=== PATIENT | female | born 1995 | race Caucasian/White ===

== ENCOUNTER → 2018-06-30 12:30 | Outpatient (CLI) | payer MEDICAID, SELFPAY | PROVIDERS: Family Provider Family Medicine; PCP Family Medicine; Visit Provider Obstetrics & Gynecology | DX: Z30.9 Encounter for contraceptive management, unspecified (principal); N83.209 Unspecified ovarian cyst, unspecified side | CPT/HCPCS: 76830; 76856; 93976 ==

== ENCOUNTER → 2019-10-05 14:53 | Outpatient (CLI) | payer MEDICAID, SELFPAY ==
[2019-10-05 10:04] VITALS: BMI 21.8
[2019-10-10 15:58] LABS: HPV Reflexed? NOT INDICATED
== END ==
PROVIDERS: Family Provider Family Medicine; Visit Provider Obstetrics & Gynecology
DX: Z12.4 Encounter for screening for malignant neoplasm of cervix (principal)
CPT/HCPCS: 88175; G0145

== ENCOUNTER → 2020-03-27 | Outpatient (CLI) | payer MEDICAID, SELFPAY ==
[2020-03-27 15:09] VITALS: BMI 22.3
[2020-03-27 21:12] LABS: Chlamydia Trachomatis by PCR Negative (Negative); Neisserai gonorrhoeae by PCR Negative (Negative); Probe Check PASS; Sample Adequacy Control PASS; Specimen Processing Control PASS
== END | disposition home or self-care (01) ==
LOC: LABSPEC 16:13
PROVIDERS: Referring Provider Nurse Practitioner Women's Health; Visit Provider Nurse Practitioner Women's Health
DX: R10.2 Pelvic and perineal pain (principal)
CPT/HCPCS: 87491; 87591

== ENCOUNTER → 2020-04-23 14:24 | Outpatient (CLI) | payer MEDICAID, SELFPAY ==
[2020-03-27 15:09] VITALS: BMI 22.3
--- NOTE | 2020-04-23 14:25 | US_ITS ---
STUDY: ULTRASOUND OF THE FEMALE PELVIS - COMPLETE REASON FOR EXAM: Female, 25 years old. PAIN IUD X 1 MONTH LMP: 04/02/2020 TECHNIQUE: Transabdominal and Transvaginal TECHNICAL QUALITY: Adequate. COMPARISON: 06/30/2018 FINDINGS: The uterus is anteverted and is in a midline position. The uterus measures 9 x 4.9 x 4.1 cm. Normal uterine cervix. The endometrium measures 7.7 mm in thickness, and is hyperechoic. There is no demonstrated endometrial mass. There is no demonstrated myometrial mass. I.U.D. - an IUD is in place. Images demonstrate that the inferior portion of the IUD could be marginally protruding into the anterior myometrium. The right ovary is visualized. The right ovary measures 3.4 x 2.6 x 2.1 cm. There is no right ovarian cyst or ovarian mass. There is no visualized right adnexal mass or complex lesion. There is normal arterial and normal venous vascularity. The left ovary is visualized. The left ovary measures 2.5 x 1.7 x 1.5 cm. There is no left ovarian cyst or ovarian mass. There is no visualized left adnexal mass or complex lesion. There is normal arterial and normal venous vascularity. There is no fluid in the cul-de-sac. The pre void volume of the bladder was ml. The post void volume of the bladder was ml. Polycystic ovary disease: No. US/Transvaginal Non- IMPRESSION: Images demonstrate that the inferior portion of the IUD could be marginally protruding into the anterior myometrium. The ovaries are unremarkable. No free fluid is seen. Electronically Signed: Akbar Raza MD at 15:49 EDT Tel , Service support ,
--- NOTE | 2020-04-23 14:25 | US_ITS ---
STUDY: ULTRASOUND OF THE FEMALE PELVIS - COMPLETE REASON FOR EXAM: Female, 25 years old. PAIN IUD X 1 MONTH LMP: 04/02/2020 TECHNIQUE: Transabdominal and Transvaginal TECHNICAL QUALITY: Adequate. COMPARISON: 06/30/2018 FINDINGS: The uterus is anteverted and is in a midline position. The uterus measures 9 x 4.9 x 4.1 cm. Normal uterine cervix. The endometrium measures 7.7 mm in thickness, and is hyperechoic. There is no demonstrated endometrial mass. There is no demonstrated myometrial mass. I.U.D. - an IUD is in place. Images demonstrate that the inferior portion of the IUD could be marginally protruding into the anterior myometrium. The right ovary is visualized. The right ovary measures 3.4 x 2.6 x 2.1 cm. There is no right ovarian cyst or ovarian mass. There is no visualized right adnexal mass or complex lesion. There is normal arterial and normal venous vascularity. The left ovary is visualized. The left ovary measures 2.5 x 1.7 x 1.5 cm. There is no left ovarian cyst or ovarian mass. There is no visualized left adnexal mass or complex lesion. There is normal arterial and normal venous vascularity. There is no fluid in the cul-de-sac. The pre void volume of the bladder was ml. The post void volume of the bladder was ml. Polycystic ovary disease: No. US/Pelvic (Non ) IMPRESSION: Images demonstrate that the inferior portion of the IUD could be marginally protruding into the anterior myometrium. The ovaries are unremarkable. No free fluid is seen. Electronically Signed: Akbar Raza MD at 15:49 EDT Tel , Service support ,
== END ==
PROVIDERS: PCP Family Medicine; Referring Provider Nurse Practitioner Women's Health; Visit Provider Nurse Practitioner Women's Health
DX: R10.2 Pelvic and perineal pain (principal)
CPT/HCPCS: 76830; 76856

== ENCOUNTER → 2020-06-10 14:28 | Outpatient (CLI) | payer MEDICAID, SELFPAY ==
[2020-04-25 10:34] VITALS: BMI 22.3
[2020-06-10 15:23] LABS: hCG Titer Quant., Serum 19472 mIU/mL (1-3)
== END ==
PROVIDERS: PCP Family Medicine; Referring Provider Obstetrics & Gynecology; Visit Provider Obstetrics & Gynecology
DX: N91.2 Amenorrhea, unspecified (principal)
CPT/HCPCS: 36415; 84702

== ENCOUNTER 2020-06-18 13:25 | Day surgery (SDC) | payer MEDICAID, SELFPAY ==
[2020-06-18] VITALS (8 sets, daily range): BP systolic 100–106; BP diastolic 47–72; PULSE 59–84; RESP 15–16; TEMP 36.3–37.1; O2SAT 96–100; BMI 22.3; BMI 22.0
--- NOTE | 2020-06-18 14:00 | HP.PCM_ITS ---
- Problem List (1) Lichen sclerosus Status: Acute Comment: biopsy done (2) Lichen sclerosus Status: Acute (3) Missed Status: Acute Comment: declines surgery. plan cytotec and fu in 1 week for repeat US, and follow HCGs until negative, plan IUD placement afterwards. (4) Mood swings Status: Acute History and Physical Date of Admission: 06/18/20 Intake Vital Signs 06/18/20 Height 5 ft 5.5 in 06/18/20 Weight: 133 lb 4 oz 06/18/20 BMI 21.8 06/18/20 BP 120/70 Intake Visit Reasons: rescan per SM, miscarriage fu Enrollment Management Manager Required: No Is patient in pain?: No Allergies escitalopram [From Lexapro] Adverse Reaction (Severe, Verified 06/18/20 12:57) slow heart rate Medications lamotrigine 200 mg tablet 200 mg PO DAILY 10/05/19 [History Confirmed 06/18/20] Post menopausal: No : No PFSH Medical History Mood swings (Acute) Lichen sclerosus (Acute) ADHD (Acute) Anomalous atrioventricular excitation (Acute) Chlamydia (Acute) Fracture (Acute) Surgical History ablation (Resolved) Family History Grandmother Heart disease Hypertension Asthma CVA (cerebral vascular accident) Lung cancer Grandfather Heart disease Hypertension Father Abuse, drug or alcohol Social History (Updated 06/18/20 @ 13:[address] Lila John MD) Smoking Status: Former smoker alcohol intake: current details: occasionally substance use type: does not use caffeine: Yes what type of physical activity do you participate in: weight training frequency: 1-2 times per week seatbelt use: always do you feel safe at home: Yes additional social history: Single- Works at [employer] HPI rescan per SM, miscarriage fu: Details: HEATHER GIVENS is a 25 year old who presents for fu of early miscarriage. she is having bleeding inctermittently and took two doses of cytotec but still has a collapsing sac with retained products. she denies any fevers. Pregancy History 3 Elective abortions Hx Para 3 Spontaneous abortions Hx # Term Pregnancies 3 Ectopic pregnancies Hx # Pregnancies Multiple births # of living children 3 Past Pregnancies Del. Date Name GA/Weeks Outcome Route Bth Weight Infant Gen Labor Lgth Anesthesia Del Locatn Provider FOB 07/23/11 Jonas live - full term 7 lbs 9 oz Fema le 2 hours epidural [place] 11/06/12 Rich 39 live - full term 7 lbs 5 oz Male 5 hours epidural [place] 03/12/17 Santhosh 39 live - full term 7 lbs 8 oz Fema le 4 hours epidural [facility] ROS Const Constitutional: Denies fatigue, fever(s), headache(s), increased appetite, poor appetite, weight gain or weight loss Cardio Card: Denies chest pain Resp Resp: Denies cough or dyspnea GI GI: Reports as per HPI; denies abdominal pain, constipation, nausea or vomiting : Reports as per HPI; denies difficulty urinating, painful urination, nipple discharge, urinary frequency, urinary incontinence, urinary hesitancy, urinary urgency, vaginal discharge, vaginal dryness, vaginal odor or vaginal itching Skin Skin/Breast: Denies change in hair, breast lump, breast pain, breast skin changes or nipple discharge Exam Const General: cooperative, healthy appearing, comfortable, no acute distress, well developed Nutritional Appearance: average body habitus Orientation: alert [facility] Head: normal to inspection, normocephalic Neck Neck: normal visual inspection, trachea midline Thyroid: thyroid normal Resp Effort & Inspection: normal respiratory effort GI Inspection: normal to inspection, non-distended Palpation: soft, no hepatosplenomegaly General: bladder normal to palpation External Female Exam: normal external appearance, normal appearance of the urethra Urethra: normal appearance of the urethra, normal palpation Speculum Exam - Vagina: normal appearance of the vagina, vaginal bleeding Speculum Exam - Cervix: normal appearance of the cervix, nontender Bimanual Exam- Vagina & Uterus: normal bimanual exam, uterine size normal, bladder normal to palpation, uterine shape normal, No cervical tenderness, uterine mobility normal, uterine consistency normal, normal cervical palpation, uterus non-tender Bimanual Exam- Adnexa, other: normal adnexae, adnexae mobile, no adnexal masses, pelvic support normal Pelvic Support: normal OB/External & Speculum: vaginal bleeding Speculum Exam: vaginal bleeding Skin General: no rashes or lesions noted Assessment & Plan Problems 1. Missed O02.1 declines surgery. plan cytotec and fu in 1 week for repeat US, and follow HCGs until negative, plan IUD placement afterwards. Plan failed medical intervention plan suction d and c for retained products. After discussing the patient's diagnosis and treatment plan options, patient wishes to proceed with surgical management. I have discussed with the patient the risks, benefits, and alternatives of the procedure which include but are not limited to risks of anesthesia, bleeding, infection, possible damage to bowel, bladder, or surrounding vasculature which could lead to additional surgery to evaluate any complications. Patient agrees to procedure and wishes to proceed. ACOG/uptodate references given for additional information regarding procedure. Coding Level of Care Code Off vis,est,level 4 Diagnoses Missed O02.1
[2020-06-18 14:08] LABS: Hematocrit 35.9 % (37-47); Hemoglobin 12.5 g/dL (12.0-15.0); Mean Corp Hgb Conc 34.8 g/dL (32-36); Mean Corpuscular Hgb 31.5 pg (27.0-32.0); Mean Corpuscular Volume 90.4 fL (81-99); Mean Platelet Vol. 11.9 fl (6.2-12.0); Platelet Count 108 K/mm3 (150-450); RBC Distribution Width CV 11.9 % (11.6-14.6); RBC Distribution Width SD 39.3 fl (35.1-43.9); Red Blood Count 3.97 M/mm3 (4.2-5.4); White Blood Count 4.5 K/mm3 (4.4-11.0)
[2020-06-18] MEDS: Doxycycline 100 MG CAPSULE PO (14:15)
[2020-06-18] MEDS: Lactated Ringers 1,000 ML 100 ML IV (14:21)
--- NOTE | 2020-06-18 14:30 | POC_PTH ---
PATIENT: HEATHER GIVENS LOC: [facility] [place][id number] AGE/SX: 25/F ROOM: RE06/18/[address]: Dr. Lila John MD : 1995 BED: DIS: 06/18/2020 SPEC #: [id number] RECD: 06/19/20 08:08 STATUS: JORGE NANETTE #: [id number] LORRAINE: 06/18/20 14:[address]: Lila John DEPT: SURGICAL PATHOLOGY RECD BY: Suhail Johansen ENTERED: 06/19/20 09:33 SP TYPE: PROD CONC OTHR DR: Dr. Archie Marcum III, MD Tissues: Product of conception, NOS Procedures: Surgery Specimen Level IV HEADER OPERATION: Dilation and curettage, suction, insertion of Lexii IUD PRE-OP DIAGNOSIS: Missed TISSUE SUBMITTED: Products of conception MICROSCOPIC DIAGNOSIS Products of conception: [place]id[place], gestational endometrium and immature chorionic villi (products of conception). SJ:shen 06/20/20 MICROSCOPIC DESCRIPTION Slides are reviewed. GROSS DESCRIPTION Received in fixative is one container labeled with the patient's name and designated products of conception. The specimen consists of multiple irregular fragments of syed-pink soft tissue that in aggregate measure 7 x 6 x 2 cm. tissue is not identified. Tugger Operator tissue is submitted in two cassettes. / SANA:shen 06/19/20 TC:5 CPT: 05439
--- NOTE | 2020-06-18 15:18 | PCM.OPRPT ---
Problem List (1) Lichen sclerosus Status: Acute Comment: biopsy done (2) Lichen sclerosus Status: Acute (3) Missed Status: Acute Comment: declines surgery. plan cytotec and fu in 1 week for repeat US, and follow HCGs until negative, plan IUD placement afterwards. (4) Mood swings Status: Acute Report of Operation Date of Procedure: 06/18/20 Pre-Operative Diagnosis: missed failed medical management, desires IUD Post-Operative Diagnosis: same Surgery/Procedure Performed:: suction d and c Description of Surgical Findings:: 9 cm uterus Type of Anesthesia:: Local MAC Special Medications: april Specimen's removed: poc Drains: none Estimated Blood Loss (mL): 50 Fluids Replaced: crystalloid Description of Procedure: Patient was taken the operating room and placed under MAC local anesthesia. She was prepped and draped in normal sterile fashion in the dorsolithotomy position. Paracervical block was performed with 1% lidocaine and cervix dilated to allow passage of a 9 mm sound based on uterine length of 9 cm. Multiple passes were made with the suction curette and then sharp curettage was performed to confirm complete removal of products of conception. April IUD was then placed without difficulty. Uterus sounded to 9 cm for placement. Trimmed to 3 cm and tenaculum removed and excellent hemostasis noted. Patient was given Toradol and awoken and taken recovery in stable condition. Grafts/Implants Used: april - Complications none Multi Select Codes - Urinary/Genital Urinary/Genital CPT Codes: 82883 Insert IUD, 76514 Surg Trtmt missed Ab 1TM
[2020-06-18] MEDS: HYDROcodone Bitartrate/Apap 5/325 Tablet PO (16:29)
--- NOTE | 2020-06-18 16:35 | DCINST_ITS ---
Discharge Diet: No Restrictions Discharge Activity: Return to Normal Activity, May Shower, May Take a Tub Bath Allergies/Adverse Reactions: Allergies escitalopram [From Lexapro] Adverse Reaction (Severe, Verified 06/18/20 14:01) slow heart rate Medications to take at Discharge lamotrigine 200 mg tablet 200 mg PO DAILY 10/05/19 Primary Care Physician: Archie Marcum III, MD [Primary Care Provider] - Test Results: Test results from this visit will be discussed in further detail at your follow- up appointment, if applicable. Please Follow Up With: Lila John MD - [phone]
== END 2020-06-18 16:51 | disposition home or self-care (01) ==
LOC: SDC 13:27 → AC 13:29
PROVIDERS: PCP Family Medicine; Referring Provider Obstetrics & Gynecology; Visit Provider Obstetrics & Gynecology
PROC: (CPT 59820; principal; 2020-06-18 14:15)
DX: O02.1 Missed abortion (principal); L90.0 Lichen sclerosus et atrophicus; Z87.891 Personal history of nicotine dependence
CPT/HCPCS: 59820; 36415; 85027; 86850; 86900; 86901; 88305; J7120; J2405

== ENCOUNTER 2021-02-26 12:07 | Outpatient (RCR) | payer BC, SELFPAY ==
[2020-06-18 14:02] VITALS: BMI 22.0
== END 2021-04-02 23:59 ==
LOC: IMMUN 12:07
PROVIDERS: PCP Family Medicine; Referring Provider Family Medicine; Visit Provider Family Medicine
DX: Z23 Encounter for immunization (principal)
CPT/HCPCS: 0001A; 91300

== ENCOUNTER → 2021-08-07 11:17 | Outpatient (CLI) | payer BC, MEDICAID, SELFPAY ==
[2021-08-07 11:44] LABS: Absolute Lymphocyte Count 1.45 X10^3/uL (0.83-4.51); Basophil# 0.01 X10^3/uL; Basophil% 0.3 % (0-1); Eosinophil# 0.07 X10^3/uL; Eosinophils% 1.8 % (0-5); Hematocrit 40.9 % (37-47); Hemoglobin 13.9 g/dL (12.0-15.0); Lymphocyte # 1.45 X10^3/ul (0.83-4.51); Mean Corpuscular Hgb 31.3 pg (27.0-32.0); Mean Corpuscular Volume 92.1 fL (81-99); Mean Platelet Vol. 11.5 fl (6.2-12.0); Monocyte# 0.26 X10^3/uL; Monocyte% 6.8 % (0-10); NRBC Flagged by Analyzer 0 % (0-5); Neutrophil # 2.02 X10^3/uL (2.7-7.7); Neutrophil % 52.8 % (47-70); Platelet Count 111 K/mm3 (150-450); RBC Distribution Width CV 12.3 % (11.6-14.6); RBC Distribution Width SD 41.9 fl (35.1-43.9); Red Blood Count 4.44 M/mm3 (4.2-5.4); White Blood Count 3.8 K/mm3 (4.4-11.0)
[2021-08-07 12:11] LABS: Follicle Stimulating Hormone 2.9 mIU/mL; Prolactin 7.5 ng/mL; Thyroid Stim Hormone (TSH) 1.33 uIU/mL (0.358-3.74)
[2021-08-07 12:32] LABS: HIV - WCH Non-Reactive (Nonreactive)
[2021-08-11 12:07] LABS: HCV Quant. RNA PCR HCV Not Detected IU/mL (.)
[2021-08-11 15:35] LABS: HSV 1 IgG < 0.91 index (0.00-0.90); HSV 2 IgG < 0.91 index (0.00-0.90); Testosterone Free 3.3 pg/mL (0.0-4.2)
[2021-08-11 22:07] LABS: Chlamydia By Nucleic Acid AMP Negative (Negative); Gonococcus By Nucleic Acid AMP Negative (Negative)
[2021-08-12 17:15] LABS: 17-Hydroxyprogesterone 202 ng/dL (.)
== END ==
PROVIDERS: Referring Provider Obstetrics & Gynecology; Visit Provider Obstetrics & Gynecology
DX: Z11.3 Encounter for screening for infections with a predominantly sexual mode of transmission (principal); N91.4 Secondary oligomenorrhea
CPT/HCPCS: 36415; 82627; 83001; 83498; 84146; 84402; 84443; 85025; 86695; 86696; 86703; 87255; 87491; 87522; 87591; 82626

== ENCOUNTER → 2021-08-14 11:54 | Outpatient (CLI) | payer BC, MEDICAID, SELFPAY ==
[2021-08-14 12:07] LABS: Absolute Lymphocyte Count 1.83 X10^3/uL (0.83-4.51); Absolute Neutrophil Count 1.6 X10^3/uL (2.0-7.7); Basophil# 0.02 X10^3/uL; Basophil% 0.5 % (0-1); Eosinophil# 0.06 X10^3/uL; Eosinophils% 1.6 % (0-5); Hematocrit 37.8 % (37-47); Hemoglobin 13.2 g/dL (12.0-15.0); Lymphocyte # 1.83 X10^3/ul (0.83-4.51); Lymphocyte % 48.5 % (19-41); Mean Corp Hgb Conc 34.9 g/dL (32-36); Mean Corpuscular Hgb 31.8 pg (27.0-32.0); Mean Corpuscular Volume 91.1 fL (81-99); Mean Platelet Vol. 11.6 fl (6.2-12.0); Monocyte# 0.24 X10^3/uL; Monocyte% 6.4 % (0-10); NRBC Flagged by Analyzer 0 % (0-5); Neutrophil # 1.61 X10^3/uL (2.7-7.7); Neutrophil % 42.7 % (47-70); Platelet Count 102 K/mm3 (150-450); RBC Distribution Width SD 39.8 fl (35.1-43.9); Red Blood Count 4.15 M/mm3 (4.2-5.4); White Blood Count 3.8 K/mm3 (4.4-11.0)
== END ==
PROVIDERS: Referring Provider Obstetrics & Gynecology; Visit Provider Obstetrics & Gynecology
DX: D72.819 Decreased white blood cell count, unspecified (principal)
CPT/HCPCS: 36415; 85025

== ENCOUNTER 2021-11-19 09:07 | Outpatient (CLI) | payer MEDICAID, SELFPAY | END 2021-11-19 23:59 | disposition short-term general hospital (02) | LOC: LABSPEC 11-20 09:09 | PROVIDERS: Visit Provider Nurse Practitioner Women's Health | DX: N76.0 Acute vaginitis (principal) | CPT/HCPCS: 87070; 87205 ==

== ENCOUNTER 2021-11-19 12:07 | Outpatient (CLI) | payer MEDICAID, SELFPAY ==
[2021-11-21 17:58] LABS: HSV 1 IgG < 0.91 index (0.00-0.90); HSV 2 IgG < 0.91 index (0.00-0.90)
== END 2021-11-19 23:59 | disposition short-term general hospital (02) ==
LOC: LAB 12:11
PROVIDERS: Referring Provider Nurse Practitioner Women's Health; Visit Provider Nurse Practitioner Women's Health
DX: N76.0 Acute vaginitis (principal); Z20.2 Contact with and (suspected) exposure to infections with a predominantly sexual mode of transmission
CPT/HCPCS: 36415; 86695; 86696; 87070; 87186; 87205

== ENCOUNTER 2021-12-25 09:58 | Outpatient (CLI) | payer MEDICAID, SELFPAY ==
[2021-12-25 11:46] LABS: HIV - WCH Non-Reactive (Nonreactive)
[2021-12-26 19:07] LABS: HCV Quant. RNA PCR HCV Not Detected IU/mL (.)
[2021-12-26 19:14] LABS: HSV 1 IgG < 0.91 index (0.00-0.90); HSV 2 IgG < 0.91 index (0.00-0.90)
[2021-12-30 00:06] LABS: Chlamydia By Nucleic Acid AMP Negative (Negative)
[2021-12-30 11:53] LABS: Gonococcus By Nucleic Acid AMP Negative (Negative)
== END 2021-12-25 23:59 | disposition home or self-care (01) ==
PROVIDERS: Referring Provider Obstetrics & Gynecology; Visit Provider Obstetrics & Gynecology
DX: Z11.3 Encounter for screening for infections with a predominantly sexual mode of transmission (principal)
CPT/HCPCS: 36415; 86695; 86696; 86703; 87491; 87522; 87591

== ENCOUNTER → 2022-05-20 | Outpatient (CLI) | payer MEDICAID, SELFPAY ==
[2022-05-20 10:36] LABS: Absolute Lymphocyte Count 1.21 X10^3/uL (0.83-4.51); Absolute Neutrophil Count 2.5 X10^3/uL (2.0-7.7); Basophil# 0.01 X10^3/uL; Basophil% 0.2 % (0-1); Eosinophil# 0.11 X10^3/uL; Eosinophils% 2.7 % (0-5); Hematocrit 37.9 % (37-47); Hemoglobin 13.2 g/dL (12.0-15.0); Lymphocyte # 1.21 X10^3/ul (0.83-4.51); Lymphocyte % 29.6 % (19-41); Mean Corp Hgb Conc 34.8 g/dL (32-36); Mean Corpuscular Hgb 32.9 pg (27.0-32.0); Mean Corpuscular Volume 94.5 fL (81-99); Mean Platelet Vol. 11.6 fl (6.2-12.0); Monocyte# 0.24 X10^3/uL; Monocyte% 5.9 % (0-10); NRBC Flagged by Analyzer 0 % (0-5); Neutrophil # 2.51 X10^3/uL (2.7-7.7); Neutrophil % 61.4 % (47-70); Platelet Count 117 K/mm3 (150-450); RBC Distribution Width CV 12.3 % (11.6-14.6); RBC Distribution Width SD 43.3 fl (35.1-43.9); Red Blood Count 4.01 M/mm3 (4.2-5.4); White Blood Count 4.1 K/mm3 (4.4-11.0)
[2022-05-20 11:32] LABS: HIV - WCH Non-Reactive (Nonreactive); Syphilis Antibodies Non-reactive
[2022-05-21 12:43] LABS: HSV 1 IgG < 0.91 index (0.00-0.90); HSV 2 IgG < 0.91 index (0.00-0.90)
[2022-05-21 21:06] LABS: Chlamydia By Nucleic Acid AMP Negative (Negative)
[2022-05-21 21:52] LABS: Gonococcus By Nucleic Acid AMP Negative (Negative)
== END | disposition home or self-care (01) ==
LOC: PAVLAB 10:20
PROVIDERS: Referring Provider Nurse Practitioner Women's Health; Visit Provider Nurse Practitioner Women's Health
DX: Z20.2 Contact with and (suspected) exposure to infections with a predominantly sexual mode of transmission (principal)
CPT/HCPCS: 36415; 85025; 86695; 86696; 86703; 86780; 87491; 87591

== ENCOUNTER → 2022-12-17 | Outpatient (CLI) | payer MEDICAID, SELFPAY ==
[2022-12-17 17:26] LABS: HIV - WCH Non-Reactive (Nonreactive); Hepatitis C Antibody Non-Reactive (Nonreactive); Syphilis Antibodies Non-reactive
[2022-12-20 09:21] LABS: HSV 1 IgG < 0.91 index (0.00-0.90); HSV 2 IgG < 0.91 index (0.00-0.90)
[2022-12-21 22:07] LABS: Chlamydia By Nucleic Acid AMP Negative (Negative)
[2022-12-21 22:43] LABS: Gonococcus By Nucleic Acid AMP Negative (Negative)
[2022-12-24 18:19] LABS: HPV Reflexed? NOT INDICATED
== END | disposition home or self-care (01) ==
PROVIDERS: Referring Provider Nurse Practitioner Women's Health; Visit Provider Nurse Practitioner Women's Health
DX: Z12.4 Encounter for screening for malignant neoplasm of cervix (principal); Z11.3 Encounter for screening for infections with a predominantly sexual mode of transmission; Z20.2 Contact with and (suspected) exposure to infections with a predominantly sexual mode of transmission
CPT/HCPCS: 36415; 86695; 86696; 86703; 86780; 86803; 87491; 87591; 88175; G0145

== ENCOUNTER 2023-04-21 15:11 | Emergency (ER) | payer MEDICAID, SELFPAY ==
[2023-04-21 15:12] VITALS: BP 124/72; PULSE 106; RESP 18; TEMP 36.4; O2SAT 99; BMI 21.7
--- NOTE | 2023-04-21 15:23 | EX.ED.DYSGE1 ---
HPI History of Present Illness Chief Complaint: Sore Throat Informant: patient Onset/Context/Timing Onset: Days (6 days) Context: Gradual Onset Current Severity: Moderate Maximum Severity: Moderate Narrative Narrative: Patient presents with 6-day history of sore throat. She states she started to get dry scratchy throat 6 days ago over the past 3 days has felt like her throat is more swollen. Today pain was significantly worse and [facility] this morning. She had a rapid strep test that was negative. A throat culture and Chlamydia culture were sent as patient did recently have oral sex. She states she had a temperature of 102 this morning and this concerned her. [facility] Medical History ADHD Anomalous atrioventricular excitation Encounter for contraceptive management Fracture Lichen sclerosus Mood swings Home Medications clobetasol 0.05 % topical cream 1 applic topical .COMPLEX #15 grams 05/20/22 [Rx Last Taken Unknown] desogestrel 0.15 mg-ethinyl estradiol 0.03 mg tablet (Apri) 1 tab PO QDAY #84 tabs 05/20/22 [Rx Last Taken Unknown] levonorgestrel 14 mcg/24 hrs (3 yrs) 13.5 mg intrauterine device (Lexii) 1 device intrauterine ONCE 05/20/22 [History Last Taken Unknown] mirtazapine 15 mg tablet 15 mg PO QHS 12/17/22 [History Last Taken Unknown] multivitamin 1 tab PO DAILY 12/17/22 [History Last Taken Unknown] prednisone 20 mg tablet 40 mg (2 x 20 mg) PO DAILY #10 tabs 04/21/23 [Rx Last Taken Unknown] Allergy/AdvReac Type Severity Reaction Status Date / Time escitalopram [From Lexapro] AdvReac Severe slow heart Verified 04/21/23 15:11 rate Family History Grandmother Heart disease Hypertension Asthma CVA (cerebral vascular accident) Lung cancer Grandfather Heart disease Hypertension Father Abuse, drug or alcohol Surgical History H/O cardiac radiofrequency ablation Social History Smoking Status: Never smoker alcohol intake: current details: occasionally substance use type: does not use caffeine: Yes what type of physical activity do you participate in: weight training frequency: 1-2 times per week seatbelt use: always do you feel safe at home: Yes additional social history: Single- Works [employer] ROS ROS ED Constitutional Constitutional ED: Reports fever(s); Denies chills Eyes Eyes: Denies change in vision or discharge from eye(s) ENT ENT ED: Reports sore throat; Denies discharge from eye(s) or rhinorrhea Cardiovascular Cardiovascular: Denies chest pain Respiratory/Chest Respiratory/Chest: Denies cough or dyspnea Gastrointestinal Gastrointestinal: Denies abdominal pain, nausea or vomiting Genitourinary Genitourinary ED: Denies dysuria Musculoskeletal Musculoskeletal: Denies back pain or extremity pain Integumentary Denies Abrasions or rash Neurologic Neurologic: Denies headache(s) or weakness Allergic/Immunologic Allergic/Immunologic ED: Denies lip swelling or urticaria EXAM Physical Exam Narrative Exam Narrative: Patient sitting upright in bed no acute distress. Speaks with a strong voice and is tolerating secretions well. Const Vital Signs: 04/21/23 15:12 Temperature 97.6 F L Temperature Source Temporal Pulse Rate 106 H Respiratory Rate 18 Blood Pressure 124/72 H Blood Pressure Mean 89 Pulse Ox 99 Oxygen Delivery Method Room Air Positive well nourished and well developed General Appearance ED: well developed HEENT Reports moist mucous membranes HEENT Narrative: 3+ bilateral tonsils. Uvula is midline. No exudate noted. Tolerating secretions well. Eyes PERRL and EOMs intact bilaterally Neck Neck Narrative: Right cervical lymphadenopathy noted. Chest Wall inspection of chest normal and palpation of chest normal Resp normal respiratory effort and clear to auscultation bilaterally Cardio regular rate and regular rhythm GI normal to inspection, nondistended, normoactive bowel sounds Extremity normal to inspection Neuro oriented x3 and no sensory deficits noted Motor Exam: strength 5/5 throughout Psych mental status grossly normal Skin no rashes or lesions noted MDM MDM MDM Narrative Medical decision making narrative: Reviewed the patient's visit from [facility] with her. Strep test was already obtained and negative. Throat cultures are currently pending and she was advised these will take 48 hours. I will obtain a soft tissue neck x-ray at this time to evaluate for airway narrowing or shift. Radiography Diagnostic Testing: Clinical Impression(s) from Imaging Studies Soft Tissue Neck X-Ray 04/21/23 15:25 IMPRESSION: Normal x-ray soft tissue neck. Electronically Signed: Jose Alejandro Archuleta MD at 15:40 EDT , Treatment and Re-Evaluation :: Soft tissue neck x-ray per my interpretation reveals no airway narrowing. Radiology interpretation is reviewed and agrees. On repeat evaluation patient's resting with the head of her bed elevated approximately 30 degrees. She is in no distress. She will be given a 5-day burst of steroids and was instructed to eat with the steroids that did not upset her stomach. This should help with the swelling and pain. Return instructions are given. Discharge Plan Triage Chief Complaint: Sore Throat ED Provider: Jami Luz Dx/Rx/DC Orders Clinical Impression: Acute pharyngitis Instructions: ED Pharyngitis, Report Pending Prescriptions: New prednisone 20 mg tablet 40 mg PO DAILY Qty: 10 0RF No Action Lexii 14 mcg/24 hrs (3 yrs) 13.5 mg intrauterine device 1 device intrauterine ONCE Rx Instructions: as a single dose desogestrel-ethinyl estradiol [Apri] 0.15-0.03 mg tablet 1 tab PO QDAY Qty: 84 4RF clobetasol 0.05 % cream 1 applic topical .COMPLEX Qty: 15 1RF Rx Instructions: 1 applic topically up to 7 days prn with symptoms; multivitamin Tablet 1 tab PO DAILY mirtazapine 15 mg tablet 15 mg PO QHS Primary Care Provider: Deidre Thakkar NP Referrals: Care Physician,No Primary [Non-Staff] - Deidre Thakkar [employer]PERINTENDENT [employer], SUPERINT[employer]-C [Primary Care Provider] - 5-7 Days Disposition Disposition: Home, Self Care
--- NOTE | 2023-04-21 15:25 | RAD_ITS ---
STUDY: X-RAY - SOFT TISSUE NECK REASON FOR EXAM: Female, 28 years old. Six-day history of sore throat. TECHNIQUE: 2 view(s) of the neck were obtained. COMPARISON: None. FINDINGS: Normal visualized nasopharynx, oropharynx, hypopharynx. Normal epiglottis. Normal visualized subglottic tracheal air column. Normal prevertebral soft tissue structures. Normal visualized osseous structures. The soft tissue structures are unremarkable. RAD/Neck for Soft Tissue IMPRESSION: Normal x-ray soft tissue neck. Electronically Signed: Jose Alejandro Archuleta MD at 15:40 EDT ,
[2023-04-21 16:33] VITALS: RESP 18
== END 2023-04-21 16:34 | disposition home or self-care (01) ==
PROVIDERS: Emergency Provider Emergency Medicine; PCP Nurse Practitioner Family; Visit Provider Emergency Medicine
DX: J02.9 Acute pharyngitis, unspecified (principal); Z20.2 Contact with and (suspected) exposure to infections with a predominantly sexual mode of transmission; Z79.52 Long term (current) use of systemic steroids
CPT/HCPCS: 70360; 87070; 99282

== ENCOUNTER → 2023-04-21 | Outpatient (CLI) | payer MEDICAID, SELFPAY | END | disposition home or self-care (01) | LOC: LABSPEC 10:36 | PROVIDERS: Referring Provider Physician Assistant Surgical; Visit Provider Physician Assistant Surgical | DX: Z20.2 Contact with and (suspected) exposure to infections with a predominantly sexual mode of transmission (principal) | CPT/HCPCS: 87070 ==

== ENCOUNTER → 2023-04-23 | Outpatient (CLI) | payer MEDICAID, SELFPAY ==
[2023-04-23 16:00] LABS: HIV - WCH Non-Reactive (Nonreactive); Syphilis Antibodies Non-reactive
[2023-04-26 21:07] LABS: Chlamydia By Nucleic Acid AMP Negative (Negative); Gonococcus By Nucleic Acid AMP Negative (Negative)
== END | disposition home or self-care (01) ==
PROVIDERS: PCP Nurse Practitioner Family; Referring Provider Advanced Practice Midwife; Visit Provider Advanced Practice Midwife
DX: Z11.3 Encounter for screening for infections with a predominantly sexual mode of transmission (principal)
CPT/HCPCS: 36415; 86703; 86780; 87491; 87591

== ENCOUNTER → 2023-06-03 | Outpatient (CLI) | payer MEDICAID, SELFPAY ==
[2023-06-06 07:07] LABS: Chlamydia By Nucleic Acid AMP Negative (Negative); Gonococcus By Nucleic Acid AMP Negative (Negative)
== END | disposition home or self-care (01) ==
LOC: LABSPEC 11:16
PROVIDERS: PCP Nurse Practitioner Family; Referring Provider Obstetrics & Gynecology; Visit Provider Obstetrics & Gynecology
DX: Z20.2 Contact with and (suspected) exposure to infections with a predominantly sexual mode of transmission (principal)
CPT/HCPCS: 87491; 87591

== ENCOUNTER → 2023-08-24 | Outpatient (CLI) | payer MEDICAID, SELFPAY ==
[2023-08-26 08:11] LABS: Chlamydia By Nucleic Acid AMP Negative (Negative); Gonococcus By Nucleic Acid AMP Negative (Negative)
== END | disposition home or self-care (01) ==
LOC: LABSPEC 09:55
PROVIDERS: PCP Nurse Practitioner Family; Referring Provider Nurse Practitioner Women's Health; Visit Provider Nurse Practitioner Women's Health
DX: Z11.3 Encounter for screening for infections with a predominantly sexual mode of transmission (principal); N89.8 Other specified noninflammatory disorders of vagina; Z20.2 Contact with and (suspected) exposure to infections with a predominantly sexual mode of transmission
CPT/HCPCS: 87070; 87205; 87491; 87591

== ENCOUNTER → 2023-11-02 | Outpatient (CLI) | payer MEDICAID, SELFPAY ==
--- OUTSIDE RECORDS SUMMARY | 2023-11-02 11:35 | XMS RPT_ITS | CCD ---
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 [facility] Diagnosis Routine physical examination- Primary Routine general medical examination at a health care facility No appetite Anorexia Hx of dislocation of shoulder Personal history of other musculoskeletal disorders documented [facility] this [facility] Diagnosis Shoulder dislocation, recurrent, right- Primary Chronic right shoulder pain Pain in joint, shoulder region documented in this encounter [facility] Summary Purpose Family History No Family History Records FoundNo Family History Records FoundNo Family History Records Found Advance Directives No Advanced Directives Records FoundNo Advanced Directives Records FoundNo Advanced Directives Records Found Reason for Referral Specialty Diagnoses / Procedures Referred By Lizbeth goodson Referred To Contact [facility] Diagnoses Hx of dislocation of shoulder Procedures CONSULT TO PHYSICAL THERAPY PHYSICAL THERAPY EVALUATION HIGH COMPLEX 45 MINS [employer], SAÚL Sykes.[employer] [address] [place] [address] [facility] [address] [place] [address] Referral ID Status Reason Start Date Expiration Date Visits Requested Visits Authorized [id number] Pending Review Auto-Generat ed Referral 02/24/2023 02/24/2024 1 1 Specialty Diagnoses / Procedures Referred By Lizbeth goodson Referred To Contact [facility] Diagnoses Chronic right shoulder pain Shoulder dislocation, recurrent, right Procedures MRI SHOULDER WO IVCON RIGHT MRI ANY JT UPPER EXTREMITY W/O CONTRAST MATRL Jim Davis MD [address] [place] [address] Mr [facility] Referral ID Status Reason Start Date Expiration Date Visits Requested Visits Authorized [id number] Pending Review Auto-Generat ed Referral 04/19/2023 05/18/2024 1 1 Additional Source Comments INFORMATION SOURCE (unrecogn ized section and content) DATE CREATED AUTHOR AUTHOR'S ORGANIZ ATION 10/23/2020 [facility] DATE CREATED AUTHOR AUTHOR'S ORGANIZ ATION 04/23/2023 [facility] Source Comments (unrecognize d section and content) In the event this informatio n is protected by the Federal Confidentiality of Alcohol and Drug Abuse Patient Records regulations: The Federal rules restrict any use of the information to criminally investigate or prosecute any alcohol or drug abuse patient.[facility] the event this information is protected by the Federal Confidentiality of Alcohol and Drug Abuse Patient Records regulations: The Federal rules restrict any use of the information to criminally investigate or prosecute any alcohol or drug abuse patient.[facility] the event this information is protected by the Federal Confidentiality of Alcohol and Drug Abuse Patient Records regulations: The Federal rules restrict any use of the information to criminally investigate or prosecute any alcohol or drug abuse patient.[facility] the event this information is protected by the Federal Confidentiality of Alcohol and Drug Abuse Patient Records regulations: The Federal rules restrict any use of the information to criminally investigate or prosecute any alcohol or drug abuse patient.[facility] Reason for Visit (unrecogniz ed section and content) Reason Comments Yearly Exam Weight Problem Unable to keep weigh t on. No appetite. Reason Comments Results Reason Comments New Pain Specialty Diagnoses / Procedures Referred By Contkhris t Referred To Contact Orthopedics Diagnoses Chronic right shoulder pain Procedures CONSULT TO ORTHOPAEDICS OFFICE/OUTPATIENT NEW HIGH MDM 60-74 MINUTES Paulino Barker APRN.[employer] [address] [place] [address] Referral ID Status Reason Start Date Expiration Date V isits Requested Visits Authorized [id number] Closed PCP Requested Referral 03/18/2023 03/17/2024 1 1 Care Teams (unrecognized sec tion and content) Disbursing Officer Relationship Specialty Start Date End Date Colt Silvestre MD [address] [place], [place] [id number] PCP - General Family Medicine 08/27/21 Disbursing Officer Relationship Specialty Start Date End Date Colt Silvestre MD [address] [place], [place] [id number] PCP - General Family Medicine 08/27/21 Disbursing Officer Relationship Specialty Start Date End Date Colt Silvestre MD [address] [place] [address] PCP - General Family Medicine 08/27/21 FOR RECORDS PERTAINING TO PATIENTS WHO ARE OR HAVE BEEN ENROLLED IN A CHEMICAL DEPENDENCY/SUBSTANCEABUSE PROGRAM, SOME INFORMATION MAY BE OMITTED. This clinical summary was aggregated from multiple sources. Caution should be exercised in using it in the provision of clinical care. This summary normalizes information from multiple sources, and as a consequence, information in this document may materially change the coding, format and clinical context of patient data. In addition, data may be omitted in some cases. CLINICAL DECISIONS SHOULD BE BASED ON THE PRIMARY CLINICAL RECORDS. [facility] [employer] [facility]. provides no warranty or guarantee of the accuracy or completeness of information in this document.
[2023-11-02 14:13] LABS: HIV - WCH Non-Reactive (Nonreactive); Hepatitis C Antibody Non-Reactive (Nonreactive); Syphilis Antibodies Non-reactive
[2023-11-03 06:09] LABS: HSV 1 IgG < 0.91 index (0.00-0.90); HSV 2 IgG < 0.91 index (0.00-0.90)
[2023-11-04 05:08] LABS: Chlamydia By Nucleic Acid AMP Negative (Negative); Gonococcus By Nucleic Acid AMP Negative (Negative)
== END | disposition home or self-care (01) ==
PROVIDERS: PCP Nurse Practitioner Family; Referring Provider Nurse Practitioner Women's Health; Visit Provider Nurse Practitioner Women's Health
DX: L90.0 Lichen sclerosus et atrophicus (principal); Z20.2 Contact with and (suspected) exposure to infections with a predominantly sexual mode of transmission; N89.8 Other specified noninflammatory disorders of vagina
CPT/HCPCS: 36415; 86695; 86696; 86703; 86780; 86803; 87070; 87205; 87491; 87591

== ENCOUNTER → 2023-11-30 | Outpatient (CLI) | payer MEDICAID, SELFPAY ==
--- OUTSIDE RECORDS SUMMARY | 2023-11-30 17:04 | XMS RPT_ITS | CCD ---
Author Name Unknown Address [address] [place] [address] Organization [facility] Care Team Providers Care Highway Maintainer Name Role Phone HILDA REYES Attending HILDA [...] OXALATE] Drug Allergy 12-24-2017 Other: See Comments [facility] Medications Completed/Discontinued Medications Medication Drug Class(es) Dates [...] (4 sources) Patient encounter status; Translations: [Other terminal superintendent (current) drug therapy] Onset: 06-15-2016 06-15-2016 Episodic Other circulatory disease (4 sources) H/O: heart disorder; Translations: [Personal history of other diseases of the circulatory system] Onset: 08-13-2016 10-21-2021 Episodic Results Test Name Value Interpretation Reference Range Facil ity Vital Signs Date Time Vital Sign Value Performing Clinician Shar mayo 04-19-2023 13:20-0400 Body height 165.1 cm Jim Davis MD Work Phone: [facility] 04-19-2023 13:20-0400 Body weight 58.97 kg Jim Davis MD Work Phone: [facility] 02-24-2023 18:18-0400 Body height 162.4 cm Stefanie Podlogar ANTIQUE REPAIRER.GRAIN CLEANER AND TRANSFER OPERATOR Work Phone: [facility] 02-24-2023 18:18-0400 Body weight 62.23 kg Stefanie Podlogar ANTIQUE REPAIRER.GRAIN CLEANER AND TRANSFER OPERATOR Work Phone: [facility] 02-24-2023 18:18-0400 Diastolic blood pressure 70 mm[Hg] Stefanie Podlogar ANTIQUE REPAIRER.GRAIN CLEANER AND TRANSFER OPERATOR Work Phone: [facility] 02-24-2023 18:18-0400 Heart rate 74 /min Stefanie Podlogar ANTIQUE REPAIRER.GRAIN CLEANER AND TRANSFER OPERATOR Work Phone: [facility] 02-24-2023 18:18-0400 Respiratory rate 18 /min Stefanie Podlogar ANTIQUE REPAIRER.GRAIN CLEANER AND TRANSFER OPERATOR Work Phone: [facility] 02-24-2023 18:18-0400 SaO2% (BldA) [Mass fraction] 98 % Stefanie Podlogar ANTIQUE REPAIRER.GRAIN CLEANER AND TRANSFER OPERATOR Work Phone: [facility] 02-24-2023 18:18-0400 Systolic blood pressure 108 mm[Hg] Stefanie Podlogar ANTIQUE REPAIRER.GRAIN CLEANER AND TRANSFER OPERATOR Work Phone: [facility] 01-12-2023 19:32-0400 Body temperature 98.2 [degF] Maxine Frias ANTIQUE REPAIRER.GRAIN CLEANER AND TRANSFER OPERATOR Work Phone: [facility] 01-12-2023 19:32-0400 Body weight 64.86 kg Maxine Frias APRN.GRAIN CLEANER AND TRANSFER OPERATOR Work Phone: [facility] 01-12-2023 19:32-0400 Diastolic blood pressure 64 mm[Hg] Maxine Frias APRN.GRAIN CLEANER AND TRANSFER OPERATOR Work Phone: [facility] 01-12-2023 19:32-0400 Heart rate 90 /min Maxine Frias APRN.GRAIN CLEANER AND TRANSFER OPERATOR Work Phone: [facility] 01-12-2023 19:32-0400 Respiratory rate 16 /min Maxine Frias APRN.GRAIN CLEANER AND TRANSFER OPERATOR Work Phone: [facility] 01-12-2023 19:32-0400 SaO2% (BldA) [Mass fraction] 98 % Maxine Frias APRN.GRAIN CLEANER AND TRANSFER OPERATOR Work Phone: [facility] 01-12-2023 19:32-0400 Systolic blood pressure 124 mm[Hg] Maxine Frias APRN.GRAIN CLEANER AND TRANSFER OPERATOR Work Phone: [facility] Encounters Encounter Date Encounter Type Care Provider Facility Start: 04-19-2023 End: 04-22-2023 ambulatory JIM DAVIS Facility:[facility] Start: 04-19-2023 End: 04-19-2023 Patient encounter procedure Jim Davis MD Work Phone: Orthopaedics Procedures Date Procedure Procedure Detail Performing Clinician Start: 01-12-2023 STREP A MOLECULAR (POC) Bianca Okeefe PA-C Work Phone: Plan of Treatment Date Care Activity Detail Author Start: 12-21-2026 Urine microalbumin profile DTAP,TDAP,TD (7 - Td or Tdap) [facility] Start: 06-25-2023 Influenza vaccination INFLUENZA (Season Ended) [facility] Start: 02-24-2023 End: 04-26-2023 CBC W Auto Differential panel - Blood CBC + DIFF Lab Routine Routine physical examination Expected: 02/24/2023, Expires: 04/26/2023 [facility] Work Phone: Immunizations Immunization Date Immunization Notes Care Provider Michael rubin 08-27-2021 influenza, injectabl e, quadrivalent, contains preservative Maxine Frias APRN.GRAIN CLEANER AND TRANSFER OPERATOR Work Phone: [facility] 08-20-2020 influenza, seasonal, injectable Maxine James ANTIQUE REPAIRER.GRAIN CLEANER AND TRANSFER OPERATOR Work Phone: [facility] 08-13-2019 influenza, seasonal, injectable Maxine James ANTIQUE REPAIRER.GRAIN CLEANER AND TRANSFER OPERATOR Work Phone: [facility] 12-20-2018 hepatitis A vaccine, adult dosage Maxine James ANTIQUE REPAIRER.GRAIN CLEANER AND TRANSFER OPERATOR Work Phone: [facility] 06-29-2018 influenza, seasonal, injectable Maxine James ANTIQUE REPAIRER.GRAIN CLEANER AND TRANSFER OPERATOR Work Phone: [facility] 05-18-2018 hepatitis A vaccine, adult dosage Maxine James ANTIQUE REPAIRER.GRAIN CLEANER AND TRANSFER OPERATOR Work Phone: [facility] 06-03-2017 influenza, seasonal, injectable Maxine James ANTIQUE REPAIRER.GRAIN CLEANER AND TRANSFER OPERATOR Work Phone: [facility] 03-13-2017 measles, mumps and rubella virus vaccine Maxine James ANTIQUE REPAIRER.GRAIN CLEANER AND TRANSFER OPERATOR Work Phone: [facility] 12-21-2016 tetanus toxoid, redu kelsey diphtheria toxoid, and acellular pertussis vaccine, adsorbed Maxine James ANTIQUE REPAIRER.GRAIN CLEANER AND TRANSFER OPERATOR Work Phone: [facility] 06-25-2009 human papilloma viru s vaccine, quadrivalent Maxine James ANTIQUE REPAIRER.GRAIN CLEANER AND TRANSFER OPERATOR Work Phone: [facility] Work Phone: 07-30-2008 human papilloma viru s vaccine, quadrivalent Maxine James ANTIQUE REPAIRER.GRAIN CLEANER AND TRANSFER OPERATOR Work Phone: [facility] Work Phone: 05-30-2008 human papilloma viru s vaccine, quadrivalent Maxine Rodriguez ANTIQUE REPAIRER.GRAIN CLEANER AND TRANSFER OPERATOR Work Phone: [facility] Work Phone: 06-08-2007 varicella virus vaccine Radha nifrankie Frias ANTIQUE REPAIRER.GRAIN CLEANER AND TRANSFER OPERATOR Work Phone: [facility] Work Phone: 06-30-2000 diphtheria, tetanus toxoids and acellular pertussis vaccine Mxaine Rodriguez ANTIQUE REPAIRER.GRAIN CLEANER AND TRANSFER OPERATOR Work Phone: [facility] 06-30-2000 measles, mumps and rubella virus vaccine Maxine Frias APRN.GRAIN CLEANER AND TRANSFER OPERATOR Work Phone: [facility] Work Phone: 06-30-2000 poliovirus vaccine, inactivated Maxine Frias APRN.GRAIN CLEANER AND TRANSFER OPERATOR Work Phone: [facility] 12-27-1997 varicella virus vaccine Radha nifrankie Frias APRN.GRAIN CLEANER AND TRANSFER OPERATOR Work Phone: [facility] Work Phone: 08-22-1996 diphtheria, tetanus toxoids and acellular pertussis vaccine Maxine Frias APRN.GRAIN CLEANER AND TRANSFER OPERATOR Work Phone: [facility] 08-22-1996 poliovirus vaccine, inactivated Maxine Frias APRN.GRAIN CLEANER AND TRANSFER OPERATOR Work Phone: [facility] 04-10-1996 haemophilus influenz ae type b vaccine, HbOC conjugate Maxine Frias APRN.GRAIN CLEANER AND TRANSFER OPERATOR Work Phone: [facility] Work Phone: 04-10-1996 measles, mumps and rubella virus vaccine Maxine Frias APRN.GRAIN CLEANER AND TRANSFER OPERATOR Work Phone: [facility] Work Phone: 1995 hepatitis B vaccine, pediatric or pediatric/adolescent dosage Maxine Frias APRN.GRAIN CLEANER AND TRANSFER OPERATOR Work Phone: [facility] Work Phone: 1995 DTP-Haemophilus influenzae type b conjugate vaccine Maxine Frias APRN.GRAIN CLEANER AND TRANSFER OPERATOR Work Phone: [facility] 1995 diphtheria, tetanus toxoids and pertussis vaccine Maxine Frias APRN.GRAIN CLEANER AND TRANSFER OPERATOR Work Phone: [facility] 1995 poliovirus vaccine, inactivated Maxine Frias APRN.GRAIN CLEANER AND TRANSFER OPERATOR Work Phone: [facility] 1995 diphtheria, tetanus toxoids and pertussis vaccine Maxine Frias APRN.GRAIN CLEANER AND TRANSFER OPERATOR Work Phone: [facility] 1995 poliovirus vaccine, inactivated Maxine Rodriguez ANTIQUE REPAIRER.GRAIN CLEANER AND TRANSFER OPERATOR Work Phone: [facility] 1995 hepatitis B vaccine, pediatric or pediatric/adolescent dosage Maxine Frias ANTIQUE REPAIRER.GRAIN CLEANER AND TRANSFER OPERATOR Work Phone: [facility] Work Phone: 1995 hepatitis B vaccine, pediatric or pediatric/adolescent dosage Maxine Frias ANTIQUE REPAIRER.GRAIN CLEANER AND TRANSFER OPERATOR Work Phone: [facility] Work Phone: Payers Date Payer Category Payer Medicaid [facility] [facility] [facility] [id number] 2022-Present [phone] [address] [place] [address] Medicaid [id number] 2022 Medicaid [id number] 1995 Unknown [id number] Unknown Social History Date Type Detail Facility Start: [facility]-12-2023 [facility] Work Phone: End: 11-10-2010 History of tobacco use Current smoker [facility] Work Phone: End: 11-10-2010 History of tobacco use Cigarette Smoker [facility] Work Phone: Start: 01-12-2023 Tobacco use and exposure Smokeless tobacco non-user [facility] Work Phone: Start: 01-12-2023 End: 04-19-2023 Alcohol intake Current drinker of alcohol (finding) [facility] Start: 08-27-2021 Alcohol Comment ocasional drink [facility] Start: 1995 Sex Assigned At Not on file [facility] Clinical Notes 02-25-2017 to 04-19-2023 Jim Davis MD - 04/19/2023 1:16 PM EDTTelephone Encounter - Tonja Fuentes Ma - 03/01/2023 10:13 AM EDTTelephone Encounter - Tonja Fuentes Ma - 03/01/2023 10:13 AM EDTPatient Instructions Note Date & Type Note Facility 04-19-2023 Note HNO ID: [id number] Author: Jim Davis MD Service: ? Author Type: Physician Type: Progress Notes Filed: 04/19/2023 2:03 PM Note Text: Jim Davis MD Department of Orthopaedics [facility] [address] [facility] [address] Dept: [phone] Dept April 19, 2023 CHIEF COMPLAINT: New [...] the shoulder back in. 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 [facility] 04-19-2023 History of Presen t illness Narrative Jmi Davis MD Department of Orthopaedics Orthopaedics [address] [place] [address] Dept: [phone] Dept April 19, 2023 CHIEF COMPLAINT: New [...] the shoulder back in. 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 Author Type: Nurse Practitioner Type: [...] TABLET - CONSULT TO ORTHOPAEDICS Paulino Barker APRN.[facility] 03-18-2023 Note HNO ID: [id number] Author: RT Cheng(R) Service: ? Author Type: Tire Building Supervisor Type: Progress Notes Filed: 03/18/2023 3:28 PM [...] RT Cheng(R) March 18, 2023 3:13 PM [facility] 03-01-2023 Miscellaneous Notes Letter mailed to pt home of results. Tonja Fuentes MA ----- Message from Stefanie Gutierrez APRN.GRAIN CLEANER AND TRANSFER OPERATOR sent at 03/01/2023 7:17 AM EDT ----- Platelets mildly decreased but appears this is her normal. Will continue to monitor yearly. The rest of her blood work is within acceptable ranges. Stefanie Gutierrez APRN.MAGO documented in this encounter [facility] 02-24-2023 Note HNO ID: [id number] Author: Stefanie Gutierrez APRN.MAGO Service: ? Author [...] No history of dysuria, frequency or incontinence HEARING AID DISPENSER: Negative for abnormal vaginal bleeding, abnormal vaginal [...] - weight s (more content not included)... [facility] 02-24-2023 Instructions Stefanie Gutierrez APRN.CNP - 02/24/2023 6:46 PM EDT Try to increase calories documented in this encounter [facility] 02-24-2023 History of Presen t illness Narrative [...] No history of dysuria, frequency or incontinence HEARING AID DISPENSER: Negative for abnormal vaginal bleeding, abnormal vaginal [...] exposed skin COVID-19 VACCINE(3 - Booster for Cashually series) due on 05/14/2021 PAP TESTING due [...] - CONSULT TO PHYSICAL THERAPY Stefanie Podlogar, ANTIQUE REPAIRER.GRAIN CLEANER AND TRANSFER OPERATOR Prescription instructions reviewed with patient as applicable. Patient advised if symptoms do not improve or if symptoms worsen sooner, to contact their primary care physician. Potential red flag symptoms discussed with the patient. Reviewed appropriate action plan to take if red flag symptoms occur. Patient agreeable to treatment plan. documented in this encounter [facility] 01-12-2023 Note HNO ID: [id number] Author: Maxine Frias APRN.MAGO Service: ? Author [...] Patient agreeable to treatment plan. Maxine Frias APRN.[facility] 01-12-2023 History of Presen t illness Narrative [...] Patient agreeable to treatment plan. Maxine Frias APRN.GRAIN CLEANER AND TRANSFER OPERATOR documented in this encounter [facility] documented as of this encounter (statuses as of 01/13/2023) [facility]05-04-2017 History of Past illness Narrative* Problem Noted [...] vomiting in . She was seen at [facility] and given an RX for Phenergan. [...] of this encounter (statuses as of 02/25/2023) [facility]05-04-2017 History of Past illness Narrative* Problem Noted [...] vomiting in . She was seen at [facility] and given an RX for Phenergan. [...] of this encounter (statuses as of 03/01/2023) [facility]-04[facility]2017 History of Past illness Narrative* Problem Noted [...] vomiting in . She was seen at [facility] and given an RX for Phenergan. [...] of this encounter (statuses as of 04/19/2023) [facility] Diagnosis Sore throat- Primary Acute pharyngitis [facility] Diagnosis Routine physical examination- Primary Routine general medical examination at a health care facility No appetite Anorexia Hx of dislocation of shoulder Personal history of other musculoskeletal disorders [facility] Diagnosis Shoulder dislocation, recurrent, right- Primary Chronic right shoulder pain Pain in joint, shoulder region documented in this encounter [facility] Summary Purpose Family History No Family History [...] EVALUATION HIGH COMPLEX 45 MINS Podlogar, SAÚL Sykes.GRAIN CLEANER AND TRANSFER OPERATOR [address] [place] [address] [facility] [address] [place] [address] Referral ID Status Reason Start Date Expiration Date Visits Requested Visits Authorized [id number] Pending Review Auto-Generat ed Referral 02/24/2023 02/24/2024 1 1 Specialty Diagnoses / Procedures Referred By Lizbeth goodson Referred To Contact MR IMAGING Diagnoses Chronic right shoulder pain Shoulder dislocation, recurrent, right Procedures MRI SHOULDER WO IVCON RIGHT MRI ANY JT UPPER EXTREMITY W/O CONTRAST MATRL Jim Davis MD [address] [place] [address] Mr Imaging Referral ID Status Reason Start Date Expiration Date Visits Requested Visits Authorized [id number] Pending Review Auto-Generat ed Referral 04/19/2023 05/18/2024 1 1 Additional Source Comments INFORMATION SOURCE (unrecogn ized section and content) DATE CREATED AUTHOR AUTHOR'S ORGANIZ ATION 10/23/2020 [facility] DATE CREATED AUTHOR AUTHOR'S ORGANIZ ATION 04/23/2023 [facility] Source Comments (unrecognize d section and content) In the event this informatio n is protected by the Federal Confidentiality of Alcohol and Drug Abuse Patient Records regulations: The Federal rules restrict any use of the information to criminally investigate or prosecute any alcohol or drug abuse patient.[facility] the event this information is protected by the Federal Confidentiality of Alcohol and Drug Abuse Patient Records regulations: The Federal rules restrict any use of the information to criminally investigate or prosecute any alcohol or drug abuse patient.[facility] the event this information is protected by the Federal Confidentiality of Alcohol and Drug Abuse Patient Records regulations: The Federal rules restrict any use of the information to criminally investigate or prosecute any alcohol or drug abuse patient.[facility] the event this information is protected by the Federal Confidentiality of Alcohol and Drug Abuse Patient Records regulations: The Federal rules restrict any use of the information to criminally investigate or prosecute any alcohol or drug abuse patient.[facility] Reason for Visit (unrecogniz ed section and content) Reason Comments Yearly Exam Weight Problem Unable to keep weigh t on. No appetite. Reason Comments Results Reason Comments New Pain Specialty Diagnoses / Procedures Referred By Contkhris t Referred To Contact Orthopedics Diagnoses Chronic right shoulder pain Procedures CONSULT TO ORTHOPAEDICS OFFICE/OUTPATIENT NEW HIGH MDM 60-74 MINUTES Paulino Barker APRN.GRAIN CLEANER AND TRANSFER OPERATOR [address] [place] [address] Referral ID Status Reason Start Date Expiration Date V isits Requested Visits Authorized [id number] Closed PCP Requested Referral 03/18/2023 03/17/2024 1 1 Care Teams (unrecognized sec tion and content) Highway Maintainer Relationship Specialty Start Date End Date Colt Silvestre MD [address], [place] [id number] PCP - General Family Medicine 08/27/21 Highway Maintainer Relationship Specialty Start Date End Date Colt Silvestre MD [address] [place], [place] [id number] PCP - General Family Medicine 08/27/21 Highway Maintainer Relationship Specialty Start Date End Date Colt Silvestre MD [address] [place] [address] PCP - General Family Medicine [...] BE BASED ON THE PRIMARY CLINICAL RECORDS. [facility]. provides no warranty or guarantee of the accuracy or completeness of information in this document.
[2023-12-02 08:12] LABS: Chlamydia By Nucleic Acid AMP Negative (Negative); Gonococcus By Nucleic Acid AMP Negative (Negative)
== END | disposition home or self-care (01) ==
LOC: LABSPEC 12:46
PROVIDERS: PCP Nurse Practitioner Family; Referring Provider Nurse Practitioner Women's Health; Visit Provider Nurse Practitioner Women's Health
DX: Z20.2 Contact with and (suspected) exposure to infections with a predominantly sexual mode of transmission (principal)
CPT/HCPCS: 87491; 87591

== ENCOUNTER → 2024-05-04 | Outpatient (CLI) | payer MEDICAID, SELFPAY ==
[2024-05-08 05:06] LABS: Chlamydia By Nucleic Acid AMP Negative (Negative); Gonococcus By Nucleic Acid AMP Negative (Negative)
== END | disposition home or self-care (01) ==
PROVIDERS: PCP Nurse Practitioner Family; Referring Provider Advanced Practice Midwife; Visit Provider Advanced Practice Midwife
DX: Z20.2 Contact with and (suspected) exposure to infections with a predominantly sexual mode of transmission (principal)
CPT/HCPCS: 87491; 87591

== ENCOUNTER → 2024-06-05 | Outpatient (CLI) | payer MEDICAID, SELFPAY ==
--- NOTE | 2024-06-05 11:00 | VUL_PTH ---
PATIENT: HEATHER GIVENS LOC: [facility] U#:[id number] AGE/SX: 29/F ROOM: RE06/05/[address]: Dr. Jami Guerra DO : 1995 BED: DIS: 06/05/2024 SPEC #: [id number] RECD: 06/05/24 12:38 STATUS: JORGE NANETTE #: [id number] LORRAINE: 06/05/24 11:[address]: Jami Guerra DEPT: SURGICAL PATHOLOGY RECD BY: Ruby Levine ENTERED: 06/05/24 13:24 SP TYPE: VULVA BX OTHR DR: ARNULFO Hartley Tissues: Vulva, NOS Procedures: Surgery Specimen Level IV HEADER OPERATION: Vulvar biopsy PRE-OP DIAGNOSIS: Vulvar skin tag TISSUE SUBMITTED: Right vulva MICROSCOPIC DIAGNOSIS Right vulva, biopsy: Consistent with condyloma acuminatum. AM/mr 06/06/2024 COMMENT Case has been reviewed in consultation with Dr. Campos who concurs with the above diagnosis. IDC:[id number] MICROSCOPIC DESCRIPTION Slides are reviewed. GROSS DESCRIPTION Received is one container labeled with the patient's name and not further designated. The specimen consists of a fragment of syed-white skin measuring 0.2 x 0.2 x 0.1cm. The entire specimen is submitted in one cassette. 06/05/2024 TC:5 CPT:69277
== END | disposition home or self-care (01) ==
PROVIDERS: PCP Nurse Practitioner Family; Referring Provider Obstetrics & Gynecology; Visit Provider Obstetrics & Gynecology
DX: L91.8 Other hypertrophic disorders of the skin (principal)
CPT/HCPCS: 88305

== ENCOUNTER → 2024-11-15 | Outpatient (CLI) | payer MEDICAID, SELFPAY ==
[2024-11-15 12:19] LABS: HIV - WCH Non-Reactive (Nonreactive); Hepatitis B Surface Antigen Non-Reactive (Nonreactive); Hepatitis C Antibody Non-Reactive (Nonreactive); Syphilis Antibodies Non-reactive
[2024-11-17 06:08] LABS: Chlamydia By Nucleic Acid AMP Negative (Negative); Gonococcus By Nucleic Acid AMP Negative (Negative)
== END | disposition home or self-care (01) ==
LOC: BWCLAB 08:49
PROVIDERS: PCP Nurse Practitioner Family; Referring Provider Nurse Practitioner Family; Visit Provider Nurse Practitioner Family
DX: Z11.3 Encounter for screening for infections with a predominantly sexual mode of transmission (principal)
CPT/HCPCS: 36415; 86695; 86696; 86703; 86780; 86803; 87340; 87491; 87591

== ENCOUNTER → 2025-01-17 | Outpatient (CLI) | payer MEDICAID, SELFPAY ==
[2025-01-17 16:55] LABS: Syphilis Antibodies Nonreactive (Nonreactive)
[2025-01-17 20:25] LABS: HIV Nonreactive (Nonreactive)
[2025-01-20 10:08] LABS: Chlamydia By Nucleic Acid AMP Negative (Negative); Gonococcus By Nucleic Acid AMP Negative (Negative)
== END | disposition home or self-care (01) ==
PROVIDERS: PCP Nurse Practitioner Family; Referring Provider Nurse Practitioner Women's Health; Visit Provider Nurse Practitioner Women's Health
DX: Z20.2 Contact with and (suspected) exposure to infections with a predominantly sexual mode of transmission (principal); N89.8 Other specified noninflammatory disorders of vagina
CPT/HCPCS: 36415; 86695; 86696; 86703; 86780; 87070; 87077; 87186; 87205; 87491; 87591

== ENCOUNTER → 2025-05-17 | Outpatient (CLI) | payer MEDICAID, SELFPAY ==
[2025-05-17 13:15] LABS: HIV Nonreactive (Nonreactive); Hepatitis C Antibody Nonreactive (Nonreactive); Syphilis Antibodies Nonreactive (Nonreactive)
--- OUTSIDE RECORDS SUMMARY | 2025-05-17 21:32 | XMS RPT_ITS | CCD ---
Author Organization [facility]ini[facility] Care Team Providers Care Pack Mule Worker Name Role Phone HILDA REYES Attending Unavailable HILDA REYES Primary Care Unavailable HILDA REYES Admitting Unavailable Care Physician, No Primary Primary Care Provider Unavailable Care Physician, No Primary Referring Provider Un available Shelli ONLINE ADVERTISING MANAGER, ONLINE ADVERTISING MANAGER-C Estella Attending Provider [phone] Colt Silvestre MD Primary Care Provider Care Physician, No Primary Primary Care Provider Unavailable Care Physician, No Primary Referring Provider Un available ELISABETH La Attending Provider [phone] ALEJANDRO Suggs Attending Provider [phone] Ariane ONLINE ADVERTISING MANAGER, ONLINE ADVERTISING MANAGER-C Deidre Primary Care Provider Care Physician, No Primary Referring Provider Un available Dr. Lila John Attending Provider [phone] Ariane ONLINE ADVERTISING MANAGER, ONLINE ADVERTISING MANAGER-C Deidre Primary Care Provider Ariane ONLINE ADVERTISING MANAGER, ONLINE ADVERTISING MANAGER-C Deidre Referring Provider Shelli ONLINE ADVERTISING MANAGER, ONLINE ADVERTISING MANAGER-C Estella Attending Provider [phone] Ariane ONLINE ADVERTISING MANAGER, ONLINE ADVERTISING MANAGER-C Deidre Primary Care Provider Ariane ONLINE ADVERTISING MANAGER, ONLINE ADVERTISING MANAGER-C Deidre Referring Provider Dr. Lila John Attending Provider [phone] Shelli ONLINE ADVERTISING MANAGER, ONLINE ADVERTISING MANAGER-C Estella Attending Provider [phone] Colt Silvestre MD Primary Care Provider Ariane ONLINE ADVERTISING MANAGER-C, Deidre Primary Care Provider Ariane ONLINE ADVERTISING MANAGER-C, Deidre Referring Provider Shelli ONLINE ADVERTISING MANAGER-C, Estella Attending Provider Nela ONLINE ADVERTISING MANAGER-C, Nereyda Attending Provider Nela ONLINE ADVERTISING MANAGER-C, Nereyda Referring Provider [place] ONLINE ADVERTISING MANAGER-C, Estella Referring Provider Podlogar HEELER.Mony MERCEDES Unavailable [place] HEELER.OPERA SINGER, Kaylee Unavailable Jami Guerra Attending Unavailabl e Ariane ONLINE ADVERTISING MANAGER, Deidre Referring Unavailable Ariane ONLINE ADVERTISING MANAGER, Deidre Primary Care Unavailable Ariane ONLINE ADVERTISING MANAGER, Deider Primary Care Unavailable Nereyda Rondon Attending Unavailable Ariane ONLINE ADVERTISING MANAGER, Deidre Referring Unavailable Ariane ONLINE ADVERTISING MANAGER, Deidre Primary Care Unavailable Shelli ONLINE ADVERTISING MANAGER, Estella Attending Unavailable Ariane ONLINE ADVERTISING MANAGER, Deidre Referring Unavailable Nereyda Rondon Attending Unavailable Ariane ONLINE ADVERTISING MANAGER, Deidre Referring Unavailable Ariane ONLINE ADVERTISING MANAGER, Deidre Primary Care Unavailable Shelli ONLINE ADVERTISING MANAGER, Estella Attending Unavailable Ariane ONLINE ADVERTISING MANAGER, Deidre Referring Unavailable Ariane ONLINE ADVERTISING MANAGER, Deidre Primary Care Unavailable Mayra Suggs Attending Unavailable Mayra Suggs Referring Unavailable Ariane ONLINE ADVERTISING MANAGER, Deidre Primary Care Unavailable Ariane ONLINE ADVERTISING MANAGER, Deidre Primary Care Unavailable Jami Guerra Attending Unavailabl Jami Valero Referring Unavailabl Nereyda Acosta Attending Unavailable Nereyda Rondon Referring Unavailable Ariane ONLINE ADVERTISING MANAGER, Deidre Primary Care Unavailable Shelli ONLINE ADVERTISING MANAGER, Estella Referring Unavailable [place] ONLINE ADVERTISING MANAGER, Estella Attending Unavailable Ariane ONLINE ADVERTISING MANAGER, Deidre Primary Care Unavailable Mayra Suggs Attending Unavailable Ariane ONLINE ADVERTISING MANAGER, Deidre Primary Care Unavailable Ariane ONLINE ADVERTISING MANAGER, Deidre Referring Unavailable Ariane ONLINE ADVERTISING MANAGER, Deidre Primary Care Unavailable Jami Guerra Attending Unavailabl e Ariane ONLINE ADVERTISING MANAGER, Deidre Referring Unavailable PODLOGARMONY Referring Unavailable COLT SILVESTRE Primary Care Unavailab GUILHERME Aguilar Referring Unavailable COLT SILVESTRE Primary Care Unavailab COLT Frye Primary Care Unavailab le PODLOGMONY POLLARD Attending Unavailable COLT SILVESTRE Primary Care Unavailab COLT Frye Primary Care Unavailab MONY Hernandez Referring Unavailable COLT SILVESTRE Primary Care Unavailab MONY Hernandez Attending Unavailable COLT SILVESTRE Primary Care Unavailab PAULINO Ortiz Attending Unavailable COLT SILVESTRE Primary Care Unavailab le [place] HEELER.Kaylee MERCEDES Unavailable [place] HEELER.Kaylee MERCEDES Unavailable Ariane ONLINE ADVERTISING MANAGER-C, Deidre Primary Care Provider Ariane ONLINE ADVERTISING MANAGER-C, Deidre Referring Provider Shelli ONLINE ADVERTISING MANAGER-C, Estella Attending Provider Nela ONLINE ADVERTISING MANAGER-C, Nereyda Attending Provider Nela ONLINE ADVERTISING MANAGER-C, Nereyda Referring Provider Allergies Allergy Classification Reported Allergen(s) Allergy Type Date of Onset Reaction(s) Facility (8 sources) Escitalopram Drug Allergy 3 slow heart rate [facility] (18 sources) Escitalopram; Translations: [ESCITALOPRAM OXALATE] Drug Allergy 8 Other: See Comments [facility] (1 source) Escitalopram Drug Allergy 5 [facility] Repository Medications Current Medications Medication Drug Class(es) Dates Sig (Normalized) Sig (Original) azithromycin 500 mg oral tablet (4 sources) Macrolide Antimicrobial Start: 02-26-2025 End: 03-03-2025 take 1 tablet by mouth once daily azithromycin (ZITHROMAX) 500 mg tablet Indications: Sinobronchitis Take 1 tablet by mouth once daily for 5 days. 5 tablet 02/26/2025 03/03/2025 Active fluconazole 150 mg oral tablet (4 sources) Azole Antifungal Start: 01-23-2025 Fluconazole 150 mg tablet Active 150 mg PO .COMPLEX 2 0 January 23, 2025 12:00am 150 mg PO take one po now and repeat in 3 days Start: 08-29-2023 End: 11-02-2023 Fluconazole 150 mg tablet Di scontinued 150 mg PO .COMPLEX 2 0 August 29, 2023 12:00am November 02, 2023 11:51am 150 mg PO take one po now and repeat in 3 days fluticasone propionate 0.05 mg/actuat metered dose nasal spray (8 sources) Corticosteroid Start: 02-01-2025 take 1 spray(s) nasal route once daily fluticasone (FLONASE ALLERGY RELIEF) 50 mcg/actuation nasal spray Indications: Eustachian tube dysfunction, left Use 1 spray in each nostril once daily. 9.9 mL 02/01/2025 Active Start: 11-15-2017 End: 02-24-2023 take 2 spray(s) nasal route once daily fluticasone (FLONASE) 50 mcg/actuation nasal spray Use 2 Sprays in each nostril once daily. 1 11/15/2017 02/24/2023 Discontinued (Course of therapy completed) Comment on above: Use 2 Sprays in each nostril once daily. Multivitamin preparation (6 sources) Start: 12-17-2022 take 1 tablet by mouth once daily Multivitamin Active 1 TABLET PO DAILY December 17, 2022 1:00am Start: 12-17-2022 take 1 tablet by tj th once daily Multivitamin Active 1 TABLET PO DAILY December 17, 2022 12:00am norethindrone 0.35 mg oral tablet (4 sources) Start: 11-15-2024 End: 01-17-2025 take 1 tablet by mouth once daily Norethindrone (Contraceptive) 0.35 mg tablet Active 0.35 mg PO daily 84 3 January 17, 2025 2:10pm predniSONE 50 mg oral tablet (8 sources) Start: 02-01-2025 End: 02-06-2025 take 1 tablet by mouth once daily predniSONE (DELTASONE) 50 mg Indications: Eustachian tube dysfunction, left Take 1 tablet by mouth once daily for 5 days. 5 tablet 02/01/2025 02/06/2025 Active Start: 04-21-2023 End: 06-03-2023 take 2 tablets by mouth once daily Prednisone 20 mg tablet Discontinued 40 mg PO DAILY 10 April 21, 2023 12:00am June 03, 2023 8:50am Start: 04-21-2023 End: 06-03-2023 take 40 mg by mouth once daily Prednisone Discontinued 40 MG PO DAILY April 20, 2023 11:00pm June 03, 2023 7:50am spironolactone 50 mg oral tablet (1 source) Aldosterone Antagonist Start: 05-17-2025 take 1 tablet by mouth twice daily Spironolactone 50 mg tablet Active 50 mg PO TWICE A DAY May 17, 2025 12:00am Completed/Discontinued Medications Medication Drug Class(es) Dates Sig (Normalized) Sig (Original) acetaminophen 325 mg / oxyCODONE hydrochloride 5 mg oral tablet (8 sources) Opioid Agonist Start: 06-11-2020 End: 06-18-2020 Oxycodone-Acetamino phen (Percocet) 5-325 mg tablet Discontinued 1 {tbl} PO Q4H as needed for pain 20 0 June 11, 2020 June 18, 2020 12:57pm busPIRone hydrochloride 10 mg oral tablet (11 sources) Start: 06-05-2024 End: 05-17-2025 take 1 tablet by mouth twice daily Buspirone 10 mg tablet Discontinued 10 mg PO TWICE A DAY June 05, 2024 12:00am May 17, 2025 10:23am Start: 05-22-2024 take 1 tablet by tj th three times daily busPIRone (BUSPAR) 5 mg tablet Indications: Anxiety and depression Take 1 tablet by mouth three times a day. 90 tablet 1 05/22/2024 Active cefdinir 300 mg oral capsule (1 source) Cephalosporin Antibacterial Start: 02-26-2025 End: 02-26-2025 take 1 capsule by mouth twice daily cefdinir (OMNICEF) 300 mg capsule Take 1 capsule by mouth two times a day for 10 days. 20 capsule 02/26/2025 02/26/2025 Discontinued cholecalciferol 0.025 mg oral capsule (10 sources) Vitamin D Start: 08-05-2020 End: 02-24-2023 take 1 capsule by mouth once daily Cholecalciferol, Vitamin D3, 25 mcg (1,000 unit) cap Take 1 capsule by mouth once daily. 30 capsule 11 08/05/2020 02/24/2023 Discontinued (Course of therapy completed) Start: 04-11-2019 End: 10-05-2019 take 1 capsule by mouth once daily Cholecalciferol (Vitamin D3) 2,000 unit capsule Discontinued 2000 U PO DAILY April 11, 2019 12:00am October 05, 2019 11:05am Comment on above: Take 1 capsule by [facility] once daily. clindamycin 20 mg/ml vaginal cream (3 sources) Lincosamide Antibacterial Start: 11-02-2023 End: 11-07-2023 Clindamycin Phosphate 2 % cream Discontinued 1 NMA VAGINAL AT BEDTIME 40 5 0 November 02, 2023 1:00am November 06, 2023 1:00am November 07, 2023 1:05am Start: 11-02-2023 Clindamycin Ph osphate Active 1 APPFUL VAGINAL AT BEDTIME 40 5 November 02, 2023 12:00am clobetasol propionate 0.5 mg/ml topical cream (20 sources) Corticosteroid Start: 05-20-2022 End: 08-10-2024 Clobetasol 0.05 % cream Discontinued 1 NMA TOPICAL .COMPLEX 15 1 May 20, 2022 10:38am August 10, 2024 11:05am 1 applic topically up to 7 days prn with symptoms; Start: 12-25-2021 End: 05-20-2022 Clobetasol 0.05 % cream Disc ontinued 1 NMA TOPICAL DAILY December 25, 2021 1:00am May 20, 2022 10:38am Start: 11-28-2020 End: 08-07-2021 Clobetasol 0.05 % cream Disc ontinued 1 NMA TOPICAL .COMPLEX 15 2 November 28, 2020 1:00am August 07, 2021 10:41am 1 applic TOPICAL apply thin layer as directed bid X 2 weeks then daily X 2 weeks; apply thin layer; massage in to cover area Start: 04-11-2019 End: 10-05-2019 Clobetasol 0.05 % cream Disc ontinued 1 NMA TOPICAL .COMPLEX 15 2 April 11, 2019 12:00am October 05, 2019 11:05am 1 applic TOPICAL apply thin layer as directed bid X 2 weeks then daily X 2 weeks; apply thin layer; massage in to cover area copper 313 mg drug implant (16 sources) Copper-containing Intrauterine Device Start: 05-20-2022 End: 05-20-2022 Copper (Paragard T 380a) 380 square mm intrauterine device Discontinued 1 NMA INTRA-UTER ONCE May 20, 2022 12:00am May 20, 2022 10:02am as a single dose Start: 05-20-2022 End: 05-20-2022 Copper (Paragard T 380a) 380 square mm intrauterine device Discontinued 1 DEVICE INTRA-UTER ONCE May 19, 2022 11:00pm May 20, 2022 9:02am as a single dose Start: 03-27-2020 End: 04-25-2020 Copper (Paragard T 380a) 380 square mm intrauterine device Discontinued 1 NMA INTRA-UTER ONCE March 27, 2020 12:00am April 25, 2020 10:34am as a single dose Start: 03-27-2020 End: 04-25-2020 Copper (Paragard T 380a) 380 square mm intrauterine device Discontinued 1 DEVICE INTRA-UTER ONCE March 26, 2020 11:00pm April 25, 2020 9:34am as a single dose Desogestrel / Ethinyl Estradiol (19 sources) Progestin, Estrogen Start: 06-21-2023 End: 11-30-2023 take 0.15 tablet by mouth once daily Desogestrel-Ethinyl Estradiol (Apri) 0.15-0.03 mg tablet Discontinued 1 {tbl} PO daily 84 June 21, 2023 2:15pm November 30, 2023 9:34am Start: 06-21-2023 End: 11-30-2023 take 0.15 tablet by mouth once daily Desogestrel-Ethinyl Estradiol (Apri) 0.15-0.03 mg tablet Discontinued 1 {tbl} PO daily June 21, 2023 2:15pm November 30, 2023 9:34am Start: 06-21-2023 Desogestrel-Et hinyl Estradiol (Apri) 0.15-0.03 mg tablet Active 1 TABLET PO daily June 21, 2023 1:15pm Start: 06-21-2023 Desogestrel-Et hinyl Estradiol (Apri) 0.15-0.03 mg tablet Active 1 TABLET PO daily June 21, 2023 2:15pm Start: 12-23-2022 End: 01-25-2024 take 1 tablet by mouth once daily DAVON 0.15-0.03 mg per tablet Take 1 tablet by mouth once daily. 0 12/23/2022 01/25/2024 Discontinued (Course of therapy completed) Start: 12-23-2022 take 1 tablet by tj th once daily JULEBER 0.15-0.03 mg per tablet Take 1 tablet by mouth once daily. 0 12/23/2022 Active Start: 05-20-2022 Desogestrel-Et hinyl Estradiol 0.15-0.03 mg per tablet Take by mouth. 05/20/2022 Active Start: 05-20-2022 End: 06-21-2023 take 0.15 tablet by mouth once daily Desogestrel-Ethinyl Estradiol (Apri) 0.15-0.03 mg tablet Discontinued 1 {tbl} PO daily 84 May 20, 2022 12:00am June 21, 2023 2:15pm Start: 05-20-2022 End: 06-21-2023 take 0.15 tablet by mouth once daily Desogestrel-Ethinyl Estradiol (Apri) 0.15-0.03 mg tablet Discontinued 1 {tbl} PO daily May 20, 2022 12:00am June 21, 2023 2:15pm Start: 05-20-2022 End: 06-21-2023 Desogestrel-Ethinyl Estradio l (Apri) 0.15-0.03 mg tablet Discontinued 1 TABLET PO daily May 19, 2022 11:00pm June 21, 2023 1:15pm Start: 05-20-2022 End: 06-21-2023 Desogestrel-Ethinyl Estradio l (Apri) 0.15-0.03 mg tablet Discontinued 1 TABLET PO daily May 20, 2022 12:00am June 21, 2023 2:15pm Start: 05-20-2022 Desogestrel-Et hinyl Estradiol (Apri) 0.15-0.03 mg tablet Active 1 TABLET PO daily May 20, 2022 12:00am Start: 05-20-2022 Desogestrel-Et hinyl Estradiol (Apri) 0.15-0.03 mg tablet Active 1 TABLET PO daily May 19, 2022 11:00pm Comment on above: Take 1 tablet by tj th once daily. Estradiol-Norethindrone Acet (2 sources) Estrogen Start: 5 End: 5 take 0.5 tablet by mouth once daily Estradiol-Norethindro ne Acet 0.5-0.1 mg tablet Discontinued 1 {tbl} PO daily November 15, 2024 1:00am November 15, 2024 10:11am 168 hr ethinyl estradiol 0.70170 mg/hr / norelgestromin 0.64558 mg/hr transdermal system (20 sources) Progestin, Estrogen Start: 8 End: 0 Norelgestromin-Ethin. Estradiol (Xulane) 150-35 mcg/24 hr patch weekly Discontinued 1 NMA TD Q7D 3 4 June 19, 2019 4:27pm October 05, 2019 11:22am Start: 06-14-2018 End: 03-27-2020 Norelgestromin-Ethin.Estradi ol (Xulane) 150-35 mcg/24 hr patch weekly Discontinued 1 PATCH TD Q7D 3 June 19, 2019 3:27pm October 05, 2019 10:22am Norethindrone Ac-Eth Estradiol (2 sources) Estrogen Start: 08-10-2024 End: 11-15-2024 Norethindrone Ac-Eth Estradiol (Loestrin 1/20 (21)) 1-20 mg-mcg tablet Discontinued 1 {tbl} PO daily 63 2 August 10, 2024 12:00am November 15, 2024 9:33am Start: 08-10-2024 End: 11-15-2024 Norethindrone Ac-Eth Estradi ol (Loestrin 1/20 (21)) 1-20 mg-mcg tablet Discontinued 1 {tbl} PO daily 63 August 10, 2024 12:00am November 15, 2024 9:33am Norgestimate-Ethinyl Estradiol (4 sources) Progestin, Estrogen Start: 08-08-2024 End: 08-10-2024 take 1 tablet by mouth once daily Norgestimate-Ethinyl Estradiol (Sprintec (28)) 0.25-35 mg-mcg tablet Discontinued 1 {tbl} PO DAILY 84 3 August 08, 2024 8:45am August 10, 2024 11:05am Active pills only for continuous cycling. Start: 08-08-2024 End: 08-10-2024 take 1 tablet by mouth once daily Norgestimate-Ethinyl Estradiol (Sprintec (28)) 0.25-35 mg-mcg tablet Discontinued 1 {tbl} PO DAILY 84 August 08, 2024 8:45am August 10, 2024 11:05am Active pills only for continuous cycling. Start: 06-05-2024 End: 08-08-2024 Norgestimate-Ethinyl Estradi ol (Sprintec (28)) 0.25-35 mg-mcg tablet Discontinued 1 {tbl} PO DAILY 84 June 05, 2024 12:00am August 08, 2024 8:46am Start: 06-05-2024 End: 08-08-2024 Norgestimate-Ethinyl Estradi ol (Sprintec (28)) 0.25-35 mg-mcg tablet Discontinued 1 {tbl} PO DAILY June 05, 2024 12:00am August 08, 2024 8:46am iv contrast (will be provided with radiology test) (2 sources) Start: 03-01-2025 End: 03-01-2025 inject 1 dose intravenously once, then inject 1 dose intravenously once iv contrast (will be provided with radiology test) Indications: Abscess, peritonsillar Inject 1 each intravenously one time only for [address] Neck W IVCON No IV access, insert saline lock prior to the sedation, infusion, injection for imaging exam. Discontinue saline lock post exam. If Pt. has a central line or IVAD, may access for administration according to line specific nursing protocol. Once exam is complete flush line and de-access according to line specific nursing protocol in the CT contrast administration guidelines link. 1 each 03/01/2025 03/01/2025 Start: 03-01-2025 End: 03-01-2025 inject 1 dose intravenously once, then inject 1 dose intravenously once iv contrast (will be provided with radiology test) Indications: Abscess, peritonsillar Inject 1 each intravenously one time only for [address] Neck W IVCON No IV access, insert saline lock prior to the sedation, infusion, injection for imaging exam. Discontinue saline lock post exam. If Pt. has a central line or IVAD, may access for administration according to line specific nursing protocol. Once exam is complete flush line and de-access according to line specific nursing protocol in the CT contrast administration guidelines link. 1 each 03/01/2025 03/01/2025 Active lamoTRIgine 150 mg oral tablet (12 sources) Mood Stabilizer, Anti-epileptic Agent Start: 02-24-2023 End: 01-25-2024 take 1 tablet by mouth once daily lamoTRIgine (LAMICTAL) 150 mg tablet Take 1 tablet by mouth once daily. 0 02/24/2023 01/25/2024 Discontinued (Discontinued by Patient) Start: 10-05-2019 End: 08-07-2021 take 1 tablet by mouth once daily Lamotrigine (Lamictal) 200 mg tablet Discontinued 200 mg PO DAILY October 05, 2019 1:00am August 07, 2021 10:41am Comment on above: Take 1 tablet by tj th once daily. levonorgestrel 0.314915 mg/hr intrauterine system (12 sources) Progestin, Progestin-containing Intrauterine Device Start: 11-30-2023 End: 06-05-2024 Levonorgestrel (Liletta) 20.4 mcg/24 hrs (8 yrs) 52 mg intrauterine device Discontinued 1 NMA INTRA-UTER ONCE November 30, 2023 1:00am June 05, 2024 10:36am as a single dose Start: 05-20-2022 End: 11-30-2023 Levonorgestrel (Lexii) 14 mc g/24 hrs (3 yrs) 13.5 mg intrauterine device Discontinued 1 NMA INTRA-UTER ONCE May 20, 2022 12:00am November 30, 2023 9:26am as a single dose Start: 05-20-2022 End: 01-25-2024 levonorgestrel (LEXII) 14 mc g/24 hrs (3 yrs) 13.5 mg IUD IUD Levonorgestrel (Lexii) 14 mcg/24 hrs (3 yrs) 13.5 mg intrauterine device Active 1 DEVICE INTRA-UTER ONCE May 19, 2022 11:00pm as a single dose 0 05/20/2022 01/25/2024 Discontinued (Discontinued by Patient) Comment on above: Levonorgestrel (Skyl a) 14 mcg/24 hrs (3 yrs) 13.5 mg intrauterine device Active 1 DEVICE INTRA-UTER ONCE May 19, 2022 11:00pm as a single dose medroxyPROGESTERone acetate 10 mg oral tablet (8 sources) Progestin Start : 08-08 End: 12-25 take 1 tablet by mouth once daily Medroxyprogesterone (Provera) 10 mg tablet Discontinued 10 mg PO daily 10 9 August 08, 2021 12:00am December 25, 2021 10:27am metroNIDAZOLE (13 sources) Nitroimidazole Antimicrobial Start : 01-17 End: 01-22 Metronidazole 0.75 % (37.5mg/5 gram) gel Discontinued 1 NMA VAGINAL DAILY 70 5 0 January 17, 2025 12:00am January 21, 2025 12:00am January 22, 2025 12:09am Start: 01-17-2025 Metronidazole 0.75 % (37.5mg/5 gram) gel Active 1 NMA VAGINAL DAILY 70 5 January 17, 2025 12:00am January 21, 2025 12:00am Start: 08-29-2023 End: 09-05-2023 take 1 tablet by mouth twice daily Metronidazole 500 mg tablet Discontinued 500 mg PO TWICE A DAY 14 7 0 August 29, 2023 12:00am September 04, 2023 1:00am September 05, 2023 1:05am Start: 11-19-2021 End: 12-25-2021 take 1 tablet by mouth twice daily Metronidazole 500 mg tablet Discontinued 500 mg PO TWICE A DAY 14 0 November 19, 2021 1:00am December 25, 2021 10:27am mirtazapine 15 mg oral tablet (20 sources) Start: 12-17-2022 End: 06-05-2024 take 1 tablet by mouth once daily Mirtazapine (Remeron) 15 mg tablet Discontinued 15 mg PO DAILY June 05, 2024 12:00am June 05, 2024 10:37am Comment on above: Take 15 mg by mouth daily at bedtime. Take 1 tablet by tj th daily at bedtime. miSOPROStol 0.2 mg oral tablet (16 sources) Prostaglandin E1 Analog Start: 06-11-2020 End: 06-18-2020 take 4 tablets by mouth once Misoprostol (Cytotec) 200 mcg tablet Discontinued 800 ug PO .complex 4 1 June 11, 2020 12:00am June 18, 2020 12:57pm 4 tablets vaginally or orally once. Start: 04-25-2020 End: 06-11-2020 Misoprostol (Cytotec) 200 mc g tablet Discontinued 200 ug PO .COMPLEX 2 0 April 25, 2020 12:00am June 11, 2020 1:57pm 200 mcg PO take one tablet at night then the morning of procedure; Multivitamin tablet (2 sources) Start: 12-17-2022 End: 06-05-2024 Multivitamin tablet Discontinued 1 {tbl} PO DAILY December 17, 2022 1:00am June 05, 2024 10:37am naproxen 250 mg oral tablet (8 sources) Nonsteroidal Anti-inflammatory Drug Start: 03-13-2017 End: 06-14-2018 take 250-500 mg by mouth every eight hours as needed for pain Naproxen 250 MG tablet Discontinued 250 - 500 mg PO EVERY 8 HOURS NEEDED as needed for MILD PAIN 30 0 March 13, 2017 12:00am June 14, 2018 3:44pm ondansetron 4 mg oral tablet (2 sources) Serotonin-3 Receptor Antagonist Start: 08-05-2020 End: 02-24-2023 take 1 tablet by mouth every eight hours as needed ondansetron (ZOFRAN) 4 mg tablet Take 1 tablet by mouth every 8 hours as needed for Nausea/Vomiting. 20 tablet 2 08/05/2020 02/24/2023 Discontinued (Course of therapy completed) Comment on above: Take 1 tablet by tj every 8 hours as needed for Nausea/Vomiting. Vit,[id number] ic (6 sources) Start: 07-29-2016 End: 06-14-2018 take 1 tablet by mouth once daily Vit,[id number]-Yr lic Discontinued 1 TABLET PO DAILY July 29, 2016 12:00am June 14, 2018 3:44pm Start: 07-29-2016 End: 06-14-2018 take 1 tablet by mouth once daily Vit,[id number]-Sptdg Discontinued 1 TABLET PO DAILY July 28, 2016 11:00pm June 14, 2018 2:44pm Vit,[id number]-Ebrsm 1 TABLET tablet (2 sources) Start: 07-29-2016 End: 06-14-2018 take 1 tablet by mouth once daily Vit,[id number] 1 TABLET tablet Discontinued 1 {tbl} PO DAILY July 29, 2016 12:00am June 14, 2018 3:44pm promethazine hydrochloride 25 mg rectal suppository (16 sources) Phenothiazine Start: 07-29-2016 End: 06-14-2018 Promethazine 25 MG suppository Discontinued 25 mg RC EVERY 6 HOURS NEEDED as needed for Vomiting 10 July 29, 2016 8:46pm June 14, 2018 3:44pm Start: 07-29-2016 End: 06-14-2018 take 1 tablet by mouth every six hours as needed for vomiting Promethazine 25 MG tablet Discontinued 25 mg PO EVERY 6 HOURS NEEDED as needed for Vomiting 10 July 29, 2016 12:00am June 14, 2018 3:44pm SUMAtriptan 50 mg oral tablet (2 sources) Serotonin-1b and Serotonin-1d Receptor Agonist Start: 08-29-2020 End: 02-24-2023 SUMAtriptan (IMITREX) 50 mg tablet 50mg every 2 hrs as needed for migraines (max 4/day; 9/mo) 9 tablet 11 08/29/2020 02/24/2023 Discontinued (Course of therapy completed) Comment on above: 50mg every 2 hrs as needed for migraines (max 4/day; 9/mo) valACYclovir 1000 mg oral tablet (8 sources) Herpesvirus Nucleoside Analog DNA Polymerase Inhibitor, Herpes Simplex Virus Nucleoside Analog DNA Polymerase Inhibitor, Herpes Zoster Virus Nucleoside Analog DNA Polymerase Inhibitor Start: 08-08-2021 End: 11-10-2022 Valacyclovir (Valtrex) 1 gram tablet Discontinued 1000 mg PO TWICE A DAY August 08, 2021 12:00am November 10, 2022 9:18am Problems Active Problems Problem Classification Problem Date Documented Date Episodic/Chronic Acute and chronic tonsillitis (6 sources) Peritonsillar abscess; Translations: [Peritonsillar abscess] Onset: 03-01-2025 03-01-2025 Episodic Anxiety disorders (20 sources) Anxiety; Translations: [Anxiety disorder, unspecified] Onset: 12-21-2017 12-21-2017 Chronic Attention-deficit, conduct, and disruptive behavior disorders (16 sources) Attention deficit hyperactivity disorder, combined type; Translations: [Attention-deficit hyperactivity disorder, combined type] Onset: 01-30-2016 01-30-2016 Chronic Chronic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 [facility] CT Neck W contrast Fadi 05-0 IMPRESSION: Mild enlargement of the palatine and lingual tonsils narrows the oropharynx. No evidence of drainable abscess. Valleculae are patent. No abnormal enlargement or signs of inflammation aryepiglottic folds or epiglottis. No prevertebral soft tissue swelling CT findings can be seen with acute tonsillitis without tonsillar/peritonsil lar abscess in the appropriate clinical setting Moderately enlarged bilateral level 2A lymph nodes most consistent with reactive cervical inflammatory lymphadenopathy Research Professional: PSCLen Transcribe Date/Time: Mar 01 2025 1:17P Dictated by : YAYO LI MD This examination was interpreted and the report reviewed and electronically signed by: YAYO LI MD on Mar 01 2025 1:34PM EST [facility] * * *Final Report* * * DATE OF EXAM: Mar 01 2025 1:14PM [facility] 0013 - CT NECK SOFT TISSUE W IVCON / PROCEDURE REASON: Abscess, peritonsillar * * * * Physician Interpretation * * * * CT Neck Soft Tissue with Contrast HISTORY: Pain and swelling, evaluate for tonsillar abscess COMPARISON: None. TECHNIQUE: Helical scan of the neck from the petrous ridges through the upper mediastinum following IV administration of 100 Omnipaque 300. Dose-Length Product (DLP): 302.15 mGy*cm. CT Dose Reduction Employed: Automated exposure control(AEC) and iterative recon RESULT: Visualized portion lower brain, orbits and central skull base unremarkable. Mild mucosal changes left maxillary sinus. No fluid levels are seen. MUCOSAL SURFACES AND PHARYNGEAL MUCOSAL SPACE: No masses are identified. Nasopharynx and hypopharynx as well as larynx is unremarkable. Visualized portion of oral cavity is unremarkable. TONGUE BASE AND VALLECULA: Mild enlargement of the palatine and lingual tonsils narrows the oropharynx. No evidence of drainable abscess. Valleculae are patent. No abnormal enlargement or signs of inflammation aryepiglottic folds or epiglottis. No prevertebral soft tissue swelling PRE-STYLOID PARAPHARYNGEAL SPACE: Fat and muscle planes are normal. TRIM CARPENTER SPACE: Visualized mandible, muscles of mastication, pterygopalatine fossa and pterygomaxillary fissures are normal bilaterally. JAWS: No gross bony destructive lesions or dental inflammatory lesions identified. CAROTID SHEATH AND CONTENTS: The carotid arteries and jugular veins demonstrate normal contrast enhancement. CERVICAL SOFT TISSUES AND LYMPH NODES: The deep cervical fascial planes, and prevertebral soft tissues are normal. Moderately enlarged bilateral level 2A lymph nodes most consistent with reactive cervical inflammatory lymphadenopathy MAJOR SALIVARY GLANDS: Morphology, attenuation, and enhancement pattern of the major salivary glands is normal. THYROID: Morphology and enhancement pattern of the thyroid is normal. LARYNX AND VISIBLE TRACHEOBRONCHIAL TREE: No laryngeal or para laryngeal masses are identified. The paraglottic fat plane is preserved. No endoluminal masses are identified within the visualized tracheobronchial tree. Airway is patent to the neel. LUNG APICES AND UPPER MEDIASTINUM: Lung apices are clear. No mediastinal masses are identified. Cervical spine: Mild reversal normal cervical curvature. [employer] [facility] Provider, [facility] - 03/01/2025 * * *Final Report* * * DATE OF EXAM: Mar 01 2025 1:14PM [facility] 0013 - CT NECK SOFT TISSUE W IVCON / PROCEDURE REASON: Abscess, peritonsillar * * * * Physician Interpretation * * * * CT Neck Soft Tissue with Contrast HISTORY: Pain and swelling, evaluate for tonsillar abscess COMPARISON: None. TECHNIQUE: Helical scan of the neck from the petrous ridges through the upper mediastinum following IV administration of 100 Omnipaque 300. Dose-Length Product (DLP): 302.15 mGy*cm. CT Dose Reduction Employed: Automated exposure control(AEC) and iterative recon RESULT: Visualized portion lower brain, orbits and central skull base unremarkable. Mild mucosal changes left maxillary sinus. No fluid levels are seen. MUCOSAL SURFACES AND PHARYNGEAL MUCOSAL SPACE: No masses are identified. Nasopharynx and hypopharynx as well as larynx is unremarkable. Visualized portion of oral cavity is unremarkable. TONGUE BASE AND VALLECULA: Mild enlargement of the palatine and lingual tonsils narrows the oropharynx. No evidence of drainable abscess. Valleculae are patent. No abnormal enlargement or signs of inflammation aryepiglottic folds or epiglottis. No prevertebral soft tissue swelling PRE-STYLOID PARAPHARYNGEAL SPACE: Fat and muscle planes are normal. TRIM CARPENTER SPACE: Visualized mandible, muscles of mastication, pterygopalatine fossa and pterygomaxillary fissures are normal bilaterally. JAWS: No gross bony destructive lesions or dental inflammatory lesions identified. CAROTID SHEATH AND CONTENTS: The carotid arteries and jugular veins demonstrate normal contrast enhancement. CERVICAL SOFT TISSUES AND LYMPH NODES: The deep cervical fascial planes, and prevertebral soft tissues are normal. Moderately enlarged bilateral level 2A lymph nodes most consistent with reactive cervical inflammatory lymphadenopathy MAJOR SALIVARY GLANDS: Morphology, attenuation, and enhancement pattern of the major salivary glands is normal. THYROID: Morphology and enhancement pattern of the thyroid is normal. LARYNX AND VISIBLE TRACHEOBRONCHIAL TREE: No laryngeal or para laryngeal masses are identified. The paraglottic fat plane is preserved. No endoluminal masses are identified within the visualized tracheobronchial tree. Airway is patent to the neel. LUNG APICES AND UPPER MEDIASTINUM: Lung apices are clear. No mediastinal masses are identified. Cervical spine: Mild reversal normal cervical curvature. IMPRESSION IMPRESSION: Mild enlargement of the palatine and lingual tonsils narrows the oropharynx. No evidence of drainable abscess. Valleculae are patent. No abnormal enlargement or signs of inflammation aryepiglottic folds or epiglottis. No prevertebral soft tissue swelling CT findings can be seen with acute tonsillitis without tonsillar/peritonsil lar abscess in the appropriate clinical setting Moderately enlarged bilateral level 2A lymph nodes most consistent with reactive cervical inflammatory lymphadenopathy Research Professional: VIVIENNE Transcribe Date/Time: Mar 01 2025 1:17P Dictated by : YAYO IL MD This examination was interpreted and the report reviewed and electronically signed by: YAYO LI MD on Mar 01 2025 1:34PM EST [facility] Radiology Study observation (narrative) Vasiliy darling [facility] CT Neck W contrast IVOrdered By: Ccf Provider on 03-01-2025 [facility] Comprehensive metabolic 2000 panelOrdered By: Sandie Bell on 03-01-2025 Albumin [Mass/Vol] 4.5 g/dL 3.9 - 4.9 g/dL Cl [facility] ALP [Catalytic activity/Vol] 64 U/L 34 - 123 U/L [facility] ALT [Catalytic activity/Vol] 10 U/L 7 - 38 U/L [facility] Anion gap [Moles/Vol] 7 mmol/L Low 8 - 15 mmol/L [facility] AST [Catalytic activity/Vol] 12 U/L Low 13 - 35 U/L [facility] Bilirubin [Mass/Vol] 0.5 mg/dL 0.2 - 1 .3 mg/dL [facility] Calcium [Mass/Vol] 9.5 mg/dL 8.5 - 10. 2 mg/dL [facility] Chloride [Moles/Vol] 103 mmol/L 98 - 10 7 mmol/L [facility] CO2 [Moles/Vol] 28 mmol/L 22 - 30 mmol/L [facility] Creatinine [Mass/Vol] 0.99 mg/dL High 0.58 - 0.96 mg/dL [facility] GFR/1.73 sq M.predicted among non-blacks MDRD (S/P/Bld) [Vol rate/Area] 79 mL/min/{1.73_m2} - PINF [facility] Comment on above: Estimated Glomerular Filtration Rate (eGFR) is calculated using the 2020 CKD-EPI creatinine equation. This equation utilizes serum creatinine, sex, and age as parameters. The creatinine assay has traceable calibration to isotope dilution-mass spectrometry. Refer to KDIGO guidelines for clinical interpretation. In patients with unstable renal function, e.g. those with acute kidney injury, the eGFR may not accurately reflect actual GFR. Glucose [Mass/Vol] 111 mg/dL High 74 - 99 mg/dL [facility] Comment on above: The [place] Diabete s Association (ADA) provides guidance for cutoff values for fasting glucose and random glucose. The ADA defines fasting as no caloric intake for at least 8 hours. Fasting plasma glucose results between 100 to 125 mg/dL indicate increased risk for diabetes (prediabetes). Fasting plasma glucose results greater than or equal to 126 mg/dL meet the criteria for diagnosis of diabetes. In the absence of unequivocal hyperglycemia, results should be confirmed by repeat testing. In a patient with classic symptoms of hyperglycemia or hyperglycemic crisis, random plasma glucose results greater than or equal to 200 mg/dL meet the criteria for diagnosis of diabetes. Reference: Standards of Medical Care in Diabetes 2016, [place] Diabetes Association. Diabetes Care. 2016.39(Suppl 1). Interpretation and review of laboratory results Abnormal [facility] Potassium [Moles/Vol] 4.7 mmol/L 3.7 - 5.1 mmol/L [facility] Protein [Mass/Vol] 7.5 g/dL 6.3 - 8.0 g/dL [facility] Sodium [Moles/Vol] 138 mmol/L 136 - 144 mmol/L [facility] Urea nitrogen [Mass/Vol] 16 mg/dL 7 - 21 mg/d L [facility] Comprehensive metabolic 2000 panelon 03-01-2025 Albumin [Mass/Vol] 4.5 g/dL Normal 3.9-4.9 [facility] Comment on above: Order Comment: Speci men Type: BLOOD SPECIMENOrdering Facility: [facility] Address: [address] [place] [address] Performed By: #### 2 4323-8 ####[facility] BRITTANY MILLTOWNCLIA [id number] [place] [address] [place] ALP [Catalytic activity/Vol] 64 U/L Normal 34-123 [facility] Comment on above: Order Comment: Speci men Type: BLOOD SPECIMENOrdering Facility: [facility] Address: [address] [place] [address] Performed By: #### 2 4323-8 ####[facility] BRITTANY MILLTOWNCLIA [id number] [place] [address] [place] ALT [Catalytic activity/Vol] 10 U/L Normal 7-38 [facility] Comment on above: Order Comment: Speci men Type: BLOOD SPECIMENOrdering Facility: [facility] Address: [address] [place] [address] Performed By: #### 2 4323-8 ####[facility] BRITTANY MILLTOWNCLIA [id number] [place] [id number] [place] Anion gap [Moles/Vol] 7 mmol/L Low 8-15 [facility] Comment on above: Order Comment: Speci men Type: BLOOD SPECIMENOrdering Facility: [facility] Address: [address] [place] [address] Performed By: #### 2 4323-8 ####[facility] [id number] [place] [address] [place] AST [Catalytic activity/Vol] 12 U/L Low 13-35 [facility] Comment on above: Order Comment: Speci men Type: BLOOD SPECIMENOrdering Facility: [facility] Address: [address] [place] [address] Performed By: #### 2 4323-8 ####[facility] [id number] [place] [address] [place] Bilirubin [Mass/Vol] 0.5 mg/dL Normal 0.2-1.3 [facility] Comment on above: Order Comment: Speci men Type: BLOOD SPECIMENOrdering Facility: [facility] Address: [address] [place] [address] Performed By: #### 2 4323-8 ####[facility] [id number] [place] [address] [place] Calcium [Mass/Vol] 9.5 mg/dL Normal 8.5-10.2 [facility] Comment on above: Order Comment: Speci men Type: BLOOD SPECIMENOrdering Facility: [facility] Address: [address] [place] [address] Performed By: #### 2 4323-8 ####[facility] [id number] [place] [address] [place] Chloride [Moles/Vol] 103 mmol/L Normal 98-107 [facility] Comment on above: Order Comment: Speci men Type: BLOOD SPECIMENOrdering Facility: [facility] Address: [address] [place] [address] Performed By: #### 2 4323-8 ####[facility]ITALL[facility] [id number] [place] [address] [place] CO2 [Moles/Vol] 28 mmol/L Normal 22-30 [facility] Comment on above: Order Comment: Speci men Type: BLOOD SPECIMENOrdering Facility: [facility] Address: [address] [place] [address] Performed By: #### 2 4323-8 ####[facility] ACEMONETTENCCAMMIE [id number] [place] [address] [place] Creatinine [Mass/Vol] 0.99 mg/dL High 0.58-0.96 [facility] Comment on above: Order Comment: Speci men Type: BLOOD SPECIMENOrdering Facility: [facility] Address: [address] [place] [address] Performed By: #### 2 4323-8 ####[facility] [id number] [place] [address] [place] Creatinine and Glomerular filtration rate.predicted panel (S/P/Bld) 79 mL/min/1.73m??? Normal >=60 [facility] Comment on above: Order Comment: Speci men Type: BLOOD SPECIMENOrdering Facility: [facility] Address: [address] [place] [address] Result Comment: Armida mated Glomerular Filtration Rate (eGFR) is calculated using the 2020 CKD-EPI creatinine equation. This equation utilizes serum creatinine, sex, and age as parameters. The creatinine assay has traceable calibration to isotope dilution-mass spectrometry. Refer to KDIGO guidelines for clinical interpretation. In patients with unstable renal function, e.g. those with acute kidney injury, the eGFR may not accurately reflect actual GFR. Performed By: #### 2 4323-8 ####[facility] [id number] [place] [address] [place] Glucose [Mass/Vol] 111 mg/dL High 74-99 [facility] Comment on above: Order Comment: Speci men Type: BLOOD SPECIMENOrdering Facility: [facility] Address: [address] [place] [address] Result Comment: The [place] Diabetes Association (ADA) provides guidance for cutoff values for fasting glucose and random glucose. The ADA defines fasting as no caloric intake for at least 8 hours. Fasting plasma glucose results between 100 to 125 mg/dL indicate increased risk for diabetes (prediabetes). Fasting plasma glucose results greater than or equal to 126 mg/dL meet the criteria for diagnosis of diabetes. In the absence of unequivocal hyperglycemia, results should be confirmed by repeat testing. In a patient with classic symptoms of hyperglycemia or hyperglycemic crisis, random plasma glucose results greater than or equal to 200 mg/dL meet the criteria for diagnosis of diabetes. Reference: Standards of Medical Care in Diabetes 2016, [place] Diabetes Association. Diabetes Care. 2016.39(Suppl 1). Performed By: #### 2 4323-8 ####[facility] MILLTOWSAULLIA [id number] [place] [address] [place] Potassium [Moles/Vol] 4.7 mmol/L Normal 3.7-5.1 [facility] Comment on above: Order Comment: Speci men Type: BLOOD SPECIMENOrdering Facility: [facility] Address: [address] [place] [address] Performed By: #### 2 4323-8 ####[facility] MILLRALPHWNCLIA [id number] [place] [address] [place] Protein [Mass/Vol] 7.5 g/dL Normal 6.3-8.0 [facility] Comment on above: Order Comment: Speci men Type: BLOOD SPECIMENOrdering Facility: [facility] Address: [address] [place] [address] Performed By: #### 2 4323-8 ####[facility] MILLTOWNCLIA [id number] [place] [address] [place] Sodium [Moles/Vol] 138 mmol/L Normal 136-144 [facility] Comment on above: Order Comment: Speci men Type: BLOOD SPECIMENOrdering Facility: [facility] Address: [address] [place] [id number] Performed By: #### 2 4323-8 ####[facility] HOSPITALWNCLIA [id number] [place] [address] [place] Urea nitrogen [Mass/Vol] 16 mg/dL Normal 7-21 [facility] Comment on above: Order Comment: Speci men Type: BLOOD SPECIMENOrdering Facility: [facility] Address: [facility] [place] [address] Performed By: #### 2 4323-8 ####[facility]CL[facility] [id number] [place] [id number] [place] CNOVon 02-26-2025 CNOV Office Visit ([facility]) RASHMI HOUGH ([id number]) 1995 F Date Time Provider Department 02/26/25 7:45 PM PAULINO BARKER [facility] During your visit today, we recorded the following information about you: Temperature Pulse Respiration Blood pressure 99.1 degrees 108/minute 16/minute 110/68 Weight 60.5 kg Paulino Barker APRN.OPERA SINGER 02/26/2025 8:05 PM Signed [facility] Subjective HPI HPI Rashmi Hough is a 30 year old female who presents today for CC of st, cough, sinus pressure. This started 8 days ago. Has tried otc medication for relief. Symptoms are worsened by nothing. Risk factors strep exposures. .Patient presents with: Sore Throat: x 8 days, strep exposure PAST MEDICAL HISTORY Diagnosis Date ADHD (attention [...] problems since ALLERGIES Lexapro [Escitalopram Oxalate] MEDICATIONS Desogestrel-Ethinyl Estradiol 0.15-0.03 mg per tablet Take by mouth. fluticasone (FLONASE ALLERGY RELIEF) 50 mcg/actuation nasal spray Use 1 spray in each nostril once daily. busPIRone (BUSPAR) 5 mg tablet Take 1 tablet by mouth three times a day. (Patient not taking: Reported on 02/01/2025) mirtazapine (REMERON) 15 mg tablet Take 1 tablet by mouth daily at bedtime. FAMILY HISTORY Problem Relation Age of Onset Alcohol/Drug Father Heart Maternal Grandmother Hypertension Maternal Grandmother Asthma Maternal Grandmother Lipids Maternal Grandmother Stroke Maternal Grandmother Heart Maternal Grandfather Hypertension Maternal Grandfather Emphysema Maternal Grandfather Lipids Maternal Grandfather Cancer Paternal Grandmother Lung Heart Paternal Grandfather other (small cell cancer) Paternal Grandfather Social History Tobacco Use Smoking status: Former Current packs/day: 0.00 Types: Cigarettes Quit date: 11/10/2010 Years since quittin.3 Smokeless tobacco: Never Vaping Use Vaping status: Never Used Substance Use Topics Alcohol use: Yes Comment: ocasional drink Drug use: No Comment: occasional marijuna use Review of Systems Constitutional: Positive for fever. Negative for chills and fatigue. HENT: Positive for rhinorrhea and sore throat. Negative for ear discharge, ear pain, sinus pressure and sinus pain. Eyes: Negative for discharge and redness. Respiratory: Positive for cough. Negative for shortness of breath and wheezing. Cardiovascular: Negative for chest pain. Skin: Negative for rash. Objective BP 110/68 Pulse 108 Temp 37.3 ?C (99.1 ?F) Resp 16 Wt 60.5 kg (133 lb 6.1 oz) LMP 03/09/2023 (Approximate) SpO2 96% BMI 22.20 kg/m? Physical Exam Constitutional: General: She is not in acute distress. Appearance: She is not toxic-appearing or diaphoretic. HENT: Head: Normocephalic and atraumatic. Right Ear: Hearing, tympanic membrane, ear canal and external ear normal. Left Ear: Hearing, tympanic membrane, ear canal and external ear normal. Nose: Nose normal. Mouth/Throat: Mouth: Mucous membranes are moist. Pharynx: Uvula midline. Posterior oropharyngeal erythema present. Eyes: General: Lids are normal. No scleral icterus. Right eye: No discharge. Left eye: No discharge. Conjunctiva/sclera: Conjunctivae normal. Pupils: Pupils are equal, round, and reactive to light. Neck: Trachea: Trachea normal. Cardiovascular: Rate and Rhythm: Normal rate and regular rhythm. Heart sounds: Normal heart sounds. Pulmonary: Effort: Pulmonary effort is normal. Breath sounds: Normal breath sounds. Musculoskeletal: Cervical back: Normal range of motion and neck supple. Lymphadenopathy: Cervical: Cervical adenopathy present. Right cervical: Superficial cervical adenopathy present. Left cervical: Superficial cervical adenopathy present. Skin: Findings: No rash. Neurological: Mental Status: She is alert and oriented to person, place, and time. {ASSESSMENT/PLAN: 1. Sinobronchitis - ICD9: 473.9, 490, ICD10: J32.9, J40 (primary diagnosis) Otc management for next 3-5 days, if s/s persist or worsen fill atb rx. - Supportive care with plenty of fluids, rest, and analgesia prn. - Follow up in 3-5 days if symptoms persist or worsen. - AZITHROMYCIN 500 MG TABLET 2. Sore throat - ICD9: 462, ICD10: J02.9 negative - STREP A MOLECULAR (POC) Paulino Barker APRN.OPERA SINGER History and Record Review External record(s) reviewed: prior outpatient record. (more content not included)... Normal [facility] STREP A MOLECULAR (POC)on Procedural Control Valid [facility] Strep A (POCT) Negative Negative [facility] CNOVon 02-01-2025 CNOV Office Visit ([facility]) RASHMI HOUGH ([id number]) 1995 F Date Time Provider Department 02/01/25 5:15 PM KEEGAN DANIELS [facility] During your visit today, we recorded the following information about you: Temperature Pulse Respiration Blood pressure 97.9 degrees 63/minute 18/minute 102/70 Weight 59.2 kg Keegan Daniels APRN.CNP 02/01/2025 5:26 PM Signed This note was created using [employer]. Subjective Rashmi Hough is a 29 year old female. HPI The last 4 days patient complains of left ear pain. She also notes recent URI symptoms with cough and congestion. She did have a negative home COVID test. Denies any recent fevers. Review of Systems As above Objective BP 102/70 Pulse 63 Temp 36.6 ?C (97.9 ?F) Resp 18 Wt 59.2 kg (130 lb 8.2 oz) LMP 03/09/2023 (Approximate) SpO2 98% BMI 21.72 kg/m? Physical Exam Vitals and nursing note reviewed. Constitutional: General: She is not in acute distress. Appearance: Normal appearance. She is not ill-appearing. HENT: Head: Normocephalic. Right Ear: Tympanic membrane normal. Left Ear: Tympanic membrane normal. Mouth/Throat: Mouth: Mucous membranes are moist. Pharynx: No oropharyngeal exudate or posterior oropharyngeal erythema. Eyes: Conjunctiva/sclera: Conjunctivae normal. Cardiovascular: Rate and Rhythm: Normal rate and regular rhythm. Pulmonary: Effort: Pulmonary effort is normal. Breath sounds: Normal breath sounds. Musculoskeletal: General: Normal range of motion. Cervical back: Normal range of motion. Skin: General: Skin is warm and dry. Neurological: General: No focal deficit present. Mental Status: She is alert. Psychiatric: Mood and Affect: Mood normal. Behavior: Behavior normal. Assessment and Plan ASSESSMENT/PLAN: 1. Eustachian tube dysfunction, left - ICD9: 381.81, ICD10: H69.92 No sign of otitis media or externa noted. Discussed with patient that symptoms seem most consistent with probable eustachian tube dysfunction. She will continue to use her home Claritin and she was given prescriptions for Flonase and prednisone. - PREDNISONE 50 MG TABLET - FLUTICASONE PROPIONATE 50 MCG/ACTUATION NASAL SPRAY,SUSPENSION Keegan Daniels APRN.CNP Allergies As of Date: 02/01/2025 Noted Allergy Reaction LEXAPRO (ESCITALOPRAM OXALATE) 12/24/2017 14 - Other: See Comments Comments: [place] weird, heart racing. Date Reviewed: 02/01/2025 Reviewed by: Keegan Daniels APRN.OPERA SINGER - Fully Assessed Reason for Visit: Ear Pain [817] Cmt: L ear pain x4 days Primary Visit Diagnosis:Eustachian tube dysfunction, left [H69.92] Order(s):predniSONE (DELTASONE) 50 mgTake 1 tablet by mouth once daily for 5 days.Disp: 5 tabletRfl: 0 fluticasone (FLONASE ALLERGY RELIEF) 50 mcg/actuation nasal sprayUse 1 spray in each nostril once daily.Disp: 9.9 mLRfl: 0 Prescriptions as of 02/01/2025 - predniSONE (DELTASONE) 50 mg Take 1 tablet by mouth once daily for 5 days. - fluticasone (FLONASE ALLERGY RELIEF) 50 mcg/actuation nasal spray Use 1 spray in each nostril once daily. - busPIRone (BUSPAR) 5 mg tablet Take 1 tablet by mouth three times a day. - mirtazapine (REMERON) 15 mg tablet Take 1 tablet by mouth daily at bedtime. 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 Nausea and vomiting in [O21.9] 08/13/2016 12/22/2016 Patient requested diagnostic testing [Z01.89] 08/13/2016 12/21/2016 Rubella non-immune status, antepartum [O09.899,*09/16/2016 04/23/2017 Gestational thrombocytopenia without hemorrhage* 7 03/01/2018 Positive GBS test [B95.1] 02/25/2017 04/23/2017 Anxiety [F41.9] 12/21/2017 Pelvic pain in female [R10.2] 03/01/2018 Generalized anxiety disorder with panic attacks*08/12/2018 Migraine without status migrainosus, not intrac*08/12/2018 Vitamin D deficiency [E55.9] 11/15/2018 Prescriptions ordered this encounter Disp Refills Start End PREDNISONE 50 MG TABLET 5 ta* 0 02/01/2025 02/06/2025 Route: ORAL Sig: Take 1 tablet by mouth once daily for 5 days. FLUTICASONE PROPIONATE 50 MCG/ACTUAT* 9.9 * 0 02/01/2025 Route: EACH NOSTRIL Sig: Use 1 spray in each nostril once daily. Encounter Status:Closed by KEEGAN DANIELS on 02/01/[address] [facility] Chlamydia/GC CORNELIUS aptimaon CHLAMY,NUC ACID Negative Normal Negative [facility] Comment on above: Performed By: #### L 509.8002, L3890.6006, L7000.1800, L3400.1610 #### [facility] [address] [place], [address] GC BY NUC ACID Negative Normal Negative [facility] Comment on above: Performed By: #### L 509.8002, L3890.6006, L7000.1800, L3400.1610 #### [facility] [address] [place], [address] Genital Culture Comprehensiv mar 01-20-2025 VAC Reason for Exam: vaginal discharge No yeast, Gardnerella, or Neisseria isolated. Streptococcus agalactiae (B) Amount Growth 3+ Streptococcus agalactiae (B): REACTION Ampicillin Islt CHARLEY <=0.25 cefTRIAXone Islt CHARLEY <=0.12 S Clindamycin Islt CHARLEY >=1 R Clindamycin.induced Susc Islt NEG Linezolid Islt CAHRLEY <=2 S Vancomycin Islt CHARLEY 0.5 S Normal [facility] Comment on above: Performed By: #### M 100.2000, M100.3200 #### [facility] [address] [facility]. [place], [place], [id number] HSV 1 AND 2 IgGon 01-20-2025 HSV 1 IgG Normal [facility] Comment on above: Result Comment: RESU LT: NON REACTIVE Please note reference interval change HSV-1 IgG testing performed using the [employer] Ele[employer] HSV-1 IgG assay. Performed By: #### L 509.8002, L3890.6006, L7000.1800, L3400.1610 #### [facility] [address] [facility] [place], [address] HSV 2 IgG Normal [facility] Comment on above: Result Comment: RESU LT: NON REACTIVE Please note reference interval change Current guidelines and recommendations do not recommend routine screening for HSV-2 in asymptomatic individuals, including those that are . The detection of HSV-2 IgG antibodies in a single sample indicates previous exposure to HSV-2 but does not give information as to the site of HSV infection or the timing of exposure. The predictive value of positive and negative results depends on the population's prevalence and the pretest likelihood of HSV-2. HSV-2 IgG testing performed using the [employer] Ele[employer] HSV-2 IgG assay. Performed at: =[address] [id number] [employer] Architect: Maryjane Dempsey MD, Phone: [phone] Performed at: [address] [id number] [employer] Architect: Michele Burr PhD, Phone: [phone] Performed By: #### L 509.8002, L3890.6006, L7000.1800, L3400.1610 #### [facility] [address] [place], [address] C. trachomatis rRNA CORNELIUS+prob e Ql (Unsp spec)Ordered By: Estella Marques on 01-17-2025 Chlamydia DNA (CORNELIUS) Negative Negative [facility] Chlamydia trachomatis rRNA d etection by probe and target amplification methodOrdered By: Estella Marques on 01-17-2025 C. trachomatis rRNA CORNELIUS+probe Ql (Unsp spec) Negative Negative [facility] Genital cultureOrdered By: Graham Marques on 01-17-2025 Genital Culture Streptococcus agalactiae (B) Abnormal [facility] Source specific culture Streptococcus agalactiae (B) Abnormal [facility] Gram Stainon 01-17-2025 GS Reason for Exam: vaginal discharge Gram Stain 4+ Gram variable [place] 2+ Epithelial cells No Gram negative diplococci Score = 8 Interpretation: 0-3 Normal, 4-6 Intermediate, 7-10 Positive BV Normal [facility] Comment on above: Performed By: #### M 100.2000, M100.3200 #### [facility] [address], [address] Gram stainOrdered By: Estella Marques on 01-17-2025 Microscopic observation Gram stain Nom (Unsp spec) [facility] HSV 2 Ab IA Qn (S)Ordered By : Estella Marques on 01-17-2025 Herpes Simplex Virus II IgG Ab See comment [facility] Comment on above: RESULT: NON REACTIVE Please note reference interval changeCurrent guidelines and recommendations do not recommendroutine screening for HSV-2 in asymptomatic individuals,including those that are . The detection of HSV-2IgG antibodies in a single sample indicates previousexposure to HSV-2 but does not give information as to thesite of HSV infection or the timing of exposure. Thepredictive value of positive and negative results dependson the population's prevalence and the pretest likelihoodof HSV-2. HSV-2 IgG testing performed using the RocheDailyDigitalsys HSV-2 IgG assay.Performed at: =[address] [id number] Director: Maryjane Dempsey MD, Phone: [phone] at: [address] [id number] Director: Michele Burr PhD, Phone: [phone] Herpes simplex virus (HSV) t ype 1 IgG antibody assayOrdered By: Estella Marques on 01-17-2025 Herpes Simplex Virus I IgG Antibody See comment [facility] Comment on above: RESULT: NON REACTIVE Please note reference interval changeHSV-1 IgG testing performed using the [employer] Ele[employer] HSV-1IgG assay. L3890.6006on 01-17-2025 HIV Non-Reactive Normal Nonreactive [facility] Comment on above: Result Comment: Non- Reactive Reactive Repeatedly reactive samples must be confirmed according to CDC recommended confirmatory algorithms. The subresults for either HIVAG or AHIV can be used as an aid in the selection of the confirmation algorithm for reactive samples. Send out specimens with Reactive results to [facility] for confirmation. Order the HIV antibody detection and differentiation: lc#[id number] Performed By: #### L 509.8002, L3890.6006, L7000.1800, L3400.1610 #### [facility] [address] [facility] [place], [address] L509.8002on 01-17-2025 Syphilis Abs Non-Reactive Normal Nonreactive [facility] Comment on above: Performed By: #### L 509.8002, L3890.6006, L7000.1800, L3400.1610 #### [facility] [address] [facility] [place], [address] Neisseria gonorrhoeae nuclei c acid detection by amplified probe techniqueOrdered By: Estella Marques on 01-17-2025 N. gonorrhoeae DNA CORNELIUS+probe Ql (Unsp spec) Negative Negative [facility] No Panel InformationOrdered By: Estella Marques on 01-17-2025 HIV (1&2) Antibody Non-Reactive Nonreactive [facility] Comment on above: Non-ReactiveReactive Repeatedly reactive samples must be confirmed according to CDC recommended confirmatory algorithms. The subresults for either HIVAG or AHIV can be used as an aid in the selection of the confirmation algorithm for reactive samples.Send out specimens with Reactive results to [facility] for confirmation.Order the HIV antibody detection and differentiation: #[id number] POC Bacterial Vaginitis (Rapid) Positive [facility] POC Trichomonas (Rapid) Negative [facility] Office Visit Reporton 01-17-2025 Ne[facility] Office Visit Report [facility]'s [address], [address] [place] [address] OFFICE VISIT Date of Service: 01/17/25 MR#: [id number] Acct: [id number] Name: RASHMI HOUGH Rep #: [id number] : 1995 Provider: ARNULFO maher Age/Sex: 29/F Location: [place] Status: Signed Intake Vital Signs 11/15/24 08:20 01/17/25 14:00 01/17/25 14:05 Height 5 ft 5 in 5 ft 5 in 5 ft 5 in Weight: 123 lb 131 lb BMI 20.5 21.8 BP 100/68 102/68 Intake Visit Reasons: STD testing Chief Complaint: STD testing Chemist Assistant Required: No Is patient in pain?: No Allergies escitalopram (From Lexapro) Adverse Reaction (Severe, Verified 01/17/25 13:59) slow heart rate Medications ???Medication ???Instructions ???Recorded ???Confirmed ???Type mirtazapine 15 mg tablet 15 mg PO QHS 12/17/22 01/17/25 His tory buspirone 10 mg tablet 10 mg PO BID 06/05/24 01/17/25 His tory norethindrone (contraceptive) 0.35 0.35 mg PO QDAY #84 tabs 5 01/17/25 Rx mg tablet Is last menstrual period known: Yes Last Menstrual Period: 01/04/25 Post menopausal: No Patient : No : No Control Method: OCP PFSH Medical History IUD (intrauterine device) in place Mood swings Lichen sclerosus Fracture Anomalous atrioventricular excitation ADHD Surgical History H/O cardiac radiofrequency ablation Family History Grandmother Heart disease Hypertension Asthma CVA (cerebral vascular accident) Lung cancer Grandfather Heart disease Hypertension Father Abuse, drug or alcohol Social History Smoking Status: Never smoker alcohol intake: current details: occasionally substance use type: does not use caffeine: Yes what type of physical activity do you participate in: weight training frequency: 1-2 times per week seatbelt use: always do you feel safe at home: Yes additional social history: Single- Works [employer] HPI STD testing Details: RASHMI HOUGH is a 29 year old who presents for STD evaluation. Having malodorous discharge. No irritation or itching. New sexual partner. Happy with Elizabeth and wishes to continue Last pap 2022 Female Reproductive History Last Menstrual Period: 01/04/25 History 3 Elective abortions Hx Para 3 Spontaneous abortions Hx # Term Pregnancies 3 Ectopic pregnancies Hx # Pregnancies Multiple births # of living children 3 Past Pregnancies Del. Date Name GA/Weeks Outcome Route Bth Weight Gen Labor Lgth Anesthesia Del Locatn Provider FOB 07/23/11 Jonas live - full term 7 lbs 9 oz Female 2 hours epidural Dennis 11/06/12 Rich 39 live - full term 7 lbs 5 oz Male 5 hours epidural Ak[facility] on 03/12/17 Santhosh 39 live - full term 7 lbs 8 oz Female 4 hours epidural [facility] ROS Const Constitutional: Reports system reviewed and no additional complaints, except as documented Eyes Eyes: Reports system reviewed and no additional complaints, except as documented GI GI: Denies abdominal pain or change in bowel habits : Reports as per HPI Exam Const General: cooperative and no acute distress Orientation: oriented x3 General: bladder normal to palpation External Female Exam: normal external appearance and normal appearance of the urethra Urethra: normal appearance of the urethra Speculum Exam - Vagina: normal appearance of the vagina, normal vaginal discharge, no lesions and nontender Speculum Exam - Cervix: normal appearance of the cervix Bimanual Exam- Vagina Uterus: normal bimanual exam, uterine size normal, bladder normal to palpation, uterine shape normal, uterine mobility normal and non-tender Bimanual Exam- Adnexa, other: normal adnexae, no masses and non-tender Coding Level of Care Code Off vis,est,level 3 Diagnoses Vaginal odor N89.8 Possible exposure to STI Z20.2 Assessment and Plan Assessment and Plan (1) Vaginal odor: (2) Possible exposure to STI: Status: Acute Orders: Orders POC BV Blue Test Today Z20.2 - Contact with and (suspected) exposure to infections with a predominantly sexual mode of transmission POC Trichomonas Vaginalis Today Z20.2 - Contact with and (suspected) exposure to infections with a predominantly sexual mode of transmission Chlamydia/GC CORNELIUS aptima Today Z20.2 - Contact with and (suspected) exposure to infections with a predominantly sexual mode of transmission HSV 1 2 IgG Today Z20.2 - Contact with and (suspected) exposure to infections with a predominantly sexual mode of transmission HIV (more content not included)... Normal [facility] Serum herpes simplex virus 2 antibody assay by immunoassay (units/volume)Ordered By: Estella Marques on 01-17-2025 HSV 2 Ab IA Qn (S) See comment [facility] Comment on above: RESULT: NON REACTIVE Please note reference interval changeCurrent guidelines and recommendations do not recommendroutine screening for HSV-2 in asymptomatic individuals,including those that are . The detection of HSV-2IgG antibodies in a single sample indicates previousexposure to HSV-2 but does not give information as to thesite of HSV infection or the timing of exposure. Thepredictive value of positive and negative results dependson the population's prevalence and the pretest likelihoodof HSV-2. HSV-2 IgG testing performed using the RocheDailyDigitalsys HSV-2 IgG assay.Performed at: =[address] [id number] Director: Maryjane Dempsey MD, Phone: [phone] at: [address] [id number] Director: Michele Burr PhD, Phone: [phone] T. pallidum abOrdered By: Jluis Marques on 01-17-2025 Syphilis Total Antibody Non-Reactive Nonreactiv e [facility] Chlamydia/GC CORNELIUS aptimaon CHLAMY,NUC ACID Negative Normal Negative [facility] Comment on above: Performed By: #### L 7000.1800 ####[facility] [address] [place], [address] GC BY NUC ACID Negative Normal Negative [facility] Comment on above: Result Comment: Perf ormed at: = - [facility] [place], [place] [id number] [employer] Architect: Maryjane Dempsey MD, Phone: [phone] Performed By: #### L [id number] ####[facility] [address] [place], [place], [id number] HSV 1 AND 2 IgGon 11-17-2024 HSV 2 IgG Normal [facility] Comment on above: Result Comment: RESU LT: NON REACTIVE Please note reference interval change Current guidelines and recommendations do not recommend routine screening for HSV-2 in asymptomatic individuals, including those that are . The detection of HSV-2 IgG antibodies in a single sample indicates previous exposure to HSV-2 but does not give information as to the site of HSV infection or the timing of exposure. The predictive value of positive and negative results depends on the population's prevalence and the pretest likelihood of HSV-2. HSV-2 IgG testing performed using the [employer] Ele[employer] HSV-2 IgG assay. Performed at: [address] [id number] [employer] Architect: Michele Burr PhD, Phone: [phone] Performed By: #### L 0886.6300, L3400.1610, L509.8000, L3890.6005, L3890.6100 ####[facility] [address] [place], [address] HSV 1 IgG Normal [facility] Comment on above: Result Comment: RESU LT: NON REACTIVE Please note reference interval change HSV-1 IgG testing performed using the [employer] Ele[employer] HSV-1 IgG assay. Performed By: #### L 8970.6300, L3400.1610, L509.8000, L3890.6005, L3890.6100 ####[facility] [address] [facility] [address] [place], [place], [id number] C. trachomatis rRNA CORNELIUS+prob e Ql (Unsp spec)Ordered By: Nereyda Rondon on 11-15-2024 Chlamydia DNA (CORNELIUS) Negative Negative [facility] HIV - WCHon 11-15-2024 HIV Non-Reactive Normal Nonreactive [facility] Comment on above: Order Comment: Reaso n for Exam: std testing Performed By: #### L 3890.6300, L3400.1610, L509.8000, L3890.6005, L3890.6100 ####[facility] [address] [place], [address] HIV 1+2 Ab+HIV1 p24 Ag IA Ql Ordered By: Nereyda Rondon on 11-15-2024 HIV (1&2) Antibody Non-Reactive Nonreactive [facility] HSV 2 Ab IA Qn (S)Ordered By : Nereyda Rondon on 11-15-2024 Herpes Simplex Virus II IgG Ab See comment [facility] Comment on above: RESULT: NON REACTIVE Please note reference interval changeCurrent guidelines and recommendations do not recommendroutine screening for HSV-2 in asymptomatic individuals,including those that are . The detection of HSV-2IgG antibodies in a single sample indicates previousexposure to HSV-2 but does not give information as to thesite of HSV infection or the timing of exposure. Thepredictive value of positive and negative results dependson the population's prevalence and the pretest likelihoodof HSV-2. HSV-2 IgG testing performed using the RocheDailyDigitalsys HSV-2 IgG assay.Performed at: [place] [id number] Director: Michele Burr PhD, Phone: [phone] Hepatitis B Surface Antigeno n 11-15-2024 HEP B Surf Ag Non-Reactive Normal Nonreactive [facility] Comment on above: Order Comment: Reaso n for Exam: std testing Performed By: #### L 3890.6300, L3400.1610, L509.8000, L3890.6005, L3890.6100 ####[facility] [address] [place], [place], [id number] Hepatitis B surface antigen detectionOrdered By: Nereyda Rondon on 11-15-2024 Hepatitis B Surface Antigen Non-Reactive Nonreactive [facility] Hepatitis C Antibodyon 11-15 Hepatitis C AB Non-Reactive Normal Nonreactive [facility] Comment on above: Order Comment: Reaso n for Exam: std testing Result Comment: Non Reactive: < 0.8 Equivocal: >/= 0.8 to < 1.0 Reactive: >/= 1.0 The [facility] requires that a reactive/equivocal HCV antibody result be sent out for confirmation. HCV Quant by PCR testing. Performed By: #### L 3890.6300, L3400.1610, L509.8000, L3890.6005, L3890.6100 ####[facility] [address] [place], [place], [id number] Hepatitis C virus antibody a ssayOrdered By: Nereyda Rondon on 11-15-2024 Hepatitis C Antibody Non-Reactive Nonreactive [facility] Comment on above: Non Reactive: < 0.8 Equivocal: >/= 0.8 to < 1.0 Reactive: >/= 1.0The [facility] requires that a reactive/equivocal HCV antibody result be sent out for confirmation. HCV Quant by PCR testing. Herpes simplex virus (HSV) t ype 1 IgG antibody assayOrdered By: Nereyda Rondon on 11-15-2024 Herpes Simplex Virus I IgG Antibody See comment [facility] Comment on above: RESULT: NON REACTIVE Please note reference interval changeHSV-1 IgG testing performed using the [employer] Elecs[employer] HSV-1IgG assay. L509.8000on 11-15-2024 Syphilis Abs Non-Reactive Normal [facility] Comment on above: Order Comment: Reaso n for Exam: std testing Performed By: #### L 3890.6300, L3400.1610, L509.8000, L3890.6005, L3890.6100 #### [facility] [address] [place], [address] Neisseria gonorrhoeae nuclei c acid detection by amplified probe techniqueOrdered By: Nereyda Rondon on 11-15-2024 N. gonorrhoeae DNA CORNELIUS+probe Ql (Unsp spec) Negative Negative [facility] Comment on above: Performed at: =[address] [id number] Director: Maryjane Dempsey MD, Phone: [phone] No Panel Informationon 11-15 POC Bacterial Vaginitis (Rapid) Negative [facility] POC Trichomonas (Rapid) Negative [facility] Office Visit Reporton 11-15-2024 Neon Glass Blower Office Visit Report [facility]'s [address], [address] [place] [address] OFFICE VISIT Date of Service: 11/15/24 MR#: [id number] Acct: [id number] Name: RASHMI HOUGH Rep #: [id number] : 1995 Provider: ARNULFO Chapin Age/Sex: 29/F Location: [place] Status: Signed Intake Vital Signs 08/10/24 11:02 11/07/24 09:12 11/15/24 08:20 Height 5 ft 5 in 5 ft 5 in 5 ft 5 in Weight: 124 lb 4 oz 123 lb BMI 20.7 20.5 BP 125/69 H 100/68 Intake Visit Reasons: 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) Chemist Assistant Required: No Is patient in pain?: No Allergies escitalopram (From Lexapro) Adverse Reaction (Severe, Verified 11/15/24 08:23) slow heart rate Medications ???Medication ???Instructions ???Recorded ???Confirmed ???Type mirtazapine 15 mg tablet 15 mg PO QHS 12/17/22 11/15/24 History buspirone 10 mg tablet 10 mg PO BID 06/05/24 11/15/24 History norethindrone (contraceptive) 0.35 0.35 mg PO QDAY 11/15/24 11/15/24 History mg tablet Post menopausal: No Patient : No : No Control Method: [facility]- [facility] Medical History IUD (intrauterine device) in place Mood swings Lichen sclerosus Fracture Anomalous atrioventricular excitation ADHD Surgical History H/O cardiac radiofrequency ablation Family History Grandmother Heart disease Hypertension Asthma CVA (cerebral vascular accident) Lung cancer Grandfather Heart disease Hypertension Father Abuse, drug or alcohol Social History Smoking Status: Never smoker alcohol intake: current details: occasionally substance use type: does not use caffeine: Yes what type of physical activity do you participate in: weight training frequency: 1-2 times per week seatbelt use: always do you feel safe at home: Yes additional social history: Single- Works [employer] History 3 Elective abortions Hx Para 3 Spontaneous abortions Hx # Term Pregnancies 3 Ectopic pregnancies Hx # Pregnancies Multiple births # of living children 3 Past Pregnancies Del. Date Name GA/Weeks Outcome Route Bth Weight Gen Labor Lgth Anesthesia Del Locatn Provider FOB 07/23/11 Jonas live - full term 7 lbs 9 oz Female 2 hours epidural Dennis 11/06/12 Rich 39 live - full term 7 lbs 5 oz Male 5 hours epidural Akr on 03/12/17 Santhosh 39 live - full term 7 lbs 8 oz Female 4 hours epidural [facility] HPI Encounter for routine gynecological examination Details: RASHMI HOUGH is a 29 year old who presents for annual exam. She reports no issues or concerns today--She would however like tested for STD's. She denies symptoms of STD's but has not had testing in a while. Last PAP: 2022; normal. History of abnormal PAP: no Last mammogram: none History of abnormal mammogram: n/a Colon cancer screening: age 45 Other preventative health care screenings: Deidre Thakkar pcp Female Reproductive History Last Menstrual Period: 10/29/24 Cycle Length: 21-35 Bleeding Duration: 4 Questions: metorrhagia: No, sexually active: Yes, dyspareunia: No and PCB: No ROS Const Constitutional: Denies chills, fatigue, fever(s), headache(s) or weight loss Eyes Eyes: Denies change in vision ENT ENT: Denies dizziness Cardio Card: Denies chest pain at rest or palpitations Resp Resp: Denies cough GI GI: Denies abdominal pain, constipation or nausea : Denies difficulty voiding, dysuria, hematuria, pelvic pain, prolapse symptoms, urinary incontinence, vaginal discharge, vaginal dryness, vaginal odor or vaginal pruritus Skin Skin/Breast: Denies alopecia or rash Neuro Neuro: Denies dizziness Psych Psych: Denies anxiety or depression Endo Endo: Denies cold intolerance, excessive sweating or heat intolerance Exam Const General: cooperative, healthy appearing, comfortable, no acute distress, well groomed and well hydrated Nutritional Appearance: well nourished Orientation: alert, awake and oriented x3 HENMT Head: normal to inspection and normocephalic Ears: hearing grossly normal bilaterally and external ears normal Nose: external nose normal Face and sinus: normal facial exam Eyes General: appearance normal, both eyes and all related structures Neck Neck: normal visual inspection, full ROM and no lymphadenopathy Thyroid: thyroid normal Chest Chest palpation inspection: normal inspection of the chest Breast inspection: normal inspection of the breasts and normal inspection of the axillae Breast palpation: normal palpation of the breasts, normal palpation of the axillae and (more content not included)... Normal [facility] Treponema sp Ab Ql (S)Ordere d By: Nereyda Rondon on 11-15-2024 Syphilis Total Antibody Non-Reactive [facility] Laboratory - Chemistry and C hemistry - challengeon 11-07-2024 HCG ( test) Ql (U) Negative [facility] Neon Glass Blower Office Visit Reporton 11-07-2024 Neon Glass Blower Office Visit Report [facility] [address], [address] [place] [address] OFFICE VISIT Date of Service: 11/07/24 MR#: [id number] Acct: [id number] Name: RASHMI HOUGH Rep #: [id number] : 1995 Provider: ARNULFO maher Age/Sex: 29/F Location: [place] Status: Signed Intake Vital Signs 08/10/24 11:02 11/07/24 09:12 Height 5 ft 5 in 5 ft 5 in Weight: 124 lb 4 oz 124 lb 6 oz BMI 20.7 20.7 BP 125/69 H 102/66 Intake Visit Reasons: FU care Chief Complaint: F/u Chemist Assistant Required: No Is patient in pain?: No Allergies escitalopram (From Lexapro) Adverse Reaction (Severe, Verified 11/07/24 09:12) slow heart rate Medications ???Medication ???Instructions ???Recorded ???Confirmed ???Type mirtazapine 15 mg tablet 15 mg PO QHS 12/17/22 11/07/24 History buspirone 10 mg tablet 10 mg PO BID 06/05/24 11/07/24 History norethindrone acetate 1 mg-ethinyl 1 tab PO QDAY #63 tabs 08/10/24 11/07/24 Rx estradiol 20 mcg tablet (Loestrin) Post menopausal: No Patient : No : No Control Method: OCP Nurse's Note: Thinks had a period 1/5 light spotting. PFSH Medical History IUD (intrauterine device) in place Mood swings Lichen sclerosus Fracture Anomalous atrioventricular excitation ADHD Surgical History H/O cardiac radiofrequency ablation Family History Grandmother Heart disease Hypertension Asthma CVA (cerebral vascular accident) Lung cancer Grandfather Heart disease Hypertension Father Abuse, drug or alcohol Social History Smoking Status: Never smoker alcohol intake: current details: occasionally substance use type: does not use caffeine: Yes what type of physical activity do you participate in: weight training frequency: 1-2 times per week seatbelt use: always do you feel safe at home: Yes additional social history: Single- Works [employer] [facility] care Details: RASHMI HOUGH is a 29 year old who presents for post care. Seen at clinic in [facility], took medication evening 10/04/24. Starting bleeding 10/05 and continued X 2 weeks. She then had bleeding 1/5 X 4 days and was mlt and darker than her normal menses. She did start progesterone only OCP with menses earlier this month. History 3 Elective abortions Hx Para 3 Spontaneous abortions Hx # Term Pregnancies 3 Ectopic pregnancies Hx # Pregnancies Multiple births # of living children 3 Past Pregnancies Del. Date Name GA/Weeks Outcome Route Bth Weight Gen Labor Lgth Anesthesia Del Locatn Provider FOB 07/23/11 Jonas live - full term 7 lbs 9 oz Female 2 hours epidural Dennis 11/06/12 Rich 39 live - full term 7 lbs 5 oz Male 5 hours epidural Akr on 03/12/17 Santhosh 39 live - full term 7 lbs 8 oz Female 4 hours epidural [facility] ROS Const Constitutional: Reports system reviewed and no additional complaints, except as documented Eyes Eyes: Reports system reviewed and no additional complaints, except as documented GI GI: Denies abdominal pain or change in bowel habits : Reports as per HPI Exam Const General: cooperative and no acute distress Orientation: oriented x3 HENMT Head: normal to inspection and normocephalic Eyes General: appearance normal, both eyes and all related structures Neck Neck: normal visual inspection Resp Effort Inspection: normal respiratory effort Neuro Cognition: normal cognition Speech: speech normal Psych Appearance: grossly normal Mood: congruent mood Affect: normal affect Speech and Movement: speech and movement normal Attitude: cooperative Judgment: judgment good Results POC Urine Office , Urine Negative Last Edit by Cori Eisenberg on 11/07/24 09:21 Coding Level of Care Code Off vis,est,level 3 Diagnoses Elective Z33.2 Assessment and Plan Assessment and Plan (1) Elective : Orders: Orders POC Urine Today N91.2 - Amenorrhea, unspecified Plan Negative UPT Will continue POP, discussed need to take daily same time, potential for irregular menses. Condoms encouraged Offered and declines STD evaluation today. Needs to get to class today and wants to do with annual exam later this month 11/07/24 0943 Date Estella Trujillo Signature: Date (if applicable) CC: Normal [facility] Brandon 09-18-2024 CN Office Visit (UCWSTR) RASHMI HOUHG ([id number]) 1995 F Date Time Provider Department 09/18/24 12:00 PM [facility] During your visit today, we recorded the following information about you: Temperature Pulse Respiration Blood pressure 97.8 degrees 64/minute 18/minute 102/72 Weight 56.3 kg Guilherme Khalil APRN.OPERA SINGER 09/18/2024 12:39 PM Signed Subjective HPI Nontoxic-appearing female presents urgent care chief complaint left right fifth finger pain. Duration of symptom 1 week. Associated symptoms right fifth finger pain. Patient states got finger caught in the car. Finger bent backwards. Did wear a finger splint. This did help some. Feels like she has some weakness in her PIP joint. Denies any other injuries. No numbness no tingling. No decrease sensation. Range movement is limited due to some weakness. [id number]. No surgeries or fractures previously. Past medical history prescription medications allergies reviewed. .Patient presents with: right little finger pain: X 1 week-cannot bend it PAST MEDICAL HISTORY Diagnosis Date ADHD (attention [...] problems since ALLERGIES Lexapro [Escitalopram Oxalate] MEDICATIONS busPIRone (BUSPAR) 5 mg tablet Take 1 tablet by mouth three times a day. mirtazapine (REMERON) 15 mg tablet Take 1 tablet by mouth daily at bedtime. (Patient not taking: Reported on 09/18/2024) FAMILY HISTORY Problem Relation Age of Onset Alcohol/Drug Father Heart Maternal Grandmother Hypertension Maternal Grandmother Asthma Maternal Grandmother Lipids Maternal Grandmother Stroke Maternal Grandmother Heart Maternal Grandfather Hypertension Maternal Grandfather Emphysema Maternal Grandfather Lipids Maternal Grandfather Cancer Paternal Grandmother Lung Heart Paternal Grandfather other (small cell cancer) Paternal Grandfather Social History Tobacco Use Smoking status: Former Current packs/day: 0.00 Types: Cigarettes Quit date: 11/10/2010 Years since quittin.8 Smokeless tobacco: Never Vaping Use Vaping status: Never Used Substance Use Topics Alcohol use: Yes Comment: ocasional drink Drug use: No Comment: occasional marijuna use BP 102/72 Pulse 64 Temp 36.6 ?C (97.8 ?F) (Tympanic) Resp 18 Wt 56.3 kg (124 lb 1.9 oz) LMP 03/09/2023 (Approximate) BMI 20.65 kg/m? Review of Systems Constitutional: Negative for chills, fever and malaise/fatigue. Musculoskeletal: Positive for joint pain. Negative for back pain, falls, myalgias and neck pain. Neurological: Negative for dizziness, loss of consciousness, weakness and headaches. Objective Physical Exam Constitutional: General: She is not in acute distress. Appearance: She is not toxic-appearing. HENT: Head: Normocephalic. Nose: Nose normal. Eyes: Pupils: Pupils are equal, round, and reactive to light. Cardiovascular: Rate and Rhythm: Normal rate. Pulmonary: Effort: Pulmonary effort is normal. No respiratory distress. Musculoskeletal: Hands: Cervical back: Normal range of motion. Comments: Neurovascular intact. Pain with palpation over PIP joint. No weaknesses. Full range of motion. No breaks in skin. No erythema edema noted. No pain with palpation over metacarpals. Skin: General: Skin is warm and dry. Neurological: General: No focal deficit present. Mental Status: She is alert. ASSESSMENT/PLAN: 1. Injury of finger of right hand, initial encounter - ICD9: 959.5, ICD10: S69.91XA - XR DIGIT GENERAL 3V FRONTAL/LAT/OBL RIGHT No acute findings noted on x-ray. Placed in splint. Referred to orthopedics due to persistent discomfort. Patient was educated on supportive therapies. Patient will follow up with primary care provider as needed. Patient was instructed to immediately proceed to emergency room for any new, worsening, or symptoms lasting longer than anticipated. The patient's clinical presentation is otherwise unremarkable at this time. Based on exam and clinical finding, the patient is stable for discharge. Plan of care was discussed with patient. Patient verbalizes understanding and agrees to plan of care. This note was generated using [employer] software. It may contain errors in wording, punctuation, or spelling. Guilherme Khalil APRN.OPERA SINGER Allergies As of Date: 09/18/2024 Noted Allergy Reaction LEXAPRO (ESCITALOPRAM OXALA (more content not included)... Normal [facility] XR DIGIT 3V FRONTAL/LAT/OBL RTon 09-18-2024 XR DIGIT 3V FRONTAL/LAT/OBL RT * * *Final Report* * * DATE OF EXAM: Sep 18 2024 12:21PM WOX [id number] - XR DIGIT 3V FRONTAL/LAT/OBL RT / PROCEDURE REASON: Injury of finger of right hand, initial encounter * * * * Physician Interpretation * * * * HISTORY: Injury of finger of right hand, initial encounter Pt. states she got her Rt pinky caught then pulled 1 + weeks ago. Pain Rt pinky. TECHNIQUE: 3 views coned down to the right little finger COMPARISON: None RESULT: No fracture or dislocation IMPRESSION: No fracture Research Professional[facility] Transcribe Date/Time: Sep 18 2024 12:21P Dictated by : NOREEN ALONSO MD This examination was interpreted and the report reviewed and electronically signed by: NOREEN ALONSO MD on Sep 18 2024 12:23PM EST [id number] Normal [facility] XR Finger - right AP and Lat eral and obliqueon 09-18-2024 IMPRESSION: No fracture Research Professional: [facility] Transcribe Date/Time: Sep 18 2024 12:21P Dictated by : NOREEN ALONSO MD This examination was interpreted and the report reviewed and electronically signed by: NOREEN ALONSO MD on Sep 18 2024 12:23PM EST DIVISION OF RADIOLOGY * * *Final Report* * * DATE OF EXAM: Sep 18 2024 12:21PM WOX [id number] - XR DIGIT 3V FRONTAL/LAT/OBL RT / PROCEDURE REASON: Injury of finger of right hand, initial encounter * * * * Physician Interpretation * * * * HISTORY: Injury of finger of right hand, initial encounter Pt. states she got her Rt pinky caught then pulled 1 + weeks ago. Pain Rt pinky. TECHNIQUE: 3 views coned down to the right little finger COMPARISON: None RESULT: No fracture or dislocation DIVISION OF RADIOLOGY Provider, [facility] - 09/18/2024 * * *Final Report* * * DATE OF EXAM: Sep 18 2024 12:21PM WOX [id number] - XR DIGIT 3V FRONTAL/LAT/OBL RT / PROCEDURE REASON: Injury of finger of right hand, initial encounter * * * * Physician Interpretation * * * * HISTORY: Injury of finger of right hand, initial encounter Pt. states she got her Rt pinky caught then pulled 1 + weeks ago. Pain Rt pinky. TECHNIQUE: 3 views coned down to the right little finger COMPARISON: None RESULT: No fracture or dislocation IMPRESSION IMPRESSION: No fracture Research Professional: [facility] Transcribe Date/Time: Sep 18 2024 12:21P Dictated by : NOREEN ALONSO MD This examination was interpreted and the report reviewed and electronically signed by: NOREEN ALONSO MD on Sep 18 2024 12:23PM EST [facility] Radiology [facility]ative[facility] Finger - right AP and Lat eral and obliqueOrdered By: [facility] Provider on 09-18-2024 [facility] Neon Glass Blower Office Visit Reporton 08-10-2024 Neon Glass Blower Office Visit Report [facility] [address], [address] [place] [address] OFFICE VISIT Date of Service: 08/10/24 MR#: [id number] Acct: [id number] Name: RASHMI HOUGH Rep #: [id number] : 1995 Provider: ARNULFO Chapin Age/Sex: 29/F Location: [place] Status: Signed Intake Vital Signs 06/05/24 10:26 08/10/24 11:02 Height 5 ft 5 in 5 ft 5 in Weight: 124 lb 4 oz BMI 20.7 BP 125/69 H Intake Visit Reasons: BC CONSULT Chemist Assistant Required: No Is patient in pain?: No Allergies escitalopram (From Lexapro) Adverse Reaction (Severe, Verified 08/10/24 11:00) slow heart rate Medications ???Medication ???Instructions ???Recorded ???Confirmed ???Type mirtazapine 15 mg tablet 15 mg PO QHS 12/17/22 08/10/24 History buspirone 10 mg tablet 10 mg PO BID 06/05/24 08/10/24 History norethindrone acetate 1 mg-ethinyl 1 tab PO QDAY #63 tabs 08/10/24 08/10/24 Rx estradiol 20 mcg tablet (Loestrin) Post menopausal: No Patient : No : No PFSH Medical History IUD (intrauterine device) in place Mood swings Lichen sclerosus Fracture Anomalous atrioventricular excitation ADHD Surgical History H/O cardiac radiofrequency ablation Family History Grandmother Heart disease Hypertension Asthma CVA (cerebral vascular accident) Lung cancer Grandfather Heart disease Hypertension Father Abuse, drug or alcohol Social History Smoking Status: Never smoker alcohol intake: current details: occasionally substance use type: does not use caffeine: Yes what type of physical activity do you participate in: weight training frequency: 1-2 times per week seatbelt use: always do you feel safe at home: Yes additional social history: Single- Works [employer] [facility] CONSULT Details: RASHMI HOUGH is a 29 year old who presents for control consult. She reports she was started on Sprintec; she has been taking this consistently and at the same time each day. She has been taking this continuously and finds she is having a period and then break through bleeding every 2 weeks. She started the Sprintec in May. Female Reproductive History Last Menstrual Period: 08/08/24 Bleeding Duration: 5 Questions: metorrhagia: No, sexually active: Yes, dyspareunia: No and PCB: No History 3 Elective abortions Hx Para 3 Spontaneous abortions Hx # Term Pregnancies 3 Ectopic pregnancies Hx # Pregnancies Multiple births # of living children 3 Past Pregnancies Del. Date Name GA/Weeks Outcome Route Bth Weight Infant Gen Labor Lgth Anesthesia Del Locatn Provider FOB 07/23/11 Jonas live - full term 7 lbs 9 oz Female 2 hours epidural Dennis 11/06/12 Rich 39 live - full term 7 lbs 5 oz Male 5 hours epidural Akr on 03/12/17 Santhosh 39 live - full term 7 lbs 8 oz Female 4 hours epidural [facility] ROS Const Constitutional: Denies body ache, chills, fever(s) or headache(s) Cardio Card: Denies palpitations Resp Resp: Denies dyspnea or dyspnea on exertion GI GI: Denies bloating : Denies pelvic pain, urinary urgency, vaginal discharge, vaginal dryness, vaginal odor or vaginal pruritus Exam Const General: cooperative, healthy appearing, comfortable and no acute distress Resp Effort Inspection: normal respiratory effort Skin General: no rashes or lesions noted Psych Appearance: grossly normal Speech and Movement: speech and movement normal Coding Level of Care Code Established Pt Off vis,est,level 3 Patient Type Established Diagnoses Contraception management Z30.9 Assessment and Plan Assessment and Plan (1) Contraception management: Status: Acute Plan: Discussed options available; she would like to switch to a different OCP. Will start Loestrin and stop the sprintec. Okay to take continuous however advise a menses at least every 3 months/cycles. Allow 3 cycles to determine if effective in menses/preventing BTB. Medications: New norethindrone ac-eth estradiol 1-20 mg-mcg (Loestrin) 1 TAB PO QDAY 63 tabs 2RF 08/10/24 1222 Date Nereyda Rondon NP-C Cosigner Signature: Date (if applicable) CC: Normal [facility] Neon Glass Blower Office Visit Reporton 06-05-2024 Neon Glass Blower Office Visit Report [facility] [address] [place] [address] OFFICE VISIT Date of Service: 06/05/24 MR#: [id number] Acct: [id number] Name: RASHMI HOUGH Rep #: [id number] : 1995 Provider: Dr. Jami Gonzalez DO Age/Sex: 29/F Location: [facility] Status: Signed Intake Vital Signs 12/06/23 10:51 05/04/24 15:54 06/05/24 10:26 06/05/24 10:26 Height 5 ft 5 in 5 ft 5 in 5 ft 5 in 5 ft 5 in Weight: 119 lb 4 oz BMI 19.8 BP 119/80 Intake Visit Reasons: Paragard insertion Chemist Assistant Required: No Is patient in pain?: No Allergies escitalopram (From Lexapro) Adverse Reaction (Severe, Verified 06/05/24 10:25) slow heart rate Medications ???Medication ???Instructions ???Recorded ???Confirmed ???Type clobetasol 0.05 % topical cream 1 applic topical .COMPLEX #15 grams 05/20/22 06/05/24 Rx mirtazapine 15 mg tablet 15 mg PO QHS 12/17/22 06/05/24 History buspirone 10 mg tablet 10 mg PO BID 06/05/24 06/05/24 History norgestimate 0.25 mg-ethinyl 1 tab PO DAILY #84 tabs 06/05/24 06/05/24 Rx estradiol 35 mcg tablet (Sprintec (28)) Post menopausal: No Patient : No : No PFSH PFSH Medical History IUD (intrauterine device) in place Mood swings Lichen sclerosus Fracture Anomalous atrioventricular excitation ADHD Surgical History H/O cardiac radiofrequency ablation Family History Grandmother Heart disease Hypertension Asthma CVA (cerebral vascular accident) Lung cancer Grandfather Heart disease Hypertension Father Abuse, drug or alcohol Social History Smoking Status: Never smoker alcohol intake: current details: occasionally substance use type: does not use caffeine: Yes what type of physical activity do you participate in: weight training frequency: 1-2 times per week seatbelt use: always do you feel safe at home: Yes additional social history: Single- Works [employer] History 3 Elective abortions Hx Para 3 Spontaneous abortions Hx # Term Pregnancies 3 Ectopic pregnancies Hx # Pregnancies Multiple births # of living children 3 Past Pregnancies Del. Date Name GA/Weeks Outcome Route Bth [facility] Jonas live - full term 7 lbs 9 oz Female 2 hours epidural Dennis 11/06/12 Rich 39 live - full term 7 lbs 5 oz Male 5 hours epidural Akr on 03/12/17 Santhosh 39 live - full term 7 lbs 8 oz Female 4 hours epidural [facility] HPI Paragard insertion Details: RASHMI HOUGH is a 29 year old who presents for contraception treatment and vulvar biopsy for skin tag. ROS Const ROS Unobtainable: All systems reviewed are unremarkable except as noted in H Resp Resp: Reports system reviewed and no additional complaints, except as documented; Denies cough GI GI: Reports as per HPI Psych Psych: Reports system reviewed and no additional complaints, except as documented Exam Const General: cooperative, healthy appearing, comfortable and no acute distress Resp Effort Inspection: normal respiratory effort General: bimanual renal exam normal bilaterally External Female Exam: normal appearance of the urethra Urethra: normal appearance of the urethra Speculum Exam - Vagina: normal appearance of the vagina Speculum Exam - Cervix: normal appearance of the cervix Bimanual Exam- Adnexa, other: normal adnexae and normal Pelvic Support: normal Skin General: no rashes or lesions noted Psych Appearance: grossly normal Speech and Movement: speech and movement normal Office Procedures Biopsy Provider Documentation A right labia majora/periclitoral skin tag or warty structure was noted. This area was cleansed with betadine and injected with 1% lidocaine with epi. A punch biopsy device as used to create a cicular cut around the lesion. The lesion was then grasped with pick ups and the base was cut with scissors. Silver nitrite was used to create excellent hemostasis. The patient tolerated the procedure well Alert Surjit Yes Results POC Urine Office , Urine Negative Last Edit by Rachel Wood on 06/05/24 10:59 Coding Level of Care Code Off vis,est,level 4 Diagnoses Contraception management Z30.9 Vulvar skin tag N90.89 Assessment and Plan Assessment and Plan (1) Contraception management: Status: Acute (2) Vulvar skin tag: Status: Acute Orders: Orders POC Urine Today N91.2 - Amenorrhea, unspecified (more content not included)... Normal [facility] Surgery Specimen Level Fadi 06-05-2024 Surgery Specimen Level IV Patient Age/Sex Location Account Attending Physician RASHMI HOUGH 29/F LABSPEC [id number] Stephy Vaughan Specimen: [id number] Received: 06/05/24 Status: JORGE Mcneal Num: [id number] Spec Type: VULVA BX Subm Dr: Dr. Jami Guerra DO HEADISRRAEL OPERATION: Vulvar biopsy PRE-OP DIAGNOSIS: Vulvar skin tag TISSUE SUBMITTED: Right vulva MICROSCOPIC DIAGNOSIS Right vulva, biopsy: Consistent with condyloma acuminatum. /mr 06/06/2024 COMMENT Case has been reviewed in consultation with Dr. Campos who concurs with the above diagnosis. IDC:SANA MICROSCOPIC DESCRIPTION Slides are reviewed. GROSS DESCRIPTION Received is one container labeled with the patient's name and not further designated. The specimen consists of a fragment of syed-white skin measuring 0.2 x 0.2 x 0.1cm. The entire specimen is submitted in one cassette. 06/05/2024 TC:5 CPT:53917 Patient Age/Sex Location Account Attending Physician RASHMI HOUGH / LABSPEC [id number] Stephy Vaughan Signed (signature on file) Dr. Blanco Torres, DO 06/06/24 1139 Normal [facility] Comment on above: Performed By: #### P SUIV ####[facility] [address] [place], [address] CNOVon 05-22-2024 CNOV Office Visit (FAMPWS) RASHMI HOUGH ([id number]) 1995 F Date Time Provider Department 05/22/24 1:00 PM MONY GUTIERREZ During your visit today, we recorded the following information about you: Pulse Respiration Blood pressure Weight 63/minute 18/minute 92/58 58.2 kg Mony Gutierrez APRN.OPERA SINGER 05/22/2024 4:02 PM Signed 05/22/2024 Patient presents with: Anxiety SUBJECTIVE: This is a 29 year old that is here today for Above Complaints.. Needs refill on Remeron. Has been out of medication for about a week. Morning anxiety seems better but still feels overstimulated. Reports she knows some of it is due to her ADHD but was told she could not be on medication and smoke marijuana. Is going to counseling in [place]. Appetite has improved on Remeron. Denies SI, HI or insomnia PHQ9: 16 RONN: 14 PAST MEDICAL HISTORY Diagnosis Date ADHD (attention [...] Sig mirtazapine (REMERON) 15 mg tablet Take 1 tablet by mouth daily at bedtime. No current facility-administere d medications for this visit. Medications and allergies reviewed by this provider. SOCIAL HISTORY Social History Tobacco Use Smoking status: Former Types: Cigarettes Quit date: 11/10/2010 Years since quittin.5 Smokeless tobacco: Never Vaping Use Vaping Use: Never used Substance Use Topics Alcohol use: Yes Comment: ocasional drink Drug use: No Comment: occasional marijuna use REVIEW OF SYSTEMS All other reviewed and negative other than HPI. OBJECTIVE: BP 92/58 Pulse 63 Resp 18 Wt 58.2 kg (128 lb 6.4 oz) LMP 03/09/2023 (Approximate) SpO2 97% BMI 21.37 kg/m? . Vital signs reviewed by this provider. APPEARANCE Well appearing, alert, in no acute distress, well-hydrated, well nourished. EYES conjunctiva and sclera normal. HEART RRR with normal S1 and S2, no murmurs, no gallops, no JVD appreciated LUNG clear to auscultation. No wheezes, rhonchi or rales SKIN Skin color, texture, turgor normal, no suspicious rashes or lesions to exposed skin PSYCH: Posture and motor behavior: normal posture and motor behavior Dress, grooming, personal hygiene: normal dress and grooming Facial expression: smiling and good eye contact Speech: normal speech Mood: cheerful Coherency and relevance of thought: normal thought processes Memory: normal memory Depression Screening Never done Cervical Cancer Screening due on 10/05/2022 Covid-19 Vaccine( season) due on 06/25/2023 Influenza Vaccine(1) due on 06/25/2024 DTaP,Tdap,Td Vaccine(7 - Td or Tdap) due on 12/21/2026 Hepatitis B Vaccine Completed HPV Vaccine Completed Hepatitis C Screening Completed HIV Screening Completed ASSESSMENT/PLAN: 1. Anxiety and depression - ICD9: 300.00, 311, ICD10: F41.9, F32.A (primary diagnosis) - does not want to increase Remeron - will trial Buspar for anxiety - BUSPIRONE 5 MG TABLET - MIRTAZAPINE 15 MG TABLET - continue with counseling, follow-up if symptoms fail to improve 2. No appetite - ICD9: 783.0, ICD10: R63.0 - weight up, appetite improved - MIRTAZAPINE 15 MG TABLET Mony Gutierrez, SAÚL.OPERA SINGER Prescription instructions reviewed with patient as applicable. Patient advised if symptoms do not improve or if symptoms worsen sooner, to contact their primary care physician. Potential red flag symptoms discussed with the patient. Reviewed appropriate action plan to take if red flag symptoms occur. Patient agreeable to treatment plan. Medical Decision Making: Problems: Moderate: 1+ chronic illnesses with change Risk: Moderate: Drug management Medical Decision Making Level: 4 - Moderate Allergies As of Date: 05/22/2024 Noted Allergy Reaction LEXAPRO (ESCITALOPRAM OXALATE) 12/24/2017 14 - Other: See Comments Comments: Walford weird, heart racing. Date Reviewed: 05/22/2024 Reviewed by: Pretty Flowers LPN - Fully Assessed Reason for Visit: Anxiety [9] Primary Visit Diagnosis:Anxiety and depression [F41.9, F32.A] Other Visit Diagnosis:No appetite [R63.0] Order(s):busPIRone (BUSPAR) 5 mg tabletTake 1 tablet by mouth three times a day.Disp: 90 tabletRfl: 1 mirtazapine (REMERON) 15 mg tabletTake 1 tablet by mouth daily at bedtime.Disp: 90 tabletRfl: 1 Prescriptions as of 05/22/2024 - busPIRone (BUSPAR) 5 mg tablet Take 1 tablet by mouth three times a day. - mirtazapine (REMERON) 15 mg tablet Take 1 tablet by mouth daily at bedtime. (more content not included)... Normal [facility] Chlamydia/GC CORNELIUS aptimaon CHLAMY,NUC ACID Negative Normal Negative [facility] Comment on above: Performed By: #### L [id number] #### [facility] [address] [place], [address] GC BY NUC ACID Negative Normal Negative [facility] Comment on above: Result Comment: Perf ormed at: =G - [facility] [address] [place] [id number] [employer] J2E[employer] Architect: Maryjane Dempsey MD, Phone: [phone] Performed By: #### L [id number] #### [facility] [address] [place], [address] Neon Glass Blower Office Visit Reporton 05-04-2024 Neon Glass Blower Office Visit Report [facility] [address] [place] [address] OFFICE VISIT Date of Service: 05/04/24 MR#: [id number] Acct: [id number] Name: RASHMI HOUGH Rep #: [id number] : 1995 Provider: ALEJANDRO Liu ams Age/Sex: 29/F Location: [facility] Status: Signed Intake Vital Signs 12/06/23 10:51 05/04/24 15:53 05/04/24 15:54 Height 5 ft 5 in 5 ft 5 in 5 ft 5 in Weight: 124 lb 8 oz BMI 20.7 BP 110/70 Intake Visit Reasons: STD testing Chemist Assistant Required: No Is patient in pain?: No Allergies escitalopram (From Lexapro) Adverse Reaction (Severe, Verified 05/04/24 15:53) slow heart rate Medications ???Medication ???Instructions ???Recorded ???Confirmed ???Type clobetasol 0.05 % topical cream 1 applic topical .COMPLEX #15 grams 05/20/22 05/04/24 Rx mirtazapine 15 mg tablet 15 mg PO QHS 12/17/22 05/04/24 History multivitamin 1 tab PO DAILY 12/17/22 05/04/24 History levonorgestrel 20.4 mcg/24 hr (up 1 device intrauterine ONCE 11/30/23 05/04/24 History to 8 yrs) 52 mg intrauterine device (Liletta) Is last menstrual period known: Yes Last Menstrual Period: 04/30/24 Post menopausal: No Patient : No : No Current gender identity: female [facility] Medical History IUD (intrauterine device) in place Mood swings Lichen sclerosus Fracture Anomalous atrioventricular excitation ADHD Surgical History H/O cardiac radiofrequency ablation Family History Grandmother Heart disease Hypertension Asthma CVA (cerebral vascular accident) Lung cancer Grandfather Heart disease Hypertension Father Abuse, drug or alcohol Social History current gender identity: female Smoking Status: Never smoker alcohol intake: current details: occasionally substance use type: does not use caffeine: Yes what type of physical activity do you participate in: weight training frequency: 1-2 times per week seatbelt use: always do you feel safe at home: Yes additional social history: Single- Works [employer] HPI STD testing Details: RASHMI HOUGH is a 29 year old who presents for STI testing due to having new sexual partner. Denies odor discharge or irritation sx. Female Reproductive History Last Menstrual Period: 04/30/24 Cycle Length: 21-35 Questions: metorrhagia: No, sexually active: Yes, dyspareunia: No and PCB: No History 3 Elective abortions Hx Para 3 Spontaneous abortions Hx # Term Pregnancies 3 Ectopic pregnancies Hx # Pregnancies Multiple births # of living children 3 Past Pregnancies Del. Date Name GA/Weeks Outcome Route Bth Weight Gen Labor Lgth Anesthesia Del Locatn Provider FOB 07/23/11 Jonas live - full term 7 lbs 9 oz Female 2 hours epidural Dennis 11/06/12 Rich 39 live - full term 7 lbs 5 oz Male 5 hours epidural Akr on 03/12/17 Santhosh 39 live - full term 7 lbs 8 oz Female 4 hours epidural [facility] ROS Const Constitutional: Reports system reviewed and no additional complaints, except as documented Cardio Card: Reports system reviewed and no additional complaints, except as documented Resp Resp: Reports system reviewed and no additional complaints, except as documented GI GI: Reports system reviewed and no additional complaints, except as documented : Reports system reviewed and no additional complaints, except as documented; Denies difficulty voiding, dysuria or urinary frequency Skin Skin/Breast: Reports system reviewed and no additional complaints, except as documented Neuro Neuro: Reports system reviewed and no additional complaints, except as documented Psych Psych: Reports system reviewed and no additional complaints, except as documented Exam Const General: cooperative, healthy appearing, comfortable and no acute distress Resp Effort Inspection: normal respiratory effort, able to speak in complete sentences and symmetric chest movement GI Inspection: normal to inspection Palpation: soft External Female Exam: normal external appearance and normal appearance of the urethra Urethra: normal appearance of the urethra Speculum Exam - Vagina: normal appearance of the vagina and normal vaginal discharge Speculum Exam - Cervix: normal appearance of the cervix and nontender Bimanual Exam- Vagina Uterus: normal bimanual exam, normal palpation, uterine size normal, No tender and non-tender Bimanual Exam- Adnexa, other: normal Pelvic Support: normal Neuro General: patient alert, patient awake and patient oriented x3 (more content not included)... Normal [facility] CBC W Auto Differential pane l (Bld)on 01-25-2024 Basophils (Bld) [#/Vol] <0.11 k/uL [facility] Basophils/100 WBC (Bld) 0.5 % [facility] Differential cell count method Nom (Bld) Auto [facility] Eosinophils (Bld) [#/Vol] 0.08 10*3/uL <0.46 k/uL [facility] Eosinophils/100 WBC (Bld) 2.1 % [facility] Erythrocyte distribution width (RBC) [Ratio] 12.3 % 11.5 - 15.0 % [facility] Hematocrit (Bld) [Volume fraction] 40.1 % 36.0 - 46.0 % [facility] Hemoglobin (Bld) [Mass/Vol] 13.6 g/dL 11.5 - 15.5 g/dL [facility] Immature granulocytes (Bld) [#/Vol] <0.10 k/uL [facility] Immature granulocytes/100 WBC (Bld) 0.0 % [facility] Lymphocytes (Bld) [#/Vol] 1.39 10*3/uL 1.00 - 4.00 k/uL [facility] Lymphocytes/100 WBC (Bld) 37.3 % [facility] MCH (RBC) [Entitic mass] 31.8 pg 26.0 - 34.0 pg [facility] MCHC (RBC) [Mass/Vol] 33.9 g/dL 30.5 - 36.0 g/dL [facility] MCV (RBC) [Entitic vol] 93.7 fL 80.0 - 100.0 fL [facility] Monocytes (Bld) [#/Vol] 0.28 10*3/uL <0.87 k/uL [facility] Monocytes/100 WBC (Bld) 7.5 % [facility] [#/Vol] 1.96 10*3/uL 1.45 - 7.50 k/uL [facility] Neutrophils/100 WBC (Bld) 52.6 % [facility] Nucleated RBC (Bld) [#/Vol] <0.01 k/uL [facility] Nucleated RBC/100 WBC (Bld) [Ratio] 0.0 /100 WBC [facility] Platelet mean volume (Bld) [Entitic vol] 12.0 fL 9.0 - 12.7 fL [facility] Platelets (Bld) [#/Vol] 110 10*3/uL Low 150 - 400 k /uL [facility] RBC (Bld) [#/Vol] 4.28 10*6/uL 3.90 - 5.2 0 m/uL [facility] WBC (Bld) [#/Vol] 3.73 10*3/uL 3.70 - 11. 00 k/uL [facility] Comprehensive metabolic 2000 panelon 01-25-2024 Albumin [Mass/Vol] 4.5 g/dL 3.9 - 4.9 g/dL [facility] ALP [Catalytic activity/Vol] 50 U/L 34 - 123 U/L [facility] ALT [Catalytic activity/Vol] 17 U/L 7 - 38 U/L [facility] Anion gap [Moles/Vol] 11 mmol/L 9 - 18 mmol/L [facility] AST [Catalytic activity/Vol] 18 U/L 13 - 35 U/L [facility] Bilirubin [Mass/Vol] 0.5 mg/dL 0.2 - 1 .3 mg/dL [facility] Calcium [Mass/Vol] 9.4 mg/dL 8.5 - 10. 2 mg/dL [facility] Chloride [Moles/Vol] 104 mmol/L 97 - 10 5 mmol/L [facility] CO2 [Moles/Vol] 24 mmol/L 22 - 30 mmol/L [facility] Creatinine [Mass/Vol] 0.84 mg/dL 0.58 - 0.96 mg/dL [facility] Estimated Glomerular Filtration Rate 97 mL/min/1.73m >=60 mL/min/1.73m [facility] Glucose [Mass/Vol] 85 mg/dL 74 - 99 mg/dL [facility] Potassium [Moles/Vol] 4.7 mmol/L 3.7 - 5.1 mmol/L [facility] Protein [Mass/Vol] 7.0 g/dL 6.3 - 8.0 g/dL [facility] Sodium [Moles/Vol] 139 mmol/L 136 - 144 mmol/L [facility] Urea nitrogen [Mass/Vol] 13 mg/dL 7 - 21 mg/d L [facility] TSH BLDon 01-25-2024 TSH Qn 1.590 m[IU]/L 0.270 - 4.200 mIU/L [facility] Chlamydia trachomatis rRNA d etection by probe and target amplification methodOrdered By: Estella Marques on 11-02-2023 C. trachomatis rRNA CORNELIUS+probe Ql (Unsp spec) Negative Negative [facility] Gram stain for investigation of transfusion reactionOrdered By: Estella Marques on 11-02-2023 Microscopic observation Gram stain Nom (Unsp spec) [facility] HIV 1 and HIV-2 antibody ass ay with HIV-1 p24 antigen detectionOrdered By: Estella Marques on 11-02-2023 HIV 1+2 Ab+HIV1 p24 Ag IA Ql Non-Reactive Nonreactive [facility] Laboratory - Microbiology an d Antimicrobial susceptibilityOrdered By: Estella Marques on 11-02-2023 N. gonorrhoeae DNA CORNELIUS+probe Ql (Unsp spec) Negative Negative [facility] Comment on above: Performed at: =[address] [id number] Director: Maryjane Dempsey MD, Phone: [phone] No Panel InformationOrdered By: Estella Marques on 11-02-2023 Hepatitis C Antibody Non-Reactive Nonreactive [facility] Comment on above: Non Reactive: < 0.8 Equivocal: >/= 0.8 to < 1.0 Reactive: >/= 1.0The [facility] recommends that a reactive/equivocal HCV antibody result be followed up by the HCV Nucleic Acid Amplificationtest (966473) Herpes Simplex Virus I IgG Antibody < 0.91 index 0.00-0.90 [facility] Comment on above: Negative <0.91 Equiv ocal 0.91 - 1.09 Positive >1.09 Note: Negative indicates no antibodies detected to HSV-1. Equivocal may suggest early infection. If clinically appropriate, retest at later date. Positive indicates antibodies detected to HSV-1. Serum Treponema species anti body detectionOrdered By: Estella Marques on 11-02-2023 Treponema sp Ab Ql (S) Non-Reactive [facility] Serum herpes simplex virus 2 antibody assay by immunoassay (units/volume)Ordered By: Estella Marques on 11-02-2023 HSV 2 Ab IA Qn (S) < 0.91 index 0.00-0.90 [facility] Comment on above: Negative <0.91 Equiv ocal 0.91 - 1.09 Positive >1.09 HSV-2 Antibody Interpretation: Current guidelines and recommendations do not recommend routine screening for HSV-2 in asymptomatic individuals, including those that are . A negative antibody result indicates no detectable antibodies to HSV-2 were found. If recent exposure is suspected, retest in 4 to 6 weeks. Equivocal samples should be retested in 4 to 6 weeks. A positive result indicates the presence of detectable IgG antibody to HSV-2. FALSE POSITIVE RESULTS MAY OCCUR. Repeat testing, or testing by a different method, may be indicated in some settings (e.g. patients with low likelihood of HSV infection). If clinically appropriate, retest 4 to 6 weeks later. HSV-2 IgG antibody testing results should be clinically correlated.Performed at: [address] [id number] Director: Michele Burr PhD, Phone: [phone] Thin prep Papanicolaou smear with manual screeningOrdered By: Estella Marques on 11-02-2023 Genital Culture G. vaginalis (Presumptive) [facility] Chlamydia trachomatis rRNA d etection by probe and target amplification methodOrdered By: Estella Marques on 08-24-2023 C. trachomatis rRNA CORNELIUS+probe Ql (Unsp spec) Negative Negative [facility] Gram stain for investigation of transfusion reactionOrdered By: Estella Marques on 08-24-2023 Microscopic observation Gram stain Nom (Unsp spec) [facility] Microscopic observation Gram stain Nom (Unsp spec) [facility] Laboratory - Microbiology an d Antimicrobial susceptibilityOrdered By: Estella Marques on 08-24-2023 N. gonorrhoeae DNA CORNELIUS+probe Ql (Unsp spec) Negative Negative [facility] Comment on above: Performed at: =G [address] [place], [place] [id number] Director: Maryjane Dempsey MD, Phone: [phone] Thin prep Papanicolaou smear with manual screeningOrdered By: Estella Marques on 08-24-2023 Genital Culture G. vaginalis (Presumptive) [facility] Genital Culture Presumptive C albicans [facility] Genital Culture G. vaginalis (Presumptive) [facility] Genital Culture Presumptive C albicans [facility] Chlamydia trachomatis rRNA d etection by probe and target amplification methodOrdered By: Lila John on 06-03-2023 C. trachomatis rRNA CORNELIUS+probe Ql (Unsp spec) Negative Negative [facility] Laboratory - Microbiology an d Antimicrobial susceptibilityOrdered By: Lila John on 06-03-2023 N. gonorrhoeae DNA CORNELIUS+probe Ql (Unsp spec) Negative Negative [facility] Comment on above: Performed at: =G - [address] [id number] Director: Maryjane Dempsey MD, Phone: [phone] Chlamydia trachomatis rRNA d etection by probe and target amplification methodOrdered By: Mayra Suggs on 04-23-2023 C. trachomatis rRNA CORNELIUS+probe Ql (Unsp spec) Negative Negative [facility] HIV 1 and HIV-2 antibody ass ay with HIV-1 p24 antigen detectionOrdered By: Mayra Suggs on 04-23-2023 HIV 1+2 Ab+HIV1 p24 Ag IA Ql Non-Reactive Nonreactive [facility] - Microbiology an d Antimicrobial susceptibilityOrdered By: Mayra Suggs on 04-23-2023 N. gonorrhoeae DNA CORNLEIUS+probe Ql (Unsp spec) Negative Negative [facility] Comment on above: Performed at: =[facility] - [address] [facility], [place] [id number] Director: Maryjaen Dempsey MD, Phone: [phone] No Panel Informationon 04-23 POC Trichomonas (Rapid) Negative W [facility] Serum Treponema species anti body detectionOrdered By: Mayra Suggs on 04-23-2023 Treponema sp Ab Ql (S) Non-Reactive [facility] Throat specimen bacteria gabriel ntification by cultureOrdered By: Jim Gallego on 04-21-2023 Bacteria identified Cx Nom (Throat) streptococcus isolated. [facility] XR Shoulder - right 3 Viewso n 03-18-2023 IMPRESSION: Normal radiographic appearance proximal humerus and the glenoid. Relatively widened AC joint suggestive of low-grade separation, age-indeterminate Research Professional: PSCLen Transcribe Date/Time: Mar 18 2023 3:33P Dictated by : SHIVANI RASCON MD This examination was interpreted and the report reviewed and electronically signed by: SHIVANI RASCON MD on Mar 18 2023 3:38PM [facility] DIVISION OF RADIOLOGY * * *Final Report* * * DATE [...] clavicle appropriately aligned. Unremarkable adjacent soft tissues. DIVISION OF RADIOLOGY Provider, [facility] - 03/18/2023 * * *Final Report* * * DATE [...] clavicle appropriately aligned. Unremarkable adjacent soft tissues. IMPRESSION IMPRESSION: Normal radiographic appearance proximal humerus and the glenoid. Relatively widened AC joint suggestive of low-grade separation, age-indeterminate Research Professional: VIVIENNE Transcribe Date/Time: Mar 18 2023 3:33P Dictated by : SHIVANI RASCON MD This examination was interpreted and the report reviewed and electronically signed by: SHIVANI RASCON MD on Mar 18 2023 3:38PM EST [facility] Radiology Study observation (narrative) [facility] XR Shoulder - right 3 ViewsO rdered By: Ccf Provider on 03-18-2023 [facility] STREP A MOLECULAR (POC)on Procedural Control [facility] Strep A (POCT) Negative Negative [facility] Chlamydia trachomatis rRNA d etection by probe and target amplification methodOrdered By: Estella Marques on 12-17-2022 C. trachomatis rRNA CORNELIUS+probe Ql (Unsp spec) Negative Negative [facility] HIV 1 and HIV-2 antibody ass ay with HIV-1 p24 antigen detectionOrdered By: Estella Marques on 12-17-2022 HIV 1+2 Ab+HIV1 p24 Ag IA Ql Non-Reactive Nonreactive [facility] Laboratory - Microbiology an d Antimicrobial susceptibilityOrdered By: Estella Marques on 12-17-2022 N. gonorrhoeae DNA CORNELIUS+probe Ql (Unsp spec) Negative Negative [facility] Comment on above: Performed at: =[facility] [address] [id number] Director: Maryjane Dempsey MD, Phone: [phone] No Panel InformationOrdered By: Estella Marques on 12-17-2022 Hepatitis C Antibody Non-Reactive Nonreactive [facility] Comment on above: Non Reactive: < 0.8 Equivocal: >/= 0.8 to < 1.0 Reactive: >/= 1.0The [facility] recommends that a reactive/equivocal HCV antibody result be followed up by the HCV Nucleic Acid Amplificationtest ([id number]) Herpes Simplex Virus I IgG Antibody < 0.91 index 0.00-0.90 [facility] Comment on above: Negative <0.91 Equiv ocal 0.91 - 1.09 Positive >1.09 Note: Negative indicates no antibodies detected to HSV-1. Equivocal may suggest early infection. If clinically appropriate, retest at later date. Positive indicates antibodies detected to HSV-1. No Panel Informationon 12-17 POC Trichomonas (Rapid) Negative W [facility] Serum Treponema species anti body detectionOrdered By: Estella Marques on 12-17-2022 Treponema sp Ab Ql (S) Non-Reactive [facility] Serum herpes simplex virus 2 antibody assay by immunoassay (units/volume)Ordered By: Estella Shelli on 12-17-2022 HSV 2 Ab IA Qn (S) < 0.91 index 0.00-0.90 [facility] Comment on above: Negative <0.91 Equiv ocal 0.91 - 1.09 Positive >1.09 Note: Negative indicates no HSV-2 antibodies detected. Positive indicates HSV-2 antibodies detected. Equivocal and low positive HSV-2 screens (Index 0.91-5.00) may be false positive and are reflexed to supplemental testing in accordance with CDC guidelines.Performed at: - [facility] [id number] Director: Michele Burr PhD, Phone: [phone] CORONAVIRUS PCR [CCL]on 09-25 REF LAB REPORT Positive Normal [place] Comment on above: Performed By: #### [id number] #### [place],[address] [place] [address] SEND TO IC? YES Normal [place] Comment on above: Performed By: #### [id number] #### [place],[address] [place] [address] COVID 19 Result ONLINE ADVERTISING MANAGER Positive Abnormal [facility] Comment on above: Result Comment: Posi tive for COVID19 (SARS CoV2) by PCR.(*) This test was developed and its performance characteristics determined by [facility] [place]. This test has been authorized by FDA under an Emergency Use Authorization (EUA). This test has been validated in accordance with the FDA's Guidance Document Policy for Diagnostics Testing in Laboratories Certified to Perform High Complexity Testing under CLIA prior to Emergency use Authorization for Coronavirus Disease 2019 during the Public Health Emergency" issued on December 23, 2019. [facility] [address] [place] [address] Ty Lopez III, M.D. [id number] Performed By: #### [id number] #### [place],[address] [place], [place] [id number] COVID 19 Source ONLINE ADVERTISING MANAGER Nasopharyngeal Swab Normal [place] Comment on above: Result Comment: Herbie ected on 10/12 AT 1406: Previously reported as ONLINE ADVERTISING MANAGER Performed By: #### 2 [id number] #### [place],[address] [place] [id number] Coronavirus 2019on 0 COVID 19 Result ONLINE ADVERTISING MANAGER Abnormal Negative for COVID19 (SARS CoV2) by PCR. [facility] Comment on above: Result Comment: Posi tive for This test was developed and its performance characteristics determined by [facility] [place]. This test has been authorized by FDA under an Emergency Use Authorization (EUA). This test has been validated in accordance with the FDA's Guidance Document "Policy for Diagnostics Testing in Laboratories Certified to Perform High Complexity Testing under CLIA prior to Emergency use Authorization for Coronavirus Disease 2019 during the Public Health Emergency" issued on December 23, 2019. COVID19 (SARS This test was developed and its performance characteristics determined by [facility] [place]. This test has been authorized by FDA under an Emergency Use Authorization (EUA). This test has been validated in accordance with the FDA's Guidance Document "Policy for Diagnostics Testing in Laboratories Certified to Perform High Complexity Testing under CLIA prior to Emergency use Authorization for Coronavirus Disease 2019 during the Public Health Emergency" issued on December 23, 2019. CoV2) by This test was developed and its performance characteristics determined by [facility] [place]. This test has been authorized by FDA under an Emergency Use Authorization (EUA). This test has been validated in accordance with the FDA's Guidance Document "Policy for Diagnostics Testing in Laboratories Certified to Perform High Complexity Testing under CLIA prior to Emergency use Authorization for Coronavirus Disease 2019 during the Public Health Emergency" issued on December 23, 2019. PCR.(*) This test was developed and its performance characteristics determined by [facility] [place]. This test has been authorized by FDA under an Emergency Use Authorization (EUA). This test has been validated in accordance with the FDA's Guidance Document "Policy for Diagnostics Testing in Laboratories Certified to Perform High Complexity Testing under CLIA prior to Emergency use Authorization for Coronavirus Disease 2019 during the Public Health Emergency" issued on December 23, 2019. Coronavirus 2019on 0 COVID 19 Source ONLINE ADVERTISING MANAGER [facility] Comment on above: Result Comment: Naso pharyngeal Corrected on 10/12 AT 1406: Previously reported as ONLINE ADVERTISING MANAGER Swab Corrected on 10/12 AT 1406: Previously reported as ONLINE ADVERTISING MANAGER Vital Signs Date Time Vital Sign Value Performing Clinician Facility 05-17-2025 10:20-0400 Body height 165.1 cm Deidre Ariane ONLINE ADVERTISING MANAGER-C Work Phone: [facility] 05-17-2025 10:20-0400 Body mass index (BMI) [Ratio] 20.9 kg/m2 Deidre Ariane ONLINE ADVERTISING MANAGER-C Work Phone: [facility] 05-17-2025 10:20-0400 Body weight 57.15 kg Deidre Barrigaman ONLINE ADVERTISING MANAGER-C Work Phone: [facility] 05-17-2025 10:20-0400 Diastolic blood pressure 73 mm[Hg] Deidre Ariane ONLINE ADVERTISING MANAGER-C Work Phone: [facility] 05-17-2025 10:20-0400 Systolic blood pressure 108 mm[Hg] Deidre Ariane ONLINE ADVERTISING MANAGER-C Work Phone: [facility] 03-01-2025 07:18-0400 Body mass index (BMI) [Ratio] 21.23 kg/m2 Mony Podlogar HEELER.OPERA SINGER Work Phone: [facility] 03-01-2025 07:18-0400 Body temperature 98.1 [degF] Omny Podlogar HEELER.OPERA SINGER Work Phone: [facility] 03-01-2025 07:18-0400 Body weight 57.88 kg Mony Podlogar HEELER.OPERA SINGER Work Phone: [facility] 03-01-2025 07:18-0400 Diastolic blood pressure 68 mm[Hg] Mony Podlogar HEELER.OPERA SINGER Work Phone: [facility] 03-01-2025 07:18-0400 Heart rate 71 /min Mony Podlogar HEELER.OPERA SINGER Work Phone: [facility] 03-01-2025 07:18-0400 Respiratory rate 16 /min Mony Podlogar HEELER.OPERA SINGER Work Phone: [facility] 03-01-2025 07:18-0400 SaO2% (BldA) [Mass fraction] 98 % Mony Podlogar HEELER.OPERA SINGER Work Phone: [facility] 03-01-2025 07:18-0400 Systolic blood pressure 118 mm[Hg] Mony Podlogar HEELER.OPERA SINGER Work Phone: [facility] 02-26-2025 19:46-0400 Body mass index (BMI) [Ratio] 22.2 kg/m2 Paulino Barker HEELER.OPERA SINGER Work Phone: [facility] 02-26-2025 19:46-0400 Body temperature 99.1 [degF] Paulino Barker HEELER.OPERA SINGER Work Phone: [facility] 02-26-2025 19:46-0400 Body weight 60.5 kg Paulino Barker HEELER.OPERA SINGER Work Phone: [facility] 02-26-2025 19:46-0400 Diastolic blood pressure 68 mm[Hg] Paulino King HEELER.OPERA SINGER Work Phone: [facility] 02-26-2025 19:46-0400 Heart rate 108 /min Paulino King HEELER.OPERA SINGER Work Phone: [facility] 02-26-2025 19:46-0400 Respiratory rate 16 /min Paulino King HEELER.OPERA SINGER Work Phone: [facility] 02-26-2025 19:46-0400 SaO2% (BldA) [Mass fraction] 96 % Paulino Mj HEELER.OPERA SINGER Work Phone: [facility] 02-26-2025 19:46-0400 Systolic blood pressure 110 mm[Hg] Paulino King HEELER.OPERA SINGER Work Phone: [facility] 02-01-2025 17:11-0400 Body mass index (BMI) [Ratio] 21.72 kg/m2 Keegan Moomaw HEELER.OPERA SINGER Work Phone: [facility] 02-01-2025 17:11-0400 Body temperature 97.9 [degF] Keegan Moomaw HEELER.OPERA SINGER Work Phone: [facility] 02-01-2025 17:11-0400 Body weight 59.2 kg Keegan Moomaw HEELER.OPERA SINGER Work Phone: [facility] 02-01-2025 17:11-0400 Diastolic blood pressure 70 mm[Hg] Keegan Moomaw HEELER.OPERA SINGER Work Phone: [facility] 02-01-2025 17:11-0400 Heart rate 63 /min Keegan Moomaw HEELER.OPERA SINGER Work Phone: [facility] 02-01-2025 17:11-0400 Respiratory rate 18 /min Keegan Moomaw HEELER.OPERA SINGER Work Phone: [facility] 02-01-2025 17:11-0400 SaO2% (BldA) [Mass fraction] 98 % Keegan Moomaw HEELER.OPERA SINGER Work Phone: [facility] 02-01-2025 17:11-0400 Systolic blood pressure 102 mm[Hg] Keegan Daniels APRN.OPERA SINGER Work Phone: [facility] 01-17-2025 14:05-0400 Body height 165.1 cm Deidre Ariane ONLINE ADVERTISING MANAGER-C Work Phone: [facility] 01-17-2025 14:00-0400 Body mass index (BMI) [Ratio] 21.8 kg/m2 Deidre Ariane ONLINE ADVERTISING MANAGER-C Work Phone: [facility] 01-17-2025 14:00-0400 Body weight 59.42 kg Deidre Ariane ONLINE ADVERTISING MANAGER-C Work Phone: [phone](662)[phone] [place] [address] 01-17-2025 14:00-0400 Diastolic blood pressure 68 mm[Hg] Deidre Ariane ONLINE ADVERTISING MANAGER-C Work Phone: [facility] 01-17-2025 14:00-0400 Systolic blood pressure 102 mm[Hg] Deidre Ariane ONLINE ADVERTISING MANAGER-C Work Phone: [phone](571)[phone] [place] [address] 11-15-2024 08:20-0500 Body mass index (BMI) [Ratio] 20.5 kg/m2 Deidre Ariane ONLINE ADVERTISING MANAGER-C Work Phone: [phone] [place] [address] 11-15-2024 08:20-0500 Body weight 55.79 kg Deidre Ariane ONLINE ADVERTISING MANAGER-C Work Phone: [facility] 11-15-2024 08:20-0500 Diastolic blood pressure 68 mm[Hg] Deidre Ariane ONLINE ADVERTISING MANAGER-C Work Phone: 0(074)[phone] [place] [address] 11-15-2024 08:20-0500 Systolic blood pressure 100 mm[Hg] Deidre Ariane ONLINE ADVERTISING MANAGER-C Work Phone: 1(776)264-506756 [place] [address] 11-07-2024 09:12-0500 Body mass index (BMI) [Ratio] 20.7 kg/m2 Deidre Ariane ONLINE ADVERTISING MANAGER-C Work Phone: 5(215)[phone] [place] [address] 11-07-2024 09:12-0500 Body weight 56.41 kg Deidre Barrigaman ONLINE ADVERTISING MANAGER-C Work Phone: [facility] 11-07-2024 09:12-0500 Diastolic blood pressure 66 mm[Hg] Deidrechristi Barrigaman ONLINE ADVERTISING MANAGER-C Work Phone: [facility] 11-07-2024 09:12-0500 Systolic blood pressure 102 mm[Hg] Deidrechristi Barrigaman ONLINE ADVERTISING MANAGER-C Work Phone: [facility] 09-18-2024 11:56-0500 Body mass index (BMI) [Ratio] 20.65 kg/m2 Guilherme Pendlenicolette HEELER.OPERA SINGER Work Phone: [facility] 09-18-2024 11:56-0500 Body temperature 97.81 [degF] Guilherme Khalil HEELER.OPERA SINGER Work Phone: [facility] 09-18-2024 11:56-0500 Body weight 56.3 kg Guilherme Khalil HEELER.OPERA SINGER Work Phone: [facility] 09-18-2024 11:56-0500 Diastolic blood pressure 72 mm[Hg] Guilherme Freemanlenicolette HEELER.OPERA SINGER Work Phone: [facility] 09-18-2024 11:56-0500 Heart rate 64 /min Guilherme Khalil HEELER.OPERA SINGER Work Phone: [facility] 09-18-2024 11:56-0500 Respiratory rate 18 /min Guilherme Khalil HEELER.OPERA SINGER Work Phone: [facility] 09-18-2024 11:56-0500 Systolic blood pressure 102 mm[Hg] Guilherme Pendlebury HEELER.OPERA SINGER Work Phone: [facility] 05-22-2024 13:09-0400 Body mass index (BMI) [Ratio] 21.37 kg/m2 Mony Gutierrez HEELER.OPERA SINGER Work Phone: [facility] 05-22-2024 13:09-0400 Body weight 58.24 kg Mony Podlogar HEELER.OPERA SINGER Work Phone: [facility] 05-22-2024 13:09-0400 Diastolic blood pressure 58 mm[Hg] Mony Podlogar HEELER.OPERA SINGER Work Phone: [facility] 05-22-2024 13:09-0400 Heart rate 63 /min Mony Podlogar HEELER.OPERA SINGER Work Phone: [facility] 05-22-2024 13:09-0400 Respiratory rate 18 /min Mony Podlogar HEELER.OPERA SINGER Work Phone: [facility] 05-22-2024 13:09-0400 SaO2% (BldA) [Mass fraction] 97 % Mony Podlogar HEELER.OPERA SINGER Work Phone: [facility] 05-22-2024 13:09-0400 Systolic blood pressure 92 mm[Hg] Mony Podlogar HEELER.OPERA SINGER Work Phone: [facility] 01-25-2024 10:52-0400 Body weight 55.34 kg Mony Podlogar HEELER.OPERA SINGER Work Phone: [facility] 01-25-2024 10:52-0400 Diastolic blood pressure 66 mm[Hg] Mony Podlogar HEELER.OPERA SINGER Work Phone: [facility] 01-25-2024 10:52-0400 Heart rate 92 /min Mony Podlogar HEELER.OPERA SINGER Work Phone: [facility] 01-25-2024 10:52-0400 Respiratory rate 18 /min Mony Podlogar HEELER.OPERA SINGER Work Phone: [facility] 01-25-2024 10:52-0400 SaO2% (BldA) [Mass fraction] 98 % Mony Podlogar HEELER.OPERA SINGER Work Phone: [facility] 01-25-2024 10:52-0400 Systolic blood pressure 120 mm[Hg] Mony Podlogar HEELER.OPERA SINGER Work Phone: [facility] 11-02-2023 10:16-0500 Body height 165.1 cm ONLINE ADVERTISING MANAGER-C Deidre Ariane ONLINE ADVERTISING MANAGER Work Phone: [facility] 11-02-2023 10:07-0500 Body mass index (BMI) [Ratio] 22 kg/m2 ONLINE ADVERTISING MANAGER-C Deidre Ariane ONLINE ADVERTISING MANAGER Work Phone: [facility] 11-02-2023 10:07-0500 Body weight 60.04 kg ONLINE ADVERTISING MANAGER-C Deidre Barrigaman ONLINE ADVERTISING MANAGER Work Phone: [facility] 11-02-2023 10:07-0500 Diastolic blood pressure 72 mm[Hg] ONLINE ADVERTISING MANAGER-C Deidre Barrigaman ONLINE ADVERTISING MANAGER Work Phone: [facility] 11-02-2023 10:07-0500 Systolic blood pressure 118 mm[Hg] ONLINE ADVERTISING MANAGER-C Deidre Ariane ONLINE ADVERTISING MANAGER Work Phone: [facility] 08-24-2023 08:55-0400 Body height 165.1 cm No Primary Care Physician [facility] 08-24-2023 08:50-0400 Body mass index (BMI) [Ratio] 23 kg/m2 No Primary Care Physician [facility] 08-24-2023 08:50-0400 Body weight 62.76 kg No Primary Care Physician [facility] 08-24-2023 08:50-0400 Diastolic blood pressure 74 mm[Hg] No Primary Care Physician [facility] 08-24-2023 08:50-0400 Systolic blood pressure 112 mm[Hg] No Primary Care Physician [facility] 07-15-2023 10:55-0400 Body mass index (BMI) [Ratio] 22.6 kg/m2 No Primary Care Physician [facility] 07-15-2023 10:55-0400 Body weight 61.85 kg No Primary Care Physician [facility] 07-15-2023 10:55-0400 Diastolic blood pressure 54 mm[Hg] No Primary Care Physician [facility] 07-15-2023 10:55-0400 Systolic blood pressure 127 mm[Hg] No Primary Care Physician [facility] 06-03-2023 08:49-0400 Body weight 60.95 kg No Primary Care Physician [facility] 06-03-2023 08:49-0400 Diastolic blood pressure 64 mm[Hg] No Primary Care Physician [facility] 06-03-2023 08:49-0400 Systolic blood pressure 96 mm[Hg] No Primary Care Physician [facility] 04-23-2023 13:39-0400 Body height 165.1 cm No Primary Care Physician [facility] 04-23-2023 13:34-0400 Body mass index (BMI) [Ratio] 22.5 kg/m2 No Primary Care Physician [facility] 04-23-2023 13:34-0400 Body weight 61.4 kg No Primary Care Physician [facility] 04-23-2023 13:34-0400 Diastolic blood pressure 69 mm[Hg] No Primary Care Physician [facility] 04-23-2023 13:34-0400 Systolic blood pressure 115 mm[Hg] No Primary Care Physician [facility] 04-21-2023 16:33-0400 Respiratory rate 18 /min No Primary Care Physician [facility] 04-21-2023 15:12-0400 Body height 165.1 cm No Primary Care Physician [facility] 04-21-2023 15:12-0400 Body mass index (BMI) [Ratio] 21.7 kg/m2 No Primary Care Physician [facility] 04-21-2023 15:12-0400 Body temperature 97.6 [degF] No Primary Care Physician [facility] 04-21-2023 15:12-0400 Body weight 59.23 kg No Primary Care Physician [facility] 04-21-2023 15:12-0400 Diastolic blood pressure 72 mm[Hg] No Primary Care Physician [facility] 04-21-2023 15:12-0400 Heart rate 106 /min No Primary Care Physician [facility] 04-21-2023 15:12-0400 SaO2% (BldA) [Mass fraction] 99 % No Primary Care Physician [facility] 04-21-2023 15:12-0400 Systolic blood pressure 124 mm[Hg] No Primary Care Physician [facility] 04-21-2023 08:47-0400 Body mass index (BMI) [Ratio] 21.9 kg/m2 No Primary Care Physician [facility] 04-21-2023 08:47-0400 Body temperature 98.2 [degF] No Primary Care Physician [facility] 04-21-2023 08:47-0400 Body weight 59.64 kg No Primary Care Physician [facility] 04-21-2023 08:47-0400 Diastolic blood pressure 60 mm[Hg] No Primary Care Physician [facility] 04-21-2023 08:47-0400 Heart rate 105 /min No Primary Care Physician [facility] 04-21-2023 08:47-0400 Respiratory rate 16 /min No Primary Care Physician [facility] 04-21-2023 08:47-0400 SaO2% (BldA) [Mass fraction] 98 % No Primary Care Physician [facility] 04-21-2023 08:47-0400 Systolic blood pressure 108 mm[Hg] No Primary Care Physician [facility] 04-19-2023 13:20-0400 Body height 165.1 cm Jose Alfredo Leung MD Work Phone: [facility] 04-19-2023 13:20-0400 Body weight 58.97 kg Jose Alfredo Leung MD Work Phone: [facility] 02-24-2023 18:18-0400 Body height 162.4 cm Mony Podlogar HEELER.OPERA SINGER Work Phone: [facility] 02-24-2023 18:18-0400 Body weight 62.23 kg Mony Podlogar HEELER.OPERA SINGER Work Phone: [facility] 02-24-2023 18:18-0400 Diastolic blood pressure 70 mm[Hg] Mony Podlogar HEELER.OPERA SINGER Work Phone: [facility] 02-24-2023 18:18-0400 Heart rate 74 /min Mony Podlogar HEELER.OPERA SINGER Work Phone: [facility] 02-24-2023 18:18-0400 Respiratory rate 18 /min Mony Podlogar HEELER.OPERA SINGER Work Phone: [facility] 02-24-2023 18:18-0400 SaO2% (BldA) [Mass fraction] 98 % Mony Podlogar HEELER.OPERA SINGER Work Phone: [facility] 02-24-2023 18:18-0400 Systolic blood pressure 108 mm[Hg] Mony Gutierrez APRN.OPERA SINGER Work Phone: [facility] 01-12-2023 19:32-0400 Body temperature 98.2 [degF] Maxine Frias APRN.OPERA SINGER Work Phone: [facility] 01-12-2023 19:32-0400 Body weight 64.86 kg Maxine Frias APRN.OPERA SINGER Work Phone: [facility] 01-12-2023 19:32-0400 Diastolic blood pressure 64 mm[Hg] Maxine Frias APRN.OPERA SINGER Work Phone: [facility] 01-12-2023 19:32-0400 Heart rate 90 /min Maxine Frias APRN.OPERA SINGER Work Phone: [facility] 01-12-2023 19:32-0400 Respiratory rate 16 /min Maxine Frias APRN.OPERA SINGER Work Phone: [facility] 01-12-2023 19:32-0400 SaO2% (BldA) [Mass fraction] 98 % Maxine Frias APRN.OPERA SINGER Work Phone: [facility] 01-12-2023 19:32-0400 Systolic blood pressure 124 mm[Hg] Maxine Frias APRN.OPERA SINGER Work Phone: [facility] 12-17-2022 14:57-0500 Body height 165.1 cm No Primary Care Physician [facility] 12-17-2022 14:51-0500 Body mass index (BMI) [Ratio] 23.5 kg/m2 No Primary Care Physician [facility] 12-17-2022 14:51-0500 Body weight 64.01 kg No Primary Care Physician [facility] 12-17-2022 14:51-0500 Diastolic blood pressure 62 mm[Hg] No Primary Care Physician [facility] 12-17-2022 14:51-0500 Systolic blood pressure 114 mm[Hg] No Primary Care Physician [facility] 11-10-2022 08:15-0500 Body mass index (BMI) [Ratio] 24.2 kg/m2 No Primary Care Physician [facility] 11-10-2022 08:15050 Body weight 65.99 kg No Primary Care Physician [facility] 11-10-2022 08:15-0500 Diastolic blood pressure 68 mm[Hg] No Primary Care Physician [facility] 11-10-2022 08:15-0500 Systolic blood pressure 100 mm[Hg] No Primary Care Physician [facility] Encounters Encounter Date Encounter Type Care Provider Facility Start: 05-17-2025 End: 05-17-2025 ambulatory Deidre Thakkar ONLINE ADVERTISING MANAGER-C Work Phone: -[facility] Start: 05-17-2025 End: 05-17-2025 Patient encounter procedure Nereyda Rondon ONLINE ADVERTISING MANAGER-C -[facility] Work Phone: Start: 03-02-2025 End: 05-02-2025 Follow-up encounter Ml Felipe LPN [facility] Comment on above: Results - Ct Results Start: 03-01-2025 End: 03-01-2025 Subsequent hospital visit by physician [facility] Work Phone: [facility] Comment on above: Abscess, peritonsill ar [J36] Start: 03-01-2025 End: 03-01-2025 Patient encounter procedure Mony Gutierrez APRN.OPERA SINGER Work Phone: [facility] Comment on above: Abscess, peritonsill ar (Primary Dx) Start: 03-01-2025 End: 03-01-2025 ambulatory MONY PODLOGJOSÉ MANUEL Facility[facility] Start: 02-27-2025 ambulatory Jami Guerra Fa cility:[facility] Start: 02-26-2025 End: 02-26-2025 Patient encounter procedure Paulino Barker APRN.OPERA SINGER Work Phone: [facility] Comment on above: Sinobronchitis (Prim maegan Dx); Sore throat Start: 02-26-2025 End: 02-26-2025 ambulatory COLT SILVESTRE Facility:[facility] Start: 02-01-2025 End: 02-01-2025 ambulatory COLT SILVESTRE Facility:[facility] Start: 02-01-2025 End: 02-01-2025 Patient encounter procedure Keegan Daniels SUNNY Work Phone: [facility] Comment on above: Eustachian tube dysf unction, left (Primary Dx) Start: 01-17-2025 End: 01-17-2025 Patient encounter procedure Estella Marques ONLINE ADVERTISING MANAGER-C -[facility] Work Phone: Start: 01-17-2025 End: 01-17-2025 ambulatory Deidre Thakkar NP-C Work Phone: [facility] Work Phone: Start: 01-17-2025 End: 01-17-2025 ambulatory Estella Marques NP Facility:[facility] Start: 11-15-2024 End: 11-15-2024 Patient encounter procedure Nereyda Rondon NP-C -[facility] Work Phone: Start: 11-15-2024 End: 11-15-2024 Patient encounter status Nereyda Rondon NP-C [facility] [facility] Start: 11-15-2024 End: 11-15-2024 ambulatory Nereyda Rondon Facility:[facility] Start: 11-15-2024 End: 11-15-2024 ambulatory Nereyda Rondon Facility:[facility] Start: 11-07-2024 End: 11-07-2024 Patient encounter procedure Estella Marques ONLINE ADVERTISING MANAGER-C -[facility] Work Phone: Start: 11-07-2024 End: 11-07-2024 ambulatory Deidre Thakkar NP Facility:[facility] Start: 09-18-2024 End: 09-18-2024 Subsequent hospital visit by physician Nav [facility] Work Phone: Radiology Comment on above: Injury of finger of right hand, initial encounter [S69.91XA] Start: 09-18-2024 End: 09-18-2024 ambulatory COLT SILVESTRE Facility:[facility] Start: 09-18-2024 End: 09-18-2024 Patient encounter procedure Guilherme Yannicolette HEELER.OPERA SINGER Work Phone: [facility] Comment on above: Injury of finger of right hand, initial encounter (Primary Dx) Start: 08-10-2024 End: 08-10-2024 ambulatory Deidre Thakkar ONLINE ADVERTISING MANAGER Facility:[facility] Start: 06-05-2024 End: 06-05-2024 ambulatory Deidre Thakkar ONLINE ADVERTISING MANAGER Facility:[facility] Start: 06-05-2024 End: 06-05-2024 ambulatory Deidre Thakkar ONLINE ADVERTISING MANAGER Facility:[facility] Start: 05-22-2024 End: 05-22-2024 ambulatory MONY PODLOGAR Facility:[facility] Start: 05-22-2024 End: 05-22-2024 Patient encounter procedure Mony Gutierrez HEELER.OPERA SINGER Work Phone: [facility] Comment on above: Anxiety and depressi on (Primary Dx); No appetite Start: 05-04-2024 End: 05-04-2024 ambulatory Mayra Suggs Facility:[facility] Start: 05-04-2024 End: 05-04-2024 ambulatory Mayra Suggs Facility:[facility] Start: 01-26-2024 Telephone encounter Mony govea HEELER.OPERA SINGER Work Phone: [facility] Comment on above: Results Start: 01-25-2024 End: 01-25-2024 Patient encounter procedure Mony Gutierrez HEELER.OPERA SINGER Work Phone: [facility] Comment on above: Anxiety and depressi on (Primary Dx); No appetite Start: 11-02-2023 End: 11-02-2023 ambulatory ONLINE ADVERTISING MANAGER-C Deidre Thakkar ONLINE ADVERTISING MANAGER Work Phone: [facility] Work Phone: Start: 11-02-2023 End: 11-02-2023 Patient encounter procedure ONLINE ADVERTISING MANAGER-C Deidre Thakkar ONLINE ADVERTISING MANAGER Work Phone: [facility] Work Phone: Start: 08-24-2023 End: 08-24-2023 ambulatory No Primary Care Physician [facility] Work Phone: Start: 08-24-2023 End: 08-24-2023 Patient encounter procedure No Primary Care Physician [facility]Laboratory, Specimen Work Phone: Start: 08-24-2023 End: 08-24-2023 Patient encounter procedure No Primary Care Physician [facility] Work Phone: Start: 07-15-2023 End: 07-15-2023 Patient encounter procedure No Primary Care Physician [facility] Work Phone: Start: 06-03-2023 End: 06-03-2023 Patient encounter procedure No Primary Care Physician [facility]Labor[facility], Specimen Work Phone: Start: 06-03-2023 End: 06-03-2023 Patient encounter procedure No Primary Care Physician [facility] Work Phone: Start: 04-23-2023 End: 04-23-2023 ambulatory No Primary Care Physician [facility] Work Phone: Start: 04-23-2023 End: 04-23-2023 Patient encounter procedure No Primary Care Physician [facility] Work Phone: Start: 04-21-2023 End: 04-21-2023 Emergency department patient visit No Primary Care Physician [facility]Emergency Department Work Phone: Start: 04-21-2023 End: 04-21-2023 ambulatory No Primary Care Physician [facility] Work Phone: Start: 04-21-2023 End: 04-21-2023 Patient encounter procedure No Primary Care Physician [facility]Laboratory, Specimen Work Phone: Start: 04-21-2023 End: 04-21-2023 Patient encounter procedure No Primary Care Physician [facility] Work Phone: Start: 04-19-2023 End: 04-19-2023 Patient encounter procedure Jose Alfredo Leung MD Work Phone: Orthopaedics Comment on above: Shoulder dislocation , recurrent, right (Primary Dx); Chronic right shoulder pain Start: 03-18-2023 End: 03-18-2023 Subsequent hospital visit by physician Nav [facility] Brittany Work Phone: Radiology Comment on above: Chronic right should er pain [M25.511, G89.29] Start: 03-01-2023 Telephone encounter Devendra Silvestre MD Work Phone: [facility] Comment on above: Results Start: 02-24-2023 End: 02-24-2023 Patient encounter procedure Mony Gutierrez APRN.OPERA SINGER Work Phone: [facility] Comment on above: Routine physical exa mination (Primary Dx); No appetite; Hx of dislocation of shoulder Start: 02-24-2023 End: 02-24-2023 Physical examination Mony Gutierrez APRN.OPERA SINGER Work Phone: [facility] Start: 01-12-2023 End: 01-12-2023 Patient encounter procedure Maxine Frias APRN.OPERA SINGER Work Phone: [facility] Comment on above: Sore throat (Primary Dx) Start: 12-17-2022 End: 12-17-2022 ambulatory No Primary Care Physician [facility] Work Phone: Start: 12-17-2022 End: 12-17-2022 Patient encounter procedure No Primary Care Physician [facility] Start: 11-10-2022 End: 11-10-2022 Patient encounter procedure No Primary Care Physician [facility] Start: 10-10-2020 End: 10-10-2020 Patient encounter procedure HILDA REYES [place] Start: 08-13-2016 End: 12-21-2016 Patient requested procedure Mony Gutierrez APRN.OPERA SINGER Work Phone: [facility] Procedures Date Procedure Procedure Detail Performing Clinician Start: 03-01-2025 Ct soft tissue neck w/contrast material Mony Podlogar HEELER.OPERA SINGER Work Phone: Start: 02-26-2025 STREP A MOLECULAR (POC) Maxine Frias HEELER.OPERA SINGER Work Phone: Start: 01-17-2025 Serologic test for h erpes simplex Deidre Thakkar ONLINE ADVERTISING MANAGER-C Work Phone: Comment on above: RESULT: NON REACTIVE Please note reference interval changeHSV-1 IgG testing performed using the [employer] HSV-1IgG assay. Start: 01-17-2025 Serologic test for syphilis Deidre Thakkar ONLINE ADVERTISING MANAGER-C Work Phone: Start: 01-17-2025 Gram stain microscopy R bettye Thakkar ONLINE ADVERTISING MANAGER-C Work Phone: Start: 01-17-2025 Source specific culture Diedre Thakkar ONLINE ADVERTISING MANAGER-C Work Phone: Start: 09-18-2024 Radex fingr minimum 2 views Guilherme Khalil HEELER.OPERA SINGER Work Phone: Start: 01-25-2024 Adult depression scr eening assessment Guilhermegricelda Khalil HEELER.OPERA SINGER Work Phone: Start: 11-02-2023 Cytopathology proced ure, preparation of smear, genital source ONLINE ADVERTISING MANAGER-C Deidre Thakkar ONLINE ADVERTISING MANAGER Work Phone: Start: 11-02-2023 Investigation of transfusion reaction ONLINE ADVERTISING MANAGER-C Deidre Thakkar ONLINE ADVERTISING MANAGER Work Phone: Start: 08-24-2023 Cytopathology proced ure, preparation of smear, genital source No Primary Care Physician Start: 08-24-2023 Investigation of transfusion reaction No Primary Care Physician Start: 04-21-2023 X-ray of soft tissue of neck No Primary Care Physician Start: 04-21-2023 Bacteria identificat ion test No Primary Care Physician Start: 03-18-2023 Radex shoulder compl ete minimum 2 views Paulino Barker HEELER.OPERA SINGER Work Phone: Start: 01-12-2023 STREP A MOLECULAR (POC) Bianca Okeefe PA-C Work Phone: Plan of Treatment Date Care Activity Detail Author Start: 12-21-2026 Urine microalbumin profile [facility] Start: 06-25-2025 Influenza vaccination [facility] Start: 05-17-2025 Hepatitis B virus surface Ab [Presence] in Serum [facility] Start: 05-17-2025 Hepatitis C antibody measurement [facility] Start: 05-17-2025 Serologic test for syphilis [facility] Start: 05-17-2025 [facility] Start: 03-01-2025 End: 03-01-2025 Patient encounter procedure 03/01/2025 1:00 PM EDT Appointment [facility] [address] [place] [id number] Dx: Abscess, peritonsillar [J36] [facility] Comment on above: Dx: Abscess, peritonsillar [J36] Start: 01-24-2025 Depression Screening Depression Screening [facility] Start: 06-25-2024 Covid-19 Vaccine ( season) Covid-19 Vaccine () [facility] Start: 06-25-2024 Covid-19 Vaccine ( season) Covid-19 Vaccine ( season) [facility] Start: 06-25-2024 Influenza vaccination [facility] Start: 02-25-2024 End: 05-26-2024 CBC W Ordered Manual Differential panel - Blood PATHOLOGIST INTERPRETATION WITH CBC AND DIFF Lab Routine Thrombocytopenia (HCC) Expected: 02/25/2024, Expires: 05/26/2024 [facility] Work Phone: Comment on above: Expected: 02/25/2024, Expires: Start: 06-25-2023 Covid-19 Vaccine ( season) Covid-19 Vaccine ( season) [facility] Start: 06-25-2023 Influenza [facility] Start: 04-21-2023 Cul bact xcpt urine blood/stool aerobic isol CULTURE OTHR SPECIMN AEROBIC [facility] Start: 04-21-2023 Throat culture Throat Culture [facility] Start: 04-21-2023 Bacteria identified in Throat by Culture [facility] Start: 02-24-2023 End: 04-26-2023 CBC W Auto Differential panel - Blood CBC + DIFF Lab Routine Routine physical examination Expected: 02/24/2023, Expires: 04/26/2023 [facility] Work Phone: Comment on above: Expected: 02/24/2023, Expires: 3 Start: 02-24-2023 End: 04-26-2023 Comprehensive metabolic 2000 panel - Serum or Plasma COMP METABOLIC PANEL Lab Routine Routine physical examination Expected: 02/24/2023, Expires: 04/26/2023 [facility] Work Phone: Comment on above: Expected: 02/24/2023, Expires: 3 Start: 02-24-2023 End: 04-26-2023 Hemoglobin A1c in Blood HGB A1C Lab Routine No appetite Expected: 02/24/2023, Expires: 04/26/2023 [facility] Work Phone: Comment on above: Expected: 02/24/2023, Expires: 3 Start: 02-24-2023 End: 04-26-2023 Thyrotropin [Units/volume] in Serum or Plasma TSH BLD Lab Routine No appetite Expected: 02/24/2023, Expires: 04/26/2023 [facility] Work Phone: Comment on above: Expected: 02/24/2023, Expires: 3 Start: 12-17-2022 Liquid based cervical cytology screening [facility] Start: 10-25-2022 DEPRESSION ASSESSMENT DEPRESSION ASSESSMENT [facility] Start: 10-05-2022 PAP TESTING PAP TESTING [facility] Start: 10-05-2022 Screening for malignant neoplasm of cervix [facility] Start: 06-25-2022 Influenza vaccination INFLUENZA (#1) [facility] Start: 05-14-2021 COVID-19 VACCINE (3 - Booster for Pfizer series) COVID-19 VACCINE (3 - Booster for Pfizer series) [facility] Start: 2013 Depression Screening Depression Screening [facility] Chlamydia deoxyribonucleic acid detection [facility] End: 03-31-2026 CT Neck W contrast IV CT NECK SOFT TISSUE W IVCON Radiology STAT Abscess, peritonsillar 1 Occurrences starting 03/01/2025 until 03/31/2026 [facility] Work Phone: Comment on above: 1 Occurrences starting 03/01/2025 until 03/31/2026 Hepatitis C antibody measurement [facility] HIV 1+2 Ab+HIV1 p24 Ag [Presence] in Serum or Plasma by Immunoassay [facility] End: 05-18-2024 MRI SHOULDER WO IVCON RIGHT MRI SHOULDER WO IVCON RIGHT Radiology Routine Chronic right shoulder pain Shoulder dislocation, recurrent, right 1 Occurrences starting 04/19/2023 until 05/18/2024 [facility] Work Phone: Comment on above: 1 Occurrences starting 04/19/2023 until 05/18/2024 Path report.final Dx Spec [facility] Patient Education ED Pharyngitis , Report Pending [facility] Work Phone: Patient referral [facility] Work Phone: Source specific culture [facility] Treponema sp Ab [Presence] in Serum [facility] Immunizations Immunization Date Immunization Notes Care Provider Michael rubin 08-27-2021 influenza, injectabl e, quadrivalent, contains preservative Maxine Frias APRN.OPERA SINGER Work Phone: [facility] 08-27-2021 influenza virus vaccine, unspecified formulation Mony Gutierrez APRN.OPERA SINGER Work Phone: [facility] 08-20-2020 influenza, seasonal, injectable Maxine Frias APRN.OPERA SINGER Work Phone: [facility] 08-13-2019 influenza, seasonal, injectable Maxine Frias APRN.OPERA SINGER Work Phone: [facility] 12-20-2018 hepatitis A vaccine, adult dosage Maxine Frias APRN.OPERA SINGER Work Phone: [facility] 06-29-2018 influenza, seasonal, injectable Maxine Frias APRN.OPERA SINGER Work Phone: [facility] 05-18-2018 hepatitis A vaccine, adult dosage Maxine Frias APRN.OPERA SINGER Work Phone: [facility] 06-03-2017 influenza, seasonal, injectable Maxine Frias APRN.OPERA SINGER Work Phone: [facility] 03-13-2017 measles, mumps and rubella virus vaccine No Primary Care Physician [facility] 12-21-2016 tetanus toxoid, redu kelsey diphtheria toxoid, and acellular pertussis vaccine, adsorbed Maxine Frias APRN.OPERA SINGER Work Phone: [facility] 06-25-2009 human papilloma viru s vaccine, quadrivalent Maxine Frias APRN.OPERA SINGER Work Phone: [facility] Work Phone: 07-30-2008 human papilloma viru s vaccine, quadrivalent Maxine Frias APRN.OPERA SINGER Work Phone: [facility] Work Phone: 05-30-2008 human papilloma viru s vaccine, quadrivalent Maxine Frias APRN.OPERA SINGER Work Phone: [facility] Work Phone: 06-08-2007 varicella virus vaccine Radha Frias APRN.OPERA SINGER Work Phone: [facility] Work Phone: 06-30-2000 diphtheria, tetanus toxoids and acellular pertussis vaccine Maxine Frias APRN.OPERA SINGER Work Phone: [facility] 06-30-2000 measles, mumps and rubella virus vaccine Maxine Frias APRN.OPERA SINGER Work Phone: [facility] Work Phone: 06-30-2000 poliovirus vaccine, inactivated Maxine Frias APRN.OPERA SINGER Work Phone: [facility] 12-27-1997 varicella virus vaccine Radha Frias APRN.OPERA SINGER Work Phone: [facility] Work Phone: 08-22-1996 diphtheria, tetanus toxoids and acellular pertussis vaccine Maxine James HEELER.OPERA SINGER Work Phone: [facility] 08-22-1996 poliovirus vaccine, inactivated Maxine Rodriguez HEELER.OPERA SINGER Work Phone: [facility] 04-10-1996 haemophilus influenz ae type b vaccine, HbOC conjugate Maxine James HEELER.OPERA SINGER Work Phone: [facility] Work Phone: 04-10-1996 measles, mumps and rubella virus vaccine Maxine Rodriguez HEELER.OPERA SINGER Work Phone: [facility] Work Phone: 1995 hepatitis B vaccine, pediatric or pediatric/adolescent dosage Maxine Rodriguez HEELER.OPERA SINGER Work Phone: [facility] Work Phone: 1995 DTP-Haemophilus influenzae type b conjugate vaccine Maxine James HEELER.OPERA SINGER Work Phone: [facility] 1995 diphtheria, tetanus toxoids and pertussis vaccine Maxine James HEELER.OPERA SINGER Work Phone: [facility] 1995 poliovirus vaccine, inactivated Maxine James HEELER.OPERA SINGER Work Phone: [facility] 1995 diphtheria, tetanus toxoids and pertussis vaccine Maxine James HEELER.OPERA SINGER Work Phone: [facility] 1995 poliovirus vaccine, inactivated Maxine Rodriguez HEELER.OPERA SINGER Work Phone: [facility] 1995 hepatitis B vaccine, pediatric or pediatric/adolescent dosage Maxine Rodriguez HEELER.OPERA SINGER Work Phone: [facility] Work Phone: 1995 hepatitis B vaccine, pediatric or pediatric/adolescent dosage Maxine Rodriguez HEELER.OPERA SINGER Work Phone: [facility] Work Phone: Payers Date Payer Category Payer Self-pay [id number] 2022 Medicaid [id number] 2016 Unknown [id number] [id number] 2016 Unknown [id number] 1995 Unknown [id number] Unknown Unknown [id number] Unknown [id number] 2.16.8 [id number] Unknown [id number] 2.16.8 [id number] Unknown [id number] 2.16.8 [id number] Unknown [id number] 2.16.8 [id number] Unknown [id number] 2.16.8 [id number] Unknown [id number] 2.16.8 [id number] Unknown [id number] 2.16.8 [id number] Unknown [id number] 2.16.8 [id number] Unknown [id number] 2.16.8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 ocasional drink Drug use: No Comment: occasional marijuna use Review of Systems Constitutional: Positive for fever. Negative for chills and fatigue. HENT: Positive for rhinorrhea and sore throat. Negative for ear discharge, ear pain, sinus pressure and sinus pain. Eyes: Negative for discharge and redness. Respiratory: Positive for cough. Negative for shortness of breath and wheezing. Cardiovascular: Negative for chest pain. Skin: Negative for rash. Objective BP 110/68 Pulse 108 Temp 37.3 C (99.1 F) Resp 16 Wt 60.5 kg (133 lb 6.1 oz) LMP 03/09/2023 (Approximate) SpO2 96% BMI 22.20 kg/m Physical Exam Constitutional: General: She is not in acute distress. Appearance: She is not toxic-appearing or diaphoretic. HENT: Head: Normocephalic and atraumatic. Right Ear: Hearing, tympanic membrane, ear canal and external ear normal. Left Ear: Hearing, tympanic membrane, ear canal and external ear normal. Nose: Nose normal. Mouth/Throat: Mouth: Mucous membranes are moist. Pharynx: Uvula midline. Posterior oropharyngeal erythema present. Eyes: General: Lids are normal. No scleral icterus. Right eye: No discharge. Left eye: No discharge. Conjunctiva/sclera: Conjunctivae normal. Pupils: Pupils are equal, round, and reactive to light. Neck: Trachea: Trachea normal. Cardiovascular: Rate and Rhythm: Normal rate and regular rhythm. Heart sounds: Normal heart sounds. Pulmonary: Effort: Pulmonary effort is normal. Breath sounds: Normal breath sounds. Musculoskeletal: Cervical back: Normal range of motion and neck supple. Lymphadenopathy: Cervical: Cervical adenopathy present. Right cervical: Superficial cervical adenopathy present. Left cervical: Superficial cervical adenopathy present. Skin: Findings: No rash. Neurological: Mental Status: She is alert and oriented to person, place, and time. {ASSESSMENT/PLAN: 1. Sinobronchitis - ICD9: 473.9, 490, ICD10: J32.9, J40 (primary diagnosis) Otc management for next 3-5 days, if s/s persist or worsen fill atb rx. - Supportive care with plenty of fluids, rest, and analgesia prn. - Follow up in 3-5 days if symptoms persist or worsen. - AZITHROMYCIN 500 MG TABLET 2. Sore throat - ICD9: 462, ICD10: J02.9 negative - STREP A MOLECULAR (POC) Paulino Barker APRN.OPERA SINGER History and Record Review External record(s) reviewed: prior outpatient record. Systemic symptoms present included: fever Disposition The patient was discharged. OTC Medications were advised: Procedures documented in this encounter [facility] 02-01-2025 Note HNO ID: [id number] Author: KEEGAN DANIELS APRN.MAGO Service: ? Author Type: Nurse Practitioner Type: Progress Notes Filed: 02/01/2025 17:26 Note Text: This note was created using NoteWriter. Subjective Rashmi Hough is a 29 year old female. HPI The last 4 days patient complains of left ear pain. She also notes recent URI symptoms with cough and congestion. She did have a negative home COVID test. Denies any recent fevers. Review of Systems As above Objective BP 102/70 Pulse 63 Temp 36.6 ?C (97.9 ?F) Resp 18 Wt 59.2 kg (130 lb 8.2 oz) LMP 03/09/2023 (Approximate) SpO2 98% BMI 21.72 kg/m? Physical Exam Vitals and nursing note reviewed. Constitutional: General: She is not in acute distress. Appearance: Normal appearance. She is not ill-appearing. HENT: Head: Normocephalic. Right Ear: Tympanic membrane normal. Left Ear: Tympanic membrane normal. Mouth/Throat: Mouth: Mucous membranes are moist. Pharynx: No oropharyngeal exudate or posterior oropharyngeal erythema. Eyes: Conjunctiva/sclera: Conjunctivae normal. Cardiovascular: Rate and Rhythm: Normal rate and regular rhythm. Pulmonary: Effort: Pulmonary effort is normal. Breath sounds: Normal breath sounds. Musculoskeletal: General: Normal range of motion. Cervical back: Normal range of motion. Skin: General: Skin is warm and dry. Neurological: General: No focal deficit present. Mental Status: She is alert. Psychiatric: Mood and Affect: Mood normal. Behavior: Behavior normal. Assessment and Plan ASSESSMENT/PLAN: 1. Eustachian tube dysfunction, left - ICD9: 381.81, ICD10: H69.92 No sign of otitis media or externa noted. Discussed with patient that symptoms seem most consistent with probable eustachian tube dysfunction. She will continue to use her home Claritin and she was given prescriptions for Flonase and prednisone. - PREDNISONE 50 MG TABLET - FLUTICASONE PROPIONATE 50 MCG/ACTUATION NASAL SPRAY,SUSPENSION Keegan Daniels APRN.CNP [facility] 02-01-2025 History of Presen t illness Narrative This note was created using Zygariter. Subjective Rashmi Hough is a 29 year old female. HPI The last 4 days patient complains of left ear pain. She also notes recent URI symptoms with cough and congestion. She did have a negative home COVID test. Denies any recent fevers. Review of Systems As above Objective BP 102/70 Pulse 63 Temp 36.6 C (97.9 F) Resp 18 Wt 59.2 kg (130 lb 8.2 oz) LMP 03/09/2023 (Approximate) SpO2 98% BMI 21.72 kg/m Physical Exam Vitals and nursing note reviewed. Constitutional: General: She is not in acute distress. Appearance: Normal appearance. She is not ill-appearing. HENT: Head: Normocephalic. Right Ear: Tympanic membrane normal. Left Ear: Tympanic membrane normal. Mouth/Throat: Mouth: Mucous membranes are moist. Pharynx: No oropharyngeal exudate or posterior oropharyngeal erythema. Eyes: Conjunctiva/sclera: Conjunctivae normal. Cardiovascular: Rate and Rhythm: Normal rate and regular rhythm. Pulmonary: Effort: Pulmonary effort is normal. Breath sounds: Normal breath sounds. Musculoskeletal: General: Normal range of motion. Cervical back: Normal range of motion. Skin: General: Skin is warm and dry. Neurological: General: No focal deficit present. Mental Status: She is alert. Psychiatric: Mood and Affect: Mood normal. Behavior: Behavior normal. Assessment and Plan ASSESSMENT/PLAN: 1. Eustachian tube dysfunction, left - ICD9: 381.81, ICD10: H69.92 No sign of otitis media or externa noted. Discussed with patient that symptoms seem most consistent with probable eustachian tube dysfunction. She will continue to use her home Claritin and she was given prescriptions for Flonase and prednisone. - PREDNISONE 50 MG TABLET - FLUTICASONE PROPIONATE 50 MCG/ACTUATION NASAL SPRAY,SUSPENSION Keegan Daniels APRN.MAGO documented in this encounter [facility] 01-17-2025 Evaluation note Diagnosis Onset Date Resolution Possible exposure to STI acute January 17, 2025 1:57pm Vaginal odor noneactive January 17, 2025 1:57pm Possible exposure to STI acute May 17, 2025 10:17am [facility] Work Phone: 1(831) 332-578001-14-2025 Evaluation note* Diagnosis Onset Date Resolution Status Admit Date Elective noneactive November 07, 2024 9:09am Possible exposure to STI acute November 15, 2024 8:17am Encounter for routine gynecological examination noneactive Januar y 2024 8:17am Possible exposure to STI acute January 17, 2025 1:57pm Vaginal odor noneactive January 17, 2025 1:57pm [facility] Work Phone: 1(239) 312-361611-25-2024 History of Present illness Narrative* Padmini Hudson RT(R) - 09/18/2024 12:20 PM EST Radiology Service Progress Note PATIENT NAME: Rashmi Hough DATE OF SERVICE: September 18, 2024 TIME: 12:15 PM PATIENT IDENTITY VERIFICATION COMPLETED USING TWO (2) IDENTIFIERS: Name and Date of confirmedby patient verbally. FALL SCREENING: Has the patient had 2 falls in the last year or 1 fall with injury or currently using an Ambulatory Assistive Device (Walker, Cane, Wheelchair, Crutches, etc.)? No PATIENT GENDER DATA: Female. status: : No status: NO. PATIENT RELEVANT IMPLANT DATA REVIEWED: Not Applicable PATIENT PRESENTS WITH AN IMPLANTABLE OR ATTACHED RIDING SILKS CUSTODIAN: No RADIOLOGY DEPARTMENT: General X-ray: Exam(s) Completed: Upper Extremity X- Ray(s): Fingers/Thumb, right PERIPHERAL IV DATA: Not applicable SIGNED BY: RT Naima(Kathi) September 18, 2024 12:15 PM documented [facility]24 NoteHNO ID: [id number] Author: PADMINI HUDSON RT(R) Service: ? Author Type: Technologist Type: Progress Notes Filed: 09/18/2024 12:21 Note Text: Radiology Service Progress Note PATIENT NAME: Rashmi Hough DATE OF SERVICE: September 18, 2024 TIME: 12:15 PM PATIENT IDENTITY VERIFICATION COMPLETED USING TWO (2) IDENTIFIERS: Name and Date of confirmed by patient verbally. FALL SCREENING: Has the patient had 2 falls in the last year or 1 fall with injury or currently using an Ambulatory Assistive Device (Walker, Cane, Wheelchair, Crutches, etc.)? No PATIENT GENDER DATA: Female. status: : No status: NO. PATIENT RELEVANT IMPLANT DATA REVIEWED: Not Applicable PATIENT PRESENTS WITH AN IMPLANTABLE OR ATTACHED RIDING SILKS CUSTODIAN: No RADIOLOGY DEPARTMENT: General X-ray: Exam(s) Completed: Upper Extremity X-Ray(s): Fingers/Thumb, right PERIPHERAL IV DATA: Not applicable SIGNED BY: RT Naima(R) September 18, 2024 12:15 [facility]11-25-2024 NoteHNO ID: [id number] Author: GUILHERME KHALIL APRN.OPERA SINGER Service: ? Author Type: Nurse Practitioner Type: Progress Notes Filed: 09/18/2024 12:39 Note Text: Subjective HPI Nontoxic-appearing female presents urgent care chief complaint left right fifth finger pain. Duration of symptom 1 week. Associated symptoms right fifth finger pain. Patient states got finger caught in the car. Finger bent backwards. Did wear a finger splint. This did help some. Feels like she has some weakness in her PIP joint. Denies any other injuries. No numbness no tingling. No decrease sensation. Range movement is limited due to some weakness. [id number]. No surgeries or fractures previously. Past medical history prescription medications allergies reviewed. .Patient presents with: right little finger pain: X 1 week-cannot bend it PAST MEDICAL HISTORY Diagnosis Date ADHD (attention [...] problems since ALLERGIES Lexapro [Escitalopram Oxalate] MEDICATIONS busPIRone (BUSPAR) 5 mg tablet Take 1 tablet by mouth three times a day. mirtazapine (REMERON) 15 mg tablet Take 1 tablet by mouth daily at bedtime. (Patient not taking: Reported on 09/18/2024) FAMILY HISTORY Problem Relation Age of Onset Alcohol/Drug Father Heart Maternal Grandmother Hypertension Maternal Grandmother Asthma Maternal Grandmother Lipids Maternal Grandmother Stroke Maternal Grandmother Heart Maternal Grandfather Hypertension Maternal Grandfather Emphysema Maternal Grandfather Lipids Maternal Grandfather Cancer Paternal Grandmother Lung Heart Paternal Grandfather other (small cell cancer) Paternal Grandfather Social History Tobacco Use Smoking status: Former Current packs/day: 0.00 Types: Cigarettes Quit date: 11/10/2010 Years since quittin.8 Smokeless tobacco: Never Vaping Use Vaping status: Never Used Substance Use Topics Alcohol use: Yes Comment: ocasional drink Drug use: No Comment: occasional marijuna use BP 102/72 Pulse 64 Temp 36.6 ?C (97.8 ?F) (Tympanic) Resp 18 Wt 56.3 kg (124 lb 1.9 oz) LMP 03/09/2023 (Approximate) BMI 20.65 kg/m? Review of Systems Constitutional: Negative for chills, fever and malaise/fatigue. Musculoskeletal: Positive for joint pain. Negative for back pain, falls, myalgias and neck pain. Neurological: Negative for dizziness, loss of consciousness, weakness and headaches. Objective Physical Exam Constitutional: General: She is not in acute distress. Appearance: She is not toxic-appearing. HENT: Head: Normocephalic. Nose: Nose normal. Eyes: Pupils: Pupils are equal, round, and reactive to light. Cardiovascular: Rate and Rhythm: Normal rate. Pulmonary: Effort: Pulmonary effort is normal. No respiratory distress. Musculoskeletal: Hands: Cervical back: Normal range of motion. Comments: Neurovascular intact. Pain with palpation over PIP joint. No weaknesses. Full range of motion. No breaks in skin. No erythema edema noted. No pain with palpation over metacarpals. Skin: General: Skin is warm and dry. Neurological: General: No focal deficit present. Mental Status: She is alert. ASSESSMENT/PLAN: 1. Injury of finger of right hand, initial encounter - ICD9: 959.5, ICD10: S69.91XA - XR DIGIT GENERAL 3V FRONTAL/LAT/OBL RIGHT No acute findings noted on x-ray. Placed in splint. Referred to orthopedics due to persistent discomfort. Patient was educated on supportive therapies. Patient will follow up with primary care provider as needed. Patient was instructed to immediately proceed to emergency room for any new, worsening, or symptoms lasting longer than anticipated. The patient's clinical presentation is otherwise unremarkable at this time. Based on exam and clinical finding, the patient is stable for discharge. Plan of care was discussed with patient. Patient verbalizes understanding and agrees to plan of care. This note was generated using [employer] software. It may contain errors in wording, punctuation, or spelling. Guilherme Khalil APRN.[facility]11-25-2024 History of Present illness Narrative* Guilherme Khalil APRN.[facility] - 09/18/2024 12:19 PM EST Images from the original note were not included. Subjective HPI Nontoxic-appearing female presents urgent care chief complaint left right fifth finger pain. Duration of symptom 1 week. Associated symptoms right fifth finger pain. Patient states got finger caught in the car. Finger bent backwards. Did wear a finger splint. This did help some. Feels like she has some weakness in her PIP joint. Denies any other injuries. No numbness no tingling. No decrease sensation. Range movement is limited due to some weakness. [id number]. No surgeries or fractures previously. Past medical history prescription medications allergies reviewed. .Patient presents with: right little finger pain: X 1 week-cannot bend it PAST MEDICAL HISTORY Diagnosis Date ADHD (attention [...] problems since ALLERGIES Lexapro [Escitalopram Oxalate] MEDICATIONS busPIRone (BUSPAR) 5 mg tablet Take 1 tablet by mouth three times a day. mirtazapine (REMERON) 15 mg tablet Take 1 tablet by mouth daily at bedtime. (Patient not taking: Reported on 09/18/2024) FAMILY HISTORY Problem Relation Age of Onset Alcohol/Drug Father Heart Maternal Grandmother Hypertension Maternal Grandmother Asthma Maternal Grandmother Lipids Maternal Grandmother Stroke Maternal Grandmother Heart Maternal Grandfather Hypertension Maternal Grandfather Emphysema Maternal Grandfather Lipids Maternal Grandfather Cancer Paternal Grandmother Lung Heart Paternal Grandfather other (small cell cancer) Paternal Grandfather Social History Tobacco Use Smoking status: Former Current packs/day: 0.00 Types: Cigarettes Quit date: 11/10/2010 Years since quittin.8 Smokeless tobacco: Never Vaping Use Vaping status: Never Used Substance Use Topics Alcohol use: Yes Comment: ocasional drink Drug use: No Comment: occasional marijuna use BP 102/72 Pulse 64 Temp 36.6 C (97.8 F) (Tympanic) Resp 18 Wt 56.3 kg (124 lb 1.9 oz) LMP03/09/2023 (Approximate) BMI 20.65 kg/m Review of Systems Constitutional: Negative for chills, fever and malaise/fatigue. Musculoskeletal: Positive for joint pain. Negative for back pain, falls, myalgias and neck pain. Neurological: Negative for dizziness, loss of consciousness, weakness and headaches. Objective Physical Exam Constitutional: General: She is not in acute distress. Appearance: She is not toxic-appearing. HENT: Head: Normocephalic. Nose: Nose normal. Eyes: Pupils: Pupils are equal, round, and reactive to light. Cardiovascular: Rate and Rhythm: Normal rate. Pulmonary: Effort: Pulmonary effort is normal. No respiratory distress. Musculoskeletal: Hands: Cervical back: Normal range of motion. Comments: Neurovascular intact. Pain with palpation over PIP joint. No weaknesses. Full range of motion. No breaks in skin. No erythema edema noted. No pain with palpation over metacarpals. Skin: General: Skin is warm and dry. Neurological: General: No focal deficit present. Mental Status: She is alert. ASSESSMENT/PLAN: 1. Injury of finger of right hand, initial encounter - ICD9: 959.5, ICD10: S69.91XA - XR DIGIT GENERAL 3V FRONTAL/LAT/OBL RIGHT No acute findings noted on x-ray. Placed in splint. Referred to orthopedics due to persistent discomfort. Patient was educated on supportive therapies. Patient will follow up with primary care provider as needed. Patient was instructed to immediately proceed to emergency room for any new, worsening, or symptoms lasting longer than anticipated. The patient's clinical presentation is otherwise unremarkable at this time. Based on exam and clinical finding, the patient is stable for discharge. Plan of care was discussed with patient. Patient verbalizes understanding and agrees to plan of care. This note was generated using [employer] software. It may contain errors in wording, punctuation, or spelling. Guilherme Khalil APRN.MAGO documented in this encounterC[facility]24 NoteHNO ID: [id number] Author: MONY GUTIERREZ APRN.MAGO Service: ? Author Type: Nurse Practitioner Type: Progress Notes Filed: 05/22/2024 16:02 Note Text: 05/22/2024 Patient presents with: Anxiety SUBJECTIVE: This is a 29 year old that is here today for Above Complaints.. Needs refill on Remeron. Has been out of medication for about a week. Morning anxiety seems better but still feels overstimulated. Reports she knows some of it is due to her ADHD but was told she could not be on medication and smoke marijuana. Is going to counseling in [place]. Appetite has improved on Remeron. Denies SI, HI or insomnia PHQ9: 16 RONN: 14 PAST MEDICAL HISTORY Diagnosis Date ADHD (attention [...] Sig mirtazapine (REMERON) 15 mg tablet Take 1 tablet by mouth daily at bedtime. No current facility-administered medications for this visit. Medications and allergies reviewed by this provider. SOCIAL HISTORY Social History Tobacco Use Smoking status: Former Types: Cigarettes Quit date: 11/10/2010 Years since quittin.5 Smokeless tobacco: Never Vaping Use Vaping Use: Never used Substance Use Topics Alcohol use: Yes Comment: ocasional drink Drug use: No Comment: occasional marijuna use REVIEW OF SYSTEMS All other reviewed and negative other than HPI. OBJECTIVE: BP 92/58 Pulse 63 Resp 18 Wt 58.2 kg (128 lb 6.4 oz) LMP 03/09/2023 (Approximate) SpO2 97% BMI 21.37 kg/m? . Vital signs reviewed by this provider. APPEARANCE Well appearing, alert, in no acute distress, well-hydrated, well nourished. EYES conjunctiva and sclera normal. HEART RRR with normal S1 and S2, no murmurs, no gallops, no JVD appreciated LUNG clear to auscultation. No wheezes, rhonchi or rales SKIN Skin color, texture, turgor normal, no suspicious rashes or lesions to exposed skin PSYCH: Posture and motor behavior: normal posture and motor behavior Dress, grooming, personal hygiene: normal dress and grooming Facial expression: smiling and good eye contact Speech: normal speech Mood: cheerful Coherency and relevance of thought: normal thought processes Memory: normal memory Depression Screening Never done Cervical Cancer Screening due on 10/05/2022 Covid-19 Vaccine(3 - 2022- season) due on 06/25/2023 Influenza Vaccine(1) due on 06/25/2024 DTaP,Tdap,Td Vaccine(7 - Td or Tdap) due on 12/21/2026 Hepatitis B Vaccine Completed HPV Vaccine Completed Hepatitis C Screening Completed HIV Screening Completed ASSESSMENT/PLAN: 1. Anxiety and depression - ICD9: 300.00, 311, ICD10: F41.9, F32.A (primary diagnosis) - does not want to increase Remeron - will trial Buspar for anxiety - BUSPIRONE 5 MG TABLET - MIRTAZAPINE 15 MG TABLET - continue with counseling, follow-up if symptoms fail to improve 2. No appetite - ICD9: 783.0, ICD10: R63.0 - weight up, appetite improved - MIRTAZAPINE 15 MG TABLET Mony Gutierrez, SUNNY Prescription instructions reviewed with patient as applicable. Patient advised if symptoms do not improve or if symptoms worsen sooner, to contact their primary care physician. Potential red flag symptoms discussed with the patient. Reviewed appropriate action plan to take if red flag symptoms occur. Patient agreeable to treatment plan. Medical Decision Making: Problems: Moderate: 1+ chronic illnesses with change Risk: Moderate: Drug management Medical Decision Making Level: [facility] History of Present illness Narrative* PodlogMony pollard APRN.OPERA SINGER - 05/22/2024 1:11 PM EDT 05/22/2024 Patient presents with: Anxiety SUBJECTIVE: This is a 29 year old that is here today for Above Complaints.. Needs refill on Remeron. Has been out of medication for about a week. Morning anxiety seems better but still feels overstimulated. Reports she knows some of it is due to her ADHD but was told she could not be on medication and smoke marijuana. Is going to counseling in [place]. Appetite has improvedon Remeron. Denies SI, HI or insomnia PHQ9: 16 RONN: 14 PAST MEDICAL HISTORY Diagnosis Date ADHD (attention [...] Sig mirtazapine (REMERON) 15 mg tablet Take 1 tablet by mouth daily at bedtime. No current facility-administered medications for this visit. Medications and allergies reviewed by this provider. SOCIAL HISTORY Social History Tobacco Use Smoking status: Former Types: Cigarettes Quit date: 11/10/2010 Years since quittin.5 Smokeless tobacco: Never Vaping Use Vaping Use: Never used Substance Use Topics Alcohol use: Yes Comment: ocasional drink Drug use: No Comment: occasional marijuna use REVIEW OF SYSTEMS All other reviewed and negative other than HPI. OBJECTIVE: BP 92/58 Pulse 63 Resp 18 Wt 58.2 kg (128 lb 6.4 oz) LMP 03/09/2023 (Approximate) SpO2 97% BMI 21.37 kg/m . Vital signs reviewed by this provider. APPEARANCE Well appearing, alert, in no acute distress, well-hydrated, well nourished. EYES conjunctiva and sclera normal. HEART RRR with normal S1 and S2, no murmurs, no gallops, no JVD appreciated LUNG clear to auscultation. No wheezes, rhonchi or rales SKIN Skin color, texture, turgor normal, no suspicious rashes or lesions to exposed skin PSYCH: Posture and motor behavior: normal posture and motor behavior Dress, grooming, personal hygiene: normal dress and grooming Facial expression: smiling and good eye contact Speech: normal speech Mood: cheerful Coherency and relevance of thought: normal thought processes Memory: normal memory Depression Screening Never done Cervical Cancer Screening due on 10/05/2022 Covid-19 Vaccine( season) due on 06/25/2023 Influenza Vaccine(1) due on 06/25/2024 DTaP,Tdap,Td Vaccine(7 - Td or Tdap) due on 12/21/2026 Hepatitis B Vaccine Completed HPV Vaccine Completed Hepatitis C Screening Completed HIV Screening Completed ASSESSMENT/PLAN: 1. Anxiety and depression - ICD9: 300.00, 311, ICD10: F41.9, F32.A (primary diagnosis) - does not want to increase Remeron - will trial Buspar for anxiety - BUSPIRONE 5 MG TABLET - MIRTAZAPINE 15 MG TABLET - continue with counseling, follow-up if symptoms fail to improve 2. No appetite - ICD9: 783.0, ICD10: R63.0 - weight up, appetite improved - MIRTAZAPINE 15 MG TABLET Mony Gutierrez APRN.MAGO Prescription instructions reviewed with patient as applicable. Patient advised if symptoms do not improve or if symptoms worsen sooner, to contact their primary care physician. Potential red flag symptoms discussed with the patient. Reviewed appropriate action plan to take if red flag symptoms occur. Patient agreeable to treatment plan. Medical Decision Making: Problems: Moderate: 1+ chronic illnesses with change Risk: Moderate: Drug management Medical Decision Making Level: 4 - Moderate documented in this encounterC[facility]24 Miscellaneous Notes* Telephone Encounter - Ml Felipe LPN - 01/26/2024 1:35 PM EDT Phoned patient and went over results, notes from Mony Gutierrez ONLINE ADVERTISING MANAGER with understanding. Patient has already scheduled her lab appt for February. * Telephone Encounter - Mony Gutierrez APRN.CNP - 01/26/2024 12:25 PM EDT CBC shows low platelets which she has had in the past. Will need to recheck in one month. The rest of her blood work is normal. Mony Gutierrez APRN.CNP documented in this encounterC[facility]04-02-2024 History of Present illness Narrative* Mony Gutierrez APRN.CNP - 01/25/2024 10:53 AM EDT 01/25/2024 Patient presents with: Losing weight: No appetite and not able to eat. SUBJECTIVE: This is a 28 year old that is here today for Above Complaints.. Would like to restart Remeron due to no appetite. Has not taken for about a year. Reports she feelshungry but nothing sounds good.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 Archie Marcum III, MD Family Provider Active Deidre Thakkar ONLINE ADVERTISING MANAGER, ONLINE ADVERTISING MANAGER-C Primary Care Provider Active Team Status: Inactive Member Role Status Dates No Primary Care Physician Primary Care Provider, Refer ring Provider Active ELISABETH Stuart Attending Provider Active Team Status: Inactive Member Role Status Dates Dr. Jami Luz MD Emergency Provider Active Deidre Thakkar NP, ONLINE ADVERTISING MANAGER-C Primary Care Provider Active Team Status: Active Member Role Status Dates No Primary Care Physician Primary Care Provider Active ELISABETH Stuart Attending Provider, Referring Provi milli Active Team Status: Inactive Member Role Status Dates No Primary Care Physician Referring Provider Active Mayra Suggs CNM Attending Provider Active Deidre Thakkar NP, ONLINE ADVERTISING MANAGER-C Primary Care Provider Active Team Status: Active Member Role Status Dates Deidre Thakkar NP, ONLINE ADVERTISING MANAGER-C Primary Care Provider Active Mayra Suggs CNM Attending Provider, Referring Pro vider Active Team Status: Inactive Member Role Status Dates No Primary Care Physician Primary Care Provider Active ELISABETH Stuart Attending Provider, Referring Provi milli Active Team Status: Inactive Member Role Status Dates Dr. Jami Luz MD Attending Provider, Emergency Provider Active Deidre Thakkar ONLINE ADVERTISING MANAGER, ONLINE ADVERTISING MANAGER-C Primary Care Provider Active Team Status: Inactive Member Role Status Dates Deidre Thakkar ONLINE ADVERTISING MANAGER, ONLINE ADVERTISING MANAGER-C Primary Care Provider Active Mayra Suggs CNM Attending Provider, Referring Pro vider Active Team Status: Inactive Member Role Status Dates No Primary Care Physician Referring Provider Active Dr. Lila John MD Attending Provider Active Deidre Thakkar ONLINE ADVERTISING MANAGER, ONLINE ADVERTISING MANAGER-C Primary Care Provider Active Team Status: Inactive Member Role Status Dates Deidre Thakkar ONLINE ADVERTISING MANAGER, ONLINE ADVERTISING MANAGER-C Primary Care Provider, Refer ring Provider Active Dr. Lila John MD Attending Provider Active Team Status: Inactive Member Role Status Dates Deidre Thakkar ONLINE ADVERTISING MANAGER, ONLINE ADVERTISING MANAGER-C Primary Care Provider, Refer ring Provider Active Estella Marques ONLINE ADVERTISING MANAGER, ONLINE ADVERTISING MANAGER-C Attending Provider Active Team Status: Inactive Member Role Status Dates Deidre Thakkar ONLINE ADVERTISING MANAGER, ONLINE ADVERTISING MANAGER-C Primary Care Provider Active Dr. 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 Start Date End Date Colt Silvestre MD [address] [place], [place] [address] PCP - General Family Medicine 08/27/21 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 Start Date End Date Colt Silvestre MD [address] [place], [place] [id number] PCP - General Family Medicine 08/27/21 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 Start Date End Date Colt Silvestre MD [address] [place], [place] [id number] PCP - General Family Medicine 08/27/21 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 Start Date End Date Colt Silvestre MD [address] [place] [address] PCP - General Family Medicine 08/27/21 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 Start Date End Date Colt Silvestre MD [address] [place] [address] PCP - General Family Medicine 08/27/21 Team Status: Inactive Member Role Status Dates Deidre Thakkar NP, ONLINE ADVERTISING MANAGER-C Primary Care Provider Active Start: November 07, 2024 End: November 07, 2024 Deidre Thakkar NP, ONLINE ADVERTISING MANAGER-C Referring Provider Active Start: November 07, 2024 End: November 07, 2024 Estella Marques NP, ONLINE ADVERTISING MANAGER-C Attending Provider Active Start: November 07, 2024 End: November 07, 2024 Team Status: Inactive Member Role Status Dates Deidre Thakkar NP, ONLINE ADVERTISING MANAGER-C Primary Care Provider Active Start: November 15, 2024 End: November 15, 2024 Deidre Thakkar NP, ONLINE ADVERTISING MANAGER-C Referring Provider Active Start: November 15, 2024 End: November 15, 2024 Nereyda Rondon ONLINE ADVERTISING MANAGER-C Attending Provider Active Start: November 15, 2024 End: November 15, 2024 Team Status: Inactive Member Role Status Dates Deidre Thakkar NP, ONLINE ADVERTISING MANAGER-C Primary Care Provider Active Start: November 15, 2024 End: November 15, 2024 Nereyda Rondon ONLINE ADVERTISING MANAGER-C Attending Provider Active Start: November 15, 2024 End: November 15, 2024 Nereyda Rondon NP-C Referring Provider Active Start: November 15, 2024 End: November 15, 2024 Team Status: Inactive Member Role Status Dates Deidre Thakkar NP, ONLINE ADVERTISING MANAGER-C Primary Care Provider Active Start: January 17, 2025 End: January 17, 2025 Deidre Thakkar NP, ONLINE ADVERTISING MANAGER-C Referring Provider Active Start: January 17, 2025 End: January 17, 2025 Estella Marques NP, ONLINE ADVERTISING MANAGER-C Attending Provider Active Start: January 17, 2025 End: January 17, 2025 Team Status: Inactive Member Role Status Dates Deidre Thakkar ONLINE ADVERTISING MANAGER, ONLINE ADVERTISING MANAGER-C Primary Care Provider Active Start: January 17, 2025 End: January 17, 2025 Estella Marques ONLINE ADVERTISING MANAGER, ONLINE ADVERTISING MANAGER-C Attending Provider Active Start: January 17, 2025 End: January 17, 2025 Estella Marques NP, ONLINE ADVERTISING MANAGER-C Referring Provider Active Start: January 17, 2025 End: January 17, 2025 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 Start Date End Date Colt Silvestre MD [address] [place], [place] [address] PCP - General Family Medicine 08/27/21 PodlogarMony HEELER.OPERA SINGER [address] [place] [address] [facility] Medicine 09/30/24 Kaylee Ontiveros HEELER.OPERA SINGER [address] [place], [place] [address] [facility] 01/15/25 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 Start Date End Date Colt Silvestre MD [address] [place] [address] PCP - General Family Medicine 08/27/21 Podlogar, Mony HEELER.OPERA SINGER [address] [place] [address] [facility] Medicine 09/30/24 Kaylee Ontiveros HEELER.OPERA SINGER [address] [place], [place] [address] [facility] 01/15/25 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 Start Date End Date Colt Silvestre MD [address] [place] [address] PCP - General Family Medicine 08/27/21 PodlogarMony APRN.OPERA SINGER [address] [place] [address] Director Operations Family Medicine 09/30/24 Kaylee Ontiveros APRN.OPERA SINGER [address] [place] [address] [facility] Medicine 01/15/25 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 Start Date End Date Colt Silvestre MD [address] [place] [address] PCP - General Family Medicine 08/27/21 PodlogarMony APRN.OPERA SINGER [address] [place] [address] Director Operations Family Medicine 09/30/24 Kaylee Ontiveros APRN.OPERA SINGER [address] [place] [address] [facility] 01/[facility]25 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 Start Date End Date Colt Silvestre MD [address] [place] [address] PCP - General Family Medicine 08/27/21 PodlogarMony APRN.OPERA SINGER [address] [place] [address] Director Operations Family Medicine 09/30/24 Kaylee Ontiveros APRN.OPERA SINGER [address] [place] [address] [facility] 01/15/25 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 Start Date End Date Colt Silvestre MD [address] [place] [address] PCP - General Family Medicine 08/27/21 PodlogarMony APRN.OPERA SINGER [address] [place] [address] [facility] 09/30/24 Kaylee Ontiveros APRN.OPERA SINGER [address] [place], [place] [address] [facility] 01/15/25 03/11/25 Kaylee Ontiveros APRN.OPERA SINGER [address] [place], [place] [id number] [facility] 04/05/25 Team Status: Active Member Role/Relationship Status Dates Dr. Archie Marcum III, MD Family Provider Active Deidre Thakkar NP, ONLINE ADVERTISING MANAGER-C Primary Care Provider Active Team Status: Inactive Member Role/Relationship Status Dates Deidre Thakkar NP, ONLINE ADVERTISING MANAGER-C Primary Care Provider Active Start: January 17, 2025 End: January 17, 2025 Deidre Thakkar NP, ONLINE ADVERTISING MANAGER-C Referring Provider Active Start: January 17, 2025 End: January 17, 2025 Estella Marques NP, ONLINE ADVERTISING MANAGER-C Attending Provider Active Start: January 17, 2025 End: January 17, 2025 Team Status: Inactive Member Role/Relationship Status Dates Deidre Thakkar NP, ONLINE ADVERTISING MANAGER-C Primary Care Provider Active Start: January 17, 2025 End: January 17, 2025 Estella Marques NP, ONLINE ADVERTISING MANAGER-C Attending Provider Active Start: January 17, 2025 End: January 17, 2025 Estella Marques NP, ONLINE ADVERTISING MANAGER-C Referring Provider Active Start: January 17, 2025 End: January 17, 2025 Team Status: Inactive Member Role/Relationship Status Dates Deidre Thakkar NP, ONLINE ADVERTISING MANAGER-C Primary Care Provider Active Start: May 17, 2025 End: May 17, 2025 Deidre Thakkar NP, NP-C Referring Provider Active Start: May 17, 2025 End: May 17, 2025 ARNULFO Matos Attending Provider Active Start: May 17, 2025 End: May 17, 2025 Team Status: Active Member Role/Relationship Status Dates Deidre Thakkar NP, ONLINE ADVERTISING MANAGER-C Primary Care Provider Active Start: May 17, 2025 ARNULFO Matos Attending Provider Active Start: May 17, 2025 ARNULFO Matos Referring Provider Active Start: May 17, 2025 Goals (unrecognized section and content) Goals may be documented in a n alternate sectionGoals may be documented in an alternate sectionGoals may be documented in an alternate sectionGoals may be documented in an alternate sectionGoals may be documented in an alternate sectionGoals may be documented in an alternate sectionGoals may be documented in an alternate sectionGoals may be documented in an alternate section Source Comments (unrecognize d section and content) In the event this informatio n is protected by the Federal Confidentiality of Alcohol and Drug Abuse Patient Records regulations: The Federal rules restrict any use of the information to criminally investigate or prosecute any alcohol or drug abuse patient.[facility] the event this information is protected by the Federal Confidentiality of Alcohol and Drug Abuse Patient Records regulations: The Federal rules restrict any use of the information to criminally investigate or prosecute any alcohol or drug abuse patient.[facility] the event this information is protected by the Federal Confidentiality of Alcohol and Drug Abuse Patient Records regulations: The Federal rules restrict any use of the information to criminally investigate or prosecute any alcohol or drug abuse patient.[facility] the event this information is protected by the Federal Confidentiality of Alcohol and Drug Abuse Patient Records regulations: The Federal rules restrict any use of the information to criminally investigate or prosecute any alcohol or drug abuse patient.[facility] the event this information is protected by the Federal Confidentiality of Alcohol and Drug Abuse Patient Records regulations: The Federal rules restrict any use of the information to criminally investigate or prosecute any alcohol or drug abuse patient.[facility] the event this information is protected by the Federal Confidentiality of Alcohol and Drug Abuse Patient Records regulations: The Federal rules restrict any use of the information to criminally investigate or prosecute any alcohol or drug abuse patient.[facility] Hospital[facility] the event this information is protected by the Federal Confidentiality of Alcohol and Drug Abuse Patient Records regulations: The Federal rules restrict any use of the information to criminally investigate or prosecute any alcohol or drug abuse patient.[facility] Hospital[facility] the event this information is protected by the Federal Confidentiality of Alcohol and Drug Abuse Patient Records regulations: The Federal rules restrict any use of the information to criminally investigate or prosecute any alcohol or drug abuse patient.[facility] Hospital[facility] the event this information is protected by the Federal Confidentiality of Alcohol and Drug Abuse Patient Records regulations: The Federal rules restrict any use of the information to criminally investigate or prosecute any alcohol or drug abuse patient.[facility] HospitalIn the event this information is protected by the Federal Confidentiality of Alcohol and Drug Abuse Patient Records regulations: The Federal rules restrict any use of the information to criminally investigate or prosecute any alcohol or drug abuse patient.[facility] Hospital[facility] the event this information is protected by the Federal Confidentiality of Alcohol and Drug Abuse Patient Records regulations: The Federal rules restrict any use of the information to criminally investigate or prosecute any alcohol or drug abuse patient.[facility] Hospital[facility] the event this information is protected by the Federal Confidentiality of Alcohol and Drug Abuse Patient Records regulations: The Federal rules restrict any use of the information to criminally investigate or prosecute any alcohol or drug abuse patient.[facility] Hospital[facility] the event this information is protected by the Federal Confidentiality of Alcohol and Drug Abuse Patient Records regulations: The Federal rules restrict any use of the information to criminally investigate or prosecute any alcohol or drug abuse patient.[facility] HospitalIn the event this information is protected by the Federal Confidentiality of Alcohol and Drug Abuse Patient Records regulations: The Federal rules restrict any use of the information to criminally investigate or prosecute any alcohol or drug abuse patient.[facility] HospitalIn the event this information is protected by the Federal Confidentiality of Alcohol and Drug Abuse Patient Records regulations: The Federal rules restrict any use of the information to criminally investigate or prosecute any alcohol or drug abuse patient.[facility] HospitalIn the event this information is protected by the Federal Confidentiality of Alcohol and Drug Abuse Patient Records regulations: The Federal rules restrict any use of the information to criminally investigate or prosecute any alcohol or drug abuse patient.[facility] Reason for Visit (unrecogniz ed section and content) Reason Comments Sore Throat congestion and left ear pain x 2 days Reason Comments Yearly Exam Weight Problem Unable to keep weigh t on. No appetite. Reason Comments Results Reason Comments New Pain Specialty Diagnoses / Procedures Referred By Contac t Referred To Contact Orthopedics Diagnoses Chronic right shoulder pain Procedures CONSULT TO ORTHOPAEDICS OFFICE/OUTPATIENT NEW HIGH MDM 60-74 MINUTES Paulino Barker APRN.OPERA SINGER [address] [place] [address] Referral ID Status Reason Start Date Expiration Date V isits Requested Visits Authorized [id number] Closed PCP Requested Referral 03/18/2023 03/17/2024 1 1 Reason Comments Losing weight No appetite and not able to eat. Reason Comments Anxiety Reason Comments right little finger pain X 1 week-cannot bend it Reason Comments Ear Pain L ear pain x4 days Reason Comments Sore Throat x 8 days, strep expo sure Reason Comments Sore Throat Reason Onset Date Comments Results - Ct 03/02/2025 Reason Onset Date Comments Results 03/02/2025 FOR RECORDS PERTAINING TO PATIENTS WHO ARE [...] BE BASED ON THE PRIMARY CLINICAL RECORDS. [facility] [employer] provides no warranty or guarantee of the accuracy or completeness of information in this document.
[2025-05-19 11:08] LABS: Chlamydia By Nucleic Acid AMP Negative (Negative); Gonococcus By Nucleic Acid AMP Negative (Negative)
== END | disposition home or self-care (01) ==
PROVIDERS: PCP Nurse Practitioner Family; Referring Provider Nurse Practitioner Family; Visit Provider Nurse Practitioner Family
DX: Z20.2 Contact with and (suspected) exposure to infections with a predominantly sexual mode of transmission (principal)
CPT/HCPCS: 36415; 86703; 86706; 86780; 86803; 87070; 87077; 87205; 87491; 87591

== ENCOUNTER → 2025-07-17 | Outpatient (CLI) | payer MEDICAID, SELFPAY ==
--- OUTSIDE RECORDS SUMMARY | 2025-07-17 10:11 | XMS RPT_ITS | CCD ---
Author Organization [facility] Care Team Providers Care Scaffold Erector Name Role Phone HILDA REYES Attending Unavailable HILDA REYES Primary Care Unavailable HILDA REYES Admitting Unavailable Care Physician, No Primary Primary Care Provider Unavailable Care Physician, No Primary Referring Provider Un available Shelli WAREHOUSE REPRESENTATIVE, WAREHOUSE REPRESENTATIVE-C Estella Attending Provider [phone] Colt Silvestre MD Primary Care Provider Care Physician, No Primary Primary Care Provider Unavailable Care Physician, No Primary Referring Provider Un available ELISABETH La Attending Provider ALEJANDRO Suggs Attending Provider [phone] Ariane WAREHOUSE REPRESENTATIVE, WAREHOUSE REPRESENTATIVE-C Deidre Primary Care Provider Care Physician, No Primary Referring Provider Un available Dr. Lila John Attending Provider Ariane WAREHOUSE REPRESENTATIVE, WAREHOUSE REPRESENTATIVE-C Deidre Primary Care Provider Ariane WAREHOUSE REPRESENTATIVE, WAREHOUSE REPRESENTATIVE-C Deidre Referring Provider Shelli WAREHOUSE REPRESENTATIVE, WAREHOUSE REPRESENTATIVE-C Estella Attending Provider Ariane WAREHOUSE REPRESENTATIVE, WAREHOUSE REPRESENTATIVE-C Deidre Primary Care Provider Ariane WAREHOUSE REPRESENTATIVE, WAREHOUSE REPRESENTATIVE-C Deidre Referring Provider Dr. Lila John Attending Provider Shelli WAREHOUSE REPRESENTATIVE, WAREHOUSE REPRESENTATIVE-C Estella Attending Provider Colt Silvestre MD Primary Care Provider Ariane WAREHOUSE REPRESENTATIVE-C, Deidre Primary Care Provider Ariane WAREHOUSE REPRESENTATIVE-C, Deidre Referring Provider [place] WAREHOUSE REPRESENTATIVE-C, Estella Attending Provider [place] WAREHOUSE REPRESENTATIVE-C, Nereyda Attending Provider [place] WAREHOUSE REPRESENTATIVE-C, Nereyda Referring Provider Shelli WAREHOUSE REPRESENTATIVE-C, Estella Referring Provider Podlogar HAY RAKE OPERATOR.MAGO Mony Unavailable Knoble HAY RAKE OPERATOR.MAGO Kaylee Unavailable PODLOGAR, MONY Referring Unavailable VICTORIA SILVESTREER B Primary Care Unavailab le GUILHERME KHALIL Referring Unavailable VICTORIA SILVESTREER B Primary Care Unavailab le JONNATHAN, SHELLYOPHER B Primary Care Unavailab le PODLOGAR, MONY Attending Unavailable VICTORIA SILVESTREER B Primary Care Unavailab le JONNATHAN, SHELLYOPHER B Primary Care Unavailab le PODLOGAR, MONY Referring Unavailable JONNATHAN, SHELLYOPHER B Primary Care Unavailab le PODLOGAR, MONY Attending Unavailable BURSLEY, CHRISTOPHER B Primary Care Unavailab le PAULINO BARKER Attending Unavailable BURSLEY, CHRISTOPHER B Primary Care Unavailab le [place] HAY RAKE OPERATOR.MAGOBrandonKaylee Unavailable [place] HAY RAKE OPERATOR.MAGOKaylee Unavailable Ariane WAREHOUSE REPRESENTATIVE-C, Deidre Primary Care Provider Ariane WAREHOUSE REPRESENTATIVE-C, Deidre Referring Provider [place] WAREHOUSE REPRESENTATIVE-C, Estella Attending Provider [place] WAREHOUSE REPRESENTATIVE-C, Nereyda Attending Provider [place] WAREHOUSE REPRESENTATIVE-C, Nereyda Referring Provider Ariane WAREHOUSE REPRESENTATIVE-C, Deidre Primary Care Provider Ariane WAREHOUSE REPRESENTATIVE-C, Deidre Referring Provider Shelli WAREHOUSE REPRESENTATIVE, Estella Attending Unavailable Ariane WAREHOUSE REPRESENTATIVE, Deidre Referring Unavailable Ariane WAREHOUSE REPRESENTATIVE, Deidre Primary Care Unavailable Ariane WAREHOUSE REPRESENTATIVE, Deidre Primary Care Unavailable Jami Guerra Attending Unavailabl e Ariane WAREHOUSE REPRESENTATIVE, Deidre Referring Unavailable Ariane WAREHOUSE REPRESENTATIVE, Deidre Primary Care Unavailable Nereyda Rondon Attending Unavailable Ariane WAREHOUSE REPRESENTATIVE, Deidre Referring Unavailable Shelli WAREHOUSE REPRESENTATIVE, Estella Attending Unavailable Ariane WAREHOUSE REPRESENTATIVE, Deidre Primary Care Unavailable Ariane WAREHOUSE REPRESENTATIVE, Deidre Referring Unavailable Ariane WAREHOUSE REPRESENTATIVE, Deidre Primary Care Unavailable Nereyda Rondon Attending Unavailable Ariane WAREHOUSE REPRESENTATIVE, Deidre Referring Unavailable Shelli WAREHOUSE REPRESENTATIVE, Estella Attending Unavailable Ariane WAREHOUSE REPRESENTATIVE, Deidre Primary Care Unavailable Ariane WAREHOUSE REPRESENTATIVE, Deidre Referring Unavailable Ariane WAREHOUSE REPRESENTATIVE, Deidre Primary Care Unavailable Nereyda Rondon Attending Unavailable Ariane WAREHOUSE REPRESENTATIVE, Deidre Referring Unavailable Ariane WAREHOUSE REPRESENTATIVE, Deidre Primary Care Unavailable [place] WAREHOUSE REPRESENTATIVE, Estella Attending Unavailable Shelli WAREHOUSE REPRESENTATIVE, Estella Referring Unavailable Nereyda Rondon Attending Unavailable Nereyda Rondon Referring Unavailable Ariane WAREHOUSE REPRESENTATIVE, [facility] Primary Care Unavailable Ariane WAREHOUSE REPRESENTATIVE, [facility] Primary Care Unavailable Nereyda Rondon Attending Unavailable Nereyda Rondon Referring Unavailable Allergies Allergy Classification Reported Allergen(s) Allergy Type Date of Onset Reaction(s) Facility (9 sources) Escitalopram Drug Allergy 3 slow heart rate [facility] (18 sources) Escitalopram; Translations: [ESCITALOPRAM OXALATE] Drug Allergy 8 Other: See Comments [facility] (1 source) Escitalopram Drug Allergy 5 [facility] Repository Medications Current Medications Medication Drug Class(es) Dates Sig (Normalized) Sig (Original) azithromycin 500 mg oral tablet (4 sources) Macrolide Antimicrobial Start: 02-26-2025 End: 03-03-2025 take 1 tablet by mouth once daily azithromycin (ZITHROMAX) 500 mg tablet Indications: Sinobronchitis Take 1 tablet by mouth once daily for 5 days. 5 tablet 02/26/2025 03/03/2025 Active cefdinir 300 mg oral capsule (2 sources) Cephalosporin Antibacterial Start: 05-21-2025 take 1 capsule by mouth twice daily Cefdinir 300 mg capsule Active 300 mg PO TWICE A DAY 20 10 0 May 21, 2025 12:00am May 30, 2025 12:00am Start: 02-26-2025 End: 02-26-2025 take 1 capsule by mouth twice daily cefdinir (OMNICEF) 300 mg capsule Take 1 capsule by mouth two times a day for 10 days. 20 capsule 02/26/2025 02/26/2025 Discontinued fluconazole 150 mg oral tablet (7 sources) Azole Antifungal Start: 01-23-2025 End: 05-21-2025 Fluconazole 150 mg tablet Active 150 mg PO .COMPLEX 2 0 May 21, 2025 8:13am 150 mg PO take one po now [...] 2022 12:00am norethindrone 0.35 mg oral tablet (6 sources) Start: 11-15-2024 End: 01-17-2025 take 1 tablet by mouth once daily Norethindrone (Contraceptive) 0.35 mg tablet Active 0.35 mg PO daily 84 3 January 17, 2025 2:10pm predniSONE 50 mg oral tablet (9 sources) Start: 02-01-2025 End: 02-06-2025 take 1 tablet by mouth once daily predniSONE (DELTASONE) 50 mg Indications: Eustachian tube dysfunction, left Take 1 tablet by mouth once daily for 5 days. 5 tablet 02/01/2025 02/06/2025 Active Start: 04-21-2023 End: 06-03-2023 take 2 tablets by mouth once daily Prednisone 20 mg tablet Discontinued 40 mg PO DAILY April 21, 2023 12:00am June 03, 2023 8:50am Start: 04-21-2023 End: 06-03-2023 take 40 mg by mouth once daily Prednisone Discontinued 40 MG PO DAILY April 20, 2023 11:00pm June 03, 2023 7:50am spironolactone 50 mg oral tablet (2 sources) Aldosterone Antagonist Start: 05-17-2025 take 1 tablet by mouth twice daily Spironolactone 50 mg tablet Active 50 mg PO TWICE A DAY May 17, 2025 12:00am Completed/Discontinued Medications Medication Drug Class(es) Dates Sig (Normalized) Sig (Original) acetaminophen 325 mg / oxyCODONE hydrochloride 5 mg oral tablet (9 sources) Opioid Agonist Start: 06-11-2020 End: 06-18-2020 Oxycodone-Acetamino phen (Percocet) 5-325 mg tablet Discontinued 1 {tbl} PO Q4H as needed for pain June 11, 2020 June 18, 2020 12:57pm busPIRone hydrochloride 10 mg oral tablet (12 sources) Start: 06-05-2024 End: 05-17-2025 take 1 tablet by mouth twice daily Buspirone 10 mg tablet Discontinued 10 mg PO TWICE A DAY June 05, 2024 12:00am May 17, 2025 10:23am Start: 05-22-2024 take 1 tablet by tj three times daily busPIRone (BUSPAR) 5 mg tablet Indications: Anxiety and depression Take 1 tablet by mouth three times a day. 90 tablet 1 05/22/2024 Active cholecalciferol 0.025 mg oral capsule (11 sources) Vitamin D Start: 08-05-2020 End: 02-24-2023 [...] Comment on above: Take 1 capsule by [facility] once daily. clindamycin 20 mg/ml vaginal cream (4 sources) Lincosamide Antibacterial Start: 11-02-2023 End: 11-07-2023 [...] cover area copper 313 mg drug implant (18 sources) Copper-containing Intrauterine Device Start: 05-20-2022 End: [...] a single dose Desogestrel / Ethinyl Estradiol (20 sources) Progestin, Estrogen Start: 06-21-2023 End: 11-30-2023 [...] take 1 tablet by mouth once daily JULEBER 0.15-0.03 mg per tablet [...] tablet Active 1 TABLET PO daily May 202 12:00am Start: 05-20-2022 Desogestrel-Et hinyl Estradiol (Apri) 0.15-0.03 mg tablet Active 1 TABLET PO daily May 19, 2022 11:00pm Comment on above: Take 1 tablet by tj th once daily. Estradiol-Norethindrone Acet (3 sources) Estrogen Start: 5 End: 5 take 0.5 tablet by mouth once daily Estradiol-Norethindro ne Acet 0.5-0.1 mg tablet Discontinued 1 {tbl} PO daily November 15, 2024 1:00am November 15, 2024 10:11am 168 hr ethinyl estradiol 0.75342 mg/hr / norelgestromin 0.46844 mg/hr transdermal system (20 sources) Progestin, Estrogen Start: 8 End: 0 Norelgestromin-Ethin. Estradiol (Xulane) 150-35 mcg/24 hr patch weekly Discontinued 1 NMA TD Q7D 3 4 June 19, 2019 4:27pm October 05, 2019 11:22am Start: 06-14-2018 End: 03-27-2020 Norelgestromin-Ethin.Estradi ol (Xulane) 150-35 mcg/24 hr patch weekly Discontinued 1 PATCH TD Q7D 3 June 19, 2019 3:27pm October 05, 2019 10:22am Norethindrone Ac-Eth Estradiol (3 sources) Estrogen Start: 08-10-2024 End: 11-15-2024 Norethindrone Ac-Eth Estradiol (Loestrin 1/20 (21)) 1-20 mg-mcg tablet Discontinued 1 {tbl} PO daily 63 2 August 10, 2024 12:00am November 15, 2024 9:33am Start: 08-10-2024 End: 11-15-2024 Norethindrone Ac-Eth Estradi ol (Loestrin 1/20 (21)) 1-20 mg-mcg tablet Discontinued 1 {tbl} PO daily 63 August 10, 2024 12:00am November 15, 2024 9:33am Norgestimate-Ethinyl Estradiol (6 sources) Progestin, Estrogen Start: 08-08-2024 End: 08-10-2024 [...] tablet Discontinued 1 {tbl} PO DAILY 84 4 June 05, 2024 12:00am August 08, 2024 [...] 03/01/2025 Active lamoTRIgine 150 mg oral tablet (13 sources) Mood Stabilizer, Anti-epileptic Agent Start: 02-24-2023 [...] tablet by tj th once daily. levonorgestrel 0.293908 mg/hr intrauterine system (14 sources) Progestin, Progestin-containing Intrauterine Device Start: 11-30-2023 [...] dose medroxyPROGESTERone acetate 10 mg oral tablet (9 sources) Progestin Start : 08-08 End: 12-25 take 1 tablet by mouth once daily Medroxyprogesterone (Provera) 10 mg tablet Discontinued 10 mg PO daily 10 August 08, 2021 12:00am December 25, 2021 10:27am metroNIDAZOLE (16 sources) Nitroimidazole Antimicrobial Start : 01-17 End: [...] at bedtime. miSOPROStol 0.2 mg oral tablet (18 sources) Prostaglandin E1 Analog Start: 06-11-2020 End: [...] then the morning of procedure; Multivitamin tablet (3 sources) Start: 12-17-2022 End: 06-05-2024 Multivitamin tablet Discontinued 1 {tbl} PO DAILY December 17, 2022 1:00am June 05, 2024 10:37am naproxen 250 mg oral tablet (9 sources) Nonsteroidal Anti-inflammatory Drug Start: 03-13-2017 End: [...] above: Take 1 tablet by tj th every 8 hours as needed for Nausea/Vomiting. Vit,Nigm12-Ezvz-Yjk ic (6 sources) Start: 07-29-2016 End: 06-14-2018 take 1 tablet by mouth once daily Vit,Fijd62-Jlwh-Rv lic Discontinued 1 TABLET PO DAILY July 29, 2016 12:00am June 14, 2018 3:44pm Start: 07-29-2016 End: 06-14-2018 take 1 tablet by mouth once daily Vit,Tbgu78-Vgvb-Nucyw Discontinued 1 TABLET PO DAILY July 28, 2016 11:00pm June 14, 2018 2:44pm Vit,Rcsd10-Rzge-Tnaqa 1 TABLET tablet (3 sources) Start: 07-29-2016 End: 06-14-2018 take 1 tablet by mouth once daily Vit,Uztn59-Zdxc-Cnbdq 1 TABLET tablet Discontinued 1 {tbl} PO DAILY July 29, 2016 12:00am June 14, 2018 3:44pm promethazine hydrochloride 25 mg rectal suppository (18 sources) Phenothiazine Start: 07-29-2016 End: 06-14-2018 Promethazine 25 MG suppository Discontinued 25 mg RC EVERY 6 HOURS NEEDED as needed for Vomiting July 29, 2016 8:46pm June 14, 2018 3:44pm Start: 07-29-2016 End: 06-14-2018 take 1 tablet by mouth every six hours as needed for vomiting Promethazine 25 MG tablet Discontinued 25 mg PO EVERY 6 HOURS NEEDED as needed for Vomiting July 29, 2016 12:00am June 14, 2018 [...] 4/day; 9/mo) valACYclovir 1000 mg oral tablet (9 sources) Herpesvirus Nucleoside Analog DNA Polymerase Inhibitor, [...] Onset: 06-15-2016 11-12-2022 Episodic Comment on above: Javy05/2023 Headache; including migraine (16 sources) Migraine; Translations: [...] termination of ] 11-07-2024 Episodic Menstrual disorders (19 sources) Secondary oligomenorrhea; Translations: [Secondary oligomenorrhea] Onset: 11-07-2024 12-25-2021 Chronic Comment on above: provera challenge. apri Mood disorders (9 sources) Mood swings; Translations: [Emotional lability] 08-07-2021 Episodic Mood disorders (1 source) Mood disorders; Translations: [Anxiety and depression] Onset: 05-22-2024 Nausea and vomiting (9 sources) Nausea, vomiting and diarrhea; Translations: [Nausea with vomiting, unspecified] 07-30-2016 Episodic Nutritional deficiencies (16 sources) Vitamin D deficiency; Translations: [Vitamin D deficiency, unspecified] Onset: 11-15-2018 11-15-2018 Chronic Other complications of (9 sources) Missed miscarriage; Translations: [Missed ] 08-07-2021 [...] infective] 08-24-2023 Episodic Other female genital disorders (3 sources) Lesion of vulva; Translations: [Other specified [...] [Anorexia] Episodic Other and delivery including normal (9 sources) ; Translations: [Encounter for supervision of normal , unspecified, unspecified trimester] 07-30-2016 Episodic Other skin disorders (18 sources) Lichen sclerosus et atrophicus; Translations: [Lichen sclerosus et atrophicus] 05-20-2022 Chronic Comment on above: clobetasol, biopsy d one. well controlled Other upper respiratory infections (2 sources) Chronic sinusitis; Translations: [Chronic sinusitis, unspecified] Onset: 02-26-2025 02-26-2025 Chronic Other upper respiratory infections (14 sources) Sore throat symptom; Translations: [Acute pharyngitis, unspecified] Onset: 02-26-2025 Episodic Otitis media and related conditions (1 source) Dysfunction of left eustachian tube; Translations: [Unspecified Eustachian tube disorder, left ear] 02-01-2025 Episodic Syncope (9 sources) Syncope; Translations: [Syncope and collapse] 07-30-2016 Episodic Unclassified (3 sources) COVID-19; Translations: [COVID-19] Onset: 10-10-2020 Past or Other Problems Problem Classification Problem Date Documented Da te Episodic/Chronic Abdominal pain (16 sources) Pain in [...] current use of drug therapy; Translations: [Other manager terminal (current) drug therapy] Onset: 06-15-2016 06-15-2016 Episodic [...] Onset: 12-22-2016 Resolved: 03-01-2018 03-01-2018 Episodic Other inflammatory condition of skin (10 [...] acne] Onset: 07-30-2008 Resolved: 12-22-2016 12-22-2016 Episodic Results Test Name Value Interpretation Reference Range Facility Genital Culture Comprehensiv mar 05-20-2025 [facility] Reason for Exam: vaginal discharge Ampicillin can be used for Beta-Lactamase negative isolates. Genital Culture Comprehensive Trimeth/Sulfa, Chloramphenicol, Cefotaxime, Ciprofloxacin, Amoxicillin/Clavulan ic Acid, and Oral 2nd/3rd Generation Cephalosporins are effective against both Beta-Lactamase positive and Beta-Lactamase negative isolates. Genital Culture Comprehensive Presumptive C albicans Amount Growth 2+ Haemophilus influenzae Haemophilus influenzae Beta Lactamase-Reportable Positive Normal [facility] Comment on above: Performed By: #### L 7000.1800, , ####[facility] [id number] [place], [address] Chlamydia/GC CORNELIUS aptimaon CHLAMY,NUC ACID Negative Normal Negative [facility] Comment on above: Performed By: #### L 7000.1800, , M1.3200 ####[facility] [address] [place], [place], [address] GC BY NUC ACID Negative Normal Negative [facility] Comment on above: Result Comment: Perf ormed at: =G - [facility] [address] [id number] Supervisor Paint: Maryjane Dempsey MD, Phone: [phone] Performed By: #### L 0.1800, , .3200 ####[facility] [address] [place], [place], [id number] Chlamydia trachomatis rRNA d etection by probe and target amplification methodOrdered By: Nereyda Rondon on 05-17-2025 C. trachomatis rRNA CORNELIUS+probe Ql (Unsp spec) Negative Negative [facility] Gram Stainon 05-17-2025 [facility] Reason for Exam: vaginal discharge Gram Stain 4+ Gram variable [place] 2+ Epithelial cells No Gram negative diplococci Rare Gram positive cocci Score = 8 Interpretation: 0-3 Normal, 4-6 Intermediate, 7-10 Positive BV Normal [facility] Comment on above: Performed By: #### L 0.1800, .1999, M1.3200 ####[facility] [id number] [place], [place], [id number] Gram stainOrdered By: Nereyda Rondon on 05-17-2025 Microscopic observation Gram stain Nom (Unsp spec) [facility] HIVon 05-17-2025 HIV Non-Reactive Normal Nonreactive [facility] Comment on above: Result Comment: Non- Reactive Reactive Repeatedly reactive samples must be confirmed according to CDC recommended confirmatory algorithms. The subresults for either HIVAG or AHIV can be used as an aid in the selection of the confirmation algorithm for reactive samples. Send out specimens with Reactive results to [facility] for confirmation. Order the HIV antibody detection and differentiation: lc#[id number] Performed By: #### L 3890.6301, L509.8002, L3890.6202, L3890.6006 ####[facility] [address] [place], [place], [id number] Hepatitis B Surface Antibody on 05-17-2025 HEP B Surf Ab Non-Reactive Normal [facility] Comment on above: Result Comment: <8.5 mIU/mL: Non-Reactive 8.5<= x <11.5 mIU/mL: Indeterminate >=11.5 mIU/mL: Reactive Non Reactive: Inconsistent with immunity less than <10 mIU/mL Reactive: Consistent with immunity greater than or equal to 10 mIU/mL Performed By: #### L 3890.6301, L509.8002, L3890.6202, L3890.6006 ####[facility] [address] [place], [place], [address] Hepatitis C Antibodyon 05-17 Hepatitis C Ab Non-Reactive Normal Nonreactive [facility] Comment on above: Result Comment: Reac tive: Presumptive evidence of antibodies to HCV. Follow CDC recommendations for supplemental testing. Non-Reactive: Antibodies to HCV were not detected; does not exclude the possibility of exposure to HCV Reactive Results are presumptive evidence of antibodies to HCV. Follow CDC recommendations for supplemental testing. Order confirmation testing: HCV Quant by PCR testing - [facility]PCR #[id number] Non Reactive: < 0.8 Equivocal: >/= 0.8 to < 1.0 Reactive: >/= 1.0 The CDC requires that a reactive/equivocal HCV antibody result be sent out for confirmation. HCV Quant by PCR testing. Performed By: #### L 3890.6301, L509.8002, L3890.6202, L3890.6006 ####[facility] [address] [place], [place], [address] Neisseria gonorrhoeae nuclei c acid detection by amplified probe techniqueOrdered By: Nereyda Rondon on 05-17-2025 N. gonorrhoeae DNA CORNELIUS+probe Ql (Unsp spec) Negative Negative [facility] Comment on above: Performed at: =[address] [id number] Director: Maryjane Dempsey MD, Phone: [phone] No Panel InformationOrdered By: Nereyda Rondon on 05-17-2025 HIV (1&2) Antibody Non-Reactive Nonreactive [facility] Comment on above: Non-ReactiveReactive Repeatedly reactive samples must be confirmed according to CDC recommended confirmatory algorithms. The subresults for either HIVAG or AHIV can be used as an aid in the selection of the confirmation algorithm for reactive samples.Send out specimens with Reactive results to [facility] for confirmation.Order the HIV antibody detection and differentiation: #[id number] POC Trichomonas (Rapid) Negative [facility] Corporate Physical Security Supervisor Office Visit Reporton 05-17-2025 Corporate Physical Security Supervisor Office Visit Report [facility] [address], [address] [place] [address] OFFICE VISIT Date of Service: 05/17/25 MR#: [id number] Acct: [id number] Name: RASHMI HOUGH Rep #: [id number] : 1995 Provider: ARNULFO Chapin Age/Sex: 30/F Location: [facility] Status: Signed Intake Vital Signs 01/17/25 14:05 05/17/25 09:18 05/17/25 10:20 Height 5 ft 5 in 5 ft 5 in 5 ft 5 in Weight: 126 lb BMI 20.9 BP 108/73 Intake Visit Reasons: STD TESTING Clinical Educator Required: No Is patient in pain?: No Allergies escitalopram (From Lexapro) Adverse Reaction (Severe, Verified 05/17/25 10:23) slow heart rate Medications ???Medication ???Instructions ???Recorded ???Confirmed ???Type mirtazapine 15 mg tablet 15 mg PO QHS 12/17/22 05/17/25 His tory norethindrone (contraceptive) 0.35 0.35 mg PO QDAY #84 tabs 5 05/17/25 Rx mg tablet fluconazole 150 mg tablet 150 mg PO .COMPLEX #2 tabs 5 05/17/25 Rx spironolactone 50 mg tablet 50 mg PO BID 05/17/25 05/17/25 His tory Is last menstrual period known: No Post [...] home: Yes additional social history: Single- Works [employer] HPI STD TESTING Details: RASHMI HOUGH [...] lbs 9 oz Female 2 hours epidural [place] 11/06/12 Rich 39 live - full term [...] the cervix (brown menses) Bimanual Exam- Vagina Uterus: normal bimanual exam, [...] and (suspected) exposure to infections with a predomin (more content not included)... Normal [facility] Serum hepatitis B virus surf catherine antibody detectionOrdered By: Nereyda Rondon on 05-17-2025 HBV surface Ab Ql (S) Non-Reactive [facility] Comment on above: <8.5 mIU/mL: Non-Natalie ctive8.5<= x <11.5 mIU/mL: Indeterminate>=11.5 mIU/mL: Reactive Non Reactive: Inconsistent with immunity less than <10 mIU/mL Reactive: Consistent with immunity greater than or equal to 10 mIU/mL Syphilis Antibodieson 2024 Syphilis Abs Non-Reactive Normal Nonreactive [facility] Comment on above: Performed By: #### L 3890.6301, L509.8002, L3890.6202, L3890.6006 ####[facility] [address] [place], [address] CBC W Auto Differential pane l (Bld)on 03-01-2025 Basophils (Bld) [#/Vol] 0.03 10*3/uL [facility] Basophils/100 WBC (Bld) 0.6 % C [facility] Differential cell count method Nom (Bld) Auto [facility] Eosinophils (Bld) [#/Vol] 0.17 10*3/uL [facility] Eosinophils/100 WBC (Bld) 3.5 % [facility] Erythrocyte distribution width (RBC) [Ratio] 12.3 % 11.5 - 15.0 % [facility] Hematocrit (Bld) [Volume fraction] 40.4 % 36.0 - 46.0 % [facility] Hemoglobin (Bld) [Mass/Vol] 13.8 g/dL 11.5 - 15.5 g/dL [facility] Immature granulocytes (Bld) [#/Vol] [facility] Immature granulocytes/100 WBC (Bld) 0.2 % [facility] Lymphocytes (Bld) [#/Vol] 1.85 10*3/uL [facility] Lymphocytes/100 WBC (Bld) 37.8 % [facility] MCH (RBC) [Entitic mass] 31.8 pg 26.0 - 34.[address] [facility] MCHC (RBC) [Mass/Vol] 34.2 g/dL 30.5 - 36.0 g/dL [facility] MCV (RBC) [Entitic vol] 93.1 fL 80.0 - 100.[address] [facility] Monocytes (Bld) [#/Vol] 0.51 10*3/uL [facility] Monocytes/100 WBC (Bld) 10.4 % [facility] Neutrophils (Bld) [#/Vol] 2.33 10*3/uL [facility] Neutrophils/100 WBC (Bld) 47.5 % [facility] Nucleated RBC (Bld) [#/Vol] [facility] Nucleated RBC/100 WBC (Bld) [Ratio] 0 % /[address] [facility] Platelet mean volume (Bld) [Entitic vol] 11.6 fL 9.0 - 12.[address] [facility] Platelets (Bld) [#/Vol] 163 10*3/uL [facility] RBC (Bld) [#/Vol] 4.34 10*6/uL 3.90 - 5.2 0 m/uL [facility] WBC (Bld) [#/Vol] 4.9 10*3/uL [facility] Basophils (Bld) [#/Vol] 0.03 10*3/uL Normal <0.11 [facility] Comment on above: Order Comment: Speci men Type: BLOOD SPECIMEN Ordering Facility: [facility] Address: [address] [place] [address] Performed By: #### 5 7021-8 #### [facility] CLIA [id number] [address] [place] [address] [place] Basophils/100 WBC (Bld) 0.6 % Normal [facility] Comment on above: Order Comment: Speci men Type: BLOOD SPECIMEN Ordering Facility: [facility] Address: [address] [place] [address] Performed By: #### 5 7021-8 #### [facility] CLIA [id number] [address] [place] [address] [place] Differential cell count method Nom (Bld) Auto Normal [facility] Comment on above: Order Comment: Speci men Type: BLOOD SPECIMEN Ordering Facility: [facility] Address: [address] [place] [address] Performed By: #### 5 7021-8 #### [facility] CLIA [id number] [address] [place] [address] [place] Eosinophils (Bld) [#/Vol] 0.17 10*3/uL Normal <0.46 [facility] Comment on above: Order Comment: Speci men Type: BLOOD SPECIMEN Ordering Facility: [facility] Address: [address] [place] [address] Performed By: #### 5 7021-8 #### [facility] CLIA [id number] [address] [place] [address] [place] Eosinophils/100 WBC (Bld) 3.5 % Normal [facility] Comment on above: Order Comment: Speci men Type: BLOOD SPECIMEN Ordering Facility: [facility] Address: [address] [place] [address] Performed By: #### 5 7021-8 #### [facility] CLIA [id number] [address] [place] [address] [place] Erythrocyte distribution width (RBC) [Ratio] 12.3 % Normal 11.5-15.0 [facility] Comment on above: Order Comment: Speci men Type: BLOOD SPECIMEN Ordering Facility: [facility] Address: [address] [place] [address] Performed By: #### 5 7021-8 #### [facility] CLIA [id number] [address] [place] [address] [place] Hematocrit (Bld) [Volume fraction] 40.4 % Normal 36.0-46.0 [facility] Comment on above: Order Comment: Speci men Type: BLOOD SPECIMEN Ordering Facility: [facility] Address: [address] [place] [address] Performed By: #### 5 7021-8 #### [facility] CLIA [id number] [address] [place] [address] [place] Hemoglobin (Bld) [Mass/Vol] 13.8 g/dL Normal 11.5-15.5 [facility] Comment on above: Order Comment: Speci men Type: BLOOD SPECIMEN Ordering Facility: [facility] Address: [address] [place] [address] Performed By: #### 5 7021-8 #### [facility] CLIA [id number] [address] [place] [address] [place] Immature granulocytes (Bld) [#/Vol] 10*3/uL Normal <0.10 [facility] Comment on above: Order Comment: Speci men Type: BLOOD SPECIMEN Ordering Facility: [facility] Address: [address] [place] [address] Performed By: #### 5 7021-8 #### [facility] CLIA [id number] [address] [place] [address] [place] Immature granulocytes/100 WBC (Bld) 0.2 % Normal [facility] Comment on above: Order Comment: Speci men Type: BLOOD SPECIMEN Ordering Facility: [facility] Address: [address] [place] [address] Performed By: #### 5 7021-8 #### [facility] CLIA [id number] [address] [place] [address] [place] Lymphocytes (Bld) [#/Vol] 1.85 10*3/uL Normal 1.00-4.00 [facility] Comment on above: Order Comment: Speci men Type: BLOOD SPECIMEN Ordering Facility: [facility] Address: [address] [place] [address] Performed By: #### 5 7021-8 #### [facility] CLIA [id number] [address] [place] [address] [place] Lymphocytes/100 WBC (Bld) 37.8 % Normal [facility] Comment on above: Order Comment: Speci men Type: BLOOD SPECIMEN Ordering Facility: [facility] Address: [address] [place] [address] Performed By: #### 5 7021-8 #### [facility] CLIA [id number] [address] [place] [address] [place] MCH (RBC) [Entitic mass] 31.8 pg Normal 26.0-34.0 [facility] Comment on above: Order Comment: Speci men Type: BLOOD SPECIMEN Ordering Facility: [facility] Address: [address] [place] [address] Performed By: #### 5 7021-8 #### [facility] CLIA [id number] [address] [place] [address] [place] MCHC (RBC) [Mass/Vol] 34.2 g/dL Normal 30.5-36.0 [facility] Comment on above: Order Comment: Speci men Type: BLOOD SPECIMEN Ordering Facility: [facility] Address: [address] [place] [address] Performed By: #### 5 7021-8 #### [facility] CLIA [id number] [address] [place] [address] [place] MCV (RBC) [Entitic vol] 93.1 fL Normal 80.0-100.0 [facility] Comment on above: Order Comment: Speci men Type: BLOOD SPECIMEN Ordering Facility: [facility] Address: [address] [place] [address] Performed By: #### 5 7021-8 #### [facility] CLIA [id number] [address] [place] [address] [place] Monocytes (Bld) [#/Vol] 0.51 10*3/uL Normal <0.87 [facility] Comment on above: Order Comment: Speci men Type: BLOOD SPECIMEN Ordering Facility: [facility] Address: [address] [place] [address] Performed By: #### 5 7021-8 #### [facility] CLIA [id number] [address] [place] [address] [place] Monocytes/100 WBC (Bld) 10.4 % Normal [facility] Comment on above: Order Comment: Speci men Type: BLOOD SPECIMEN Ordering Facility: [facility] Address: [address] [place] [address] Performed By: #### 5 7021-8 #### [facility] CLIA [id number] [address] [place] [address] [place] Neutrophils (Bld) [#/Vol] 2.33 10*3/uL Normal 1.45-7.50 [facility] Comment on above: Order Comment: Speci men Type: BLOOD SPECIMEN Ordering Facility: [facility] Address: [address] [place] [address] Performed By: #### 5 7021-8 #### [facility] CLIA [id number] [address] [place] [address] [place] Neutrophils/100 WBC (Bld) 47.5 % Normal [facility] Comment on above: Order Comment: Speci men Type: BLOOD SPECIMEN Ordering Facility: [facility] Address: [address] [place] [address] Performed By: #### 5 7021-8 #### [facility] CLIA [id number] [address] [place] [address] [place] Nucleated RBC (Bld) [#/Vol] 10*3/uL Normal <0.01 [facility] Comment on above: Order Comment: Speci men Type: BLOOD SPECIMEN Ordering Facility: [facility] Address: [address] [place], [place] [address] Performed By: #### 5 7021-8 #### [facility] CLIA [id number] [address] [place] [address] [place] Nucleated RBC/100 WBC (Bld) [Ratio] 0.0 /100 WBC Normal [facility] Comment on above: Order Comment: Speci men Type: BLOOD SPECIMEN Ordering Facility: [facility] Address: [address] [place] [address] Performed By: #### 5 7021-8 #### [facility] CLIA [id number] [address] [place] [address] [place] Platelet mean volume (Bld) [Entitic vol] 11.6 fL Normal 9.0-12.7 [facility] Comment on above: Order Comment: Speci men Type: BLOOD SPECIMEN Ordering Facility: [facility] Address: [address] [place] [address] Performed By: #### 5 7021-8 #### [facility] CLIA [id number] [address] [place] [address] [place] Platelets (Bld) [#/Vol] 163 10*3/uL Normal 150-400 [facility] Comment on above: Order Comment: Speci men Type: BLOOD SPECIMEN Ordering Facility: [facility] Address: [address] [place] [address] Performed By: #### 5 7021-8 #### [facility] CLIA [id number] [address] [place] [address] [place] RBC (Bld) [#/Vol] 4.34 10*6/uL Normal 3.90-5.20 [facility] Comment on above: Order Comment: Speci men Type: BLOOD SPECIMEN Ordering Facility: [facility] Address: [address] [place] [address] Performed By: #### 5 7021-8 #### [facility] CLIA [id number] [address] [place] [address] [place] WBC (Bld) [#/Vol] 4.90 10*3/uL Normal 3.70-11.00 [facility] Comment on above: Order Comment: Speci men Type: BLOOD SPECIMEN Ordering Facility: [facility] Address: [address] [place] [address] Performed By: #### 5 7021-8 #### [facility] CLIA [id number] [address] [place] [address] [place] CNOVon 03-01-2025 CNOV Office Visit (FAMPWS) RASHMI HOUGH ([id number]) 1995 F Date Time Provider Department 03/01/25 7:20 AM MONY GUTIERREZ During your visit today, we recorded the following information about you: Temperature Pulse Respiration Blood pressure 98.1 degrees 71/minute 16/minute 118/68 Weight 57.9 kg Mony Gutierrez APRN.REIMBURSEMENT LIAISON 03/01/2025 7:49 AM Signed 03/01/2025 Patient presents with: Sore Throat SUBJECTIVE: This is a 30 year old that is here today for Above Complaints. Seen in [facility] on 02/26/2025 for sore throat. Negative [...] to ER with red flag symptoms Mony Podloglatrice, HAY RAKE OPERATOR.REIMBURSEMENT LIAISON Prescription instructions reviewed with patient as applicable. [...] 12/24/2017 14 - Other: See Comments Comments: [place] weird, heart (more content not included)... Normal [facility] CT NECK SOFT TISSUE W IVCONo n 03-01-2025 CT NECK SOFT TISSUE W IVCON * * *Final Report* * * DATE OF EXAM: Mar 01 2025 1:14PM [facility] 0013 - CT NECK SOFT TISSUE W [...] SPACE: Fat and muscle planes are normal. TILE ROOFER SPACE: Visualized mandible, muscles of mastication, pterygopalatine [...] most consistent with reactive cervical inflammatory lymphadenopathy Customer Solutions Architect: [facility] Transcribe Date/Time: Mar 01 2025 1:17P Dictated by : YAYO LI MD This examination was interpreted and the report reviewed and electronically signed by: YAYO LI MD on Mar 01 2025 1:34PM EST [id number] CN Normal [facility] CT Neck W contrast Fadi 05-0 IMPRESSION: [...] most consistent with reactive cervical inflammatory lymphadenopathy Customer Solutions Architect: [facility] Transcribe Date/Time: Mar 01 2025 1:17P Dictated by : YAYO LI MD This examination was interpreted and the report reviewed and electronically signed by: YAYO LI MD on Mar 01 2025 1:34PM EST [facility] * * *Final Report* * * DATE OF EXAM: Mar 01 2025 1:14PM [facility] 0013 - CT NECK SOFT TISSUE W [...] SPACE: Fat and muscle planes are normal. TILE ROOFER SPACE: Visualized mandible, muscles of mastication, pterygopalatine [...] Cervical spine: Mild reversal normal cervical curvature. [facility] Provider, [facility] - 03/01/2025 * * *Final Report* * * DATE OF EXAM: Mar 01 2025 1:14PM [facility] 0013 - CT NECK SOFT TISSUE W [...] SPACE: Fat and muscle planes are normal. TILE ROOFER SPACE: Visualized mandible, muscles of mastication, pterygopalatine [...] most consistent with reactive cervical inflammatory lymphadenopathy Customer Solutions Architect: [facility] Transcribe Date/Time: Mar 01 2025 1:17P Dictated by : YAYO LI MD This examination was interpreted and the report reviewed and electronically signed by: YAYO LI MD on Mar 01 2025 1:34PM EST [facility] Radiology Study observation (narrative) Vasiliy darling [facility] CT Neck W contrast IVOrdered By: Ccf Provider on 03-01-[address] [facility] Comprehensive metabolic 2000 panelOrdered By: Sandie Bell on 03-01-2025 Albumin [Mass/Vol] 4.5 g/dL 3.9 - 4.9 g/dL [facility] ALP [Catalytic activity/Vol] 64 U/L 34 - 123 U/L [facility] ALT [Catalytic activity/Vol] 10 U/L 7 - 38 U/L [facility] Anion gap [Moles/Vol] 7 mmol/L Low 8 - 15 mmol/L [facility] AST [Catalytic activity/Vol] 12 U/L Low 13 - 35 U/L [facility] Bilirubin [Mass/Vol] 0.5 mg/dL 0.2 - 1 .3 mg/dL [facility] Calcium [Mass/Vol] 9.5 mg/dL 8.5 - 10. 2 mg/dL [facility] Chloride [Moles/Vol] 103 mmol/L 98 - 10 7 mmol/L [facility] CO2 [Moles/Vol] 28 mmol/L 22 - 30 mmol/L [facility] Creatinine [Mass/Vol] 0.99 mg/dL High 0.58 - 0.96 mg/dL [facility] GFR/1.73 sq M.predicted among non-blacks MDRD (S/P/Bld) [Vol rate/Area] 79 mL/min/{1.73_m2} - PINF [facility] Comment on above: Estimated Glomerular Filtration Rate [...] 111 mg/dL High 74 - 99 mg/dL [facility] Comment on above: The [place] Diabete s Association (ADA) provides guidance for [...] Standards of Medical Care in Diabetes 2016, [place] [employer] Association. Diabetes Care. 2016.39(Suppl 1). Interpretation and review of laboratory results Abnormal [facility] Potassium [Moles/Vol] 4.7 mmol/L 3.7 - 5.1 mmol/L [facility] Protein [Mass/Vol] 7.5 g/dL 6.3 - 8.0 g/dL [facility] Sodium [Moles/Vol] 138 mmol/L 136 - 144 mmol/L [facility] Urea nitrogen [Mass/Vol] 16 mg/dL 7 - 21 mg/d L [facility] Comprehensive metabolic 2000 panelon 03-01-2025 Albumin [Mass/Vol] 4.5 g/dL Normal 3.9-4.9 [facility] Comment on above: Order Comment: Isrraeli bonifacio Type: BLOOD SPECIMENOrdering Facility: [facility] Address: [address] [place] [address] Performed By: #### 2 4323-8 ####[facility] [id number] [place] [address] [place] ALP [Catalytic activity/Vol] 64 U/L Normal 34-123 [facility] Comment on above: Order Comment: Speci men Type: BLOOD SPECIMENOrdering Facility: [facility] Address: [address] [id number] Performed By: #### 2 4323-8 ####[facility] [id number] [place] [address] [place] ALT [Catalytic activity/Vol] 10 U/L Normal 7-38 [facility] Comment on above: Order Comment: Speci men Type: BLOOD SPECIMENOrdering Facility: [facility] Address: [address] [place] [address] Performed By: #### 2 4323-8 ####[facility] MILLTOWNCLIA [id number] [place] [address] [place] Anion gap [Moles/Vol] 7 mmol/L Low 8-15 [facility] Comment on above: Order Comment: Speci men Type: BLOOD SPECIMENOrdering Facility: [facility] Address: [address] [place] [address] Performed By: #### 2 4323-8 ####[facility] MILLTOWNCLIA [id number] [place] [address] [place] AST [Catalytic activity/Vol] 12 U/L Low 13-35 [facility] Comment on above: Order Comment: Speci men Type: BLOOD SPECIMENOrdering Facility: [facility] Address: [address] [place] [address] Performed By: #### 2 4323-8 ####[facility] [id number] [place] [address] [place] Bilirubin [Mass/Vol] 0.5 mg/dL Normal 0.2-1.3 [facility] Comment on above: Order Comment: Speci men Type: BLOOD SPECIMENOrdering Facility: [facility] Address: [address] [place] [address] Performed By: #### 2 4323-8 ####[facility] MILLTOWNCLIA [id number] [place] [address] [place] Calcium [Mass/Vol] 9.5 mg/dL Normal 8.5-10.2 [facility] Comment on above: Order Comment: Speci men Type: BLOOD SPECIMENOrdering Facility: [facility] Address: [address] [place] [address] Performed By: #### 2 4323-8 ####[facility] MILLTOWNCLIA [id number] [place] [address] [place] Chloride [Moles/Vol] 103 mmol/L Normal 98-107 [facility] Comment on above: Order Comment: Speci men Type: BLOOD SPECIMENOrdering Facility: [facility] Address: [address] [place] [address] Performed By: #### 2 4323-8 ####[facility]ITAL[facility]CL[facility] [id number] [place] [address] [place] CO2 [Moles/Vol] 28 mmol/L Normal 22-30 [facility] Comment on above: Order Comment: Speci men Type: BLOOD SPECIMENOrdering Facility: [facility] Address: [address] [place] [address] Performed By: #### 2 4323-8 ####[facility]CL[facility] [id number] [place] [address] [place] Creatinine [Mass/Vol] 0.99 mg/dL High 0.58-0.96 [facility] Comment on above: Order Comment: Speci men Type: BLOOD SPECIMENOrdering Facility: [facility] Address: [address] [place] [address] Performed By: #### 2 4323-8 ####[facility]ITAL[facility]CLIA [id number] [address] [facility] Creatinine and Glomerular filtration rate.predicted panel (S/P/Bld) 79 mL/min/1.73m??? Normal >=60 [facility] Comment on above: Order Comment: Speci men Type: BLOOD SPECIMENOrdering Facility: [facility] Address: [address] [place] [address] Result Comment: Armida mated Glomerular Filtration Rate [...] actual GFR. Performed By: #### 2 4323-8 ####[facility] ACEWNCLIA [id number] [place] [address] [place] Glucose [Mass/Vol] 111 mg/dL High 74-99 [facility] Comment on above: Order Comment: Javier valdovinos Type: BLOOD SPECIMENOrdering Facility: [facility] Address: [address] [place], [place] [id number] Result Comment: The [place] Diabetes Association (ADA) provides guidance for cutoff [...] Standards of Medical Care in Diabetes 2016, [place] [employer] Association. Diabetes Care. 2016.39(Suppl 1). Performed By: #### 2 4323-8 ####[facility]ITALNCLIA [id number] [place] [address] [place] Potassium [Moles/Vol] 4.7 mmol/L Normal 3.7-5.1 [facility] Comment on above: Order Comment: Javier valdovinos Type: BLOOD SPECIMENOrdering Facility: [facility] Address: [address] [place] [address] Performed By: #### 2 4323-8 ####[facility]ITAL[facility]CLIA [id number] [place] [address] [place] Protein [Mass/Vol] 7.5 g/dL Normal 6.3-8.0 [facility] Comment on above: Order Comment: Javier valdoivnos Type: BLOOD SPECIMENOrdering Facility: [facility] Address: [address] [place], [place] [address] Performed By: #### 2 4323-8 ####[facility] SANTIZONCCAMMIE [id number] [address] [place] Sodium [Moles/Vol] 138 mmol/L Normal 136-144 [facility] Comment on above: Order Comment: Speci men Type: BLOOD SPECIMENOrdering Facility: [facility] Address: [address] [place] [address] Performed By: #### 2 4323-8 ####[facility] SUKHDEVNCLIMary [id number] [place] [address] [place] Urea nitrogen [Mass/Vol] 16 mg/dL Normal 7-21 [facility] Comment on above: Order Comment: Speci men Type: BLOOD SPECIMENOrdering Facility: [facility] Address: [address] [place] [address] Performed By: #### 2 4323-8 ####[facility] SANTOSWNCLIA [id number] [address] [facility] CNOVon 02-26-2025 CN Office Visit (UCWSTR) RASHMI HOUGH ([id number]) 1995 F Date Time Provider Department 02/26/25 7:45 PM PAULINO BARKER [facility] During your visit today, we recorded the following information about you: Temperature Pulse Respiration Blood pressure 99.1 degrees 108/minute 16/minute 110/68 Weight 60.5 kg Paulino Barker APRN.REIMBURSEMENT LIAISON 02/26/2025 8:05 PM Signed [facility] Subjective HPI HPI Rashmi Hough is [...] - STREP A MOLECULAR (POC) Paulino Barker APRN.REIMBURSEMENT LIAISON History and Record Review External record(s) reviewed: prior outpatient record. (more content not included)... Normal [facility] STREP A MOLECULAR (POC)on Procedural Control Valid [facility] Strep A (POCT) Negative Negative [facility] CNOVon 02-01-2025 CNOV Office Visit (UCWSTR) RASHMI HOUGH ([id number]) 1995 F Date Time Provider Department 02/01/25 5:15 PM KEEGAN DANIELS [facility] During your visit today, we recorded the following information about you: Temperature Pulse Respiration Blood pressure 97.9 degrees 63/minute 18/minute 102/70 Weight 59.2 kg Keegan Daniels, HAY RAKE OPERATOR.REIMBURSEMENT LIAISON 02/01/2025 5:26 PM Signed This note was created using Agilvax. Subjective Rashmi Hough is a 29 year [...] PROPIONATE 50 MCG/ACTUATION NASAL SPRAY,SUSPENSION Keegan Daniels APRN.REIMBURSEMENT LIAISON Allergies As of Date: 02/01/2025 Noted Allergy Reaction LEXAPRO (ESCITALOPRAM OXALATE) 12/24/2017 14 - Other: See Comments Comments: [place] weird, heart racing. 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 [place], [place], [id number] GC BY NUC ACID Negative Normal Negative [facility] Comment on above: Performed By: #### L 509.8002, L3890.6006, L7000.1800, L3400.1610 ####[facility] [address] [facility] [place], [address] Genital Culture Comprehensiv mar 01-20-2025 VAC Reason for Exam: vaginal discharge No yeast, Gardnerella, or Neisseria isolated. Streptococcus agalactiae (B) Amount Growth 3+ Streptococcus agalactiae (B): REACTION Ampicillin Islt CHARLEY <=0.25 cefTRIAXone Islt CHARLEY <=0.12 S Clindamycin Islt CHARLEY >=1 R Clindamycin.induced Susc Islt NEG Linezolid Islt CHARLEY <=2 S Vancomycin Islt CHARLEY 0.5 S Normal [facility] Comment on above: Performed By: #### M 100.2000, M100.3200 ####[facility] [address] [place], [address] HSV 1 AND 2 IgGon 01-20-2025 HSV 1 IgG Normal [facility] Comment on above: Result Comment: RESU LT: NON REACTIVE Please note reference interval change HSV-1 IgG testing performed using the [employer] Elecsys HSV-1 IgG assay. Performed By: #### L 509.8002, L3890.6006, L7000.1800, L3400.1610 ####[facility] [address] [place], [address] HSV 2 IgG Normal [facility] Comment on above: Result Comment: RESU LT: [...] [employer] HSV-2 IgG assay. Performed at: =[address] [id number] Supervisor Paint: Maryjane Dempsey MD, Phone: [phone] Performed at: - [facility] [id number] Supervisor Paint: Michele Burr PhD, Phone: [phone] Performed By: #### L 371.3746, M7564.2628, Z5494.9780, S6564.9179 ####[facility] [address] [facility] [place], [address] C. trachomatis rRNA CORNELIUS+prob e Ql (Unsp spec)Ordered By: Estella Marques on 01-17-2025 Chlamydia DNA (CORNELIUS) Negative Negative [facility] Chlamydia trachomatis rRNA d etection by probe and target amplification methodOrdered By: Estella Marques on 01-17-2025 C. trachomatis rRNA CORNELIUS+probe Ql (Unsp spec) Negative Negative [facility] Genital cultureOrdered By: Graham Marques on 01-17-2025 Genital Culture Streptococcus agalactiae (B) Abnormal [facility] Source specific culture Streptococcus agalactiae (B) Abnormal [facility] Gram Stainon 01-17-2025 GS Reason for Exam: vaginal discharge Gram Stain 4+ Gram variable [place] 2+ Epithelial cells No Gram negative diplococci Score = 8 Interpretation: 0-3 Normal, 4-6 Intermediate, 7-10 Positive BV Normal [facility] Comment on above: Performed By: #### M 100.2000, M100.3200 ####[facility] [address] [facility] [place], [address] Gram stainOrdered By: Estella Marques on 01-17-2025 Microscopic observation Gram stain Nom (Unsp spec) [facility] HSV 2 Ab IA Qn (S)Ordered By : Estella Marques on 01-17-2025 Herpes Simplex Virus II IgG Ab See comment [facility] Comment on above: RESULT: NON REACTIVE Please [...] HSV-2. HSV-2 IgG testing performed using the RocheElecsys HSV-2 IgG assay.Performed at: [address] [id number] Director: Maryjane Dempsey MD, Phone: [phone] at: [address] [id number] Director: Michele Burr PhD, Phone: [phone] Herpes simplex virus (HSV) t ype 1 IgG antibody assayOrdered By: Estella Marques on 01-17-2025 Herpes Simplex Virus I IgG Antibody See comment [facility] Comment on above: RESULT: NON REACTIVE Please note reference interval changeHSV-1 IgG testing performed using the [employer] Elecsys HSV-1IgG assay. L3890.6006on 01-17-2025 HIV Non-Reactive Normal Nonreactive [facility] Comment on above: Result Comment: Non- Reactive Reactive Repeatedly reactive samples must be confirmed according to CDC recommended confirmatory algorithms. The subresults for either HIVAG or AHIV can be used as an aid in the selection of the confirmation algorithm for reactive samples. Send out specimens with Reactive results to [facility] for confirmation. Order the HIV antibody detection and differentiation: #[id number] Performed By: #### L 509.8002, L3890.6006, L7000.1800, L3400.1610 ####[facility] [address] [facility] [place], [address] L509.8002on 01-17-2025 Syphilis Abs Non-Reactive Normal Nonreactive [facility] Comment on above: Performed By: #### L 509.8002, L3890.6006, L7000.1800, L3400.1610 ####[facility] [address] [facility] [address] [place], [place], [id number] Neisseria gonorrhoeae nuclei c acid detection by amplified probe techniqueOrdered By: Estella Marques on 01-17-2025 N. gonorrhoeae DNA CORNELIUS+probe Ql (Unsp spec) Negative Negative [facility] No Panel InformationOrdered By: Estella Marques on 01-17-2025 HIV (1&2) Antibody Non-Reactive Nonreactive [facility] Comment on above: Non-ReactiveReactive Repeatedly reactive samples must be confirmed according to CDC recommended confirmatory algorithms. The subresults for either HIVAG or AHIV can be used as an aid in the selection of the confirmation algorithm for reactive samples.Send out specimens with Reactive results to [facility] for confirmation.Order the HIV antibody detection and differentiation: #[id number] POC Bacterial Vaginitis (Rapid) Positive [facility] POC Trichomonas (Rapid) Negative [facility] Corporate Physical Security Supervisor Office Visit Reporton 01-17-2025 Corporate Physical Security Supervisor Office Visit Report [facility] [address] [place] [address], [address] [place] [address] OFFICE VISIT Date of Service: 01/17/25 MR#: [id number] Acct: [id number] Name: RASHMI HOUGH Rep #: [id number] : 1995 Provider: ARNULFO maher Age/Sex: 29/F Location: [facility] Status: Signed Intake Vital Signs 11/15/24 08:20 01/17/25 14:00 01/17/25 14:05 Height 5 ft 5 in 5 ft 5 in 5 ft 5 in Weight: 123 lb 131 lb BMI 20.5 21.8 BP 100/68 102/68 Intake Visit Reasons: STD testing Chief Complaint: STD testing Clinical Educator Required: No Is patient in pain?: No [...] lbs 9 oz Female 2 hours epidural [place] 11/06/12 Rich 39 live - full term [...] transmission HIV (more content not included)... Normal [facility] Serum herpes simplex virus 2 antibody assay by immunoassay (units/volume)Ordered By: Estella Marques on 01-17-2025 HSV 2 Ab IA Qn (S) See comment [facility] Comment on above: RESULT: NON REACTIVE Please [...] HSV-2. HSV-2 IgG testing performed using the RocheUeeeU.comsys HSV-2 IgG assay.Performed at: = [employer] [id number] Director: Maryjane Dempsey MD, Phone: [phone] at: [facility] [place] [id number] Director: Michele Burr PhD, Phone: [phone] T. pallidum abOrdered By: Jluis Marques on 01-17-2025 Syphilis Total Antibody Non-Reactive Nonreactiv e [facility] Chlamydia/GC CORNELIUS aptimaon CHLAMY,NUC ACID Negative Normal Negative [facility] Comment on above: Performed By: #### L 7000.1800 #### [facility] [address] [place], [place], [id number] GC BY NUC ACID Negative Normal Negative [facility] Comment on above: Result Comment: Perf ormed at: =[facility] [id number] Supervisor Paint: Maryjane Dempsey MD, Phone: [phone] Performed By: #### L 7000.1800 #### [facility] [address] [place], [place], [address] HSV 1 AND 2 IgGon 11-17-2024 HSV 2 IgG Normal [facility] Comment on above: Result Comment: RESU LT: [...] [employer] HSV-2 IgG assay. Performed at: [facility] [address] [place], [place] [id number] Supervisor Paint: Michele Burr PhD, Phone: [phone] Performed By: #### L 3890.6300, L3400.1610, L509.8000, L3890.6005, L3240.6100 ####[facility] [address] [place], [place], [address] HSV 1 IgG Normal [facility] Comment on above: Result Comment: RESU LT: NON REACTIVE Please note reference interval change HSV-1 IgG testing performed using the Cisco Elecsys HSV-1 IgG assay. Performed By: #### L 3890.6300, L3400.1610, L509.8000, L3890.6005, L3890.6100 ####[facility] [address] [place], [place], [address] C. trachomatis rRNA CORNELIUS+prob e Ql (Unsp spec)Ordered By: Nereyda Rondon on 11-15-2024 Chlamydia DNA (CORNELIUS) Negative Negative [facility] HIV - WCHon 11-15-2024 HIV Non-Reactive Normal Nonreactive [facility] Comment on above: Order Comment: Reaso n for Exam: std testing Performed By: #### L 3890.6300, L3400.1610, L509.8000, L3890.6005, L3890.6100 #### [facility] [address] [place], [place], [address] HIV 1+2 Ab+HIV1 p24 Ag IA Ql Ordered By: Nereyda Rondon on 11-15-2024 HIV (1&2) Antibody Non-Reactive Nonreactive [facility] HSV 2 Ab IA Qn (S)Ordered By : Nereyda Rondon on 11-15-2024 Herpes Simplex Virus II IgG Ab See comment [facility] Comment on above: RESULT: NON REACTIVE Please [...] HSV-2. HSV-2 IgG testing performed using the RocheElecsys HSV-2 IgG assay.Performed at: [address] [id number] Director: Michele Burr PhD, Phone: [phone] Hepatitis B Surface Antigeno n 11-15-2024 HEP B Surf Ag Non-Reactive Normal Nonreactive [facility] Comment on above: Order Comment: Reaso n for Exam: std testing Performed By: #### L 3890.6300, L3400.1610, L509.8000, L3890.6005, L3890.6100 #### [facility] [address] [place], [address] Hepatitis B surface antigen detectionOrdered By: Nereyda Rondon on 11-15-2024 Hepatitis B Surface Antigen Non-Reactive Nonreactive [facility] Hepatitis C Antibodyon 11-15 Hepatitis C AB Non-Reactive Normal Nonreactive [facility] Comment on above: Order Comment: Reaso n for Exam: std testing Result Comment: Non Reactive: < 0.8 Equivocal: >/= 0.8 to < 1.0 Reactive: >/= 1.0 The [facility] requires that a reactive/equivocal HCV antibody result be sent out for confirmation. HCV Quant by PCR testing. Performed By: #### L 3890.6300, L3400.1610, L509.8000, L3890.6005, L3890.6100 #### [facility] [address] [facility] [place], [address] Hepatitis C virus antibody a ssayOrdered By: Nereyda Rondon on 11-15-2024 Hepatitis C Antibody Non-Reactive Nonreactive [facility] Comment on above: Non Reactive: < 0.8 Equivocal: >/= 0.8 to < 1.0 Reactive: >/= 1.0The [facility] requires that a reactive/equivocal HCV antibody result be sent out for confirmation. HCV Quant by PCR testing. Herpes simplex virus (HSV) t ype 1 IgG antibody assayOrdered By: Nereyda Rondon on 11-15-2024 Herpes Simplex Virus I IgG Antibody See comment [facility] Comment on above: RESULT: NON REACTIVE Please note reference interval changeHSV-1 IgG testing performed using the Cisco Elecsys HSV-1IgG assay. L509.8000on 11-15-2024 Syphilis Abs Non-Reactive Normal [facility] Comment on above: Order Comment: Reaso n for Exam: std testing Performed By: Santi### L 3890.6300, L3400.1610, L509.8000, L3890.6007, L3890.6100 #### [facility] [address] [place], [address] Neisseria gonorrhoeae nuclei c acid detection by amplified probe techniqueOrdered By: Nereyda Rondon on 11-15-2024 N. gonorrhoeae DNA CORNELIUS+probe Ql (Unsp spec) Negative Negative [facility] Comment on above: Performed at: = - L [address] [id number] Director: Maryjane Dempsey MD, Phone: [phone] No Panel Informationon 11-15 POC Bacterial Vaginitis (Rapid) Negative [facility] POC Trichomonas (Rapid) Negative [facility] Corporate Physical Security Supervisor Office Visit Reporton 11-15-2024 Corporate Physical Security Supervisor Office Visit Report [facility] [address], [address] [place] [address] OFFICE VISIT Date of Service: 11/15/24 MR#: [id number] Acct: [id number] Name: RASHMI HOUGH Rep #: [id number] : 1995 Provider: ARNULFO Chapin Age/Sex: 29/F Location: [facility] Status: Signed Intake Vital Signs 08/10/24 11:02 11/07/24 09:12 11/15/24 08:20 Height 5 ft 5 in 5 ft 5 in 5 ft 5 in Weight: 124 lb 4 oz 123 lb BMI 20.7 20.5 BP 125/69 H 100/68 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 Date Name GA/Weeks Outcome Route Bth Weight Infant Gen Labor Lgth Anesthesia Del [facility] Provider FOB 07/23/11 Jonas live - full term 7 lbs 9 oz Female 2 hours epidural [place] 11/06/12 Rich 39 live - full term 7 lbs 5 oz Male 5 hours epidural Akr on 03/12/17 Santhosh 39 live - full term 7 lbs 8 oz Female 4 hours epidural [facility] HPI Encounter for routine gynecological examination [...] axillae and (more content not included)... Normal [facility] Treponema sp Ab Ql (S)Ordere d By: Nereyda Rondon on 11-15-2024 Syphilis Total Antibody Non-Reactive [facility] Laboratory - Chemistry and C hemistry - challengeon 11-07-2024 HCG ( test) Ql (U) Negative [facility] Corporate Physical Security Supervisor Office Visit Reporton 11-07-2024 Corporate Physical Security Supervisor Office Visit Report [facility] [address], [address] [place] [address] OFFICE VISIT Date of Service: 11/07/24 MR#: [id number] Acct: [id number] Name: CHONRASHMIMary ALLEN Rep #: [id number] : 1995 Provider: ARNULFO maher Age/Sex: 29/F Location: [facility] Status: Signed Intake Vital Signs 08/10/24 11:02 11/07/24 09:12 Height 5 ft 5 in 5 ft 5 in Weight: 124 lb 4 oz 124 lb 6 oz BMI 20.7 20.7 BP 125/69 H 102/66 Intake Visit Reasons: FU care Chief Complaint: F/u Clinical Educator Required: No Is patient in pain?: No [...] home: Yes additional social history: Single- [employer] HPI FU care Details: RASHMI HOUGH is a 29 year old who presents for post care. Seen at clinic in [facility], took medication evening 10/04/24. Starting bleeding 10/05 and continued X 2 weeks. 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 She [...] lbs 9 oz Female 2 hours epidural [place] 11/06/12 Rich 39 live - full term 7 lbs 5 oz Male 5 hours epidural Akr on 03/12/17 Hinds 39 live - full term 7 lbs [...] later this month 11/07/24 0943 Date Estella Marques PAOLO WAREHOUSE REPRESENTATIVE-C Cosigner Signature: Date (if applicable) CC: [facility] Office Visit (UCWSTR) RASHMI HOUGH ([id number]) 1995 F Date Time Provider Department 09/18/24 12:00 PM GUILHERME KHALIL [facility] During your visit today, we recorded the following information about you: Temperature Pulse Respiration Blood pressure 97.8 degrees 64/minute 18/minute 102/72 Weight 56.3 kg Guilherme Khalil APRN.REIMBURSEMENT LIAISON 09/18/2024 12:39 PM Signed Subjective HPI Nontoxic-appearing [...] movement is limited due to some weakness. [id number]. No surgeries or fractures previously. Past medical [...] of care. This note was generated using Womply software. It may contain errors in wording, punctuation, or spelling. Guilherme Khalil APRN.REIMBURSEMENT LIAISON Allergies As of Date: 09/18/2024 Noted Allergy Reaction LEXAPRO (ESCITALOPRAM OXALA (more content not included)... Normal [facility] XR DIGIT 3V FRONTAL/LAT/OBL RTon 09-18-2024 XR [...] No fracture or dislocation IMPRESSION: No fracture Customer Solutions Architect: PSCB Transcribe Date/Time: Sep 18 2024 12:21P Dictated by : NOREEN ALONSO MD This examination was interpreted and the report reviewed and electronically signed by: NOREEN ALONSO MD on Sep 18 2024 12:23PM EST [id number] Normal [facility] XR Finger - right AP and Lat eral and obliqueon 09-18-2024 IMPRESSION: No fracture Customer Solutions Architect: PSCB Transcribe Date/Time: Sep 18 2024 12:21P [...] fracture or dislocation DIVISION OF RADIOLOGY Provider, [facility] - 09/18/2024 * * *Final Report* * [...] fracture or dislocation IMPRESSION IMPRESSION: No fracture Customer Solutions Architect: VIVIENNE Transcribe Date/Time: Sep 18 2024 12:21P Dictated by : NOREEN ALONSO MD This examination was interpreted and the report reviewed and electronically signed by: NOREEN ALONSO MD on Sep 18 2024 12:23PM EST [facility] Radiology Study observation (narrative) Vasiliy [facility] XR Finger - right AP and Lat eral and obliqueOrdered By: Cc Provider on 09-18-[address] [facility] Corporate Physical Security Supervisor Office Visit Reporton 08-10-2024 Corporate Physical Security Supervisor Office Visit Report [facility] [address], [address] [place] [address] OFFICE VISIT Date of Service: 08/10/24 MR#: [id number] Acct: [id number] Name: CHONRASHMI BLOUNTET Rep #: [id number] : 1995 Provider: ARNULFO Chapin Age/Sex: 29/F Location: [facility] Status: Signed Intake Vital Signs 06/05/24 10:26 08/10/24 11:02 Height 5 ft 5 in 5 ft 5 in Weight: 124 lb 4 oz BMI 20.7 BP 125/69 H Intake Visit Reasons: BC CONSULT Clinical Educator Required: No Is patient in pain?: No [...] home: Yes additional social history: Single- [employer] HPI CONSULT Details: RASHMI HOUGH is a 29 [...] lbs 9 oz Female 2 hours epidural [place] 11/06/12 Rich 39 live - full term [...] tabs 2RF 08/10/24 1222 Date Nereyda Rondon WAREHOUSE REPRESENTATIVE-C Cosigner Signature: Date (if applicable) CC: Normal [facility] CNKADENon 05-22-2024 CNOV Office Visit (FAMPWS) RASHMI HOUGH ([id number]) 1995 F Date Time Provider Department 05/22/24 1:00 PM MONY GUTIERREZ During your visit today, we recorded the following information about you: Pulse Respiration Blood pressure Weight 63/minute 18/minute 92/58 58.2 kg Mony Gutierrez APRN.REIMBURSEMENT LIAISON 05/22/2024 4:02 PM Signed 05/22/2024 Patient presents [...] smoke marijuana. Is going to counseling in [place]. Appetite has improved on Remeron. Denies SI, [...] - MIRTAZAPINE 15 MG TABLET Mony Gutierrez, HAY RAKE OPERATOR.REIMBURSEMENT LIAISON Prescription instructions reviewed with patient as applicable. [...] 12/24/2017 14 - Other: See Comments Comments: [place] weird, heart racing. Date Reviewed: 05/22/2024 Reviewed [...] at bedtime. (more content not included)... Normal [facility] CBC W Auto Differential pane l (Bld)on 01-25-2024 Basophils (Bld) [#/Vol] <0.11 k/uL [facility] Basophils/100 WBC (Bld) 0.5 % [facility] Differential cell count method Nom (Bld) Auto [facility] Eosinophils (Bld) [#/Vol] 0.08 10*3/uL <0.46 k/uL [facility] Eosinophils/100 WBC (Bld) 2.1 % [facility] Erythrocyte distribution width (RBC) [Ratio] 12.3 % 11.5 - 15.0 % [facility] Hematocrit (Bld) [Volume fraction] 40.1 % 36.0 - 46.0 % [facility] Hemoglobin (Bld) [Mass/Vol] 13.6 g/dL 11.5 - 15.5 g/dL [facility] Immature granulocytes (Bld) [#/Vol] <0.10 k/uL [facility] Immature granulocytes/100 WBC (Bld) 0.0 % [facility] Lymphocytes (Bld) [#/Vol] 1.39 10*3/uL 1.00 - 4.00 k/uL [facility] Lymphocytes/100 WBC (Bld) 37.3 % [facility] MCH (RBC) [Entitic mass] 31.8 pg 26.0 - 34.[address] [facility] MCHC (RBC) [Mass/Vol] 33.9 g/dL 30.5 - 36.0 g/dL [facility] MCV (RBC) [Entitic vol] 93.7 fL 80.0 - 100.[address] [facility] Monocytes (Bld) [#/Vol] 0.28 10*3/uL <0.87 k/uL [facility] Monocytes/100 WBC (Bld) 7.5 % [facility] Neutrophils (Bld) [#/Vol] 1.96 10*3/uL 1.45 - 7.50 k/uL [facility] Neutrophils/100 WBC (Bld) 52.6 % [facility] Nucleated RBC (Bld) [#/Vol] <0.01 k/uL [facility] Nucleated RBC/100 WBC (Bld) [Ratio] 0.0 /[address] [facility] Platelet mean volume (Bld) [Entitic vol] 12.0 fL 9.0 - 12.[address] [facility] Platelets (Bld) [#/Vol] 110 10*3/uL Low 150 - 400 k /uL [facility] RBC (Bld) [#/Vol] 4.28 10*6/uL 3.90 - 5.2 0 m/uL [facility] WBC (Bld) [#/Vol] 3.73 10*3/uL 3.70 - 11. 00 k/uL [facility] Comprehensive metabolic 2000 panelon 01-25-2024 Albumin [Mass/Vol] 4.5 g/dL 3.9 - 4.9 g/dL [facility] ALP [Catalytic activity/Vol] 50 U/L 34 - 123 U/L [facility] ALT [Catalytic activity/Vol] 17 U/L 7 - 38 U/L [facility] Anion gap [Moles/Vol] 11 mmol/L 9 - 18 mmol/L [facility] AST [Catalytic activity/Vol] 18 U/L 13 - 35 U/L [facility] Bilirubin [Mass/Vol] 0.5 mg/dL 0.2 - 1 .3 mg/dL [facility] Calcium [Mass/Vol] 9.4 mg/dL 8.5 - 10. 2 mg/dL [facility] Chloride [Moles/Vol] 104 mmol/L 97 - 10 5 mmol/L [facility] CO2 [Moles/Vol] 24 mmol/L 22 - 30 mmol/L [facility] Creatinine [Mass/Vol] 0.84 mg/dL 0.58 - 0.96 mg/dL [facility] Estimated Glomerular Filtration Rate 97 mL/min/1.73m >=60 mL/min/1.73m [facility] Glucose [Mass/Vol] 85 mg/dL 74 - 99 mg/dL [facility] Potassium [Moles/Vol] 4.7 mmol/L 3.7 - 5.1 mmol/L [facility] Protein [Mass/Vol] 7.0 g/dL 6.3 - 8.0 g/dL [facility] Sodium [Moles/Vol] 139 mmol/L 136 - 144 mmol/L [facility] Urea nitrogen [Mass/Vol] 13 mg/dL 7 - 21 mg/d L [facility] TSH BLDon 01-25-2024 TSH Qn 1.590 m[IU]/L 0.270 - 4.200 mIU/L [facility] [facility] Chlamydia trachomatis rRNA d etection by probe and target amplification methodOrdered By: Estella Marques on 11-02-2023 C. trachomatis rRNA CORNELIUS+probe Ql (Unsp spec) Negative Negative [facility] Gram stain for investigation of transfusion reactionOrdered By: Estella Marques on 11-02-2023 Microscopic observation Gram stain Nom (Unsp spec) [facility] HIV 1 and HIV-2 antibody ass ay with HIV-1 p24 antigen detectionOrdered By: Estella Marques on 11-02-2023 HIV 1+2 Ab+HIV1 p24 Ag IA Ql Non-Reactive Nonreactive [facility] Laboratory - Microbiology an d Antimicrobial susceptibilityOrdered By: Estella Marques on 11-02-2023 N. gonorrhoeae DNA CORNELIUS+probe Ql (Unsp spec) Negative Negative [facility] Comment on above: Performed at: =[address] [id number] Director: Maryjane Dempsey MD, Phone: [phone] No Panel InformationOrdered By: Estella Marques on 11-02-2023 Hepatitis C Antibody Non-Reactive Nonreactive [facility] Comment on above: Non Reactive: < 0.8 Equivocal: >/= 0.8 to < 1.0 Reactive: >/= 1.0The [facility] recommends that a reactive/equivocal HCV antibody result be followed up by the HCV Nucleic Acid Amplificationtest (054756) Herpes Simplex Virus I IgG Antibody < 0.91 index 0.00-0.90 [facility] Comment on above: Negative <0.91 Equiv ocal 0.91 - 1.09 Positive >1.09 Note: Negative indicates no antibodies detected to HSV-1. Equivocal may suggest early infection. If clinically appropriate, retest at later date. Positive indicates antibodies detected to HSV-1. Serum Treponema species anti body detectionOrdered By: Estella Marques on 11-02-2023 Treponema sp Ab Ql (S) Non-Reactive [facility] Serum herpes simplex virus 2 antibody assay by immunoassay (units/volume)Ordered By: Estella Marques on 11-02-2023 HSV 2 Ab IA Qn (S) < 0.91 index 0.00-0.90 [facility] Comment on above: Negative <0.91 Equiv [...] testing results should be clinically correlated.Performed at: [address] [id number] Director: Michele Burr PhD, Phone: [phone] Thin prep Papanicolaou smear with manual screeningOrdered By: Estella Marques on 11-02-2023 Genital Culture G. vaginalis (Presumptive) [facility] Chlamydia trachomatis rRNA d etection by probe and target amplification methodOrdered By: Estella Marques on 08-24-2023 C. trachomatis rRNA CORNELIUS+probe Ql (Unsp spec) Negative Negative [facility] Gram stain for investigation of transfusion reactionOrdered By: Estella Marques on 08-24-2023 Microscopic observation Gram stain Nom (Unsp spec) [facility] Microscopic observation Gram stain Nom (Unsp spec) [facility] Laboratory - Microbiology an d Antimicrobial susceptibilityOrdered By: Estella Marques on 08-24-2023 N. gonorrhoeae DNA CORNELIUS+probe Ql (Unsp spec) Negative Negative [facility] Comment on above: Performed at: =[employer] [id number] Director: Maryjane Dempsey MD, Phone: [phone] Thin prep Papanicolaou smear with manual screeningOrdered By: Estella Marques on 08-24-2023 Genital Culture G. vaginalis (Presumptive) [facility] Genital Culture Presumptive C albicans [facility] Genital Culture G. vaginalis (Presumptive) [facility] Genital Culture Presumptive C albicans [facility] Chlamydia trachomatis rRNA d etection by probe and target amplification methodOrdered By: Lila John on 06-03-2023 C. trachomatis rRNA CORNELIUS+probe Ql (Unsp spec) Negative Negative [facility] Laboratory - Microbiology an d Antimicrobial susceptibilityOrdered By: Lila John on 06-03-2023 N. gonorrhoeae DNA CORNELIUS+probe Ql (Unsp spec) Negative Negative [facility] Comment on above: Performed at: =G - [employer] [id number] Director: Maryjane Dempsey MD, Phone: [phone] Chlamydia trachomatis rRNA d etection by probe and target amplification methodOrdered By: Mayra Suggs on 04-23-2023 C. trachomatis rRNA CORNELIUS+probe Ql (Unsp spec) Negative Negative [facility] HIV 1 and HIV-2 antibody ass ay with HIV-1 p24 antigen detectionOrdered By: Mayra Suggs on 04-23-2023 HIV 1+2 Ab+HIV1 p24 Ag IA Ql Non-Reactive Nonreactive [facility] Laboratory - Microbiology an d Antimicrobial susceptibilityOrdered By: Mayra Suggs on 04-23-2023 N. gonorrhoeae DNA CORNELIUS+probe Ql (Unsp spec) Negative Negative [facility] Comment on above: Performed at: =[address] [id number] Director: Maryjane Dempsey MD, Phone: [phone] No Panel Informationon 04-23 POC Trichomonas (Rapid) Negative [facility] Serum Treponema species anti body detectionOrdered By: Mayra Suggs on 04-23-2023 Treponema sp Ab Ql (S) Non-Reactive [facility] Throat specimen bacteria gabriel ntification by cultureOrdered By: Jim Gallego on 04-21-2023 Bacteria identified Cx Nom (Throat) streptococcus isolated. [facility] XR Shoulder - right 3 Viewso n 03-18-2023 IMPRESSION: Normal radiographic appearance proximal humerus and the glenoid. Relatively widened AC joint suggestive of low-grade separation, age-indeterminate Customer Solutions Architect[facility] Transcribe Date/Time: Mar 18 2023 3:33P Dictated [...] adjacent soft tissues. DIVISION OF RADIOLOGY Provider, [facility] [place] - 03/18/2023 * * *Final Report* * [...] AC joint suggestive of low-grade separation, age-indeterminate Customer Solutions Architect[facility] Transcribe Date/Time: Mar 18 2023 3:33P Dictated by : SHIVANI RASCON MD This examination was interpreted and the report reviewed and electronically signed by: SHIVANI RASCON MD on Mar 18 2023 3:38PM EST [facility] Radiology Study observation (narrative) [facility] XR Shoulder - right 3 ViewsO rdered By: [facility]cf Provider on 03-18-[address] [facility] STREP A MOLECULAR (POC)on Procedural Control Valid [facility] Strep A (POCT) Negative Negative [facility] Chlamydia trachomatis rRNA d etection by probe and target amplification methodOrdered By: Estella Marques on 12-17-2022 C. trachomatis rRNA CORNELIUS+probe Ql (Unsp spec) Negative Negative [facility] HIV 1 and HIV-2 antibody ass ay with HIV-1 p24 antigen detectionOrdered By: Estella Marques on 12-17-2022 HIV 1+2 Ab+HIV1 p24 Ag IA Ql Non-Reactive Nonreactive [facility] Laboratory - Microbiology an d Antimicrobial susceptibilityOrdered By: Estella Marques on 12-17-2022 N. gonorrhoeae DNA CORNELIUS+probe Ql (Unsp spec) Negative Negative [facility] Comment on above: Performed at: [facility]c[address] [id number] Director: Maryjane Dempsey MD, Phone: [phone] No Panel InformationOrdered By: Estella Marques on 12-17-2022 Hepatitis C Antibody Non-Reactive Nonreactive [facility] Comment on above: Non Reactive: < 0.8 Equivocal: >/= 0.8 to < 1.0 Reactive: >/= 1.0The [facility] recommends that a reactive/equivocal HCV antibody result be followed up by the HCV Nucleic Acid Amplificationtest (396373) Herpes Simplex Virus I IgG Antibody < 0.91 index 0.00-0.90 [facility] Comment on above: Negative <0.91 Equiv ocal 0.91 - 1.09 Positive >1.09 Note: Negative indicates no antibodies detected to HSV-1. Equivocal may suggest early infection. If clinically appropriate, retest at later date. Positive indicates antibodies detected to HSV-1. No Panel Informationon 12-17 POC Trichomonas (Rapid) Negative [facility] Serum Treponema species anti body detectionOrdered By: Estella Marques on 12-17-2022 Treponema sp Ab Ql (S) Non-Reactive [facility] Serum herpes simplex virus 2 antibody assay by immunoassay (units/volume)Ordered By: Estella Marques on 12-17-2022 HSV 2 Ab IA Qn (S) < 0.91 index 0.00-0.90 [facility] Comment on above: Negative <0.91 Equiv ocal 0.91 - 1.09 Positive >1.09 Note: Negative indicates no HSV-2 antibodies detected. Positive indicates HSV-2 antibodies detected. Equivocal and low positive HSV-2 screens (Index 0.91-5.00) may be false positive and are reflexed to supplemental testing in accordance with CDC guidelines.Performed at: - [facility] [id number] Director: Michele Burr PhD, Phone: [phone] CORONAVIRUS PCR [CCL]on 09-25 REF LAB REPORT Positive Normal [facility] Comment on above: Performed By: #### 2 [id number] #### [facility],[address] [place] [address] SEND TO ? YES Normal [facility] Comment on above: Performed By: #### 2 [id number] #### [facility],[address] [place] [address] COVID 19 Result WAREHOUSE REPRESENTATIVE Positive Abnormal [facility] Comment on above: Result Comment: Posi tive for COVID19 (SARS CoV2) by PCR.(*) This test was developed and its performance characteristics determined by [facility]'s [facility] Pathology and Laboratory Medicine [place]. This test has been authorized by [facility] under an Emergency Use Authorization (EUA). This test has been validated in accordance with the FDA's Guidance Document Policy for Diagnostics Testing in Laboratories Certified to Perform High Complexity Testing under CLIA prior to Emergency use Authorization for Coronavirus Disease 2019 during the Public Health Emergency issued on December 23, 2019. [facility] [address] [place] [address] Ty Lopez III, M.D. [id number] Performed By: #### 2 [id number] #### [address] [address] COVID 19 Source WAREHOUSE REPRESENTATIVE Nasopharyngeal Swab Normal [facility] Comment on above: Result Comment: Herbie ected on 10/12 AT 1406: Previously reported as WAREHOUSE REPRESENTATIVE Performed By: #### 2 [id number] #### [facility],[address] [place] [address] Coronavirus 2019on 0 COVID 19 Result WAREHOUSE REPRESENTATIVE Abnormal Negative for COVID19 (SARS CoV2) by PCR. [facility] Comment on above: Result Comment: Posi tive for This test was developed and its performance characteristics determined by [facility] Pathology and Laboratory [facility] [place]. This test has been authorized by FDA under an Emergency Use Authorization (EUA). This test has been validated in accordance with the FDA's Guidance Document Policy for Diagnostics Testing in Laboratories Certified to Perform High Complexity Testing under CLIA prior to Emergency use Authorization for Coronavirus Disease 2019 during the Public Health Emergency issued on December 23, 2019. COVID19 (SARS This test was developed and its performance characteristics determined by [facility] Pathology and Laboratory [facility] [place]. This test has been authorized by FDA under an Emergency Use Authorization (EUA). This test has been validated in accordance with the FDA's Guidance Document Policy for Diagnostics Testing in Laboratories Certified to Perform High Complexity Testing under CLIA prior to Emergency use Authorization for Coronavirus Disease 2019 during the Public Health Emergency issued on December 23, 2019. CoV2) by This test was developed and its performance characteristics determined by [facility] Pathology [facility] [place]. This test has been authorized by FDA under an Emergency Use Authorization (EUA). This test has been validated in accordance with the FDA's Guidance Document Policy for Diagnostics Testing in Laboratories Certified to Perform High Complexity Testing under CLIA prior to Emergency use Authorization for Coronavirus Disease 2019 during the Public Health Emergency issued on December 23, 2019. PCR.(*) This test was developed and its performance characteristics determined by [facility] Pathology and Laboratory [facility] [place]. This test has been authorized by FDA under an Emergency Use Authorization (EUA). This test has been validated in accordance with the FDA's Guidance Document Policy for Diagnostics Testing in Laboratories Certified to Perform High Complexity Testing under CLIA prior to Emergency use Authorization for Coronavirus Disease 2019 during the Public Health Emergency issued on December 23, 2019. Coronavirus 2019on 0 COVID 19 Source WAREHOUSE REPRESENTATIVE Normal [facility] Comment on above: Result Comment: Naso pharyngeal Corrected on 10/12 AT 1406: Previously reported as WAREHOUSE REPRESENTATIVE Swab Corrected on 10/12 AT 1406: Previously reported as WAREHOUSE REPRESENTATIVE Vital Signs Date Time Vital Sign Value Performing Clinician Facility 05-17-2025 10:20-0400 Body height 165.1 cm Deidre Thakkar WAREHOUSE REPRESENTATIVE-C Work Phone: [facility] 05-17-2025 10:20-0400 Body mass index (BMI) [Ratio] 20.9 kg/m2 Deidre Thakkar WAREHOUSE REPRESENTATIVE-C Work Phone: [facility] 05-17-2025 10:20-0400 Body weight 57.15 kg Deidre Thakkar WAREHOUSE REPRESENTATIVE-C Work Phone: [facility] 05-17-2025 10:20-0400 Diastolic blood pressure 73 mm[Hg] Deidre Barrigaman WAREHOUSE REPRESENTATIVE-C Work Phone: [facility] 05-17-2025 10:20-0400 Systolic blood pressure 108 mm[Hg] Deidre Barrigaman WAREHOUSE REPRESENTATIVE-C Work Phone: [facility] 03-01-2025 07:18-0400 Body mass index (BMI) [Ratio] 21.23 kg/m2 Mony Podlogar HAY RAKE OPERATOR.REIMBURSEMENT LIAISON Work Phone: [facility] 03-01-2025 07:18-0400 Body temperature 98.1 [degF] Mony Podlogar HAY RAKE OPERATOR.REIMBURSEMENT LIAISON Work Phone: [facility] 03-01-2025 07:18-0400 Body weight 57.88 kg Mony Podlogar HAY RAKE OPERATOR.REIMBURSEMENT LIAISON Work Phone: [facility] 03-01-2025 07:18-0400 Diastolic blood pressure 68 mm[Hg] Mony Podlogar HAY RAKE OPERATOR.REIMBURSEMENT LIAISON Work Phone: [facility] 03-01-2025 07:18-0400 Heart rate 71 /min Mony Podlogar HAY RAKE OPERATOR.REIMBURSEMENT LIAISON Work Phone: [facility] 03-01-2025 07:18-0400 Respiratory rate 16 /min Mony Podlogar HAY RAKE OPERATOR.REIMBURSEMENT LIAISON Work Phone: [facility] 03-01-2025 07:18-0400 SaO2% (BldA) [Mass fraction] 98 % Mony Podlogar HAY RAKE OPERATOR.REIMBURSEMENT LIAISON Work Phone: [facility] 03-01-2025 07:18-0400 Systolic blood pressure 118 mm[Hg] Mony Podlogar HAY RAKE OPERATOR.REIMBURSEMENT LIAISON Work Phone: [facility] 02-26-2025 19:46-0400 Body mass index (BMI) [Ratio] 22.2 kg/m2 Paulino Mj HAY RAKE OPERATOR.REIMBURSEMENT LIAISON Work Phone: [facility] 02-26-2025 19:46-0400 Body temperature 99.1 [degF] Paulino Mj HAY RAKE OPERATOR.REIMBURSEMENT LIAISON Work Phone: [facility] 02-26-2025 19:46-0400 Body weight 60.5 kg Paulino Mj HAY RAKE OPERATOR.REIMBURSEMENT LIAISON Work Phone: [facility] 02-26-2025 19:46-0400 Diastolic blood pressure 68 mm[Hg] Paulino Mj HAY RAKE OPERATOR.REIMBURSEMENT LIAISON Work Phone: [facility] 02-26-2025 19:46-0400 Heart rate 108 /min Paulino Mj HAY RAKE OPERATOR.REIMBURSEMENT LIAISON Work Phone: [facility] 02-26-2025 19:46-0400 Respiratory rate 16 /min Paulino Barker HAY RAKE OPERATOR.REIMBURSEMENT LIAISON Work Phone: [facility] 02-26-2025 19:46-0400 SaO2% (BldA) [Mass fraction] 96 % Paulino Mj HAY RAKE OPERATOR.REIMBURSEMENT LIAISON Work Phone: [facility] 02-26-2025 19:46-0400 Systolic blood pressure 110 mm[Hg] Paulino Mj HAY RAKE OPERATOR.REIMBURSEMENT LIAISON Work Phone: [facility] 02-01-2025 17:11-0400 Body mass index (BMI) [Ratio] 21.72 kg/m2 Keegan Moomaw HAY RAKE OPERATOR.REIMBURSEMENT LIAISON Work Phone: [facility] 02-01-2025 17:11-0400 Body temperature 97.9 [degF] Keegan Moomaw HAY RAKE OPERATOR.REIMBURSEMENT LIAISON Work Phone: [facility] 02-01-2025 17:11-0400 Body weight 59.2 kg Keegan Moomaw HAY RAKE OPERATOR.REIMBURSEMENT LIAISON Work Phone: [facility] 02-01-2025 17:11-0400 Diastolic blood pressure 70 mm[Hg] Keegan Moomaw HAY RAKE OPERATOR.REIMBURSEMENT LIAISON Work Phone: [facility] 02-01-2025 17:11-0400 Heart rate 63 /min Keegan Moomaw HAY RAKE OPERATOR.REIMBURSEMENT LIAISON Work Phone: [facility] 02-01-2025 17:11-0400 Respiratory rate 18 /min Keegan Moomaw HAY RAKE OPERATOR.REIMBURSEMENT LIAISON Work Phone: [facility] 02-01-2025 17:11-0400 SaO2% (BldA) [Mass fraction] 98 % Keegan Moomaw HAY RAKE OPERATOR.REIMBURSEMENT LIAISON Work Phone: [facility] 02-01-2025 17:11-0400 Systolic blood pressure 102 mm[Hg] Keegan Moomaw HAY RAKE OPERATOR.REIMBURSEMENT LIAISON Work Phone: [facility] 01-17-2025 14:05-0400 Body height 165.1 cm Deidre Barrigaman WAREHOUSE REPRESENTATIVE-C Work Phone: [facility] 01-17-2025 14:00-0400 Body mass index (BMI) [Ratio] 21.8 kg/m2 Deidre Ariane WAREHOUSE REPRESENTATIVE-C Work Phone: [facility] 01-17-2025 14:00-0400 Body weight 59.42 kg Deidre Ariane WAREHOUSE REPRESENTATIVE-C Work Phone: [facility] 01-17-2025 14:00-0400 Diastolic blood pressure 68 mm[Hg] Deidre Ariane WAREHOUSE REPRESENTATIVE-C Work Phone: [facility] 01-17-2025 14:00-0400 Systolic blood pressure 102 mm[Hg] Deidre Ariane WAREHOUSE REPRESENTATIVE-C Work Phone: [facility] 11-15-2024 08:20-0500 Body mass index (BMI) [Ratio] 20.5 kg/m2 Deidre Ariane WAREHOUSE REPRESENTATIVE-C Work Phone: [facility] 11-15-2024 08:20-0500 Body weight 55.79 kg Deidre Ariane WAREHOUSE REPRESENTATIVE-C Work Phone: [facility] 11-15-2024 08:20-0500 Diastolic blood pressure 68 mm[Hg] Deidre Ariane WAREHOUSE REPRESENTATIVE-C Work Phone: [facility] 11-15-2024 08:20-0500 Systolic blood pressure 100 mm[Hg] Deidre Ariane WAREHOUSE REPRESENTATIVE-C Work Phone: [facility] 11-07-2024 09:12-0500 Body mass index (BMI) [Ratio] 20.7 kg/m2 Deidre Ariane WAREHOUSE REPRESENTATIVE-C Work Phone: [facility] 11-07-2024 09:12-0500 Body weight 56.41 kg Deidre Ariane WAREHOUSE REPRESENTATIVE-C Work Phone: [facility] 11-07-2024 09:12-0500 Diastolic blood pressure 66 mm[Hg] Deidre Ariane WAREHOUSE REPRESENTATIVE-C Work Phone: [facility] 11-07-2024 09:12-0500 Systolic blood pressure 102 mm[Hg] Deidre Ariane WAREHOUSE REPRESENTATIVE-C Work Phone: [facility] 09-18-2024 11:56-0500 Body mass index (BMI) [Ratio] 20.65 kg/m2 Guilherme Pendlenicolette HAY RAKE OPERATOR.REIMBURSEMENT LIAISON Work Phone: [facility] 09-18-2024 11:56-0500 Body temperature 97.81 [degF] Guilherme Freemanlenicolette HAY RAKE OPERATOR.REIMBURSEMENT LIAISON Work Phone: [facility] 09-18-2024 11:56-0500 Body weight 56.3 kg Guilherme Khalil HAY RAKE OPERATOR.REIMBURSEMENT LIAISON Work Phone: [facility] 09-18-2024 11:56-0500 Diastolic blood pressure 72 mm[Hg] Guilherme Pendlebury HAY RAKE OPERATOR.REIMBURSEMENT LIAISON Work Phone: [facility] 09-18-2024 11:56-0500 Heart rate 64 /min Guilherme Khalil HAY RAKE OPERATOR.REIMBURSEMENT LIAISON Work Phone: [facility] 09-18-2024 11:56-0500 Respiratory rate 18 /min Guilherme Khalil HAY RAKE OPERATOR.REIMBURSEMENT LIAISON Work Phone: [facility] 09-18-2024 11:56-0500 Systolic blood pressure 102 mm[Hg] Guilherme Khalil HAY RAKE OPERATOR.REIMBURSEMENT LIAISON Work Phone: [facility] 05-22-2024 13:09-0400 Body mass index (BMI) [Ratio] 21.37 kg/m2 Mony Podlogar HAY RAKE OPERATOR.REIMBURSEMENT LIAISON Work Phone: [facility] 05-22-2024 13:09-0400 Body weight 58.24 kg Mony Podlogar HAY RAKE OPERATOR.REIMBURSEMENT LIAISON Work Phone: [facility] 05-22-2024 13:09-0400 Diastolic blood pressure 58 mm[Hg] Mony Podlogar HAY RAKE OPERATOR.REIMBURSEMENT LIAISON Work Phone: [facility] 05-22-2024 13:09-0400 Heart rate 63 /min Mony Podlogar HAY RAKE OPERATOR.REIMBURSEMENT LIAISON Work Phone: [facility] 05-22-2024 13:09-0400 Respiratory rate 18 /min Mony Podlogar HAY RAKE OPERATOR.REIMBURSEMENT LIAISON Work Phone: [facility] 05-22-2024 13:09-0400 SaO2% (BldA) [Mass fraction] 97 % Mony Podlogar HAY RAKE OPERATOR.REIMBURSEMENT LIAISON Work Phone: [facility] 05-22-2024 13:09-0400 Systolic blood pressure 92 mm[Hg] Mony Podlogar HAY RAKE OPERATOR.REIMBURSEMENT LIAISON Work Phone: [facility] 01-25-2024 10:52-0400 Body weight 55.34 kg Mony Podlogar HAY RAKE OPERATOR.REIMBURSEMENT LIAISON Work Phone: [facility] 01-25-2024 10:52-0400 Diastolic blood pressure 66 mm[Hg] Mony Podlogar HAY RAKE OPERATOR.REIMBURSEMENT LIAISON Work Phone: [facility] 01-25-2024 10:52-0400 Heart rate 92 /min Mony Podlogar HAY RAKE OPERATOR.REIMBURSEMENT LIAISON Work Phone: [facility] 01-25-2024 10:52-0400 Respiratory rate 18 /min Mony Podlogar HAY RAKE OPERATOR.REIMBURSEMENT LIAISON Work Phone: [facility] 01-25-2024 10:52-0400 SaO2% (BldA) [Mass fraction] 98 % Mony Podlogar HAY RAKE OPERATOR.REIMBURSEMENT LIAISON Work Phone: [facility] 01-25-2024 10:52-0400 Systolic blood pressure 120 mm[Hg] Mony Podlogar HAY RAKE OPERATOR.REIMBURSEMENT LIAISON Work Phone: [facility] 11-02-2023 10:16-0500 Body height 165.1 cm WAREHOUSE REPRESENTATIVE-C Deidre Barrigaman WAREHOUSE REPRESENTATIVE Work Phone: [facility] 11-02-2023 10:07-0500 Body mass index (BMI) [Ratio] 22 kg/m2 WAREHOUSE REPRESENTATIVE-C Deidre Ariane WAREHOUSE REPRESENTATIVE Work Phone: [facility] 11-02-2023 10:07-0500 Body weight 60.04 kg WAREHOUSE REPRESENTATIVE-C Deidre Ariane WAREHOUSE REPRESENTATIVE Work Phone: [facility] 11-02-2023 10:07-0500 Diastolic blood pressure 72 mm[Hg] WAREHOUSE REPRESENTATIVE-C Deidre Ariane WAREHOUSE REPRESENTATIVE Work Phone: [facility] 11-02-2023 10:07-0500 Systolic blood pressure 118 mm[Hg] WAREHOUSE REPRESENTATIVE-C Deidre Ariane WAREHOUSE REPRESENTATIVE Work Phone: [facility] 08-24-2023 08:55-0400 Body height 165.1 cm No Primary Care Physician [facility] 08-24-2023 08:50-0400 Body mass index (BMI) [Ratio] 23 kg/m2 No Primary Care Physician [facility] 08-24-2023 08:50-0400 Body weight 62.76 kg No Primary Care Physician [facility] 08-24-2023 08:50-0400 Diastolic blood pressure 74 mm[Hg] No Primary Care Physician [facility] 08-24-2023 08:50-0400 Systolic blood pressure 112 mm[Hg] No [facility] 07-15-2023 10:55-0400 Body mass index (BMI) [Ratio] 22.6 kg/m2 No Primary Care Phys[facility] 07-15-2023 10:55-0400 Body weight 61.85 kg No Primary Care Phys[facility] 07-15-2023 10:55-0400 Diastolic blood pressure 54 mm[Hg] No Primary Care Physician [facility] 07-15-2023 10:55-0400 Systolic blood pressure 127 mm[Hg] No Primary Care Physician [facility] 06-03-2023 08:49-0400 Body weight 60.95 kg No Primary Care Physician [facility] 06-03-2023 08:49-0400 Diastolic blood pressure 64 mm[Hg] No Primary Care Physician [facility] 06-03-2023 08:49-0400 Systolic blood pressure 96 mm[Hg] No Primary Care Physician [facility] 04-23-2023 13:39-0400 Body height 165.1 cm No Primary Care Phys[facility] 04-23-2023 13:34-0400 Body mass index (BMI) [Ratio] 22.5 kg/m2 No Primary Care Physician [facility] 04-23-2023 13:34-0400 Body weight 61.4 kg No Primary Care Phys[facility] 04-23-2023 13:34-0400 Diastolic blood pressure 69 mm[Hg] No Primary Care Physician [facility] 04-23-2023 13:34-0400 Systolic blood pressure 115 mm[Hg] No Primary Care Physician [facility] 04-21-2023 16:33-0400 Respiratory rate 18 /min No [facility] Care Phys[facility] 04-21-2023 15:12-0400 Body height 165.1 cm No Primary Care Phys[facility] 04-21-2023 15:12-0400 Body mass index (BMI) [Ratio] 21.7 kg/m2 No Primary Care Physician [facility] 04-21-2023 15:12-0400 Body temperature 97.6 [degF] No Primary Care Phys[facility] 04-21-2023 15:12-0400 Body weight 59.23 kg No Primary Care Physician [facility] 04-21-2023 15:12-0400 Diastolic blood pressure 72 mm[Hg] No [facility] Care Phys[facility] 04-21-2023 15:12-0400 Heart rate 106 /min No [facility] Care Phys[facility] 04-21-2023 15:12-0400 SaO2% (BldA) [Mass fraction] 99 % No [facility] Care Physician [facility] 04-21-2023 15:12-0400 Systolic blood pressure 124 mm[Hg] No Primary Care Phys[facility] 04-21-2023 08:47-0400 Body mass index (BMI) [Ratio] 21.9 kg/m2 No Primary Care Phys[facility] 04-21-2023 08:47-0400 Body temperature 98.2 [degF] No [facility] Care Phys[facility] 04-21-2023 08:47-0400 Body weight 59.64 kg No Primary Care Phys[facility] 04-21-2023 08:47-0400 Diastolic blood pressure 60 mm[Hg] No Primary Care Phys[facility] 04-21-2023 08:47-0400 Heart rate 105 /min No [facility] Care Phys[facility] 04-21-2023 08:47-0400 Respiratory rate 16 /min No [facility] Care Phys[facility] 04-21-2023 08:47-0400 SaO2% (BldA) [Mass fraction] 98 % No [facility] Care Phys[facility] 04-21-2023 08:47-0400 Systolic blood pressure 108 mm[Hg] No Primary Care Physician [facility] 04-19-2023 13:20-0400 Body height 165.1 cm Jose Alfredo Leung MD Work Phone: [facility] 04-19-2023 13:20-0400 Body weight 58.97 kg Jose Alfredo Leung MD Work Phone: [facility] 02-24-2023 18:18-0400 Body height 162.4 cm Mony Gutierrez HAY RAKE OPERATOR.REIMBURSEMENT LIAISON Work Phone: [facility] 02-24-2023 18:18-0400 Body weight 62.23 kg Mony Gutierrez APRN.REIMBURSEMENT LIAISON Work Phone: [facility] 02-24-2023 18:18-0400 Diastolic blood pressure 70 mm[Hg] Mony Gutierrez HAY RAKE OPERATOR.REIMBURSEMENT LIAISON Work Phone: [facility] 02-24-2023 18:18-0400 Heart rate 74 /min Mony Podlogar HAY RAKE OPERATOR.REIMBURSEMENT LIAISON Work Phone: [facility] 02-24-2023 18:18-0400 Respiratory rate 18 /min Mony Podlogar HAY RAKE OPERATOR.REIMBURSEMENT LIAISON Work Phone: [facility] 02-24-2023 18:18-0400 SaO2% (BldA) [Mass fraction] 98 % Mony Podlogar HAY RAKE OPERATOR.REIMBURSEMENT LIAISON Work Phone: [facility] 02-24-2023 18:18-0400 Systolic blood pressure 108 mm[Hg] Mony Podlogar HAY RAKE OPERATOR.REIMBURSEMENT LIAISON Work Phone: [facility] 01-12-2023 19:32-0400 Body temperature 98.2 [degF] Maxine Frias HAY RAKE OPERATOR.REIMBURSEMENT LIAISON Work Phone: [facility] 01-12-2023 19:32-0400 Body weight 64.86 kg Maxine Frias APRN.REIMBURSEMENT LIAISON Work Phone: [facility] 01-12-2023 19:32-0400 Diastolic blood pressure 64 mm[Hg] Maxine Frias APRN.REIMBURSEMENT LIAISON Work Phone: [facility] 01-12-2023 19:32-0400 Heart rate 90 /min Maxine Frias APRN.REIMBURSEMENT LIAISON Work Phone: [facility] 01-12-2023 19:32-0400 Respiratory rate 16 /min Maxine Frias APRN.REIMBURSEMENT LIAISON Work Phone: [facility] 01-12-2023 19:32-0400 SaO2% (BldA) [Mass fraction] 98 % Maxine Frias APRN.REIMBURSEMENT LIAISON Work Phone: [facility] 01-12-2023 19:32-0400 Systolic blood pressure 124 mm[Hg] Maxine Frias APRN.REIMBURSEMENT LIAISON Work Phone: [facility] 12-17-2022 14:57-0500 Body height 165.1 cm No Primary Care Physician [facility] 12-17-2022 14:51-0500 Body mass index (BMI) [Ratio] 23.5 kg/m2 No Primary Care Physician [facility] 12-17-2022 14:51-0500 Body weight 64.01 kg No Primary Care Physician [facility] 12-17-2022 14:51-0500 Diastolic blood pressure 62 mm[Hg] No Primary Care Physician [facility] 12-17-2022 14:51-0500 Systolic blood pressure 114 mm[Hg] No Primary Care Physician [facility] 11-10-2022 08:15-0500 Body mass index (BMI) [Ratio] 24.2 kg/m2 No Primary Care Physician [facility] 11-10-2022 08:15-0500 Body weight 65.99 kg No Primary Care Physician [facility] 11-10-2022 08:15-0500 Diastolic blood pressure 68 mm[Hg] No Primary Care Physician [facility] 11-10-2022 08:15-0500 Systolic blood pressure 100 mm[Hg] No Primary Care Physician [facility] Encounters Encounter Date Encounter Type Care Provider Facility Start: 07-17-2025 ambulatory Estella Marques WAREHOUSE REPRESENTATIVE Facil ity:[facility] Start: 05-17-2025 End: 05-17-2025 Patient encounter procedure Nereyda Rondon WAREHOUSE REPRESENTATIVEGalaC -[facility] Work Phone: Start: 05-17-2025 End: 05-17-2025 ambulatory Deidre Thakkar WAREHOUSE REPRESENTATIVE-C Work Phone: -[facility] Start: 05-17-2025 End: 05-17-2025 ambulatory Nereyda Rondon Facility:[facility] Start: 03-02-2025 End: 05-02-2025 Follow-up encounter Ml Felipe LPN [facility] [place] Comment on above: Results - Ct Results Start: 03-01-2025 End: 03-01-2025 Subsequent hospital visit by physician [facility] Work Phone: [facility] Comment on above: Abscess, peritonsill ar [J36] Start: 03-01-2025 End: 03-01-2025 Patient encounter procedure Mony Guiterrez HAY RAKE OPERATOR.REIMBURSEMENT LIAISON Work Phone: [facility] Comment on above: Abscess, peritonsill ar (Primary Dx) Start: 03-01-2025 End: 03-01-2025 ambulatory MONY PODLOGAR Facility:[facility] Start: 02-27-2025 ambulatory Deidre Thakkar NP Fac ility:[facility] Start: 02-26-2025 End: 02-26-2025 Patient encounter procedure Paulino Barker APRN.REIMBURSEMENT LIAISON Work Phone: [facility] Comment on above: Sinobronchitis (Prim maegan Dx); Sore throat Start: 02-26-2025 End: 02-26-2025 ambulatory COLT SILVESTRE Facility:[facility] Start: 02-01-2025 End: 02-01-2025 [facility] Start: 02-01-2025 End: 02-01-2025 Patient encounter procedure Keegan Daniels SAÚL.REIMBURSEMENT LIAISON Work Phone: [facility] Comment on above: Eustachian tube dysf unction, left (Primary Dx) Start: 01-17-2025 End: 01-17-2025 Patient encounter procedure Estella LEDEZMAC -[facility] Work Phone: Start: 01-17-2025 End: 01-17-2025 ambulatory Deidre Thakkar NP-Shar[facility] Work Phone: [facility] Work Phone: Start: 01-17-2025 End: 01-17-2025 ambulatory Deidre Thakkar NP Facility:[facility] Start: 11-15-2024 End: 11-15-2024 Patient encounter procedure Nereyda ARREDONDO -[facility] Work Phone: Start: 11-15-2024 End: 11-15-2024 Patient encounter status Nereyda ARREDONDO [facility] Start: 11-15-2024 End: 11-15-2024 ambulatory Deidre Thakkar NP Facility:[facility] Start: 11-15-2024 End: 11-15-2024 ambulatory Deidre Thakkar NP Facility:[facility] Start: 11-07-2024 End: 11-07-2024 Patient encounter procedure Estella Marques WAREHOUSE REPRESENTATIVE-C -[facility] Work Phone: Start: 11-07-2024 End: 11-07-2024 ambulatory Estella Marques NP Facility:[facility] Start: 09-18-2024 End: 09-18-2024 Subsequent hospital visit by physician [facility] Work Phone: Radiology Comment on above: Injury of finger of right hand, initial encounter [S69.91XA] Start: 09-18-2024 End: 09-18-2024 ambulatory COLT SILVESTRE Facility:[facility] Start: 09-18-2024 End: 09-18-2024 Patient encounter procedure Guilherme Khalil HAY RAKE OPERATOR.REIMBURSEMENT LIAISON Work Phone: [facility] Comment on above: Injury of finger of right hand, initial encounter (Primary Dx) Start: 08-10-2024 End: 08-10-2024 ambulatory Deidre Thakkar NP Facility:[facility] Start: 05-22-2024 End: 05-22-2024 ambulatory MONY GARCIALOGLATRICE Facility:[facility] Start: 05-22-2024 End: 05-22-2024 Patient encounter procedure Mony Gutierrez HAY RAKE OPERATOR.REIMBURSEMENT LIAISON [facility] Comment on above: Anxiety and depressi on (Primary Dx); No appetite Start: 01-26-2024 Telephone encounter Mony govea HAY RAKE OPERATOR.REIMBURSEMENT LIAISON Work Phone: [facility] [place] Comment on above: Results Start: 01-25-2024 End: 01-25-2024 Patient encounter procedure Mony Garcialoglatrice HAY RAKE OPERATOR.REIMBURSEMENT LIAISON Work Phone: [facility] [place] Comment on above: Anxiety and depressi on (Primary Dx); No appetite Start: 11-02-2023 End: 11-02-2023 ambulatory WAREHOUSE REPRESENTATIVE-C Deidre Thakkar WAREHOUSE REPRESENTATIVE Work Phone: [facility] Work Phone: Start: 11-02-2023 End: 11-02-2023 Patient encounter procedure WAREHOUSE REPRESENTATIVE-C Deidre Thakkar NP Work Phone: [facility] Work Phone: Start: 08-24-2023 End: 08-24-2023 ambulatory No Primary Care Physician [facility] Work Phone: Start: 08-24-2023 End: 08-24-2023 Patient encounter procedure No Primary Care Physician [facility] Specimen Work Phone: Start: 08-24-2023 End: 08-24-2023 Patient encounter procedure No Primary Care Physician [facility] Work Phone: Start: 07-15-2023 End: 07-15-2023 Patient encounter procedure No Primary Care Physician [facility] Work Phone: Start: 06-03-2023 End: 06-03-2023 Patient encounter procedure No Primary Care Physician [facility] Work Phone: Start: 06-03-2023 End: 06-03-2023 Patient encounter procedure No Primary Care Physician [facility] Work Phone: Start: 04-23-2023 End: 04-23-2023 ambulatory No Primary Care Physician [facility] Work Phone: Start: 04-23-2023 End: 04-23-2023 Patient encounter procedure No Primary Care Physician [facility] Work Phone: Start: 04-21-2023 End: 04-21-2023 Emergency department patient visit No Primary Care Physician [facility] Work Phone: Start: 04-21-2023 End: 04-21-2023 ambulatory No Primary Care Physician [facility] Work Phone: Start: 04-21-2023 End: 04-21-2023 Patient encounter procedure No Primary Care Physician [facility] Work Phone: Start: 04-21-2023 End: 04-21-2023 Patient encounter procedure No Primary Care Physician [facility] Work Phone: Start: 04-19-2023 End: 04-19-2023 Patient encounter procedure Jose Alfredo Leung MD Work Phone: Orthopaedics Comment on above: Shoulder dislocation , recurrent, right (Primary Dx); Chronic right shoulder pain Start: 03-18-2023 End: 03-18-2023 Subsequent hospital visit by physician [facility] Work Phone: Radiology Comment on above: Chronic right should er pain [M25.511, G89.29] Start: 03-01-2023 Telephone encounter Devendra Silvestre MD Work Phone: [facility] Comment on above: Results Start: 02-24-2023 End: 02-24-2023 Patient encounter procedure Mony Gutierrez APRN.REIMBURSEMENT LIAISON Work Phone: [facility] Comment on above: Routine physical exa mination (Primary Dx); No appetite; Hx of dislocation of shoulder Start: 02-24-2023 End: 02-24-2023 Physical examination Mony Gutierrez APRN.REIMBURSEMENT LIAISON Work Phone: [facility] Start: 01-12-2023 End: 01-12-2023 Patient encounter procedure Maxine Frias APRN.REIMBURSEMENT LIAISON Work Phone: [facility] Comment on above: Sore throat (Primary Dx) Start: 12-17-2022 End: 12-17-2022 ambulatory No Primary Care Physician [facility] Work Phone: Start: 12-17-2022 End: 12-17-2022 Patient encounter procedure No Primary Care Physician [facility] Start: 11-10-2022 End: 11-10-2022 Patient encounter procedure No Primary Care Physician [facility] Start: 10-10-2020 End: 10-10-2020 Patient encounter procedure HILDA REYES [facility] Start: 08-13-2016 End: 12-21-2016 Patient requested procedure Mony Matt HAYS.REIMBURSEMENT LIAISON Work Phone: [facility] Procedures Date Procedure Procedure Detail Performing Clinician Start: 05-17-2025 Gram stain microscopy R bettye Thakkar WAREHOUSE REPRESENTATIVE-C Work Phone: Start: 05-17-2025 End: 05-17-2025 Source specific culture Deidre Thakkar WAREHOUSE REPRESENTATIVE-C Work Phone: Start: 05-17-2025 Hepatitis C antibody measurement Deidre Thakkar WAREHOUSE REPRESENTATIVE-C Work Phone: Comment on above: Reactive: Presumptiv e evidence of antibodies to HCV. Follow CDC recommendations for supplemental testing.Non-Reactive: Antibodies to HCV were not detected; does not exclude the possibility of exposure to HCVReactive Results are presumptive evidence of antibodies to HCV. Follow CDC recommendations for supplemental testing.Order confirmation testing: HCV Quant by PCR testing - HCVPCR #[id number] Non Reactive: < 0.8 Equivocal: >/= 0.8 to < 1.0 Reactive: >/= 1.0The CDC requires that a reactive/equivocal HCV antibody result be sent out for confirmation. HCV Quant by PCR testing. Start: 05-17-2025 Serologic test for syphilis Deidre Thakkar WAREHOUSE REPRESENTATIVE-C Work Phone: Start: 03-01-2025 Ct soft tissue neck w/contrast material Mony Matt HAYS.REIMBURSEMENT LIAISON Work Phone: Start: 02-26-2025 STREP A MOLECULAR (POC) Maxine Frias APRN.REIMBURSEMENT LIAISON Work Phone: Start: 01-17-2025 Serologic test for h erpes simplex Deidre Thakkar WAREHOUSE REPRESENTATIVE-C Work Phone: Comment on above: RESULT: NON REACTIVE Please note reference interval changeHSV-1 IgG testing performed using the [employer] HSV-1IgG assay. Start: 01-17-2025 Serologic test for syphilis Deidre Thakkar WAREHOUSE REPRESENTATIVE-C Work Phone: Start: 01-17-2025 Gram stain microscopy R bettye Thakkar WAREHOUSE REPRESENTATIVE-C Work Phone: Start: 01-17-2025 Source specific culture Deidre Thakkar WAREHOUSE REPRESENTATIVE-C Work Phone: Start: 09-18-2024 Radex fingr minimum 2 views Guilherme Khalil HAY RAKE OPERATOR.REIMBURSEMENT LIAISON Work Phone: Start: 01-25-2024 Adult depression scr eening assessment Guilherme Khalil HAY RAKE OPERATOR.REIMBURSEMENT LIAISON Work Phone: Start: 11-02-2023 Cytopathology proced ure, preparation of smear, genital source WAREHOUSE REPRESENTATIVE-C Deidre Thakkar WAREHOUSE REPRESENTATIVE Work Phone: Start: 11-02-2023 Investigation of tra nsfusion reaction WAREHOUSE REPRESENTATIVE-C Deidre Thakkar WAREHOUSE REPRESENTATIVE Work Phone: Start: 08-24-2023 Cytopathology proced ure, preparation of smear, genital source No Primary Care Physician Start: 08-24-2023 Investigation of tra nsfusion reaction No Primary Care Physician Start: 04-21-2023 X-ray of soft tissue of neck No Primary Care Physician Start: 04-21-2023 Bacteria identification test No Primary Care Physician Start: 03-18-2023 Radex shoulder compl ete minimum 2 views Paulino Barker HAY RAKE OPERATOR.REIMBURSEMENT LIAISON Work Phone: Start: 01-12-2023 STREP A MOLECULAR (POC) Bianca Okeefe PA-C Work Phone: Plan of Treatment Date Care Activity Detail Author Start: 12-21-2026 Urine microalbumin profile [facility] Start: 06-25-2025 Influenza vaccination [facility] Start: 05-17-2025 Hepatitis B virus surface Ab [Presence] in Serum [facility] Start: 05-17-2025 Hepatitis C antibody measurement [facility] Start: 05-17-2025 Serologic test for syphilis [facility] Start: 05-17-2025 [facility] Start: 03-01-2025 End: 03-01-2025 Patient encounter procedure 03/01/2025 1:00 PM EDT Appointment [facility] [address] [facility] [address] [address] Dx: Abscess, peritonsillar [J36] [facility] Comment on above: Dx: Abscess, peritonsillar [J36] Start: 01-24-2025 Depression Screening Depression Screening [facility] Start: 06-25-2024 Covid-19 Vaccine ( season) Covid-19 Vaccine ( season) [facility] Start: 06-25-2024 Covid-19 Vaccine () Covid-19 Vaccine () [facility] Start: 06-25-2024 Influenza vaccination [facility] Start: 02-25-2024 End: 05-26-2024 CBC W Ordered Manual Differential panel - Blood PATHOLOGIST INTERPRETATION WITH CBC AND DIFF Lab Routine Thrombocytopenia (HCC) Expected: 02/25/2024, Expires: 05/26/2024 [facility] Work Phone: Comment on above: Expected: 02/25/2024, Expires: Start: 06-25-2023 Covid-19 Vaccine ( season) Covid-19 Vaccine ( season) [facility] Start: 06-25-2023 Influenza vaccination INFLUENZA (Season Ended) [facility] Start: 04-21-2023 Cul bact xcpt urine blood/stool aerobic isol CULTURE OTHR SPECIMN AEROBIC [facility] Start: 04-21-2023 Throat culture Throat Culture [facility] Start: 04-21-2023 Bacteria identified in Throat by Culture [facility] Start: 02-24-2023 End: 04-26-2023 CBC W Auto Differential panel - Blood CBC + DIFF Lab Routine Routine physical examination Expected: 02/24/2023, Expires: 04/26/2023 [facility] Work Phone: Comment on above: Expected: 02/24/2023, Expires: Start: 02-24-2023 End: 04-26-2023 Comprehensive metabolic 2000 panel - Serum or Plasma COMP METABOLIC PANEL Lab Routine Routine physical examination Expected: 02/24/2023, Expires: 04/26/2023 [facility] Work Phone: Comment on above: Expected: 02/24/2023, Expires: 3 Start: 02-24-2023 End: 04-26-2023 Hemoglobin A1c in Blood HGB A1C Lab Routine No appetite Expected: 02/24/2023, Expires: 04/26/2023 [facility] Work Phone: Comment on above: Expected: 02/24/2023, Expires: 3 Start: 02-24-2023 End: 04-26-2023 Thyrotropin [Units/volume] in Serum or Plasma TSH BLD Lab Routine No appetite Expected: 02/24/2023, Expires: 04/26/2023 [facility] Work Phone: Comment on above: Expected: 02/24/2023, Expires: 3 Start: 12-17-2022 Liquid based cervical cytology screening [facility] Start: 10-25-2022 DEPRESSION ASSESSMENT DEPRESSION ASSESSMENT [facility] Start: 10-05-2022 PAP TESTING PAP TESTING [facility] Start: 10-05-2022 Screening for malignant neoplasm of cervix [facility] Start: 06-25-2022 Influenza vaccination INFLUENZA (#1) [facility] Start: 05-14-2021 COVID-19 VACCINE (3 - Booster for Pfizer series) COVID-19 VACCINE (3 - Booster for Pfizer series) [facility] Start: 2013 Depression Screening Depression Screening [facility] Chlamydia deoxyribonucleic acid detection [facility] End: 03-31-2026 CT Neck W contrast IV CT NECK SOFT TISSUE W IVCON Radiology STAT Abscess, peritonsillar 1 Occurrences starting 03/01/2025 until 03/31/2026 [facility] Work Phone: Comment on above: 1 Occurrences starting 03/01/2025 until 03/31/2026 Hepatitis C antibody measurement [facility] HIV 1+2 Ab+HIV1 p24 Ag [Presence] in Serum or Plasma by Immunoassay [facility] End: 05-18-2024 MRI SHOULDER WO IVCON RIGHT MRI SHOULDER WO IVCON RIGHT Radiology Routine Chronic right shoulder pain Shoulder dislocation, recurrent, right 1 Occurrences starting 04/19/2023 until 05/18/2024 [facility] Work Phone: Comment on above: 1 Occurrences starting 04/19/2023 until 05/18/2024 Path report.final Dx Spec [facility] Patient Education ED Pharyngitis , Report Pending [facility] Work Phone: Patient referral [facility] Work Phone: Source specific culture [facility] Treponema sp Ab [Presence] in Serum [facility] Immunizations Immunization Date Immunization Notes Care Provider Michael rubin 08-27-2021 influenza, injectabl e, quadrivalent, contains preservative Maxine Rodriguez HAY RAKE OPERATOR.REIMBURSEMENT LIAISON Work Phone: [facility] 08-27-2021 influenza virus vaccine, unspecified formulation Mony Gutirerez APRN.REIMBURSEMENT LIAISON Work Phone: [facility] 08-20-2020 influenza, seasonal, injectable Maxine Rodriguez HAY RAKE OPERATOR.REIMBURSEMENT LIAISON Work Phone: [facility] 08-13-2019 influenza, seasonal, injectable Maxine Rodriguez HAY RAKE OPERATOR.REIMBURSEMENT LIAISON Work Phone: [facility] 12-20-2018 hepatitis A vaccine, adult dosage Maxine James HAY RAKE OPERATOR.REIMBURSEMENT LIAISON Work Phone: [facility] 06-29-2018 influenza, seasonal, injectable Maxine Rodriguez HAY RAKE OPERATOR.REIMBURSEMENT LIAISON Work Phone: [facility] 05-18-2018 hepatitis A vaccine, adult dosage Maxine Frias HAY RAKE OPERATOR.REIMBURSEMENT LIAISON Work Phone: [facility] 06-03-2017 influenza, seasonal, injectable Maxine Frias HAY RAKE OPERATOR.REIMBURSEMENT LIAISON Work Phone: [facility] 03-13-2017 measles, mumps and rubella virus vaccine No Primary Care Physician [facility] 12-21-2016 tetanus toxoid, redu kelsey diphtheria toxoid, and acellular pertussis vaccine, adsorbed Maxine James HAY RAKE OPERATOR.REIMBURSEMENT LIAISON Work Phone: [facility] 06-25-2009 human papilloma viru s vaccine, quadrivalent Maxine James HAY RAKE OPERATOR.REIMBURSEMENT LIAISON Work Phone[facility] [facility] Work Phone: 07-30-2008 human papilloma viru s vaccine, quadrivalent Maxine Frias HAY RAKE OPERATOR.REIMBURSEMENT LIAISON Work Phone: [facility] Work Phone: 05-30-2008 human papilloma viru s vaccine, quadrivalent Maxine Frias HAY RAKE OPERATOR.REIMBURSEMENT LIAISON Work Phone: [facility] Work Phone: 06-08-2007 varicella virus vaccine Radha Frias HAY RAKE OPERATOR.REIMBURSEMENT LIAISON Work Phone: [facility] Work Phone: 06-30-2000 diphtheria, tetanus toxoids and acellular pertussis vaccine Maxine Rodriguez FLORESN.REIMBURSEMENT LIAISON Work Phone: [facility] 06-30-2000 measles, mumps and rubella virus vaccine Maxine Rodriguez FLORESN.REIMBURSEMENT LIAISON Work Phone: [facility] Work Phone: 06-30-2000 poliovirus vaccine, inactivated Maxine Rodriguez FLORSEN.[facility] Work Phone: [facility] 12-27-1997 varicella virus vaccine Radha Frias HAY RAKE OPERATOR.REIMBURSEMENT LIAISON Work Phone: [facility] Work Phone: 08-22-1996 diphtheria, tetanus toxoids and acellular pertussis vaccine Maxine Rodriguez FLORESN.REIMBURSEMENT LIAISON Work Phone: [facility] 08-22-1996 poliovirus vaccine, inactivated Maxine Frias APRN.REIMBURSEMENT LIAISON Work Phone: [facility] 04-10-1996 haemophilus influenz ae type b vaccine, HbOC conjugate Maxinefrankie rFias APRN.REIMBURSEMENT LIAISON Work Phone: [facility] Work Phone: 04-10-1996 measles, mumps and rubella virus vaccine Maxine Rodriguez FLORESN.REIMBURSEMENT LIAISON Work Phone: [facility] Work Phone: 1995 hepatitis B vaccine, pediatric or pediatric/adolescent dosage Maxine Frias APRN.REIMBURSEMENT LIAISON Work Phone: [facility] Work Phone: 1995 DTP-Haemophilus influenzae type b conjugate vaccine Maxine Frias APRN.REIMBURSEMENT LIAISON Work Phone: [facility] 1995 diphtheria, tetanus toxoids and pertussis vaccine Maxine Frias HAY RAKE OPERATOR.REIMBURSEMENT LIAISON Work Phone: [facility] 1995 poliovirus vaccine, inactivated Maxine Frias HAY RAKE OPERATOR.REIMBURSEMENT LIAISON Work Phone: [facility] 1995 diphtheria, tetanus toxoids and pertussis vaccine Maxine James HAY RAKE OPERATOR.REIMBURSEMENT LIAISON Work Phone: [facility] 1995 poliovirus vaccine, inactivated Maxine James HAY RAKE OPERATOR.REIMBURSEMENT LIAISON Work Phone: [facility] 1995 hepatitis B vaccine, pediatric or pediatric/adolescent dosage Maxine Frias HAY RAKE OPERATOR.REIMBURSEMENT LIAISON Work Phone: [facility] Work Phone: 1995 hepatitis B vaccine, pediatric or pediatric/adolescent dosage Maxine Frias HAY RAKE OPERATOR.[facility] Work Phone: [facility] Work Phone: Payers Date Payer Category Payer Self-pay [id number] 2022 Medicaid [id number] 2016 Unknown [facility] [id number] 2016 Unknown [id number] 1995 Unknown [id number] 2.16.84 [id number] Unknown Unknown [id number] Unknown [id number] 2.16.8 [id number] Unknown [id number] 2.16.8 [id number] Unknown [id number] 2.16.8 [id number] Unknown [id number] 2.16.8 [id number] Unknown [id number] 2.16.8 [id number] Unknown [id number] 2.16.8 [id number] Unknown [id number] 2.16.8 [id number] Unknown [id number] 2.16.8 [id number] Unknown [id number] 2.16.8 [id number] Unknown [id number] 2.16.8 [id number] Social History Date Type Detail Facility Start: 12-17-2022 End: 11-02-2023 Tobacco smoking status [facility] Unknown if ever smoked [facility] Start: 06-18-2020 Non-smoker [facility] Start: 1995 Sex Assigned At Female W [facility] Start: 01-12-2023 End: 09-18-2024 Tobacco smoking status NHIS Ex-smoker [facility] Work Phone: End: 11-10-2010 History of tobacco use Current smoker [facility] Work Phone: End: 11-10-2010 History of tobacco use Cigarette Smoker [facility] Work Phone: Start: 01-12-2023 End: 09-18-2024 Tobacco use and exposure Smokeless tobacco non-user [facility] Work Phone: Start: 01-12-2023 End: 03-01-2025 Alcohol intake Current drinker of alcohol (finding) [facility] Start: 08-27-2021 Alcohol Comment [facility] Start: 1995 Sex Assigned At Not on file [facility] Start: 04-19-2023 End: 01-25-2024 History of Social function [facility] Work Phone: Start: 04-19-2023 End: 01-25-2024 Tobacco use panel [facility] Work Phone: Adult Depression Screening Assessment [address] [facility] Work Phone: Has the [employer], [employer], or [employer] threatened to shut off services in your home in past 12Mo No [facility] Do you belong to any clubs or organizations such as taoism groups, unions, fraternal or athletic groups, or school groups? Yes [facility] Are you now , , , , never or living with a partner? Never [facility] How often to you hav e a drink containing alcohol? 2-4 times a month [facility] How many standard dr inks containing alcohol do you have on a typical day? 1 or [address] [facility] How often do you hav e 6 or more drinks on 1 occasion? Never [facility] How hard is it for y ou to pay for the very basics like food, housing, medical care, and heating Somewhat hard [facility] Do you feel stress - tense, restless, nervous, or anxious, or unable to sleep at night because your mind is troubled all the time - these days [OSQ] Very much [facility] (I/We) worried jayden er (my/our) food would run out before (I/we) got money to buy more. Sometimes true [facility] The food that (I/we) bought just didn't last, and (I/we) didn't have money to get more. Never true [facility] Start: 11-30-2023 End: 05-17-2025 Tobacco smoking status NHIS Never smoked tobacco (finding) [facility] Start: 01-21-2025 Sex Female (finding) [facility] NEGATED: Highlighted row [facility] Medical Equipment Procedure Code Equipment Code Equipment [...] serious difficulty hearing No 01/08/2015 11:24 AM Yolanda Denton Ma No [facility] 01-08-2015 Are you blind, or do you have serious difficulty seeing, even when wearing glasses No 01/08/2015 11:24 AM Yolanda Detnon Ma No [facility] 01-08-2015 Do you have serious difficulty walking or climbing stairs No 01/08/2015 11:24 AM Yolanda Denton Ma No [facility] 01-08-2015 Do you have difficul ty dressing or bathing No 01/08/2015 11:24 AM Yolanda Denton Ma No [facility] 01-08-2015 Because of a physica l, mental, or emotional condition, do you have difficulty doing errands alone such as visiting a physician's office or shopping No 01/08/2015 11:24 AM Yolanda Denton Ma [facility] Mental Status Date Assessment Result Facility 01-08-2015 Because of a physica l, mental, or emotional condition, do you have serious difficulty concentrating, remembering, or making decisions No 01/08/2015 11:24 AM Yolanda Denton Ma [facility] Clinical Notes 02-25-2017 to 05-17-2025 Note Date & Type Note Facility 05-17-2025 Evaluation note Diagnosis Onset Date Resolution Possible exposure to STI acute May 17, 2025 10:17am [facility] Work Phone: 1(232) 430-718707-24-2025 [facility] [address] [place] [address], [address] [place] [id number] OFFICE VISIT Date of Service: 05/17/25 MR#: [id number] Acct: [id number] Name: RASHMI HOUGH Rep #: [id number] : 1995 Provider: ARNULFO Rondon Age/Sex: 30/F Location: [facility] Status: Signed Intake Vital Signs 01/17/25 14:05 05/17/25 09:18 05/17/25 10:20 Height 5 ft 5 in 5 ft 5 in 5 ft 5 in Weight: 126 lb BMI 20.9 BP 108/73 Intake Visit Reasons: STD TESTING Clinical Educator Required: No Is patient in pain?: No [...] history: Single- Works [employer] HPI STD TESTING Details: RASHMI HOUGH is a 30 year old who presents for STD testing; had unprotected sex with new partner x 1week ago. No current symptoms. She continues with [...] lbs 9 oz Female 2 hours epidural [place] 11/06/12 Rich 39 live - full term 7 lbs 5 oz Male 5 hours epidural [place] 03/12/17 Santhosh 39 live - full term 7 lbs 8 oz Fema le 4 hours epidural [facility] ROS Const Constitutional: [...] Contact with and (suspected) exposure to infections witha predominantly sexual mode of transmission Hepatitis C Antibody Today Z20.2 - Contact with and (suspected) exposure to infections with a predominantly sexual mode of transmission 05/17/25 1047 n WAREHOUSE REPRESENTATIVE-C> Date _ Nereyda Rondon WAREHOUSE REPRESENTATIVE-C Cosigner Signature: Date (if applicable) CC: ~ [facility]05-09-2025 Telephone encounter Note* Telephone Encounter - Sarah Rankin MA - 03/02/2025 9:49 AM EDT YepLike! message sent to pt notifying her of Providers message of reviewed results. Will keep encounter open to make sure message is viewed. Once viewed, can close encounter. If not viewed, will call pt to review results. Sarah Rankin MA [facility]05-09-2025 Miscellaneous Notes* Telephone Encounter - Sarah Rankin MA - 03/02/2025 9:49 AM EDT Mychart message sent to pt notifying her of Providers message of reviewed results. Will keep encounter open to make sure message is viewed. Once viewed, can close encounter. If not viewed, will call pt to review results. Sarah Rankin MA documented in this encounterUniversity Hospitals St. [facility]05-[facility]-2025 Telephone encounter Note * Telephone Encounter - Ml Felipe LPN - 03/02/2025 9:10 AM EDT Phoned patient and went over results, notes from Mony Gutierrez WAREHOUSE REPRESENTATIVE with understanding. [facility]05-09-2025 Miscellaneous Notes* Telephone Encounter - Ml Felipe LPN - 03/02/2025 9:10 AM EDT Phoned patient and went over results, notes from Mony Gutierrez WAREHOUSE REPRESENTATIVE with understanding. * Telephone Encounter - Ml Felipe LPN - 03/02/2025 9:08 AM EDT ----- Message from Mony Gutierrez APRN.REIMBURSEMENT LIAISON sent at 03/01/2025 1:38 PM EDT ----- CT does not show any abscess. Does show tonsillitis. Treatment as discussed in office Mony Gutierrez APRN.CNP documented in this encounterUniversity Hospitals St. [facility]05-[facility]-2025 Telephone encounter Note * Telephone Encounter - Ml Felipe LPN - 03/02/2025 9:08 AM EDT ----- Message from Mony Gutierrez APRN.REIMBURSEMENT LIAISON sent at 03/01/2025 1:38 PM EDT ----- CT does not show any abscess. Does show tonsillitis. Treatment as discussed in office Mony Gutierrez APRN.REIMBURSEMENT LIAISON [facility]05-08-2025 History of Present illness Narrative* Eric Farley, CT - 03/01/2025 1:00 PM EDT Radiology Service Progress Note DATE OF SERVICE: [...] Assigned female at . status: : No status:NO. PATIENT RELEVANT IMPLANT DATA REVIEWED: Not Applicable PATIENT PRESENTS WITH AN IMPLANTABLE OR ATTACHED NATURAL RESOURCE TECHNICIAN: No ALLERGIES: Reviewed and unchanged CONTRAST ALLERGY: [...] creatinine assay has traceable calibration to isotope dilution- mass spectrometry. Refer to KDIGO guidelines for clinical interpretation. In patients with unstable renal function, e.g. those with acute kidney injury, the eGFRmay not accurately reflect actual GFR. eGFR- Date Value Ref Range Status 08/29/2020 >60 Final P.O.C.T. RESULTS: N/A March 01, 2025 TREATMENT: N/A PERIPHERAL IV DATA: Ambulatory: A peripheral IV was started in the Left upper extremity antecubitalsite with a Angio cath: 22 gauge. RADIOLOGY DEPARTMENT: CT; Exam(s) Completed: Neck SIGNATURE: JOSELINE Jewell PATIENT NAME: Rashmi Hough DATE: March 01, 2025 TIME: 1:08 PM documented in this encounterUniversity Hospitals St. [facility]05-08-2025 NoteHNO ID: [id number] Author: ERIC FARLEY CT Service: Radiology Author Type: Furniture Removalist Type: Progress Notes Filed: 03/01/2025 13:10 Note [...] PATIENT PRESENTS WITH AN IMPLANTABLE OR ATTACHED NATURAL RESOURCE TECHNICIAN: No ALLERGIES: Reviewed and unchanged CONTRAST ALLERGY: [...] Hough DATE: March 01, 2025 TIME: 1:08 [facility]05-08-2025 NoteHNO ID: [id number] Author: MONY GUTIERREZ APRN.REIMBURSEMENT LIAISON Service: ? Author Type: Nurse Practitioner Type: Progress Notes Filed: 03/01/2025 07:49 Note Text: 03/01/2025 Patient presents with: Sore Throat SUBJECTIVE: This is a 30 year old that is here today for Above Complaints. Seen in [facility] on 02/26/2025 for sore throat. Negative [...] testing/treatment Medical Decision Making Level: [facility] - [facility] History of Present illness Narrative* Mony Gutierrez APRN.CNP - 03/01/2025 7:21 AM EDT 03/01/2025 Patient presents with: Sore Throat SUBJECTIVE: This is a 30 year old that is here today for Above Complaints. Seen in [facility] on 02/26/2025 for sore throat. Negative Strep test. Patient reports she was given antibiotic but did not start it as she didn't think it was needed. Reports pain has been ongoingto 10 days now and it can be [...] 57.9 kg (127 lb 9.6 oz) LMP 03/09/2023(Approximate) SpO2 98% BMI 21.23 kg/m . Vital [...] ER with red flag symptoms Mony Gutierrez APRN.REIMBURSEMENT LIAISON Prescription instructions reviewed with patient as applicable. [...] Level: 4 - Moderate documented in this encounterUniversity Hospitals St. [facility]05-05-2025 NoteHNO ID: [id number] Author: PALUINO BARKER APRN.MAGO Service: ? Author Type: Nurse [...] - STREP A MOLECULAR (POC) Paulino Barker APRN.CNP History and Record Review External record(s) reviewed: prior outpatient record. Systemic symptoms present included: fever Disposition The patient was discharged. OTC Medications were advised: ProceduresBl[facility] History of Present illness Narrative* Paulino Barker APRN.CNP - 02/26/2025 7:49 PM EDT [facility] Subjective HPI HPI Rashmi [...] Negative for ear discharge, ear pain, sinus pressureand sinus pain. Eyes: Negative for discharge and [...] - STREP A MOLECULAR (POC) Paulino Barker APRN.CNP History and Record Review External record(s) reviewed: prior outpatient record. Systemic symptoms present included: fever Disposition The patient was discharged. OTC Medications were advised: Procedures documented in this encounterUniversity Hospitals St. [facility]04-10-2025 NoteHNO ID: [id number] Author: KEEGAN DANIELS APRN.CNP Service: ? Author Type: Nurse Practitioner Type: Progress Notes Filed: 02/01/2025 17:26 Note Text: This note was created using [employer]. Subjective Rashmi Hough is a 29 year [...] PROPIONATE 50 MCG/ACTUATION NASAL SPRAY,SUSPENSION Keegan Daniels APRN.MAGOBlanch[facility]04-10-20[facility] History of Present illness Narrative* Keegan Daniels APRN.REIMBURSEMENT LIAISON - 02/01/2025 5:23 PM EDT This note was created using NoteWriter. Subjective [...] 59.2 kg (130 lb 8.2 oz) LMP 03/09/2023(Approximate) SpO2 98% BMI 21.72 kg/m Physical Exam [...] Discussed with patient that symptoms seem most consistentwith probable eustachian tube dysfunction. She will continue to use her home Claritin and she was given prescriptions for Flonase and prednisone. - PREDNISONE 50 MG TABLET - FLUTICASONE PROPIONATE 50 MCG/ACTUATION NASAL SPRAY,SUSPENSION Keegan Daniels APRN.MAGO documented in this encounterUniversity Hospitals St. [facility]03-26-2025 Evaluation note* Diagnosis Onset Date Resolution Status Admit Date Possible exposure to STI acute January 17, 2025 1:57pm Vaginal odor noneactive January 17, 2025 1:57pm Possible exposure to STI acute May 17, 2025 10:17am [facility] Work Phone: 1(801) 144-126701-14-2025 Evaluation note* Diagnosis Onset Date Resolution Status Admit Date Elective noneactive November 07, 2024 9:09am Possible exposure to STI acute November 15, 2024 8:17am Encounter for routine gynecological examination noneactive Octgordon 2024 8:17am Possible exposure to STI acute January 17, 2025 1:57pm Vaginal odor noneactive January 17, 2025 1:57pm [facility] Work Phone: 1(901) 636-658511-25-2024 History of Present illness Narrative* Padmini Hudson [...] PATIENT PRESENTS WITH AN IMPLANTABLE OR ATTACHED NATURAL RESOURCE TECHNICIAN: No RADIOLOGY DEPARTMENT: General X-ray: Exam(s) Completed: Upper Extremity X- Ray(s): Fingers/Thumb, right PERIPHERAL IV DATA: Not applicable SIGNED BY: RT Namia(Kathi) September 18, 2024 12:15 PM documented in this encounterUniversity Hospitals St. [facility]11-25-2024 NoteHNO ID: [id number] Author: PADMINI HUDSON RT(R) Service: ? Author [...] PATIENT PRESENTS WITH AN IMPLANTABLE OR ATTACHED NATURAL RESOURCE TECHNICIAN: No RADIOLOGY DEPARTMENT: General X-ray: Exam(s) Completed: Upper Extremity X-Ray(s): Fingers/Thumb, right PERIPHERAL IV DATA: Not applicable SIGNED BY: Padmini Hudson RT(R) September 18, 2024 12:15 [facility]11-25-2024 NoteHNO ID: [id number] Author: GUILHERME KHALIL APRN.REIMBURSEMENT LIAISON Service: ? Author Type: Nurse Practitioner Type: [...] movement is limited due to some weakness. [id number]. No surgeries or fractures previously. Past medical [...] of care. This note was generated using Womply software. It may contain errors in wording, punctuation, or spelling. Guilherme Khalil APRN.[facility]11-25-2024 History of Present illness Narrative* Guilherme Khalil APRN.MAGO - 09/18/2024 12:19 PM EST Images from [...] movement is limited due to some weakness. [id number]-ezupddnn. No surgeries or fractures previously. Past medical [...] of care. This note was generated using W[employer]ply software. It may contain errors in wording, punctuation, or spelling. Guilherme Khalil APRN.REIMBURSEMENT LIAISON documented in this encounterUniversity Hospitals St. [facility]07-29-2024 NoteHNO ID: [id number] Author: MONY GUTIERREZ APRN.REIMBURSEMENT LIAISON Service: ? Author Type: Nurse Practitioner Type: [...] smoke marijuana. Is going to counseling in [place]. Appetite has improved on Remeron. Denies SI, [...] management Medical Decision Making Level: 4 - ModerateBl[facility]07-29-[facility] History of Present illness Narrative* Mony Gutierrez APRN.CNP - 05/22/2024 1:11 PM EDT 05/22/2024 Patient [...] smoke marijuana. Is going to counseling in [place]. Appetite has improvedon Remeron. Denies SI, HI [...] Cervical Cancer Screening due on 10/05/2022 Covid-19 Vaccine(2022- season) due on 06/25/2023 Influenza Vaccine(1) due [...] Level: 4 - Moderate documented in this encounterUniversity Hospitals St. [facility]04-03-2024 Miscellaneous Notes* Telephone Encounter - Ml Felipe LPN - 01/26/2024 1:35 PM EDT Phoned patient and went over results, notes from Mony Gutierrez WAREHOUSE REPRESENTATIVE with understanding. Patient has already scheduled her lab appt for February. * Telephone Encounter - Mony Gutierrez APRN.CNP - 01/26/2024 12:25 PM EDT CBC shows low platelets which she has had in the past. Will need to recheck in one month. The rest of her blood work is normal. Mony Gutierrez APRN.CNP documented in this encounterUniversity Hospitals St. [facility]04-02-2024 History of Present illness Narrative* Mony Gutierrez APRN.REIMBURSEMENT LIAISON - 01/25/2024 10:53 AM EDT 01/25/2024 Patient presents with: Losing weight: No appetite and not able to eat. SUBJECTIVE: This is a 28 year old that is here today for Above Complaints.. Would like to restart Remeron due to no appetite. Has not taken for about a year. Reports she feelshungry but nothing sounds good. [facility] but didn't care much for her. Trying to get back into counseling at [facility] where she has went in the past. [...] Level: 4 - Moderate documented in this encounterUniversity Hospitals St. [facility]06-26-2023 History of Present illness Narrative* Jose Alfredo Leung MD - 04/19/2023 1:16 PM EDT Jose Alfredo Leung MD Department of Orthopaedics Orthopaedics [address] [place] [address] Dept: [phone] Dept April 19, 2023 CHIEF COMPLAINT: New [...] shoulder back in. 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 [facility]05-08-2023 Miscellaneous Notes* Telephone Encounter - Tonja Fuentes [...] ranges. Mony Gutierrez APRN.CNP documented in this encounterUniversity Hospitals St. [facility]05-03-2023 Instructions* Patient Instructions* Mony Gutierrez APRN.CNP - 02/24/2023 6:46 PM EDT Try to increase calories documented in this encounterUniversity Hospitals St. [facility]05-03-2023 History of Present illness Narrative* Mony Gutierrez [...] No history of dysuria, frequency or incontinence STOCK TRADER: Negative for abnormal vaginal bleeding, abnormal vaginal [...] 74 Resp 18 Ht 162.4 cm (5' 3.94) Wt 62.2 kg (137 lb 3.2 oz) [...] - CONSULT TO PHYSICAL THERAPY Mony Gutierrez APRN.REIMBURSEMENT LIAISON Prescription instructions reviewed with patient as applicable. Patient advised if symptoms do not improve or if symptoms worsen sooner, to contact their primary care physician. Potential red flag symptoms discussed with the patient. Reviewed appropriate action plan to take if red flag symptoms occur. Patient agreeable to treatment plan. documented in this encounterUniversity Hospitals St. [facility]03-21-2023 History of Present illness Narrative* Maxine Frias APRN.REIMBURSEMENT LIAISON - 01/12/2023 7:39 PM EDT CC: Patient [...] Patient agreeable to treatment plan. Maxine Frias APRN.CNP documented in this encounterUniversity Hospitals St. [facility]05-04-2017 History of Past illness Narrative* [...] vomiting in . She was seen at [facility] and given an RX for Phenergan. [...] encounter (statuses as of 01/13/2023) [facility] History of Past illness Narrative* [...] vomiting in . She was seen at [facility] and given an RX for Phenergan. [...] encounter (statuses as of 02/25/2023) [facility]05-04-2017 History of Past illness Narrative* [...] vomiting in . She was seen at [facility] and given an RX for Phenergan. [...] encounter (statuses as of 03/01/2023) [facility] [facility] History of Past illness Narrative* [...] vomiting in . She was seen at [facility] and given an RX for Phenergan. [...] encounter (statuses as of 04/19/2023) [facility]05[facility] History of Past illness Narrative* [...] vomiting in . She was seen at [facility] and given an RX for Phenergan. [...] of this encounter (statuses as of 01/25/2024) [facility]05-04-2017 History of Past illness Narrative* [...] vomiting in . She was seen at [facility] and given an RX for Phenergan. [...] of this encounter (statuses as of 01/27/2024) [facility] Diagnosis Onset Date Resolution Status Contraception management non eactive Possible exposure to STD non eactive [facility] Work Phone: Evaluation note* Diagnosis Sore throat- Primary Acute pharyngitis documented in this encounter [facility] note* Diagnosis Routine physical examination- Primary Routine general medical examination at a health care facility No appetite Anorexia Hx of dislocation of shoulder Personal history of other musculoskeletal disorders documented in this encounter [facility] note* Diagnosis Shoulder dislocation, recurrent, right- Primary Chronic right shoulder pain Pain in joint, shoulder region documented in this encounter [facility] note* Diagnosis Onset Date Resolution Status Acute pharyngitis acute Possible exposure to STD non eactive [facility] Work Phone: Evaluation note* Diagnosis Onset Date Resolution Status Acute pharyngitis acute Possible exposure to STD non eactive Routine screening for STI (s exually transmitted infection) acute [facility] Work Phone: Evaluation note* Diagnosis Onset Date Resolution Status IUD check up noneactive Possible exposure to STD non eactive Vaginal discharge noneactive [facility] Work Phone: Evaluation note* Diagnosis Onset Date Resolution Status IUD check up noneactive Possible exposure to STD non eactive Vaginal discharge noneactive Possible exposure to STD non eactive Vaginal discharge noneactive [facility] Work Phone: Evaluation note* Diagnosis Anxiety and depression- Primary Dysthymic disorder No appetite Anorexia documented in this encounter [facility] note* Diagnosis Thrombocytopenia (HCC)- Primary Thrombocytopenia, unspecified documented in this encounter [facility] note* Diagnosis Anxiety and depression- Primary Dysthymic disorder No appetite Anorexia documented in this encounter [facility] note* Diagnosis Injury of finger of right hand, initial encounter- Primary Injury of finger of right hand, initial encounter documented in this encounter [facility] note* Diagnosis Injury of finger of right hand, initial encounter documented in this encounter [facility] note* Diagnosis Eustachian tube dysfunction, left- Primary documented in this encounter [facility] note* Diagnosis Sinobronchitis- Primary Unspecified sinusitis (chronic) Sore throat Acute pharyngitis documented in this encounter [facility] note* Diagnosis Abscess, peritonsillar- Primary [facility]itons[facility] Abscess, peritonsillar Peritonsillar abscess documented [facility] encounter [facility] Author Nereyda Rondon [facility] Note Date/Time May 17, 2025 10:4 7am [facility] [address] [place] [address], [address] [place] [address] OFFICE VISIT Date of Service: 05/17/25 MR#: [id number] Acct: [id number] Name: RASHMI HOUGH Rep #: [id number] : 1995 Provider: ARNULFO Rondon Age/Sex: 30/F Location: [facility] Status: Signed Intake Vital Signs 01/17/25 14:05 05/17/25 09:18 05/17/25 10:20 Height 5 ft 5 in 5 ft 5 in 5 ft 5 in Weight: 126 lb BMI 20.9 BP 108/73 Intake Visit Reasons: STD TESTING Clinical Educator Required: No Is patient in pain?: No [...] home: Yes additional social history: Single- Works [employer] HPI STD TESTING Details: RASHMI HOUGH [...] lbs 9 oz Female 2 hours epidural [place] 11/06/12 Rich 39 live - full term 7 lbs 5 oz Male 5 hours epidural [place] 03/12/17 Santhosh 39 live - full term 7 lbs 8 oz Fema le 4 hours epidural [facility] ROS Const Constitutional: Reports system reviewed and [...] transmission 05/17/25 1047 <Electronically signed by Nereyda ARREDONDO> Date _ Nereyda ARREDONDO Cosigner Signature: Date (if applicable) CC: ~ [facility] Work Phone: Reason for referral (narrative)* Diagnostic Procedure Only (Urgent) - Closed Specialty Diagnoses / Procedures Referred By Lizbeth t Referred To Contact XR IMAGING Diagnoses Injury of finger of right hand, initial encounter Procedures XR DIGIT GENERAL 3V FRONTAL/LAT/OBL RIGHT RADEX FINGR MINIMUM 2 VIEWS Guilherme Khalil APRN.[facility] [address] [place] [address] [place] [address] Referral ID Status Reason Start Date Expiration Date V isits Requested Visits Authorized [id number] Closed Auto-Generate d Referral 09/18/2024 10/18/2025 1 1 [facility] for referral (narrative)No reason for referral information [facility] Work Phone: Reason for visit Narrative* Diagnostic Procedure Only (Urgent) - Closed Specialty Diagnoses / Procedures Referred By Contac t Referred To Contact XR IMAGING Diagnoses Chronic right shoulder pain Procedures XR SHOULDER GENERAL 3V OR MORE AP/TRUE AP/OTHER RIGHT RADEX SHOULDER COMPLETE MINIMUM 2 VIEWS Paulino Barker HAY RAKE OPERATOR.[facility] [address] [place] [address] [place] [address] Referral ID Status Reason Start Date Expiration Date V isits Requested Visits Authorized [id number] Closed Auto-Generate d Referral 03/18/2023 04/16/2024 1 1 [facility] for visit Narrative* Diagnostic Procedure Only (Urgent) - Closed Specialty Diagnoses / Procedures Referred By Contac t Referred To Contact XR IMAGING Diagnoses Injury of finger of right hand, initial encounter Procedures XR DIGIT GENERAL 3V FRONTAL/LAT/OBL RIGHT RADEX FINGR MINIMUM 2 VIEWS Guilherme Khalil APRN.[facility] [address] [place] [address] [place] [address] Referral ID Status Reason Start Date Expiration Date V isits Requested Visits Authorized [id number] Closed Auto-Generate d Referral 09/18/2024 10/18/2025 1 1 [facility] for visit Narrative* MRI/CT (Urgent) - Closed Specialty Diagnoses / Procedures Referred By Contac t Referred To Contact CT IMAGING Diagnoses Abscess, peritonsillar Procedures CT NECK SOFT TISSUE W IVCON CT SOFT TISSUE NECK W/CONTRAST MATERIAL Mony Gutierrez HAY RAKE OPERATOR.[facility]SE[facility] [address] [place] [address] Phone: tel: fax: [place] [address] Referral ID Status Reason Start Date Expiration Date V isits Requested Visits Authorized [id number] Closed Auto-Generat ed Referral Patient Cleared - Admin/Chairm an/Director advise to proceed or did not respond 03/01/2025 04/30/2025 [address] [facility] Summary Purpose Family History No Family History Records Found Relationship Condition Age at Onset Recorded Date/T bessy grandmother Cardiac disease Unknown Hypertension Unknown Asthma Unknown Cerebrovascular accident (CVA) Unknown Malignant neoplasm of lung Unknown grandfather Cardiac disease Unknown father Substance abuse Unknown Advance Directives No Advanced Directives Records Found Advance Directive Response Recorded Date/ Time Advance Directives No June 18, 2020 12:52pm Living Will No June 18 0 12:52pm Power of Medical Administrative Technician No June 18, 020 12:52pm Advance Directive Response Recorded Date/ Time Advance Directives No June 18, 2020 1:52pm Living Will No April 21, 2023 3:20pm Power of Medical Administrative Technician No April 21 3:20pm Advance Directive Response Recorded Date/ Time Advance Directives No June 18, 2020 12:52pm Living Will No April 21, 2023 2:20pm Power of Medical Administrative Technician No April 21 2:20pm Advance Directive Response Recorded Date/ Time Living Will No April 21, 2023 3:20pm Do you have a Healthcare Power of Medical Administrative Technician? No April 21, 2023 3:20pm Advance Directives [...] care November 07, 2024 9 :09am Annual (STOCK TRADER) November 15, 2024 8 :17am STD testing [...] exposure to STI May 17, 2025 10:17am Chief Complaint Admit Date STD TESTING May 17, 2025 10:1 7am Reason for Visit Admit Date Possible exposure to STI May 17, 2025 10:17am Reason for Referral Specialty Diagnoses / Procedures Referred By Contac t Referred To Contact [facility] Diagnoses Hx of dislocation of shoulder Procedures CONSULT TO PHYSICAL THERAPY PHYSICAL THERAPY EVALUATION HIGH COMPLEX 45 MINS Podlogar, SAÚL Sykes.[facility] [address] [place] [address] [facility] [address] [place] [address] Referral ID Status Reason Start Date Expiration Date Visits Requested Visits Authorized [id number] Pending Review Auto-Generat ed Referral 02/24/2023 02/24/2024 1 1 Specialty Diagnoses / Procedures Referred By Contac t Referred To Contact MR IMAGING Diagnoses Chronic right shoulder pain Shoulder dislocation, recurrent, right Procedures MRI SHOULDER WO IVCON RIGHT MRI ANY JT UPPER EXTREMITY W/O CONTRAST MATRL Jose Alfredo Leung MD [address] [place] [address] Mr Imaging Referral ID Status Reason Start Date Expiration Date Visits Requested Visits Authorized [id number] Pending Review Auto-Generat ed Referral 04/19/2023 05/18/2024 1 1 Specialty Diagnoses / Procedures Referred By Contac t Referred To Contact Orthopedics Diagnoses Injury of finger of right hand, initial encounter Procedures CONSULT TO ORTHOPAEDICS OFFICE/OUTPATIENT [facility] 60 MINUTES Guilherme Khalil APRN.[facility]BURSEMENT [facility]IAISON [address] [place] [address] Referral ID Status Reason Start Date Expiration Date Visits Requested Visits Authorized [id number] Authorized PCP Requested Referral 09/18/2025 1 1 Specialty Diagnoses / Procedures Referred By Contac t Referred To Contact XR IMAGING Diagnoses Injury of finger of right hand, initial encounter Procedures XR DIGIT GENERAL 3V FRONTAL/LAT/OBL RIGHT RADEX FINGR MINIMUM 2 VIEWS Guilherme Khalil, HAY RAKE OPERATOR.[facility]SE[facility] [address] [place] [address] [place] [address] Referral ID Status Reason Start Date Expiration Date V isits Requested Visits Authorized [id number] Closed Auto-Generate d Referral 09/18/2024 10/18/2025 1 1 Additional Source Comments INFORMATION SOURCE (unrecogn ized section and content) DATE CREATED AUTHOR 10/13/[address] [facility] DATE CREATED AUTHOR AUTHOR'S ORGANIZ ATION 10/23/2020 [facility] DATE CREATED AUTHOR AUTHOR'S ORGANIZ ATION 03/03/2025 [facility] DATE CREATED AUTHOR AUTHOR'S ORGANIZ ATION 03/05/2025 [facility] DATE CREATED AUTHOR AUTHOR'S ORGANIZ ATION 07/17/2025 [facility] Care Teams (unrecognized sec tion and content) Team Status: Active Member Role Status Dates Dr. Archie Marcum III, MD Family Provider Active No Primary Care Physician Primary Care Provider Active Team Status: Inactive Member Role Status Dates No Primary Care Physician Primary Care Provider, Refer ring Provider Active Estella Marques WAREHOUSE REPRESENTATIVE, WAREHOUSE REPRESENTATIVE-C Attending Provider Active Team Status: Inactive Member Role Status Dates No Primary Care Physician Primary Care Provider Active Estella Marques WAREHOUSE REPRESENTATIVE, WAREHOUSE REPRESENTATIVE-C Attending Provider, Referring Provider Active Scaffold Erector Relationship Specialty Start Date End Date Colt Silvestre MD [address] [place], [place] [id number] PCP - General Family Medicine 08/27/21 Scaffold Erector Relationship Specialty Start Date End Date Colt Silvestre MD [address] [place] [address] PCP - General Family Medicine 08/27/21 Scaffold Erector Relationship Specialty Start Date End Date Colt Silvestre MD [address] [place], [place] [address] PCP - General Family Medicine 08/27/21 Scaffold Erector Relationship Specialty Start Date End Date Colt Silvestre MD [address] [place], [place] [address] PCP - General Family Medicine 08/27/21 Team Status: Active Member Role Status Dates Dr. Archie Marcum III, MD Family Provider Active Deidre Thakkar WAREHOUSE REPRESENTATIVE, WAREHOUSE REPRESENTATIVE-C Primary Care Provider Active Team Status: Inactive Member Role Status Dates No Primary Care Physician Primary Care Provider, Refer ring Provider Active ELISABETH Stuart Attending Provider Active Team Status: Inactive Member Role Status Dates Dr. Jami Luz MD Emergency Provider Active Deidre Thakkar WAREHOUSE REPRESENTATIVE, WAREHOUSE REPRESENTATIVE-C Primary Care Provider Active Team Status: Active Member Role Status Dates No Primary Care Physician Primary Care Provider Active ELISABETH Stuart Attending Provider, Referring Provi milli Active Team Status: Inactive Member Role Status Dates No Primary Care Physician Referring Provider Active Mayra Suggs CNM Attending Provider Active Deidre Thakkar NP, WAREHOUSE REPRESENTATIVE-C Primary Care Provider Active Team Status: Active Member Role Status Dates Deidre Thakkar NP, WAREHOUSE REPRESENTATIVE-C Primary Care Provider Active Mayra Suggs CNM Attending Provider, Referring Pro vider Active Team Status: Inactive Member Role Status Dates No Primary Care Physician Primary Care Provider Active ELISABETH Stuart Attending Provider, Referring Provi milli Active Team Status: Inactive Member Role Status Dates Dr. Jami Luz MD Attending Provider, Emergency Provider Active Deidrechristi Thakkar WAREHOUSE REPRESENTATIVE, WAREHOUSE REPRESENTATIVE-C Primary Care Provider Active Team Status: Inactive Member Role Status Dates Deidrechristi Thakkar WAREHOUSE REPRESENTATIVE, WAREHOUSE REPRESENTATIVE-C Primary Care Provider Active Mayra Suggs CNM Attending Provider, Referring Pro vider Active Team Status: Inactive Member Role Status Dates No Primary Care Physician Referring Provider Active Dr. Lila John MD Attending Provider Active Deidre Thakkar WAREHOUSE REPRESENTATIVE, WAREHOUSE REPRESENTATIVE-C Primary Care Provider Active Team Status: Inactive Member Role Status Dates Deidrechristi Thakkar WAREHOUSE REPRESENTATIVE, WAREHOUSE REPRESENTATIVE-C Primary Care Provider, Refer ring Provider Active Dr. Lila John MD Attending Provider Active Team Status: Inactive Member Role Status Dates Deidre Thakkar WAREHOUSE REPRESENTATIVE, WAREHOUSE REPRESENTATIVE-C Primary Care Provider, Refer ring Provider Active Estella Marques WAREHOUSE REPRESENTATIVE, WAREHOUSE REPRESENTATIVE-C Attending Provider Active Team Status: Inactive Member Role Status Dates Deidre Thakkar WAREHOUSE REPRESENTATIVE, WAREHOUSE REPRESENTATIVE-C Primary Care Provider Active Dr. Lila John MD Attending Provider, Referr ing Provider Active Team Status: Inactive Member Role Status Dates Deidre Thakkar WAREHOUSE REPRESENTATIVE, WAREHOUSE REPRESENTATIVE-C Primary Care Provider Active Estella Marques WAREHOUSE REPRESENTATIVE, WAREHOUSE REPRESENTATIVE-C Attending Provider, Referring Provider Active Scaffold Erector Relationship Specialty Start Date End Date Colt Silvestre MD [address] [place] [address] PCP - General Family Medicine 08/27/21 Scaffold Erector Relationship Specialty Start Date End Date Colt Silvestre MD [address] [place] [address] PCP - General Family Medicine 08/27/21 Scaffold Erector Relationship Specialty Start Date End Date Colt Silvestre MD [address] [place] [address] PCP - General Family Medicine 08/27/21 Scaffold Erector Relationship Specialty Start Date End Date Colt Silvestre MD [address] [place] [address] PCP - General Family Medicine 08/27/21 Scaffold Erector Relationship Specialty Start Date End Date Colt Silvestre MD [address] [place] [address] PCP - General Family Medicine 08/27/21 Scaffold Erector Relationship Specialty Start Date End Date Colt Silvestre MD [address] [place] [address] PCP - General Family Medicine 08/27/21 Team Status: Inactive Member Role Status Dates Deidre Thakkar WAREHOUSE REPRESENTATIVE, WAREHOUSE REPRESENTATIVE-C Primary Care Provider Active Start: November 07, 2024 End: November 07, 2024 Deidre Thakkar WAREHOUSE REPRESENTATIVE, WAREHOUSE REPRESENTATIVE-C Referring Provider Active Start: November 07, 2024 End: November 07, 2024 Estella Marques WAREHOUSE REPRESENTATIVE, WAREHOUSE REPRESENTATIVE-C Attending Provider Active Start: November 07, 2024 End: November 07, 2024 Team Status: Inactive Member Role Status Dates Deidre Thakkar NP, WAREHOUSE REPRESENTATIVE-C Primary Care Provider Active Start: November 15, 2024 End: November 15, 2024 Deidre Thakkar NP, WAREHOUSE REPRESENTATIVE-C Referring Provider Active Start: November 15, 2024 End: November 15, 2024 Nereyda Rondon WAREHOUSE REPRESENTATIVE-C Attending Provider Active Start: November 15, 2024 End: November 15, 2024 Team Status: Inactive Member Role Status Dates Deidre Thakkar NP, WAREHOUSE REPRESENTATIVE-C Primary Care Provider Active Start: November 15, 2024 End: November 15, 2024 Nereyda Rondon WAREHOUSE REPRESENTATIVE-C Attending Provider Active Start: November 15, 2024 End: November 15, 2024 Nereyda Rondon WAREHOUSE REPRESENTATIVE-C Referring Provider Active Start: November 15, 2024 End: November 15, 2024 Team Status: Inactive Member Role Status Dates Deidre Thakkar NP, WAREHOUSE REPRESENTATIVE-C Primary Care Provider Active Start: January 17, 2025 End: January 17, 2025 Deidre Thakkar NP, WAREHOUSE REPRESENTATIVE-C Referring Provider Active Start: January 17, 2025 End: January 17, 2025 Estella Marques NP, WAREHOUSE REPRESENTATIVE-C Attending Provider Active Start: January 17, 2025 End: January 17, 2025 Team Status: Inactive Member Role Status Dates Deidre Thakkar NP, WAREHOUSE REPRESENTATIVE-C Primary Care Provider Active Start: January 17, 2025 End: January 17, 2025 Estella Marques NP, WAREHOUSE REPRESENTATIVE-C Attending Provider Active Start: January 17, 2025 End: January 17, 2025 Estella Shelli WAREHOUSE REPRESENTATIVE, WAREHOUSE REPRESENTATIVE-C Referring Provider Active Start: January 17, 2025 End: January 17, 2025 Scaffold Erector Relationship Specialty Start Date End Date Colt Silvestre MD [address] [facility] [address] PCP - General Family Medicine 08/27/21 Podlogar, SAÚL Sykes.REIMBURSEMENT LIAISON [address] [facility] [address] [facility] 09/30/24 Kaylee Ontiveros APRN.[facility]IMBURSEMENT LIAISON [address] [place] [address] [facility] 01/15/25 Scaffold Erector Relationship Specialty Start Date End Date Colt Silvestre MD [address] [facility] [address] PCP - General Family Medicine 08/27/21 Podlogar, SAÚL Sykes.REIMBURSEMENT LIAISON [address] [facility] [address] [facility] 09/30/24 Kaylee Ontiveros APRN.REIMBURSEMENT LIAISON [address] [place] [address] [facility] 01/15/25 Scaffold Erector Relationship Specialty Start Date End Date Colt Silvestre MD [address] [facility], [place] [address] PCP - General Family Medicine 08/27/21 Podlogar, Mony HAY RAKE OPERATOR.REIMBURSEMENT LIAISON [address] [facility] [address] [facility] 09/30/24 Kaylee Ontiveros HAY RAKE OPERATOR.REIMBURSEMENT LIAISON [address] [place] [address] [facility] 01/15/25 Scaffold Erector Relationship Specialty Start Date End Date Colt Silvestre MD [address] [place] [address] PCP - General Family Medicine 08/27/21 PodlogarMony HAY RAKE OPERATOR.REIMBURSEMENT LIAISON [address] [place] [address] [facility] 09/30/24 Kaylee Ontiveros HAY RAKE OPERATOR.REIMBURSEMENT LIAISON [address] [place] [address] [facility] 01/15/25 Scaffold Erector Relationship Specialty Start Date End Date Colt Silvestre MD [address] [place] [address] PCP - General Family Medicine 08/27/21 PodlogarMony HAY RAKE OPERATOR.REIMBURSEMENT LIAISON [address] [place] [address] [facility] Medicine 09/30/24 Kaylee Ontiveros HAY RAKE OPERATOR.REIMBURSEMENT LIAISON [address] [place] [address] [facility] 01/15/25 Scaffold Erector Relationship Specialty Start Date End Date Colt Silvestre MD [address] [place] [address] PCP - General Family Medicine 08/27/21 PodlogarMony APRN.[facility]IMBURSEMENT LIAISON [address] [place], [place] [address] Sales Planning Coordinator Family Medicine 09/30/24 Kaylee Ontiveros, HAY RAKE OPERATOR.REIMBURSEMENT LIAISON [address] [place], [place] [address] Sales Planning Coordinator Family [facility] 01/15/25 03/11/25 Kaylee Ontiveros, HAY RAKE OPERATOR.REIMBURSEMENT LIAISON [address] [place], [place] [address] Sales Planning Coordinator Family [facility] 04/05/25 Team Status: Active Member Role/Relationship Status Dates Dr. Archie Marcum III, MD Family Provider Active Deidre Thakkar NP, WAREHOUSE REPRESENTATIVE-C Primary Care Provider Active Team Status: Inactive Member Role/Relationship Status Dates Deidre Thakkar NP, WAREHOUSE REPRESENTATIVE-C Primary Care Provider Active Start: January 17, 2025 End: January 17, 2025 Deidre Thakkar NP, WAREHOUSE REPRESENTATIVE-C Referring Provider Active Start: January 17, 2025 End: January 17, 2025 Estella Marques NP, WAREHOUSE REPRESENTATIVE-C Attending Provider Active Start: January 17, 2025 End: January 17, 2025 Team Status: Inactive Member Role/Relationship Status Dates Deidre Thakkar NP, WAREHOUSE REPRESENTATIVE-C Primary Care Provider Active Start: January 17, 2025 End: January 17, 2025 Estella Marques NP, WAREHOUSE REPRESENTATIVE-C Attending Provider Active Start: January 17, 2025 End: January 17, 2025 Estella Marques NP, WAREHOUSE REPRESENTATIVE-C Referring Provider Active Start: January 17, 2025 End: January 17, 2025 Team Status: Inactive Member Role/Relationship Status Dates Deidre Thakkar NP, WAREHOUSE REPRESENTATIVE-C Primary Care Provider Active Start: May 17, 2025 End: May 17, 2025 Deidre Thakkar NP, WAREHOUSE REPRESENTATIVE-C Referring Provider Active Start: May 17, 2025 End: May 17, 2025 Nereyda Rondon NP-C Attending Provider Active Start: May 17, 2025 End: May 17, 2025 Team Status: Active Member Role/Relationship Status Dates Deidre Thakkar NP, WAREHOUSE REPRESENTATIVE-C Primary Care Provider Active Start: May 17, 2025 Nereyda Rondon NP-C Attending Provider Active Start: May 17, 2025 Nereyda Rondon NP-C Referring Provider Active Start: May 17, 2025 Team Status: Inactive Member Role/Relationship Status Dates Deidre Thakkar NP, WAREHOUSE REPRESENTATIVE-C Primary Care Provider Active Start: May 17, 2025 End: May 17, 2025 Deidre Thakkar NP, WAREHOUSE REPRESENTATIVE-C Referring Provider Active Start: May 17, 2025 End: May 17, 2025 Nereyda Rondon NP-C Attending Provider Active Start: May 17, 2025 End: May 17, 2025 Team Status: Inactive Member Role/Relationship Status Dates Deidre Thakkar NP, WAREHOUSE REPRESENTATIVE-C Primary Care Provider Active Start: May 17, 2025 End: May 17, 2025 Nereyda Rondon NP-Sharif Attending Provider Active Start: May 17, 2025 End: May 17, 2025 Nereyda Rondon NP-Sharif Referring Provider Active Start: May 17, 2025 End: May 17, 2025 Goals (unrecognized section and [...] any alcohol or drug abuse patient.[facility] the event this information is protected by the Federal Confidentiality of Alcohol and Drug Abuse Patient Records regulations: The Federal rules restrict any use of the information to criminally investigate or prosecute any alcohol or drug abuse patient.[facility] the event this information is protected by the Federal Confidentiality of Alcohol and Drug Abuse Patient Records regulations: The Federal rules restrict any use of the information to criminally investigate or prosecute any alcohol or drug abuse patient.[facility] CenterIn the event this information is protected by the Federal Confidentiality of Alcohol and Drug Abuse Patient Records regulations: The Federal rules restrict any use of the information to criminally investigate or prosecute any alcohol or drug abuse patient.[facility] CenterIn the event this information is protected by the Federal Confidentiality of Alcohol and Drug Abuse Patient Records regulations: The Federal rules restrict any use of the information to criminally investigate or prosecute any alcohol or drug abuse patient.[facility] CenterIn the event this information is protected by the Federal Confidentiality of Alcohol and Drug Abuse Patient Records regulations: The Federal rules restrict any use of the information to criminally investigate or prosecute any alcohol or drug abuse patient.[facility] CenterIn the event this information is protected by the Federal Confidentiality of Alcohol and Drug Abuse Patient Records regulations: The Federal rules restrict any use of the information to criminally investigate or prosecute any alcohol or drug abuse patient.[facility] CenterIn the event this information is protected by the Federal Confidentiality of Alcohol and Drug Abuse Patient Records regulations: The Federal rules restrict any use of the information to criminally investigate or prosecute any alcohol or drug abuse patient.[facility] CenterIn the event this information is protected by the Federal Confidentiality of Alcohol and Drug Abuse Patient Records regulations: The Federal rules restrict any use of the information to criminally investigate or prosecute any alcohol or drug abuse patient.[facility] CenterIn the event this information is protected by the Federal Confidentiality of Alcohol and Drug Abuse Patient Records regulations: The Federal rules restrict any use of the information to criminally investigate or prosecute any alcohol or drug abuse patient.[facility] CenterIn the event this information is protected by the Federal Confidentiality of Alcohol and Drug Abuse Patient Records regulations: The Federal rules restrict any use of the information to criminally investigate or prosecute any alcohol or drug abuse patient.[facility] CenterIn the event this information is protected by the Federal Confidentiality of Alcohol and Drug Abuse Patient Records regulations: The Federal rules restrict any use of the information to criminally investigate or prosecute any alcohol or drug abuse patient.[facility] CenterIn the event this information is protected by the Federal Confidentiality of Alcohol and Drug Abuse Patient Records regulations: The Federal rules restrict any use of the information to criminally investigate or prosecute any alcohol or drug abuse patient.[facility] CenterIn the event this information is protected by the Federal Confidentiality of Alcohol and Drug Abuse Patient Records regulations: The Federal rules restrict any use of the information to criminally investigate or prosecute any alcohol or drug abuse patient.[facility] CenterIn the event this information is protected by the Federal Confidentiality of Alcohol and Drug Abuse Patient Records regulations: The Federal rules restrict any use of the information to criminally investigate or prosecute any alcohol or drug abuse patient.[facility] CenterIn the event this information is protected by the Federal Confidentiality of Alcohol and Drug Abuse Patient Records regulations: The Federal rules restrict any use of the information to criminally investigate or prosecute any alcohol or drug abuse patient.[facility] Reason for Visit (unrecogniz ed [...] Procedures CONSULT TO ORTHOPAEDICS OFFICE/OUTPATIENT [facility] 60-74 MINUTES Paulino Barker APRN.[facility] [address] [place] [address] Referral ID Status Reason Start Date Expiration Date V isits Requested Visits Authorized [id number] Closed PCP Requested Referral 03/18/2023 03/17/2024 1 [...] BE BASED ON THE PRIMARY CLINICAL RECORDS. [employer] provides no warranty or guarantee of the accuracy or completeness of information in this document.
[2025-07-17 13:40] LABS: HIV Nonreactive (Nonreactive); Syphilis Antibodies Nonreactive (Nonreactive)
[2025-07-19 10:08] LABS: Chlamydia By Nucleic Acid AMP Negative (Negative); Gonococcus By Nucleic Acid AMP Negative (Negative); HCV Quant. RNA PCR HCV Not Detected IU/mL (.)
[2025-07-20 16:09] LABS: HPV APTIMA, High Risk Negative (Negative)
== END | disposition home or self-care (01) ==
PROVIDERS: PCP Nurse Practitioner Family; Visit Provider Nurse Practitioner Women's Health
DX: Z12.4 Encounter for screening for malignant neoplasm of cervix (principal); N89.8 Other specified noninflammatory disorders of vagina; Z20.2 Contact with and (suspected) exposure to infections with a predominantly sexual mode of transmission; Z11.3 Encounter for screening for infections with a predominantly sexual mode of transmission
CPT/HCPCS: 36415; 86695; 86696; 86703; 86780; 87070; 87077; 87186; 87205; 87491; 87522; 87591; 87624; 88175; G0145

== ENCOUNTER → 2025-10-01 | Outpatient (CLI) | payer MEDICAID, SELFPAY ==
[2025-10-01 17:45] LABS: HIV Nonreactive (Nonreactive); Syphilis Antibodies Nonreactive (Nonreactive)
[2025-10-04 06:08] LABS: Chlamydia By Nucleic Acid AMP Negative (Negative); Gonococcus By Nucleic Acid AMP Negative (Negative); HCV Quant. RNA PCR HCV Not Detected IU/mL (.)
== END | disposition home or self-care (01) ==
PROVIDERS: PCP Nurse Practitioner Family; Visit Provider Nurse Practitioner Women's Health
DX: N89.8 Other specified noninflammatory disorders of vagina (principal); Z20.2 Contact with and (suspected) exposure to infections with a predominantly sexual mode of transmission
CPT/HCPCS: 36415; 86695; 86696; 86703; 86780; 87070; 87205; 87491; 87522; 87591